=== PATIENT | male | born 1940 | race Caucasian/White ===

== ENCOUNTER 2020-07-20 11:53 | Outpatient (REF) | payer MEDICARE, SELFPAY | END 2020-07-20 11:54 | disposition home or self-care (01) | LOC: HO.LAB 11:53 | PROVIDERS: Visit Provider Internal Medicine | DX: Z20.828 Contact with and (suspected) exposure to other viral communicable diseases (principal) | CPT/HCPCS: 87635 ==

== ENCOUNTER 2020-07-28 14:40 | Outpatient (REF) | payer MEDICARE, SELFPAY | END 2020-07-28 14:41 | disposition home or self-care (01) | LOC: HO.LAB 14:40 | PROVIDERS: PCP Family Medicine; Visit Provider Internal Medicine | DX: Z20.828 Contact with and (suspected) exposure to other viral communicable diseases (principal) | CPT/HCPCS: 87635 ==

== ENCOUNTER 2020-08-11 13:20 | Emergency (ER) | payer MEDICARE, SELFPAY ==
[2020-08-11 13:55] VITALS: BP 123/56; PULSE 69; RESP 18; TEMP 37.2; O2SAT 95; BMI 24.6
--- NOTE | 2020-08-11 14:17 | US_ITS ---
EXAMINATION: US VENOUS ULTRASOUND WITH DOPPLER LOWER EXTREMITY, RIGHT CLINICAL INFORMATION: Right lower extremity swelling COMPARISON: None TECHNIQUE: Ultrasound of the deep veins is performed from the hip to the calf with compression sonography and color and pulse Doppler assessment. Spectral analysis with color-flow imaging is performed. FINDINGS: There is normal venous compression and respiratory variation and augmented flow. The visualized common femoral vein, superficial femoral vein, profunda femoral vein, popliteal vein, and the trifurcation region shows no evidence of deep venous thrombosis. There is a bilobed 6.9 x 3.6 x 3.8 cm popliteal fossa fluid collection connected by a thin neck. There is an additional, deeper fluid collection in the mid medial calf measuring 3.9 x 0.6 x 1.9 cm. If the patient's symptoms persist, followup ultrasound in 5 days 7 days might be of value to exclude proximal propagation from a non-visualized calf vein. US/US venous duplex LE RT IMPRESSION: No DVT demonstrated in the right lower extremity. Large popliteal fossa cyst. There is an additional deeper fluid collection in the mid medial calf, nonspecific. In the setting of trauma this could represent hematoma. Infection, i.e. abscess, could be considered in the appropriate clinical setting. Recommend correlation with history and physical exam. Consider attention on follow-up to confirm resolution.
--- NOTE | 2020-08-11 14:17 | XR_ITS ---
EXAMINATION: X-RAYS OF THE RIGHT ANKLE AND FOOT. CLINICAL INFORMATION: 80-year-old male patient with ankle and foot pain and swelling. COMPARISON: X-rays the right ankle on 05/05/2015. TECHNIQUE: 5 views of the right foot and ankle. FINDINGS: There is progressive calcification in the distal Achilles tendon insertion to the os calcis and progressive plantar calcaneal spur formation. Vascular calcifications are also present anterior and posterior to the ankle joint as well as within the dorsalis pedis artery. Progressive mineralization and calcification of the soft tissues within the tibialis tendon sheath. No fracture or dislocation. In addition there is chondrocalcinosis of the ankle joint. XR/XR foot RT 2V IMPRESSION: 1. 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 2. Progressive calcification of the plantar fascia. 3. Arterial vascular calcification in the foot and ankle. 4. Chondrocalcinosis of the ankle joint.
--- NOTE | 2020-08-11 14:17 | XR_ITS ---
EXAMINATION: X-RAYS OF THE RIGHT ANKLE AND FOOT. CLINICAL INFORMATION: 80-year-old male patient with ankle and foot pain and swelling. COMPARISON: X-rays the right ankle on 05/05/2015. TECHNIQUE: 5 views of the right foot and ankle. FINDINGS: There is progressive calcification in the distal Achilles tendon insertion to the os calcis and progressive plantar calcaneal spur formation. Vascular calcifications are also present anterior and posterior to the ankle joint as well as within the dorsalis pedis artery. Progressive mineralization and calcification of the soft tissues within the tibialis tendon sheath. No fracture or dislocation. In addition there is chondrocalcinosis of the ankle joint. XR/XR ankle RT min 3V IMPRESSION: 1. 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 2. Progressive calcification of the plantar fascia. 3. Arterial vascular calcification in the foot and ankle. 4. Chondrocalcinosis of the ankle joint.
[2020-08-11 15:18] VITALS: BP 133/55; PULSE 63; RESP 16; TEMP 36.6; O2SAT 96
--- NOTE | 2020-08-11 15:36 | ED_ITS ---
HPI - General Adult General Chief complaint: General Medical <FRIDA Bryson - Last Filed: 08/11/20 16:04> Stated complaint: R FOOT PAIN <FRIDA Bryson Last Filed: 08/11/20 16:04> Time Seen by Provider: 08/11/20 14:17 <RFIDA Bryson - Last Filed: 08/11/20 16:04> Source: patient <FRIDA Bryson Last Filed: 08/11/20 16:04> Mode of arrival: ambulatory <FRIDA Bryson - Last Filed: 08/11/20 16:04> History of Present Illness HPI narrative: 80-year-old male with a past medical history of diabetes presenting to the ED complaining of right foot/ankle swelling and pain since last night. Reports woke up with the symptoms, denies direct trauma/falls. Denies calf pain, recent travel, LE edema, SOB, fever, chills <FRIDA Bryson - Last Filed: 08/11/20 16:04> Onset (ago): day(s) <FRIDA Bryson - Last Filed: 08/11/20 16:04> Related Data Home medications: Previous Rx's Medication Instructions Recorded cephalexin [Keflex] 500 mg PO Q6H 7 Days #28 cap 08/11/20 <FRIDA Bryson Last Filed: 08/11/20 16:04> Allergies/adverse reactions: Allergies Allergy/AdvReac Type Severity Reaction Status Date / Time No Known Allergies Allergy Verified 08/11/20 13:58 <FRIDA Bryson - Last Filed: 08/11/20 16:04> Review of Systems Review of Systems: Constitutional: No Weight loss, No Fever, No Chills Cardiovascular: No Chest Pain, No SOB Respiratory: No Cough Musculoskeletal: +joint pain, No Myalgias, +joint Swelling Skin: No Skin Lesions, No rash Neuro: No Weakness, No Numbness, No Paresthesias <FRIDA Bryson Last Filed: 08/11/20 16:04> PMFSH Past Medical History Attestation statement: The following information was validated with the patient. <FRIDA Bryson Last Filed: 08/11/20 16:04> Source: old records reviewed and nursing notes reviewed <FRIDA Bryson - Last Filed: 08/11/20 16:04> Medical History: Medical History (Updated 08/12/20 @ 00:21 by Tremayne Eller) Diabetes <FRIDA Bryson - Last Filed: 08/11/20 16:04> Social History Social History: Social History Advance Directives: No Advance Directives Information Provided: No <FRIDA Bryson - Last Filed: 08/11/20 16:04> Physical Exam Vital Signs: Vital Signs: Last Vital Signs Temp 97.8 F 08/11/20 15:18 Pulse 63 08/11/20 15:18 Resp 16 08/11/20 15:18 BP 133/55 L 08/11/20 15:18 Pulse Ox 96 08/11/20 15:18 Body Mass Index 24.6 <FRIDA Bryson - Last Filed: 08/11/20 16:04> Vital Signs: Last Vital Signs Temp 97.8 F 08/11/20 15:18 Pulse 63 08/11/20 15:18 Resp 16 08/11/20 15:18 BP 133/55 L 08/11/20 15:18 Pulse Ox 96 08/11/20 15:18 Body Mass Index 24.6 <Stuart Vila MD - Last Filed: 08/14/20 02:41> Const: General: cooperative and healthy appearing <FRIDA Bryson - Last Filed: 08/11/20 16:04> Orientation/consciousness: patient oriented x3 <FRIDA Bryson - Last Filed: 08/11/20 16:04> Limitations: no limitations <FRIDA Bryson - Last Filed: 08/11/20 16:04> HENMT: Head: Yes normal to inspection <FRIDA Bryson - Last Filed: 08/11/20 16:04> Ears: hearing grossly normal bilaterally <FRIDA Bryson - Last Filed: 08/11/20 16:04> General nose exam: Normal external nose present <FRIDA Bryson - Last Filed: 08/11/20 16:04> Face and sinus: Yes normal facial exam <FRIDA Bryson - Last Filed: 08/11/20 16:04> Eyes: General: appearance normal, both eyes and all related structures <FRIDA Bryson - Last Filed: 08/11/20 16:04> EOM: EOMs intact bilaterally <FRIDA Bryson - Last Filed: 08/11/20 16:04> Neck: Neck: Yes normal visual inspection <FRIDA Bryson - Last Filed: 08/11/20 16:04> Chest: Chest palpation & inspection: normal inspection of the chest <FRIDA Bryson - Last Filed: 08/11/20 16:04> Resp: Effort & Inspection: normal respiratory effort <FRIDA Bryson - Last Filed: 08/11/20 16:04> Neuro: General: patient oriented x3 <FRIDA Bryson - Last Filed: 08/11/20 16:04> Gait exam (Neuro): Normal gait present <FRIDA Bryson - Last Filed: 08/11/20 16:04> Extrem: Other: Right ankle/foot with swelling and mild erythema extending to distal tib fib. + slightly warm. FROM/NV intact No calf tenderness <FRIDA Bryson - Last Filed: 08/11/20 16:04> Course Course Course Narrative: --venous duplex without evidence of DVT. There is an additional deeper fluid collection in the mid medial calf, nonspecific >> no appreciable external hematoma, abscess, fluctuance or induration --x-ray showing calcific tendinitis of the Achilles tendon and posterior tibialis tendon. 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 Patient was given paper script to bring to his pharmacy as pharmacy does not accept E- Scripts <FRIDA Bryson - Last Filed: 08/11/20 16:04> I have reviewed the chart <Stuart Vila MD - Last Filed: 08/14/20 02:41> Medical Decision Making MDM Narrative Medical decision making narrative: On exam VSS, NAD/well-appearing, concern for fracture/dislocation/sprain vs early cellulitis or DVT. No evidence abscess. Low concern for osteo or septic joint Plan: X-ray a, venous duplex <FRIDA Bryson - Last Filed: 08/11/20 16:04> Discharge Plan Discharge Clinical Impression: Cellulitis, Ankle joint pain <FRIDA Bryson - Last Filed: 08/11/20 16:04> Patient Disposition: Home, Self-Care <FRIDA Bryson Last Filed: 08/11/20 16:04> Instructions: Cellulitis (ED) <FRIDA Bryson - Last Filed: 08/11/20 16:04> Additional Instructions: Your x-rays showed age-related changes Your ultrasound was negative for DVT, however showed a nonspecific fluid collection in your medial calf You need a repeat ultrasound in 1-2 weeks to have this re-evaluated Keflex as an antibiotic, take as prescribed You should be re-evaluated by your doctor in 2 days If swelling, redness, or warmth worsens or persists, return to the ED sooner Josette radiograf?as mostraron cambios relacionados con la edad [place] ultrasonido fue negativo para TVP, sin embargo mostr? vernon acumulaci?n de l?qu airam inespec?fica en la parte media de la pantorrilla Necesita vernon ecograf?a repetida en 1-2 semanas para volver a evaluar esto Keflex adi antibi?johny, usha seg?n lo prescrito [place] m?dico debe volver a evaluarlo en 2 d?as. Si la hinchaz?n, el enrojecimiento o el calor empeoran o persisten, regrese al servicio de urgencias antes <FRIDA Bryson - Last Filed: 08/11/20 16:04> Prescriptions: New cephalexin [Keflex] 500 mg capsule 500 mg PO Q6H 7 Days Qty: 28 RF: 0 <FRIDA Bryson Last Filed: 08/11/20 16:04> Referrals: Melany Alejandre DO [Primary Care Provider] - 2 days <FRIDA Bryson Last Filed: 08/11/20 16:04> Interventions: ED Discharge Assessment Last Done: 08/11/20 16:06 <FRIDA Bryson Last Filed: 08/11/20 16:04> Discharge Date/Time: 08/11/20 16:07 <FRIDA Bryson Last Filed: 08/11/20 16:04> Print Language: Wallisian <Mariana Degroot PA - Last Filed: 08/11/20 16:04>
== END 2020-08-11 16:07 | disposition home or self-care (01) ==
PROVIDERS: Emergency Provider Emergency Medicine; PCP Family Medicine
DX: L03.115 Cellulitis of right lower limb (principal); R60.0 Localized edema; M79.671 Pain in right foot; Z79.899 Other long term (current) drug therapy
CPT/HCPCS: 73610; 73620; 93971; 99284

== ENCOUNTER 2020-08-19 12:39 | Outpatient (REF) | payer MEDICARE, SELFPAY ==
--- NOTE | 2020-08-19 | US_ITS ---
EXAMINATION: US VENOUS ULTRASOUND WITH DOPPLER LOWER EXTREMITY, RIGHT CLINICAL INFORMATION: Pain COMPARISON: Previous exam 08/11/2020 TECHNIQUE: Ultrasound of the deep veins is performed from the hip to the calf with compression sonography and color and pulse Doppler assessment. Spectral analysis with color-flow imaging is performed. FINDINGS: There is normal venous compression and respiratory variation and augmented flow. The visualized common femoral vein, superficial femoral vein, profunda femoral vein, popliteal vein, and the trifurcation region shows no evidence of deep venous thrombosis. There is a varicosity in the medial calf that demonstrates nonocclusive thrombus and limited compression suggestive of superficial thrombophlebitis. There is a complex Cronin's cyst measuring 5.3 x 1.4 x 5.2 cm. US/US venous duplex LE RT IMPRESSION: No evidence of DVT. Superficial thrombophlebitis in a varicosity in the medial calf. 5.3 x 1.45 5.2 cm Cronin's cyst.
== END 2020-08-19 12:40 | disposition home or self-care (01) ==
LOC: HO.HMGCX 12:39
PROVIDERS: PCP Family Medicine; Visit Provider Emergency Medicine
DX: M79.604 Pain in right leg (principal); R60.0 Localized edema
CPT/HCPCS: 93971

== ENCOUNTER 2020-10-08 12:33 | Outpatient (REF) | payer MEDICARE, SELFPAY | END 2020-10-08 12:34 | disposition home or self-care (01) | LOC: HO.LAB 12:33 | PROVIDERS: PCP Family Medicine; Visit Provider Internal Medicine | DX: Z20.828 Contact with and (suspected) exposure to other viral communicable diseases (principal) | CPT/HCPCS: 36415; C9803; U0003 ==

== ENCOUNTER → 2020-10-26 13:58 | Outpatient (BNVA) | payer MEDICARE, SELFPAY | PROVIDERS: PCP Family Medicine; Visit Provider Internal Medicine Cardiovascular Disease | DX: I25.10 Atherosclerotic heart disease of native coronary artery without angina pectoris (principal) | CPT/HCPCS: 93005; 99212 ==

== ENCOUNTER → 2021-02-02 11:24 | Outpatient (BNVA) | payer MEDICARE, SELFPAY | PROVIDERS: PCP Family Medicine; Visit Provider Nurse Practitioner Family | DX: G47.33 Obstructive sleep apnea (adult) (pediatric) (principal); G47.31 Primary central sleep apnea | CPT/HCPCS: 99212 ==

== ENCOUNTER 2021-09-06 13:28 | Outpatient (REF) | payer MEDICARE, SELFPAY ==
--- NOTE | ~2021-09-06 | XR_ITS ---
EXAMINATION: XR SHOULDER, RIGHT XR SHOULDER, LEFT CLINICAL INFORMATION: Pain COMPARISON: MRI 12/17/2018 TECHNIQUE: 4 views of each shoulder FINDINGS: Right shoulder: No fracture or dislocation. The glenohumeral joint is well aligned. Small marginal osteophytes are present. The acromioclavicular joint is intact with mild hypertrophic degenerative change. The visualized lung is clear. The visualized ribs are intact. Left shoulder: No fracture or dislocation. The glenohumeral joint is maintained. Small marginal osteophytes present. The acromioclavicular joint is intact with mild hypertrophic degenerative change. The visualized lung is clear. The visualized ribs are intact. Question prior healed scapular fracture. XR/XR shoulder RT min 2V IMPRESSION: Mild degenerative changes of both shoulders.
--- NOTE | ~2021-09-06 | XR_ITS ---
EXAMINATION: XR SHOULDER, RIGHT XR SHOULDER, LEFT CLINICAL INFORMATION: Pain COMPARISON: MRI 12/17/2018 TECHNIQUE: 4 views of each shoulder FINDINGS: Right shoulder: No fracture or dislocation. The glenohumeral joint is well aligned. Small marginal osteophytes are present. The acromioclavicular joint is intact with mild hypertrophic degenerative change. The visualized lung is clear. The visualized ribs are intact. Left shoulder: No fracture or dislocation. The glenohumeral joint is maintained. Small marginal osteophytes present. The acromioclavicular joint is intact with mild hypertrophic degenerative change. The visualized lung is clear. The visualized ribs are intact. Question prior healed scapular fracture. XR/XR shoulder LT min 2V IMPRESSION: Mild degenerative changes of both shoulders.
[2021-09-06 14:41] LABS: Alanine Aminotransferase 33 U/L (0-40); Albumin Level 3.9 g/dL (3.5-5.0); Alkaline Phosphatase 96 U/L (39-117); Anion Gap 10 (12-20); Aspartate Amino Transferase 28 U/L (5-37); Bilirubin Total 0.6 mg/dL (0.0-1.0); Blood Urea Nitrogen 35 mg/dL (9-16); Calcium 9.4 mg/dL (8.4-10.2); Carbon Dioxide 28 mmol/L (22-29); Chloride 106 mmol/L (96-108); Estimated Glomerular Filt Rate 48; Glucose Random 188 mg/dL (60-115); Potassium 4.8 mmol/L (3.3-5.1); Sodium 139 mmol/L (135-145); Total Protein 6.5 g/dL (6.5-8.0)
[2021-09-06 15:00] LABS: Thyroid Stimulating Hormone 1.84 uIU/mL (0.32-4.0)
[2021-09-06 15:16] LABS: Folate 9.3 ng/mL (> or = 4.0); Vitamin B12 308 pg/mL (200-900)
[2021-09-06 15:31] LABS: T4 Thyroxine 6.9 ug/dL (4.5-12.0)
== END 2021-09-06 13:29 | disposition home or self-care (01) ==
LOC: HO.LAB 13:28
PROVIDERS: Absent Provider Family Medicine; PCP Family Medicine; Visit Provider Psychiatry & Neurology Neurology
DX: M25.511 Pain in right shoulder (principal); M25.512 Pain in left shoulder; G31.84 Mild cognitive impairment of uncertain or unknown etiology
CPT/HCPCS: 36415; 73030; 80053; 82607; 82746; 84436; 84443

== ENCOUNTER 2021-09-07 12:41 | Outpatient (REF) | payer MEDICARE, SELFPAY ==
--- NOTE | ~2021-09-07 | MR_ITS ---
MRI OF THE BRAIN WITHOUT IV CONTRAST INDICATION: CEREBROVASCULAR DISEASE, OTHER AMNESIA COMPARISON: None. TECHNIQUE: Multiplanar multisequence MR imaging of the brain was obtained without IV contrast. FINDINGS: There is no hydrocephalus, extra-axial surface collection, or herniation. There is global cerebral volume loss, there is moderate chronic microangiopathy, and there are chronic lacunar infarcts within the deep gomez nuclei bilaterally. The major flow voids at the skull base are preserved. There is no acute infarct on diffusion-weighted imaging. There is no intracranial hemorrhage on the gradient recalled echo acquisition. The midline structures are normal. The cerebellar tonsils are normally positioned. The cerebellum and brainstem are normal. The craniocervical junction is normal. Osseous marrow signal intensity is homogenous. The visualized soft tissues are unremarkable. MR/MR head/brain wo con IMPRESSION: - There are no acute intracranial findings. No acute infarcts. 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
== END 2021-09-07 12:42 | disposition home or self-care (01) ==
LOC: HO.MRI 12:41
PROVIDERS: Visit Provider General Practice
DX: R41.3 Other amnesia (principal); I67.89 Other cerebrovascular disease
CPT/HCPCS: 70551

== ENCOUNTER 2021-09-29 15:06 | Outpatient (REF) | payer MEDICARE, SELFPAY ==
--- NOTE | ~2021-09-29 | CT_ITS ---
EXAMINATION: CT HEAD WITHOUT CONTRAST CLINICAL INFORMATION: Mild cognitive impairment with memory loss. COMPARISON: MRI brain 09/07/2021. TECHNIQUE: Contiguous axial imaging was performed from the skull base to vertex without intravenous administration of contrast. This CT examination was performed using dose optimization techniques as appropriate, variously including the following: *Automated exposure control *Adjustment of mA and/or kV according to patient size (this includes techniques or standardized protocols for targeted exams where dose is matched to indication/reason for exam; i.e. extremities or head) *Use of iterative reconstruction technique DLP: 880 mGy-cm FINDINGS: There is no evidence of acute intracranial hemorrhage or territorial infarction. No abnormal mass effect or midline shift is seen. There is a lacunar infarction right basal ganglia and bilateral central semiovale. Hand to white matter differentiation is well preserved. There is diffuse periventricular hypodensity in both cerebral hemispheres without mass effect. No extra-axial fluid collections are identified. The lateral ventricles are symmetrical but enlarged. There is no abnormal attenuation within the brain parenchyma. The osseous structures and soft tissues are normal. The mastoid air cells and visualized portions of the paranasal sinuses are well aerated. CT/CT head/brain wo con IMPRESSION: There is a lacunar infarction right basal ganglia and bilateral centrum semiovale. Chronic small vessel ischemic changes without mass effect in both cerebral hemispheres. Mild cerebral volume loss.
== END 2021-09-29 15:07 | disposition home or self-care (01) ==
LOC: HO.CT 15:06
PROVIDERS: Visit Provider Psychiatry & Neurology Neurology
DX: G31.84 Mild cognitive impairment of uncertain or unknown etiology (principal)
CPT/HCPCS: 70450

== ENCOUNTER → 2021-10-18 13:12 | Outpatient (BNVA) | payer MEDICARE, SELFPAY | PROVIDERS: PCP Family Medicine; Visit Provider Physician Assistant | DX: M19.011 Primary osteoarthritis, right shoulder (principal); M19.012 Primary osteoarthritis, left shoulder; M54.12 Radiculopathy, cervical region | CPT/HCPCS: 99202; J1020 ==

== ENCOUNTER → 2021-10-19 14:51 | Outpatient (BNVA) | payer OTHER, SELFPAY | PROVIDERS: PCP Family Medicine; Referring Provider Family Medicine; Visit Provider Nurse Practitioner | DX: R19.7 Diarrhea, unspecified (principal); R63.4 Abnormal weight loss; R10.13 Epigastric pain | CPT/HCPCS: 99202 ==

== ENCOUNTER 2021-10-22 10:02 | Outpatient (REF) | payer MEDICARE, SELFPAY ==
[2021-10-22 12:08] LABS: C Reactive Protein 0.04 mg/dL (< or = 0.50); Lipase 44 U/L (8-78)
[2021-10-25 12:46] LABS: Gliadin Deamidated IgA Ab <1.0 U/mL; Gliadin Deamidated IgG Ab <1.0 U/mL; Transglutaminase Ab IgG <1.0 U/mL; Transglutaminase IgA <1.0 U/mL
== END 2021-10-22 10:03 | disposition home or self-care (01) ==
LOC: HO.LAB 10:02
PROVIDERS: PCP Family Medicine; Visit Provider Nurse Practitioner
DX: R10.13 Epigastric pain (principal); R19.7 Diarrhea, unspecified; R63.4 Abnormal weight loss
CPT/HCPCS: 36415; 83690; 86003; 86140; 86258; 86364

== ENCOUNTER → 2021-10-25 12:56 | Outpatient (BNVA) | payer MEDICARE, SELFPAY | PROVIDERS: PCP Family Medicine; Visit Provider Physician Assistant | DX: M19.011 Primary osteoarthritis, right shoulder (principal); M19.012 Primary osteoarthritis, left shoulder; M54.12 Radiculopathy, cervical region; E11.9 Type 2 diabetes mellitus without complications | CPT/HCPCS: 99212; J1020 ==

== ENCOUNTER 2021-10-26 13:03 | Outpatient (REF) | payer MEDICARE, SELFPAY | END 2021-10-26 13:04 | disposition home or self-care (01) | LOC: HO.LNP 13:03 | PROVIDERS: Visit Provider Nurse Practitioner | DX: R19.7 Diarrhea, unspecified (principal); R63.4 Abnormal weight loss; R10.13 Epigastric pain | CPT/HCPCS: 87338 ==

== ENCOUNTER → 2021-11-15 12:40 | Outpatient (BNVA) | payer MEDICARE, SELFPAY | PROVIDERS: PCP Family Medicine; Referring Provider Family Medicine; Visit Provider Nurse Practitioner | DX: A04.8 Other specified bacterial intestinal infections (principal); R10.13 Epigastric pain; R19.7 Diarrhea, unspecified | CPT/HCPCS: 99212 ==

== ENCOUNTER 2021-12-01 14:36 | Emergency (ER) | payer MEDICARE, SELFPAY ==
--- NOTE | ~2021-12-01 | XR_ITS ---
EXAMINATION: XR FINGER, LEFT CLINICAL INFORMATION: Injury COMPARISON: None TECHNIQUE: 3 views of the left fourth finger. FINDINGS: Patient is status post amputation through the midshaft of the third proximal phalanx. There is also amputation of the second middle and distal phalanges. There appears to be old fracture of the second proximal phalanx. There is no evidence of acute fracture or dislocation of the left fourth finger. Soft tissue swelling is seen about the distal phalanx with soft tissue prominence about the dorsal aspect of the distal phalanx. There is some mild spurring seen about the mid and distal interphalangeal joints of the fourth and fifth fingers. There appears to be an old volar plate fracture involving the base of the fourth middle phalanx. XR/XR finger LT min 2V IMPRESSION: Soft tissue swelling without acute fracture or dislocation of the left fourth finger. Evidence for old volar plate fracture base of the fourth middle phalanx.
[2021-12-01 16:14] VITALS: BP 152/59; PULSE 60; RESP 18; TEMP 36.4; O2SAT 97; BMI 25.0
--- NOTE | 2021-12-01 17:14 | ED_ITS ---
HPI - Skin/Abscess/Foreign Bdy General Chief complaint: Skin/Abscess/Foreign Body Stated complaint: Finger tip is black/ diabetic Time Seen by Provider: 12/01/21 16:45 Source: patient Mode of arrival: ambulatory Limitations: no limitations History of Present Illness HPI narrative: Patient is a 81 year old male presenting to the emergency department today with an injury to his left 4th finger. Patient states that he crushed his left 4th finger in a car door 2 days ago. States that he was sent here to be evaluated by a home care nurse. Patient denies any other injuries from the incident. Patient denies any of loss of consciousness from the incident. Patient denies any dizziness, lightheadedness, abdominal pain, nausea, vomiting, fever, chills, blurry vision, double vision, loss of vision, chest pain, difficulty breathing, shortness of breath, back pain, night sweats, pain with urination, increased urinary frequency, increased urinary urgency, blood in his urine or stool, syncope or a near syncopal episode, recent trauma or falls, bowel incontinence, bladder incontinence, bowel retention, bladder retention, or any other complaints at this time. Related Data Home Medications Medication Instructions Recorded Confirmed aspirin 81 mg tablet,delayed 81 mg PO DAILY 10/26/20 02/02/21 release atorvastatin 80 mg tablet 80 mg PO DAILY 10/26/20 02/02/21 cholecalciferol (vitamin D3) 25 25 mcg PO DAILY 10/26/20 02/02/21 mcg (1,000 unit) capsule dulaglutide 1.5 mg/0.5 mL mg SUBCUT 10/26/20 02/02/21 subcutaneous pen injector finasteride 5 mg tablet 5 mg PO DAILY 10/26/20 02/02/21 gabapentin 300 mg capsule 300 mg PO DAILY cap 10/26/20 02/02/21 hydrochlorothiazide 25 mg tablet 25 mg PO DAILY 10/26/20 02/02/21 insulin aspart U-100 100 unit/mL unit SUBCUT 10/26/20 02/02/21 (3 mL) subcutaneous pen levothyroxine 25 mcg tablet 25 mcg PO DAILY 10/26/20 02/02/21 lisinopril 40 mg tablet 40 mg PO DAILY 10/26/20 02/02/21 metoprolol succinate 100 mg 100 mg PO DAILY 10/26/20 02/02/21 tablet,extended release 24 hr Previous Rx's Medication Instructions Recorded bismuth subsalicylate 262 mg 2 tab PO QID 14 Days #112 tab 10/28/21 chewable tablet (Bismuth) metronidazole 500 mg tablet 1,000 mg PO BID 14 Days #56 tab 10/28/21 tetracycline 500 mg capsule 1,000 mg PO Q12H 14 Days #56 cap 10/28/21 acetaminophen 500 mg tablet 500 mg PO Q6H PRN #10 tab 12/01/21 (Tylenol Extra Strength) Allergies Allergy/AdvReac Type Severity Reaction Status Date / Time No Known Allergies Allergy Verified 12/01/21 17:16 Review of Systems Constitutional: Constitutional: Reports no additional constitutional complaints, Denies chills, Denies fever(s) and Denies night sweats Eyes: Eyes: Reports no additional eye complaints, Denies blurry vision, Denies change in vision, Denies diplopia, Denies eye discharge, Denies loss of vision and Denies eye pain ENT: Denies dizziness Cardiovascular: Cardiovascular: Reports no additional cardiovascular complaints, Denies chest pain, Denies lightheadedness, Denies Loss of Consciousness and Denies dyspnea Respiratory: Respiratory: Reports no additional respiratory complaints and Denies dyspnea Gastrointestinal: Gastrointestinal: Reports no additional gastrointestinal complaints, Denies abdominal pain, Denies melena, Denies hematochezia, Denies change in bowel habits and Denies change in stool character Genitourinary: Genitourinary: Reports no additional male genitourinary compl aints, Denies hematuria, Denies oliguria, Denies difficulty urinating, Denies dysuria, Denies urinary frequency, Denies urinary hesitancy, Denies urinary incontinence and Denies urinary urgency Musculoskeletal: Musculoskeletal: Reports no additional musculoskeletal complaints, Denies numbness and Denies tingling Comments: left 4th finger pain Neurologic: Denies dizziness, Denies loss of vision, Denies numbness and Denies tingling Psychiatric: Psychiatric: Reports no additional psychiatric complaints Endocrine: Endocrine: Reports no additional endocrine complaints Hematologic/Lymphatic: Hematologic/Lymphatic: Reports no additional hematologic/lymphatic complaints Allergic/Immunologic: Allergic/Immunologic: Reports no additional allergic/immunologic complaints PMFSH Past Medical History Attestation statement: The following information was validated with the patient. Source: old records reviewed Medical History CAD (coronary artery disease) Diabetes Prostate cancer Surgical History History of back surgery Hx of appendectomy Hx of cardiac cath Hx of cataract removal with insertion of prosthetic lens Family History Family History Father No problems noted. Mother Uterine cancer Social History Social History Advance Directives: No Advance Directives Information Provided: No Physical Exam Vital Signs: Vital Signs: Last Vital Signs Temp 97.5 F 12/01/21 16:14 Pulse 60 12/01/21 16:14 Resp 18 12/01/21 16:14 BP 152/59 H 12/01/21 16:14 Pulse Ox 97 12/01/21 16:14 BMI result Body Mass Index 25.0 Const: General: cooperative, no acute distress, alert and awake Nutritional Appearance: well nourished Orientation/consciousness: patient oriented x3 Limitations: no limitations HENMT: Head: Yes normal to inspection and Yes atraumatic Ears: hearing grossly normal bilaterally and external ears normal General nose exam: Normal external nose present, no nasal discharge noted and no epistaxis Face and sinus: Yes normal facial exam, No abrasion and No laceration Mouth: Normal oral and palatal mucosa present, no drooling and no muffled voice Eyes: General: appearance normal, both eyes and all related structures Periorbital: periorbital findings normal Eyelids: Yes eyelids normal Conjunctivae: conjunctivae normal Pupils: Equal, round and reactive pupils present EOM: EOMs intact bilaterally Neck: Neck: Yes normal visual inspection, Yes full ROM and Yes no lymphadenopathy Chest: Chest palpation & inspection: normal inspection of the chest Resp: Effort & Inspection: normal respiratory effort and able to speak in complete sentences GI: Inspection: Yes normal to inspection Neuro: General: patient oriented x3 and moves all extremities Cranial nerves: Yes Equal, round and reactive pupils present Cognition (Neuro): normal cognition Motor exam (neuro): 5/5 motor strength present throughout Sensory Exam: Normal double simultaneous stimulation for sensation Coordinati on: [id number] test normal Extrem: Other: amputation of the 2nd and 3rd left finger from a previous injury. Small amount of bruising to the tip of the left 4th finger. Intact ROM and PMS to the upper right extremity. General: Yes normal to inspection, Yes full ROM and Yes capillary refill normal Psych: Appearance: grossly normal Mental Status: mental status grossly normal Affect: normal affect Attitude: cooperative Thought process: Normal thought process present Thought content: Normal thought content present Insight: Good insight present (Psych) MDM - Skin/Abscess/Foreign Bdy MDM Narrative Medical decision making narrative: Patient is an 81 year old male presenting to the emergency department today with left 4th finger pain. Patient's physical exam showed minimal bruising to the tip of the left 4th finger. Patient's left 4th finger x-ray showed no acute process. I explained my physical exam findings as well as all test results to the patient and the patient's son. I answered all questions asked by the patient and the patient's son. I stressed the importance of the patient taking his medication as prescribed. I stressed the importance of the patient following up with his primary care provider. I stressed the importance of the patient returning to the emergency department immediately if his symptoms were to worsen or if he were to develop any dizziness, shortness of breath, difficulty breathing, chest pain, blurry vision, loss of vision, nausea, vomiting, abdominal pain, fever, chills, back pain, or any other complaints. Patient and the patient's son verbalized agreement and understanding with this treatment plan and discharge. Differential Diagnosis Differential diagnosis: Likely cellulitis (fracture) Medical Records Attestation: I reviewed the patient's medical records. Imaging Data Left 4th finger x-ray: Attestation: I personally reviewed and interpreted this imaging study as follows: Radiologist's impression: EXAMINATION: XR FINGER, LEFT CLINICAL INFORMATION: Injury? COMPARISON: None? TECHNIQUE: 3 views of the left fourth finger. FINDINGS: Patient is status post amputation through the midshaft of the third proximal phalanx. There is also amputation of the second middle and distal phalanges. There appears to be old fracture of the second proximal phalanx. There is no evidence of acute fracture or dislocation of the left fourth finger. Soft tissue swelling is seen about the distal phalanx with soft tissue prominence about the dorsal aspect of the distal phalanx. There is some mild spurring seen about the mid and distal interphalangeal joints of the fourth and fifth fingers. There appears to be an old volar plate fracture involving the base of the fourth middle phalanx.? XR/XR finger LT min 2V IMPRESSION: Soft tissue swelling without acute fracture or dislocation of the left fourth finger. ? Evidence for old volar plate fracture base of the fourth middle phalanx. Dictated By: Zev Fontanez MD Signed By: Electronically signed by Zev Fontanez MD 12/01/21 2459 Discharge Plan Discharge Clinical Impression: Finger pain Patient Disposition: Home, Self-Care Instructions: Finger Sprain (ED) Additional Instructions: Follow up with your primary care provider. Return to the emergency department immediately if your symptoms worsen or if you develop any dizziness, shortness of breath, difficulty breathing, chest pain, blurry vision, loss of vision, nausea, vomiting, abdominal pain, fever, chills, back pain, or any other complaints. Prescriptions: New acetaminophen [Tylenol Extra Strength] 500 mg tablet 500 mg PO Q6H PRN (Reason: pain) Qty: 10 0RF No Action metronidazole 500 mg tablet 1,000 mg PO BID 14 Days Qty: 56 0RF bismuth subsalicylate [Bismuth] 262 mg tablet,chewable 2 tab PO QID 14 Days Qty: 112 0RF tetracycline 500 mg capsule 1,000 mg PO Q12H 14 Days Qty: 56 0RF Trulicity 1.5 mg/0.5 mL pen injector subcut 0RF levothyroxine 25 mcg tablet 25 mcg PO DAILY 0RF atorvastatin 80 mg tablet 80 mg PO DAILY 0RF metoprolol succinate 100 mg tablet extended release 24 hr 100 mg PO DAILY 0RF aspirin 81 mg tablet,delayed release (DR/EC) 81 mg PO DAILY 0RF gabapentin 300 mg capsule 300 mg PO DAILY 0RF hydrochlorothiazide 25 mg tablet 25 mg PO DAILY 0RF lisinopril 40 mg tablet 40 mg PO DAILY 0RF finasteride 5 mg tablet 5 mg PO DAILY 0RF cholecalciferol (vitamin D3) 25 mcg (1,000 unit) capsule 25 mcg PO DAILY 0RF insulin aspart U-100 100 unit/mL (3 mL) insulin pen subcut 0RF Referrals: Melany Alejandre DO [Primary Care Provider] - 2 days Interventions: ED Discharge Assessment Last Done: 12/01/21 18:01 Print Language: Nepali
--- NOTE | 2021-12-01 17:17 | PC.NURSE ---
PT HAS BRUSING ON LEFT 4TH FINGER FROM CLOSING IN CAR DOOR. PROVIDER AT BEDSIDE FOR EVAL.
== END 2021-12-01 18:02 | disposition home or self-care (01) ==
PROVIDERS: Emergency Provider Emergency Medicine; PCP Family Medicine
DX: M79.645 Pain in left finger(s) (principal)
CPT/HCPCS: 73140; 99283

== ENCOUNTER 2021-12-21 11:50 | Outpatient (REF) | payer MEDICARE, SELFPAY | END 2021-12-21 11:51 | disposition home or self-care (01) | LOC: HO.LNP 11:50 | PROVIDERS: PCP Nurse Practitioner; Visit Provider Nurse Practitioner | DX: A04.8 Other specified bacterial intestinal infections (principal) | CPT/HCPCS: 87338 ==

== ENCOUNTER 2021-12-22 08:34 | Outpatient (REF) | payer OTHER, SELFPAY ==
--- NOTE | ~2021-12-22 | US_ITS ---
EXAMINATION: US ABDOMEN COMPLETE CLINICAL INFORMATION: Diarrhea, epigastric pain. COMPARISON: None TECHNIQUE: Real-time imaging of the abdominal viscera. FINDINGS: PANCREAS: The head and body of the pancreas is homogeneous in echotexture. The tail is obscured by overlying gas. ABDOMINAL AORTA: The proximal, mid, and distal segments are normal in caliber. INFERIOR VENA CAVA: Visualized portions are normal. LIVER: The liver is normal in size. Coarse, echogenic texture. No focal hepatic lesion. There is no intrahepatic biliary duct dilatation seen. GALLBLADDER: Normal. The gallbladder is physiologically distended without evidence of stones, sludge, polyps, wall thickening or pericholecystic fluid. COMMON BILE DUCT: Normal in caliber measuring 0.5 cm in diameter. RIGHT KIDNEY: There is anechoic upper pole cyst measuring 1.2 x 1.1 x 1.1 cm. It is normal size and has lobulated contour. No hydronephrosis or renal calculi. The kidney measures 10.1 cm in maximum dimension. LEFT KIDNEY: There is an anechoic cyst lower pole measuring 2.3 x 2.0 x 2.1 cm. The kidney has lobulated contour. No hydronephrosis or renal calculi. The kidney measures 10.9 cm in maximum dimension. SPLEEN: Normal. The spleen measures 9.9 cm in maximum dimension. FREE FLUID: None. US/US abdomen complete IMPRESSION: Coarse echogenic liver without any focal lesion. Lobulated bilateral renal contour with bilateral renal cysts. No echogenic stones or hydronephrosis.
== END 2021-12-22 08:35 | disposition home or self-care (01) ==
LOC: HO.HMGCX 08:34
PROVIDERS: Visit Provider Nurse Practitioner
DX: R10.13 Epigastric pain (principal); R19.7 Diarrhea, unspecified; R63.4 Abnormal weight loss
CPT/HCPCS: 76700

== ENCOUNTER → 2022-02-08 22:01 | Outpatient (REF) | payer OTHER, SELFPAY | LOC: HO.SL 22:01 | PROVIDERS: Absent Provider Psychiatry & Neurology Neurology; PCP Family Medicine; Visit Provider Family Medicine | DX: G47.33 Obstructive sleep apnea (adult) (pediatric) (principal); R06.83 Snoring | CPT/HCPCS: 95811 ==

== ENCOUNTER → 2022-12-07 15:00 | Outpatient (BNVA) | payer OTHER, SELFPAY | PROVIDERS: PCP Family Medicine; Referring Provider Family Medicine; Visit Provider Internal Medicine Cardiovascular Disease | DX: I25.10 Atherosclerotic heart disease of native coronary artery without angina pectoris (principal); Z79.82 Long term (current) use of aspirin; Z79.899 Other long term (current) drug therapy | CPT/HCPCS: 93005; 99212 ==

== ENCOUNTER 2023-02-08 12:18 | Outpatient (REF) | payer OTHER, SELFPAY ==
--- NOTE | ~2023-02-08 | XR_ITS ---
EXAMINATION: XR RIBS, LEFT, with PA chest CLINICAL INFORMATION: Pain status-post injury. COMPARISON: Radiograph dated 09/26/2018; CT chest dated 10/12/2018.. TECHNIQUE: 4 views of the left ribs were obtained, together with a PA view of the chest. FINDINGS: Lungs are clear. No consolidation, pneumothorax, or pleural effusion. The cardiomediastinal silhouette and pulmonary vasculature are normal. A small benign, calcified left upper lobe granuloma is redemonstrated. There are subacute appearing left fifth through seventh rib fractures. These show mild periosteal callus formation, and faint residual fracture lines are noted. XR/XR ribs LT min 3V w CXR1V IMPRESSION: There are subacute appearing fractures of the left fifth through seventh ribs. Please correlate with clinical findings and patient history. No pleural effusion or pneumothorax is seen.
== END 2023-02-08 12:19 | disposition home or self-care (01) ==
LOC: HO.HHCX 12:18
PROVIDERS: Referring Provider Family Medicine; Visit Provider Family Medicine
DX: R07.81 Pleurodynia (principal)
CPT/HCPCS: 71101

== ENCOUNTER 2023-05-15 08:49 | Outpatient (REF) | payer OTHER, SELFPAY ==
[2023-05-15 12:24] LABS: Estimated Average Glucose 206 mg/dL; Hemoglobin A1c % 8.8 %
[2023-05-15 12:48] LABS: Anion Gap 10 (12-20); Blood Urea Nitrogen 40 mg/dL (9-16); Calcium 9.6 mg/dL (8.4-10.2); Carbon Dioxide 26 mmol/L (22-29); Chloride 108 mmol/L (96-108); Estimated Glomerular Filt Rate 46; Glucose Random 156 mg/dL (60-115); Potassium 4.4 mmol/L (3.3-5.1); Sodium 140 mmol/L (135-145)
== END 2023-05-15 08:50 | disposition home or self-care (01) ==
LOC: HO.HHCL 08:49
PROVIDERS: Visit Provider Family Medicine
DX: E11.29 Type 2 diabetes mellitus with other diabetic kidney complication (principal); R50.9 Fever, unspecified; Z79.4 Long term (current) use of insulin
CPT/HCPCS: 36415; 80048; 83036

== ENCOUNTER 2023-06-20 09:46 | Outpatient (REF) | payer OTHER, SELFPAY ==
--- NOTE | ~2023-06-20 | XR_ITS ---
EXAMINATION: XR RIGHT ANKLE, RIGHT FOOT CLINICAL INFORMATION: Right foot drop, new COMPARISON: None TECHNIQUE: 3 views of the right foot. 2 views of the right ankle. FINDINGS: The bones are diffusely demineralized. Vascular calcifications. Extensive dorsal calcaneal calcifications and along the region of the Achilles tendon insertion. Plantar calcaneal calcifications. Moderate degenerative changes first metatarsophalangeal joint. Abundant calcification adjacent to the first MTP joint, particularly along the lateral aspect. XR/XR ankle RT min 3V IMPRESSION: Extensive dorsal calcaneal calcifications and along the region of the Achilles tendon insertion. Plantar calcaneal calcifications. Degenerative changes first MTP joint with adjacent soft tissue calcifications. The bones are diffusely demineralized. No displaced fracture. Recommend follow-up imaging in 10-14 days if fracture is suspected.
--- NOTE | ~2023-06-20 | XR_ITS ---
EXAMINATION: XR RIGHT ANKLE, RIGHT FOOT CLINICAL INFORMATION: Right foot drop, new COMPARISON: None TECHNIQUE: 3 views of the right foot. 2 views of the right ankle. FINDINGS: The bones are diffusely demineralized. Vascular calcifications. Extensive dorsal calcaneal calcifications and along the region of the Achilles tendon insertion. Plantar calcaneal calcifications. Moderate degenerative changes first metatarsophalangeal joint. Abundant calcification adjacent to the first MTP joint, particularly along the lateral aspect. XR/XR foot RT 2V IMPRESSION: Extensive dorsal calcaneal calcifications and along the region of the Achilles tendon insertion. Plantar calcaneal calcifications. Degenerative changes first MTP joint with adjacent soft tissue calcifications. The bones are diffusely demineralized. No displaced fracture. Recommend follow-up imaging in 10-14 days if fracture is suspected.
== END 2023-06-20 09:47 | disposition home or self-care (01) ==
LOC: HO.XRAY 09:46
PROVIDERS: PCP Family Medicine; Visit Provider Family Medicine
DX: M21.371 Foot drop, right foot (principal)
CPT/HCPCS: 73610; 73620

== ENCOUNTER 2023-06-21 08:12 | Outpatient (REF) | payer OTHER, SELFPAY ==
--- NOTE | 2023-06-21 08:19 | EMG_ITS ---
Please see scanned EMG / Nerve Conduction Report. MTDD
== END 2023-06-21 08:13 | disposition home or self-care (01) ==
LOC: HO.NEURO 08:12
PROVIDERS: PCP Family Medicine; Visit Provider Family Medicine
DX: M21.371 Foot drop, right foot (principal)
CPT/HCPCS: 95885; 95909

== ENCOUNTER 2023-07-03 12:43 | Outpatient (REF) | payer OTHER, SELFPAY ==
--- NOTE | ~2023-07-03 | US_ITS ---
EXAMINATION: US THYROID CLINICAL INFORMATION: Multiple nodules for followup. COMPARISON: Ultrasound thyroid 07/16/2019 and 12/26/2018. TECHNIQUE: Linear transducer gomez-scale and color Doppler examination with attention to the region of the thyroid. FINDINGS: SIZE: Measurements of the thyroid lobes and nodules are given in sagittal, anteroposterior and transverse dimensions respectively. Right Thyroid Lobe: 4.4 x 2.3 x 1.3 cm, volume 6.6 mL. Previously 4.3 x 2.4 x 1.5 cm, volume 7.9 mL. Parenchyma: The gland echotexture is homogeneous. Thyroid vascularity is normal. Left Thyroid Lobe: 4.5 x 1.2 x 1.1 cm, volume 3.2 mL. Previously 3.5 x 2.0 x 1.0 cm, volume 3.5 mL. Parenchyma: The gland echotexture is homogeneous. Thyroid vascularity is normal. Isthmus: 0.4 cm in maximum AP dimension. Previously 0.5 cm. Estimated total number of nodules greater than or equal to 1 cm: 1. [employer] Efficiency Specialist nodules are described as follows: 1. Location: Right inferior. Size: 0.9 x 0.8 x 1.0 cm, volume 0.4 mL. Previously: 1.4 x 0.9 x 0.7 cm, volume 0.5 mL. Nodule characteristics: Composition: Solid (2). Echogenicity: Isoechoic (1). Shape: Not taller than wide (0). Margins: Smooth (0). Echogenic Foci: None (0). ACR TI-RADS total points: 3 ACR TI-RADS category: 3 Significant change in size (>/= 20% in 2 dimensions and minimal increase of 2 mm or 50% or greater increase in volume): No Change in features: No Change in ACR TI-RADS risk category: No 2. Location: Right mid. Size: 0.7 x 0.4 x 0.5 cm, volume 0.06 mL. Previously: 0.6 x 0.3 x 0.5 cm, volume 0.05 mL. Nodule characteristics: Composition: Solid/almost completely solid (2). Echogenicity: Hyperechoic (1). Shape: Not taller than wide (0). Margins: Smooth (0). Echogenic Foci: None (0). ACR TI-RADS total points: 3 ACR TI-RADS category: 3 Significant change in size (>/= 20% in 2 dimensions and minimal increase of 2 mm or 50% or greater increase in volume): No Change in features: No Change in ACR TI-RADS risk category: No 3. Location: Left inferior/mid. Size: 0.4 x 0.4 x 0.4 cm, volume 0.04 mL. Previously: 0.7 x 0.5 x 0.3 cm, volume 0.05 mL. Nodule characteristics: Composition: Solid (2). Echogenicity: Isoechoic (1). Shape: Not taller than wide (0). Margins: Smooth (0). Echogenic Foci: None (0). ACR TI-RADS total points: 3 ACR TI-RADS category: 3 Significant change in size (>/= 20% in 2 dimensions and minimal increase of 2 mm or 50% or greater increase in volume): No Change in features: No Change in ACR TI-RADS risk category: No 4. Location: Left mid. Size: 0.2 x 0.2 x 0.3 cm, volume 0.005 mL. Previously: 0.2 x 0.2 x 0.2 cm, volume 0.004 mL. Nodule characteristics: Composition: Solid (2). Echogenicity: Hypoechoic (2). Shape: Not taller than wide (0). Margins: Smooth (0). Echogenic Foci: None (0). ACR TI-RADS total points: 4 ACR TI-RADS category: 4 Significant change in size (>/= 20% in 2 dimensions and minimal increase of 2 mm or 50% or greater increase in volume): No Change in features: No Change in ACR TI-RADS risk category: No 5. Location: Left/isthmus mid. Size: 0.3 x 0.3 x 0.4 cm, volume 0.02 mL. Previously: Not documented on the previous study. Nodule characteristics: Composition: Spongiform (0). Echogenicity: Anechoic (0). Shape: Not taller than wide (0). Margins: Smooth (0). Echogenic Foci: None (0). ACR TI-RADS total points: 0 ACR TI-RADS category: 1 NODES: No lymphadenopathy is seen in the tissue surrounding the thyroid gland. US/US thyroid IMPRESSION: Stable thyroid nodules. No FNA or follow up imaging is recommended as per ACR TI-RADS. ACR TI-RADS RECOMMENDATION REFERENCE: Ultrasound-guided fine-needle aspiration, follow up ultrasound, no further followup. * TR1 (0 point) and TR2 (2 points): No FNA or followup * TR3 (3 points): FNA if more than or equal to 2.5 cm in maximum dimension, follow up ultrasound in 1, 3 and 5 years if 1.5 to 2.4 cm in maximum dimension. * TR4 (4-6 points): FNA if more than or equal to 1.5 cm in maximum dimension, follow up ultrasound in 1, 2, 3 and 5 years if 1 to 1.4 cm in maximum dimension. * TR5 (more than or equal to 7 points): FNA if more than or equal to 1 cm in maximum dimension, follow up ultrasound every year for 5 years if 0.5 to 0.9 cm in maximum dimension. * TR3, TR4 or TR5 nodules that are below the size threshold for follow up receive no followup.
== END 2023-07-03 12:44 | disposition home or self-care (01) ==
LOC: HO.US 12:43
PROVIDERS: PCP Family Medicine; Visit Provider Family Medicine
DX: E04.1 Nontoxic single thyroid nodule (principal)
CPT/HCPCS: 76536

== ENCOUNTER 2023-08-30 10:00 | Outpatient (RCR) | payer OTHER, SELFPAY | END 2023-09-28 08:27 | disposition home or self-care (01) | LOC: HO.PTCHIC 10:00 | PROVIDERS: PCP Family Medicine; Visit Provider Family Medicine | DX: M21.371 Foot drop, right foot (principal) | CPT/HCPCS: 97110; 97162 ==

== ENCOUNTER 2023-08-31 10:04 | Outpatient (REF) | payer OTHER, SELFPAY ==
--- NOTE | ~2023-08-31 | MR_ITS ---
EXAMINATION: MR LUMBAR SPINE WITHOUT CONTRAST CLINICAL INFORMATION: Right foot drop COMPARISON: Lumbar radiographs 09/13/2018 TECHNIQUE: MRI of the lumbar spine was obtained using routine sequences without the administration of intravenous contrast. FINDINGS: Please note patient was rescanned obtained between sagittal T2 and sagittal T1/STIR sequences and there is misalignment. This examination assumes the presence of 5 lumbar-type bodies. The normal lumbar lordosis is preserved. There is redemonstrated 1 anterolisthesis at L5-S1. Trace retrolisthesis of L1-L2 and L2-L3. Lumbar vertebral body heights portions of the examination are obscured by susceptibility artifact. No expansile or destructive osseous lesion in the visualized aspects of the lumbar spine. The conus medullaris is normal in signal intensity and terminates at the level of L1. The visualized cauda equina nerve roots are within normal limits. There has been posterior spinal fusion at L5-S2. Susceptibility artifact degrades locoregional evaluation. T10-T11: Disc bulge and facet arthropathy with at least mild spinal canal stenosis is suboptimally evaluated on this examination. The neural foramen are not significantly narrowed. T12-L1: No significant spinal canal or neural foraminal stenosis. L1-L2: Retrolisthesis and a disc bulge with right foraminal disc protrusion. The spinal canal is not significantly narrowed. Mild narrowing of the right neural foramen. L2-L3: Disc bulge with small bilateral foraminal disc protrusions. The spinal canal is not significantly narrowed. Mild narrowing of the neural foramen. L3-L4: Disc bulge. The spinal canal is patent. Likely mild narrowing of the right neural foramen. L4-L5: Obscured. L5-S1: Obscured. Partially visualized, incompletely characterized left renal cystic lesion on localizer images. MR/MR lumbar spine wo con IMPRESSION: Posterior fusion at L5-S2 with stable grade 1 anterolisthesis of L5-S1. L4-L5 and L5-S1 are obscured by associated susceptibility artifact. Mild degenerative changes of the remaining lumbar spine as described above without significant spinal canal or neural foraminal stenosis.
--- NOTE | ~2023-08-31 | MR_ITS ---
EXAMINATION: MR BRAIN WITHOUT CONTRAST CLINICAL INFORMATION: Memory loss. COMPARISON: Brain MRI from 09/07/2021. CT head from 09/29/2021. TECHNIQUE: MRI of the brain was obtained using routine sequences without contrast. FINDINGS: No focal restricted diffusion is demonstrated to suggest acute or subacute cerebral ischemia. No evidence of acute or chronic hemorrhagic products on heme-sensitive imaging. 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 Scattered and partially confluent periventricular, deep white matter, and brainstem T2 FLAIR hyperintensities consistent with moderate underlying microangiopathy. Proportional prominence of the ventricles and sulcal spaces without evidence of obstructive hydrocephalus. No abnormal mass effect. No midline shift. Normal appearance of the pituitary gland. Normal positioning of the cerebellar tonsils. Normal arterial and venous vascular flow voids are present. Normal, homogeneous marrow signal. Mild mucosal thickening of the paranasal sinuses. Mild rightward nasal septal deviation. No signal abnormalities within the mastoids. Bilateral lens extractions. MR/MR head/brain wo con IMPRESSION: 1. No acute intracranial abnormalities. 2. Moderate underlying microangiopathy and generalized cerebral volume loss. 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
== END 2023-08-31 10:05 | disposition home or self-care (01) ==
LOC: HO.MRI 10:04
PROVIDERS: PCP Family Medicine; Visit Provider Family Medicine
DX: M21.371 Foot drop, right foot (principal); R41.3 Other amnesia
CPT/HCPCS: 70551; 72148

== ENCOUNTER 2023-09-28 13:28 | Outpatient (REF) | payer OTHER, SELFPAY | END 2023-09-28 13:29 | disposition home or self-care (01) | LOC: HO.XRAY 13:28 | PROVIDERS: Absent Provider Family Medicine; PCP Family Medicine; Visit Provider General Practice | DX: S60.221A Contusion of right hand, initial encounter (principal); R22.9 Localized swelling, mass and lump, unspecified; W10.1XXA Fall (on)(from) sidewalk curb, initial encounter; Y93.9 Activity, unspecified; Y92.9 Unspecified place or not applicable; Y99.9 Unspecified external cause status | CPT/HCPCS: 71101; 73130 ==

== ENCOUNTER 2023-10-26 11:22 | Outpatient (REF) | payer OTHER, SELFPAY ==
[2023-10-26 13:54] LABS: Hematocrit 35.7 % (42.0-52.0); Hemoglobin 11.5 g/dl (14.0-18.0); Mean Corpuscular HGB Conc 32.2 g/dl (31.0-36.0); Mean Corpuscular Hemoglobin 29.1 pg (27.0-33.0); Mean Corpuscular Volume 90.4 fL (80.0-98.0); Mean Platelet Volume 11.9 fL (9.4-12.4); Platelet Count 194 X10*3/uL (160-400); Red Blood Count 3.95 X10*6/uL (4.60-5.80); Red Cell Distribution Width 13.4 % (11.0-16.0); White Blood Count 5.9 X10*3/uL (4.8-10.8)
[2023-10-26 14:14] LABS: Estimated Average Glucose 180 mg/dL; Hemoglobin A1c % 7.9 % (<6.0)
[2023-10-26 14:30] LABS: Alanine Aminotransferase 25 U/L (0-40); Albumin Level 3.8 g/dL (3.5-5.0); Alkaline Phosphatase 94 U/L (39-117); Anion Gap 12 (12-20); Aspartate Amino Transferase 27 U/L (5-37); Bilirubin Direct 0.2 mg/dL (0.0-0.5); Bilirubin Total 0.5 mg/dL (0.0-1.0); Blood Urea Nitrogen 35 mg/dL (9-16); Calcium 9.3 mg/dL (8.4-10.2); Carbon Dioxide 27 mmol/L (22-29); Chloride 106 mmol/L (96-108); Cholesterol 130 mg/dL (<200); Estimated Glomerular Filt Rate 55; Glucose Random 138 mg/dL (60-115); HDL Cholesterol 37 mg/dL (>40); Iron 34 mcg/dL (45-160); LDL Cholesterol Calculated 69 mg/dL (<100); Percent Iron Saturation 16 % (15-50); Potassium 4.2 mmol/L (3.3-5.1); Sodium 141 mmol/L (135-145); Total Iron Binding Capacity 211 mcg/dL (228-428); Total Protein 6.7 g/dL (6.5-8.0); Triglycerides 121 mg/dL (<150); Unsaturated Iron Binding 177 ug/dL
[2023-10-26 14:50] LABS: Ferritin 112 ng/mL (20-250); Free T4 (Free Thyroxine) 0.79 ng/dL (0.71-1.85); Thyroid Stimulating Hormone 1.88 uIU/mL (0.32-4.0)
[2023-10-26 14:53] LABS: Folate 9.3 ng/mL (> or = 4.0); Vitamin B12 469 pg/mL (200-900)
[2023-10-26 15:42] LABS: Microalbum/Creatinine Ratio Ur 30.2 ug/mg cr (<30)
== END 2023-10-26 11:23 | disposition home or self-care (01) ==
LOC: HO.HHCL 11:22
PROVIDERS: Visit Provider Family Medicine
DX: E11.29 Type 2 diabetes mellitus with other diabetic kidney complication (principal); R80.9 Proteinuria, unspecified; I10 Essential (primary) hypertension; E78.49 Other hyperlipidemia; D64.9 Anemia, unspecified; Z79.4 Long term (current) use of insulin
CPT/HCPCS: 36415; 80048; 80061; 80076; 82043; 82306; 82570; 82607; 82728; 82746; 83036; 83540; 84439; 84443; 85027

== ENCOUNTER → 2023-11-01 19:30 | Outpatient (REF) | payer OTHER, SELFPAY | LOC: HO.SL 19:30 | PROVIDERS: PCP Family Medicine; Visit Provider Family Medicine | DX: Z13.89 Encounter for screening for other disorder (principal) ==

== ENCOUNTER 2024-08-01 11:52 | Outpatient (AMB) | payer OTHER, SELFPAY ==
--- NOTE | 2024-08-01 11:58 | A.OFFVIS_ITS ---
Vital Signs 08/01/24 12:00 Height 5 ft 8 in Weight 164 lb 7.437 oz BMI 25.0 BP 137/65 Blood Pressure Location Rt brachial Position Sitting Pulse 52 Intake Visit Reasons: discuss colonoscopy Intake Note: Simone presents to in office today to discuss colonoscopy. CC: Patient reports doing well and denies having any GI concerns today. Wafer Polishing Worker Required: Yes Wafer Polishing Worker Name: daughter Accompanied by: Self / Same As Patient Allergies No Known Allergies Allergy (Verified 09/10/24 19:28) HPI HPI discuss colonoscopy: Details: Assessment & Plan (1) H. pylori infection: ?Code(s): A04.8 - Other specified bacterial intestinal infections ?Plan: Angolan #dtr translates per pt request Quadruple therapy was sent in response the H pylori 10/28/2021. His daughter is with him today, but now he is doing amazingly better! HE received the abx and since completing them his appetite has incrased and his post prandial diarrhea has ceased. His energy is better. ? HP stool test 3 weeks. ROV 5 weeks. (2) Epigastric pain: ?Comment: Resolved after treating H pylori infection ?Code(s): R10.13 - Epigastric pain (3) Diarrhea: ?Comment: Resolved after treating H pylori infection ?Code(s): R19.7 - Diarrhea, unspecified ? ? ? Orders: Orders H pylori Ag Stool 12/06/21 A04.8 - Other specified bacteri al intestinal infections ? PMX PEGGY Diabetes Hypertension High cholesterol Coronary artery disease Vascular dementia Diabetic polyneuropathy History of prostate cancer * SURGICAL HISTORY Appendectomy Cardiac catheterization Back surgery Cataract surgery * ALLERGIES: NKDA Laboratory Tests 12/21/21 10/26/23 04:30 11:26 WBC 5.9 Hgb 11.5 L Hct 35.7 L MCV 90.4 MCH 29.1 Plt Count 194 Estimated GFR 55 Hemoglobin A1c % 7.9 H Total Bilirubin 0.5 Direct Bilirubin 0.2 AST 27 ALT 25 Alkaline Phosphatase 94 Stool H. pylori Ag negative TODAY'S VISIT [place] #dtr translates pe pt request Pt has been lost to follow up since 11/2021, he is here today to discuss a colonoscopy. He had a recent positive Cologuard test that his primary care provider. He has had intermittent episodes of RB on the TT that is brief and resolves, but he has a + Cologuard. HE has PEGGY and cardiac disease that is well controlled. NO anes or sed problems NO ID problems No known FHX of Crc or polyps, his last scope was in 2009 and was negative. [facility] Medical History Hyperglycemia due to type 2 diabetes mellitus Effusion of left knee Diarrhea Epigastric pain H. pylori infection Prostate cancer CAD (coronary artery disease) Diabetes Surgical History Hx of cataract removal with insertion of prosthetic lens History of back surgery Hx of appendectomy Hx of cardiac cath Family History Father No problems noted. Mother Uterine cancer Social History Household Members: Unknown / Unable to assess Household Members Other:: pt is very confused, AxOX1 Housing: Unknown / Unable to assess Patient Tobacco Use Status: Never used Tobacco service: No Review of Systems Const Denies fatigue, Denies fever(s), Denies night sweats, Denies poor appetite and Denies weight loss ENT Reports Normal hearing present, Denies dental pain, Denies dysphagia, Denies hearing loss, Denies mouth pain, Denies odynophagia, Denies throat swelling, Denies tongue swelling and Reports other (Dentition adequate) Card Reports no additional complaints Resp Reports no additional complaints GI Details: Denies abdominal pain, Denies melena, Denies bloating, Reports hematochezia, Denies constipation, Denies GI cramping, Denies dysphagia, Denies excessive flatus, Denies early satiety, Denies heartburn, Denies diarrhea, Denies nausea, Denies odynophagia, Denies vomiting and Denies hematemesis Skin/Breast Denies pruritus, Denies lesions, Denies rash and Denies jaundice Neuro Reports Normal hearing present, Denies Abnormal speech present and Reports memory loss Psych Reports memory loss Endo Denies fatigue Aller/Immun Denies throat swelling and Denies tongue swelling Physical Exam Vital Signs: Last Vital Signs Pulse 52 08/01/24 12:00 BP 137/65 08/01/24 12:00 BMI result Body Mass Index 25.0 Const General: cooperative, no acute distress, well developed and well groomed Nutritional Appearance: well nourished and overweight Orientation/consciousness: oriented to person, oriented to place and oriented to time Limitations: language barrier and other limitations HEENT Head: Yes normocephalic and Yes atraumatic Eyes General: appearance normal, both eyes and all related structures Pupils: Equal, round and reactive pupils present Neck Neck: Yes normal visual inspection and Yes no lymphadenopathy Thyroid: Thyroid normal Resp Effort & Inspection: normal respiratory effort and able to speak in complete sentences Auscultation: clear to auscultation bilaterally Cardio Rate: regular rate Rhythm: regular rhythm Heart sounds: Normal, physiologic split S2 sound present Peripheral pulses: radial pulses present and posterior tibial pulses present GI Inspection: No distended, No Abdominal panniculus present and Yes obesity Palpation (GI): Soft to palpation, nontender, no guarding, not rigid and No hepatosplenomegaly present Percussion: Yes normal to percussion Auscultation: normal bowel sounds Rectal Exam - Male: Yes deferred Skin General skin exam: no rashes or lesions noted, turgor normal, skin not dry, no jaundice, No spider nevi and no striae Rashes: no rashes Nails: normal Neuro General: oriented to person, oriented to place and oriented to time Cranial nerves: Yes Equal, round and reactive pupils present and Yes Normal hearing present Speech: No Abnormal speech present Extrem Other: bruising on arms, missing 2 fingers on left hand index and middle finger General: No clubbing, No cyanosis and No edema Psych Appearance: grossly normal and well kempt Mental Status: mental status grossly normal Speech and movement: Normal speech and movement present Affect: normal affect Attitude: cooperative Thought process: Normal thought process present and not confabulating Thought content: Normal thought content present Insight: Poor insight present (Psych) Judgement: Poor judgement present (Psych) Assessment & Plan Assessment & Plan (1) Pre-op examination: Code(s): Z01.818 - Encounter for other preprocedural examination Category: Medical (2) Obstructive sleep apnea: Code(s): G47.33 - Obstructive sleep apnea (adult) (pediatric) Category: Medical (3) Hard of hearing: Code(s): H91.90 - Unspecified hearing loss, unspecified ear Category: Medical (4) Vascular dementia: Code(s): F01.50 - Vascular dementia, unspecified severity, without behavioral disturbance, psychotic disturbance, mood disturbance, and anxiety Category: Medical (5) Positive colorectal cancer screening using Cologuard test: Code(s): R19.5 - Other fecal abnormalities Category: Medical Plan [place] #dtr translates pe pt request Pt has been lost to follow up since 11/2021, he is here today to discuss a colonoscopy. He had a recent positive Cologuard test that his primary care provider. He has had intermittent episodes of RB on the TT that is brief and resolves, but he has a + Cologuard. HE has PEGGY and cardiac disease that is well controlled. NO anes or sed problems NO ID problems No known FHX of Crc or polyps, his last scope was in 2009 and was negative. Orders: Orders Colonoscopy - GI Use Only 08/01/24 Z01.818 - Encounter for other preprocedural examination Medications: New bisacodyl (Dulcolax (bisacodyl)) 10 mg (2 x 5 mg) PO BEDTIME 4 tabs 0RF 2 days polyethylene glycol 3350 (Miralax) 238 grams PO ONCE 238 grams 0RF colonoscopy prep 1 day Coding Level of Care Code Est Pt Level 4 (75997) Diagnoses Pre-op examination Z01.818 Obstructive sleep apnea G47.33 Hard of hearing H91.90 Vascular dementia F01.50 Positive colorectal cancer screening using Cologuard test R19.5
[2024-08-01 12:00] VITALS: BP 137/65; PULSE 52; BMI 25.0
== END 2024-08-01 12:42 | disposition home or self-care (01) ==
LOC: HO.HGI 11:53
PROVIDERS: PCP Family Medicine; Visit Provider Nurse Practitioner
DX: Z01.818 Encounter for other preprocedural examination (principal); Z12.11 Encounter for screening for malignant neoplasm of colon; R19.5 Other fecal abnormalities
CPT/HCPCS: 99024

== ENCOUNTER → 2024-08-01 11:52 | Outpatient (BNVA) | payer OTHER, SELFPAY | PROVIDERS: PCP Family Medicine; Visit Provider Nurse Practitioner | DX: Z01.818 Encounter for other preprocedural examination (principal); R10.13 Epigastric pain; R19.5 Other fecal abnormalities; R19.7 Diarrhea, unspecified; G47.33 Obstructive sleep apnea (adult) (pediatric); F01.50 Vascular dementia, unspecified severity, without behavioral disturbance, psychotic disturbance, mood disturbance, and anxiety | CPT/HCPCS: 99212 ==

== ENCOUNTER 2024-08-26 09:20 | Emergency (ER) | payer OTHER, SELFPAY ==
--- NOTE | ~2024-08-26 | CT_ITS ---
EXAMINATION: CT HEAD WITHOUT CONTRAST CT CERVICAL SPINE WITHOUT CONTRAST CLINICAL INFORMATION: Fall. Unknown head strike. COMPARISON: Head CT dated September 29, 2021. No prior CT scan of the cervical spine. TECHNIQUE: CT of the head and cervical spine were performed without intravenous contrast. Multiplanar reformats were rendered and reviewed. This CT examination was performed using dose optimization techniques as appropriate, variously including the following: *Automated exposure control *Adjustment of mA and/or kV according to patient size (this includes techniques or standardized protocols for targeted exams where dose is matched to indication/reason for exam; i.e. extremities or head) *Use of iterative reconstruction technique DLP: 1147 mGy-cm. FINDINGS: CT head: No intracranial hemorrhage, large infarction, or mass lesion is seen. Diffuse, age-appropriate cortical atrophy and chronic bilateral periventricular white matter ischemic change. Lacunar infarcts involving the left thalamus, bilateral basal ganglia, and right caudate head, not significant changed compared with 2020. No extra-axial collection is appreciated. The ventricles are normal in size and configuration without evidence of hydrocephalus. The visualized paranasal sinuses and mastoid air cells are clear. Bilateral lens extractions. CT cervical spine: The vertebral body heights appear maintained. No cervical spine fracture is seen. Moderate to severe disc space narrowing most notable at C5-C7. Approximately 0.2 cm posterior subluxation of C5 on C6. Approximately 0.2 cm anterior subluxation of C4 on C5 and C7 on T1. The paraspinal soft tissues appear within normal limits. The partially imaged lung apices appear clear. Subcentimeter right lower pole thyroid nodule for which no further dedicated follow-up imaging as indicated. Mild calcification of the carotid bulbs. CT/CT cervical spine wo IV con IMPRESSION: CT head: No acute intracranial finding. CT cervical spine: No cervical spine fracture or traumatic malalignment identified. Electronically signed by: Clarence Fregoso MD 08/26/2024 12:59 PM [facility]
--- NOTE | ~2024-08-26 | CT_ITS ---
EXAMINATION: CT KNEE WITHOUT CONTRAST, LEFT CLINICAL INFORMATION: effusion, suprapatellar swelling COMPARISON: Left knee August 26, 2024 TECHNIQUE: Axial images obtained through the left knee. Coronal and sagittal reformatted images are performed at CT scanner This CT examination was performed using dose optimization techniques as appropriate, variously including the following: *Automated exposure control *Adjustment of mA and/or kV according to patient size (this includes techniques or standardized protocols for targeted exams where dose is matched to indication/reason for exam; i.e. extremities or head) *Use of iterative reconstruction technique DLP: 251 mGy-cm FINDINGS: Question of small foreign body in the soft tissues at the medial side than the on the plain film study. There is a small metallic foreign body just deep to the skin line adjacent to the medial femoral condyle. This measures about 4 mm. Moderate volume joint effusion. Small popliteal cysts. Degenerative joint disease. There is joint narrowing of the femoral-tibial joint, greater at the medial and lateral joint space with small marginal bone spurs of the femur and tibia. There is chondrocalcinosis about the medial and lateral meniscus. There are also calcifications near the medial and lateral collateral ligaments and the posterior cruciate ligament. Small volume of calcifications along the anterior surface of the suprapatellar fossa. No fracture or dislocation. No focal bone lesion or bone destruction. Vascular calcifications in the arteries. CT/CT knee LT wo IV con IMPRESSION: 1. Moderate volume joint effusion. Small popliteal cyst. 2. Degenerative joint disease. 3. Chondrocalcinosis. 4. Small metallic foreign body in the soft tissues at the medial side of the knee. Electronically signed by: Brian Gutierrez MD 08/26/2024 08:53 PM EST
--- NOTE | ~2024-08-26 | XR_ITS ---
EXAMINATION: XR KNEE, LEFT CLINICAL INFORMATION: fall, swelling COMPARISON: October 18, 2018. TECHNIQUE: Four views of the left knee. FINDINGS: Approximately 0.4 cm, angular, radiopaque density projects over the superficial soft tissues just medial to the knee joint, possibly representing a foreign body. Recommend clinical correlation. There is a moderate to large suprapatellar effusion. No acute fracture or dislocation is directly visualized. Significant chondrocalcinosis is seen. Mild tricompartmental degenerative joint space narrowing. Vascular calcification. XR/XR knee LT 4V IMPRESSION: Findings as above. Electronically signed by: Clarence Fregoso MD 08/26/2024 10:52 AM EST
--- NOTE | ~2024-08-26 | CT_ITS ---
EXAMINATION: CT HEAD WITHOUT CONTRAST CT CERVICAL SPINE WITHOUT CONTRAST CLINICAL INFORMATION: Fall. Unknown head strike. COMPARISON: Head CT dated September 29, 2021. No prior CT scan of the cervical spine. TECHNIQUE: CT of the head and cervical spine were performed without intravenous contrast. Multiplanar reformats were rendered and reviewed. This CT examination was performed using dose optimization techniques as appropriate, variously including the following: *Automated exposure control *Adjustment of mA and/or kV according to patient size (this includes techniques or standardized protocols for targeted exams where dose is matched to indication/reason for exam; i.e. extremities or head) *Use of iterative reconstruction technique DLP: 1147 mGy-cm. FINDINGS: CT head: No intracranial hemorrhage, large infarction, or mass lesion is seen. Diffuse, age-appropriate cortical atrophy and chronic bilateral periventricular white matter ischemic change. Lacunar infarcts involving the left thalamus, bilateral basal ganglia, and right caudate head, not significant changed compared with 2020. No extra-axial collection is appreciated. The ventricles are normal in size and configuration without evidence of hydrocephalus. The visualized paranasal sinuses and mastoid air cells are clear. Bilateral lens extractions. CT cervical spine: The vertebral body heights appear maintained. No cervical spine fracture is seen. Moderate to severe disc space narrowing most notable at C5-C7. Approximately 0.2 cm posterior subluxation of C5 on C6. Approximately 0.2 cm anterior subluxation of C4 on C5 and C7 on T1. The paraspinal soft tissues appear within normal limits. The partially imaged lung apices appear clear. Subcentimeter right lower pole thyroid nodule for which no further dedicated follow-up imaging as indicated. Mild calcification of the carotid bulbs. CT/CT head/brain wo IV con IMPRESSION: CT head: No acute intracranial finding. CT cervical spine: No cervical spine fracture or traumatic malalignment identified. Electronically signed by: Clarence Fregoso MD 08/26/2024 12:59 PM [facility]
--- NOTE | ~2024-08-26 | XR_ITS ---
EXAMINATION: XR CHEST CLINICAL INFORMATION: fall, unknown cause COMPARISON: Ribs radiograph 09/28/2023 TECHNIQUE: AP and lateral views of the chest were obtained. FINDINGS: The lungs are hypoexpanded with bibasilar streaky opacities. No dense focal consolidation, significant pleural effusion, pulmonary edema or pneumothorax. The cardiomediastinal silhouette is within normal limits for technique and unchanged. Mild aortic arch calcifications again seen. No acute osseous abnormality. Degenerative changes to the bilateral shoulders. XR/XR chest 2V IMPRESSION: Low lung volumes with bibasilar atelectasis. Electronically signed by: Alisa Pitts DO 08/26/2024 01:48 PM EST
[2024-08-26 09:26] VITALS: BP 140/60; BP 172/78; PULSE 59; PULSE 83; RESP 12; TEMP 37.1; O2SAT 93; O2SAT 94; BMI 27.1
--- NOTE | 2024-08-26 09:40 | ED.GENADULT ---
HPI - General Adult General Chief complaint: Fall Stated complaint: FALL LAS NIGHT,L KNEE PAIN,NON WT BEARING PER EMS Time Seen by Provider: 08/26/24 09:35 Source: patient, family (daughter, ), EMS and RN notes reviewed Mode of arrival: EMS Limitations: language barrier History of Present Illness ED Provider: Brittany HPI narrative: Patient is an 84-year-old Azeri-speaking male with history of HTN, CAD, PEGGY, high cholesterol, DM, vascular dementia, diabetic polyneuropathy presenting to the emergency department with complaint of left knee pain and swelling after a fall last night. Patient's daughter reports that his told her this morning he fell while going to the bathroom overnight. Patient was able to get off the floor and took ibuprofen, return to bed. states he did not sleep well and this morning complained of pain to his knee, they noted swelling. He is unsure of head strike or loss of consciousness. Denies neck or back pain. Patient unable to report what caused his fall overnight. Daughter states patient lives with , is minimally compliant with using his cane/walker at baseline. MD complaint: left knee pain Onset (ago): hour(s) Location: left and lower extremity Quality: aching Associated symptoms: denies other symptoms Treatments prior to arrival: none Related Data Home Medications ?Medication ?Instructions ?Recorded ?Confirmed aspirin 81 mg tablet,delayed 81 mg PO DAILY 10/26/20 08/26/24 release atorvastatin 80 mg tablet 80 mg PO BEDTIME 10/26/20 08/26/24 finasteride 5 mg tablet 5 mg PO DAILY 10/26/20 08/26/24 hydrochlorothiazide 25 mg tablet 25 mg PO DAILY 10/26/20 08/26/24 levothyroxine 25 mcg tablet 25 mcg PO DAILY 10/26/20 08/26/24 lisinopril 40 mg tablet 40 mg PO DAILY 10/26/20 08/26/24 metoprolol succinate 100 mg 100 mg PO DAILY 10/26/20 08/26/24 tablet,extended release 24 hr cyanocobalamin (vitamin B-12) 1,000 mcg PO DAILY 12/07/22 12/07/22 1,000 mcg tablet doxepin 25 mg capsule 25 mg PO BEDTIME 12/07/22 12/07/22 bismuth subsalicylate 262 mg 2 tab PO QID PRN 08/01/24 chewable tablet (Bismuth) cholecalciferol (vitamin D3) 50 50 mcg PO DAILY 08/01/24 08/26/24 mcg (2,000 unit) capsule (Vitamin D3) donepezil 5 mg tablet 5 mg PO DAILY 08/01/24 dulaglutide 3 mg/0.5 mL mg subcut 08/01/24 subcutaneous pen injector (Trulicity) empagliflozin 25 mg tablet 25 mg PO DAILY 08/01/24 (Jardiance) gabapentin 400 mg capsule 400 mg PO BID 08/01/24 08/26/24 insulin degludec 100 unit/mL (3 unit subcut 08/01/24 mL) subcutaneous pen (Tresiba FlexTouch U-100 insulin) Previous Rx's ?Medication ?Instructions ?Recorded acetaminophen 500 mg tablet 500 mg PO Q6H PRN pain #10 tabs 12/01/21 (Tylenol Extra Strength) bisacodyl 5 mg tablet,delayed 10 mg (2 x 5 mg) PO BEDTIME 2 days 08/01/24 release (Dulcolax (bisacodyl)) #4 tabs polyethylene glycol 3350 17 238 g PO ONCE colonoscopy prep 1 08/01/24 gram/dose oral powder (Miralax) day #238 grams Allergies Allergy/AdvReac Type Severity Reaction Status Date / Time No Known Allergies Allergy Verified 08/26/24 09:29 Review of Systems Review of Systems: As per HPI. Yes all other systems are reviewed and are negative Constitutional: Constitutional: Reports as per HPI ON LICENSE OF [facility] Past Medical History Medical History (Updated 08/26/24 @ 14:27 by Ora Soto NP) Diarrhea Epigastric pain H. pylori infection Prostate cancer CAD (coronary artery disease) Diabetes Surgical History (System 09/29/23 @ 11:11 by Bertha Diaz) Hx of cataract removal with insertion of prosthetic lens History of back surgery Hx of appendectomy Hx of cardiac cath Family History Family History Father No problems noted. Mother Uterine cancer Social History Social History (System 09/29/23 @ 11:11 by Bertha Diaz) Smoked in Last 30 Days: No Use of substances other than those prescribed or required for medical reasons: No Advance Directives: No Advance Directives Information Provided: Yes Do you have a plan to hurt others: No Plan Physical Exam ED Vital Signs: Vital Signs - 24 hr 08/26/24 09:26 08/26/24 11:06 08/26/24 14:12 Temperature 98.7 F 97.9 F 97.5 F Pulse Rate 59 55 59 Respiratory Rate 12 56 H 14 Blood Pressure 172/78 H 156/58 H 164/75 H Pulse Oximetry 93 96 95 Oxygen Delivery Method Room Air Room Air Room Air BMI result Body Mass Index 27.1 Vital signs have been reviewed and appear to be correct. Blood pressure elevated. Heart rate normal. Respiratory rate normal. Temperature normal. Oxygen saturation normal. Const General: cooperative, healthy appearing and no acute distress Orientation/consciousness: oriented to person, oriented to place, oriented to time and patient oriented x3 Limitations: no limitations HENMT Head: Yes normocephalic and Yes atraumatic Ears: external ears normal General nose exam: Normal external nose present Face and sinus: Yes face symmetric Mouth: oropharynx normal and moist mucous membranes Throat: Yes uvula midline Eyes Pupils: Equal, round and reactive pupils present Neck Neck: Yes normal visual inspection and Yes supple Resp Effort & Inspection: normal respiratory effort and able to speak in complete sentences Auscultation: clear to auscultation bilaterally Cardio Rate: regular rate Rhythm: regular rhythm Heart sounds: S1 normal heart sound present and S2 normal heart sound present GI Palpation (GI): Soft to palpation and nontender Auscultation: normoactive bowel sounds General: Yes no CVA tenderness Back/Spine/Pelvis Back: no CVA tenderness Skin General skin exam: elasticity normal and turgor normal Neuro General: oriented to person, oriented to place, oriented to time, patient oriented x3, moves all extremities, no focal motor deficits and CN's II-XI intact bilaterally Cranial nerves: Yes Equal, round and reactive pupils present Cognition (Neuro): normal cognition Extrem General: Yes full ROM, Yes no pedal edema and Yes no calf tenderness Left lower extremity: knee Details: tenderness Location: of the distal upper leg Details: anteriorly, swelling Location: of the distal upper leg Details: anteriorly and abnormal ROM (unable to lift leg off bed, unable to flex knee) and foot Details: vascular exam Details: dorsalis pedis pulse present, posterior tibial pulse present and normal capillary refill Psych Mental Status: mental status grossly normal Affect: normal affect Thought process: Normal thought process present Medical Decision Making Medical Decision Making [facility] Narrative: Patient is an 84-year-old Azeri-speaking male with history of HTN, CAD, PEGGY, high cholesterol, DM, vascular dementia, diabetic polyneuropathy presenting to the emergency department with complaint of left knee pain and swelling after a fall last night. On exam patient is awake, A+Ox3, VS WNL, afebrile, normal neurological exam without focal deficits, physical exam findings as above. Given reported symptoms and physical exam findings, initial differential includes effusion, fracture, dislocation, quadriceps rupture, quadriceps tendon tear. Less likely ICH, skull or cevical vertebral fracture or subluxation. Labs notable for chronically elevated BUN, negative troponin. EKG shows sinus bradycardia with PVCs. X-ray left knee notable for large suprapatellar effusion. No evidence of ICH, skull or cervical vertebral fracture or subluxation on CT. CXR notable for bibasilar atelectasis, no respiratory sxs, do not suspect pneumonia. My interpretation is in agreement with the radiologist's interpretation. Results discussed with patient and family. Patient placed in knee immobilizer given concern for quadriceps rupture. Daughter states she would prefer PT eval/CM as is unable to assist patient at home, and he does not use his cane/walker as he is supposed to at baseline. Patient placed on physician observation at 13:35 pending PT eval/CM. Urinalysis notable for 1+ leukocytes, >50 WBCs, 1+ bacteria, will treat for UTI. Differential Diagnosis Differential Diagnoses: The differential diagnosis associated with the presentation includes As per [facility] Admission/Observation Consideration of admission/observation: Escalation of care including admission/observation considered Patient would have been admitted to the hospital had their work up had any findings where hospital admission was appropriate and their clinical presentation warranted hospital admission. Lab Data [facility] Lab Attestation statement: I reviewed the patient's lab results. As per [facility] 08/26/24 11:18 08/26/24 11:18 Labs: Lab Results 08/26/24 08/26/24 08/26/24 Range/Units 11:10 11:18 13:52 WBC 8.6 (4.8-10.8) X10*3/uL RBC 4.41 L (4.60-5.80) X10*6/uL Hgb 12.9 L (14.0-18.0) g/dl Hct 39.1 L (42.0-52.0) % MCV 88.7 (80.0-98.0) fL MCH 29.3 (27.0-33.0) pg MCHC 33.0 (31.0-36.0) g/dl RDW 13.1 (11.0-16.0) % Plt Count 164 (160-400) X10*3/uL MPV 11.4 (9.4-12.4) fL Immature Gran % (Auto) 0.5 H (0.0-0.4) % Neut % (Auto) 73.3 H (45-73) % Lymph % (Auto) 14.0 L (20-40) % [place] % (Auto) 11.9 H (2-11) % Eos % (Auto) 0.1 (0-4) % Baso % (Auto) 0.2 (0-2) % Lymph # (Auto) 1.2 (1.2-4.9) X10*3/uL [place] # (Auto) 1.0 (0.1-1.2) X10*3/uL Eos # (Auto) 0.0 (0.0-0.4) X10*3/uL Baso # (Auto) 0.0 (0.0-0.2) X10*3/uL Abs Immat Gran (auto) 0.04 H (0.00-0.03) X10*3/uL Absolute Neuts (auto) 6.3 (2.0-8.3) x10*3/uL Absolute Nucleated RBC 0.000 (0.0-0.012) X10*3/uL Nucleated RBC % (auto) 0.0 (0.0-0.2) /100WBC Sodium 139 (135-145) mmol/L Potassium 4.5 (3.3-5.1) mmol/L Chloride 99 (96-108) mmol/L Carbon Dioxide 28 (22-29) mmol/L Anion Gap 17 (12-20) BUN 27 H (9-16) mg/dL Creatinine 1.32 (0.5-1.4) mg/dL Estim Creat Clear Calc 44.9 Estimated GFR 52 Random Glucose 169 H (60-115) mg/dL Calcium 9.9 D (8.4-10.2) mg/dL Total Bilirubin 0.9 (0.0-1.0) mg/dL AST 27 (5-37) U/L ALT 33 (0-40) U/L Alkaline Phosphatase 86 (39-117) U/L Troponin I High Sens 7.3 (<3.5-35.0) ng/L Total Protein 7.0 (6.5-8.0) g/dL Albumin 3.9 (3.5-5.0) g/dL Urine Color Yellow Urine Appearance Clear Urine pH 5.5 (5.0-9.0) Ur Specific [place] 1.025 (1.005-1.025) Urine Protein 30 (1+) H (Neg-Trace) mg/dL Urine Glucose (UA) >=1000 H (Negative) mg/dL Urine Ketones Negative (Negative) mg/dL Urine Blood Negative (Negative) Urine Nitrite Negative (Negative) Ur Leukocyte Esterase Small (1+) H (Negative) Urine RBC 0-2 (0-2) /HPF Urine WBC >50 H (0-5) /HPF Ur Squamous Epith Cells 0-2 (0-2) /HPF Urine Bacteria 1+ (None Seen) Hyaline Casts 0-2 (0-2) /LPF Urine Yeast Present Influenza Type A (PCR) NEGATIVE (Negative) Influenza Type B (PCR) NEGATIVE (Negative) RSV RNA Qual (PCR) NEGATIVE (Negative) SARS-CoV-2 RNA (RT-PCR) NEGATIVE (Negative) Independent Interpretation I performed an independent interpretation of an: Plain X-Ray and CT Scan Interpretation: X-ray left knee notable for large suprapatellar effusion. No evidence of ICH, skull or cervical vertebral fracture or subluxation on CT. CXR notable for bibasliar atelectasis. Radiology Impression Discussion of test interpretation with radiology: I have reviewed the radiologist's reading. Radiologist Impression: FINDINGS: Approximately 0.4 cm, angular, radiopaque density projects over the superficial soft tissues just medial to the knee joint, possibly representing a foreign body. Recommend clinical correlation. There is a moderate to large suprapatellar effusion. No acute fracture or dislocation is directly visualized. Significant chondrocalcinosis is seen. Mild tricompartmental degenerative joint space narrowing. Vascular calcification. XR/XR knee LT 4V IMPRESSION: Findings as above. CT/CT head/brain wo IV con IMPRESSION: CT head: No acute intracranial finding. CT cervical spine: No cervical spine fracture or traumatic malalignment identified. Independent Historian Clinical information obtained from an independent historian. History obtained from or confirmed by: Spouse and Other (daughter) External Record Review External record reviewed: Inpatient record, Office record and Outpatient record Discharge Plan Discharge Clinical Impression: Effusion of left knee, Acute UTI Patient Disposition: Still a Patient Prescriptions: No Action acetaminophen [Tylenol Extra Strength] 500 mg tablet 500 mg PO Q6H PRN (Reason: pain) Qty: 10 0RF levothyroxine 25 mcg tablet 25 mcg PO DAILY atorvastatin 80 mg tablet 80 mg PO BEDTIME metoprolol succinate 100 mg tablet extended release 24 hr 100 mg PO DAILY aspirin 81 mg tablet,delayed release (DR/EC) 81 mg PO DAILY hydrochlorothiazide 25 mg tablet 25 mg PO DAILY lisinopril 40 mg tablet 40 mg PO DAILY finasteride 5 mg tablet 5 mg PO DAILY cyanocobalamin (vitamin B-12) 1,000 mcg tablet 1,000 mcg PO DAILY doxepin 25 mg capsule 25 mg PO BEDTIME Jardiance 25 mg tablet 25 mg PO DAILY cholecalciferol (vitamin D3) [Vitamin D3] 50 mcg (2,000 unit) capsule 50 mcg PO DAILY bismuth subsalicylate [Bismuth] 262 mg tablet,chewable 2 tab PO QID PRN gabapentin 400 mg capsule 400 mg PO BID Trulicity 3 mg/0.5 mL pen injector subcut insulin degludec [Tresiba FlexTouch U-100] 100 unit/mL (3 mL) insulin pen subcut donepezil 5 mg tablet 5 mg PO DAILY bisacodyl [Dulcolax (bisacodyl)] 5 mg tablet,delayed release (DR/EC) 10 mg PO BEDTIME 2 Days Qty: 4 0RF polyethylene glycol 3350 [Miralax] 17 gram/dose powder 238 g PO ONCE 1 Days Qty: 238 0RF Print Language: Azeri
--- NOTE | 2024-08-26 10:13 | ECG_ITS ---
Test Reason : SYNCOPE Blood Pressure : / mmHG Vent. Rate : 058 BPM Atrial Rate : 058 BPM P-R Int : 196 ms QRS Dur : 116 ms QT Int : 434 ms P-R-T Axes : 047 -42 050 degrees QTc Int : 426 ms Sinus bradycardia with occasional Premature ventricular complexes Left axis deviation Left ventricular hypertrophy with QRS widening ( R in aVL , [place] product ) Abnormal ECG When compared to the previous EKG of 26 sep 2018, PVC present. Referred By: Ora Soto Electronically Signed By:KING GRIDER
[2024-08-26 11:06] VITALS: BP 156/58; PULSE 55; RESP 56; TEMP 36.6; O2SAT 96
[2024-08-26 11:24] LABS: MANUAL DIFF FLAG NO
[2024-08-26 11:27] LABS: Basophils Percent Auto 0.2 % (0-2); Eosinophils Percent Auto 0.1 % (0-4); Hematocrit 39.1 % (42.0-52.0); Hemoglobin 12.9 g/dl (14.0-18.0); Imm Gran Abs Auto 0.04 X10*3/uL (0.00-0.03); Imm Gran Pct Auto 0.5 % (0.0-0.4); Lymphocytes Absolute Auto 1.2 X10*3/uL (1.2-4.9); Mean Corpuscular Hemoglobin 29.3 pg (27.0-33.0); Mean Corpuscular Volume 88.7 fL (80.0-98.0); Mean Platelet Volume 11.4 fL (9.4-12.4); Monocytes Percent Auto 11.9 % (2-11); Neutrophils Absolute Auto 6.3 x10*3/uL (2.0-8.3); Neutrophils Percent Auto 73.3 % (45-73); Platelet Count 164 X10*3/uL (160-400); Red Blood Count 4.41 X10*6/uL (4.60-5.80); Red Cell Distribution Width 13.1 % (11.0-16.0); White Blood Count 8.6 X10*3/uL (4.8-10.8)
[2024-08-26 11:43] LABS: Alanine Aminotransferase 33 U/L (0-40); Albumin Level 3.9 g/dL (3.5-5.0); Alkaline Phosphatase 86 U/L (39-117); Anion Gap 17 (12-20); Aspartate Amino Transferase 27 U/L (5-37); Bilirubin Total 0.9 mg/dL (0.0-1.0); Blood Urea Nitrogen 27 mg/dL (9-16); Calcium 9.9 mg/dL (8.4-10.2); Carbon Dioxide 28 mmol/L (22-29); Chloride 99 mmol/L (96-108); Creatinine Clr Calc Pharmacy 44.9; Estimated Glomerular Filt Rate 52; Glucose Random 169 mg/dL (60-115); Potassium 4.5 mmol/L (3.3-5.1); Sodium 139 mmol/L (135-145)
[2024-08-26 11:51] LABS: Troponin-I High Sensitivity 7.3 ng/L (<3.5-35.0)
[2024-08-26 12:07] LABS: Influenza A PCR NEGATIVE (Negative); Influenza B PCR NEGATIVE (Negative); Resp Syncy Virus RNA Qual PCR NEGATIVE (Negative); SARS COV2 PCR INHOUSE NEGATIVE (Negative)
[2024-08-26 14:11] LABS: Appearance Urine Clear; Color Urine Yellow; Glucose Urine UA >=1000 mg/dL (Negative); Leukocyte Esterase Urine Small (1+) (Negative); Nitrite Urine Negative (Negative); PH 5.5 (5.0-9.0); Specific Gravity - Urine 1.025 (1.005-1.025); UMIC TRIGGER UACC YES; Urine Blood Negative (Negative); Urine Ketones Negative (Negative); Urine Protein 30 (1+) mg/dL (Neg-Trace)
[2024-08-26 14:12] VITALS: BP 164/75; PULSE 59; RESP 14; TEMP 36.4; O2SAT 95
[2024-08-26 14:18] LABS: Bacteria Urine 1+ (None Seen); Hyaline Casts Urine 0-2 /LPF (0-2); Squamous Epithelial Cell Urine 0-2 /HPF (0-2); UACC Culture Trigger YES; WBC Urine >50 /HPF (0-5)
[2024-08-26 14:19] LABS: RBC Urine 0-2 /HPF (0-2)
[2024-08-26 14:34] VITALS: BP 164/75; PULSE 59; O2SAT 95
[2024-08-26] MEDS: Acetaminophen 325 MG TABLET 650 MG PO (15:56)
--- NOTE | 2024-08-26 16:24 | MHC.CM.ED ---
CM met with patient, and daughter/HCP Loli ([phone]) at the request of Ora GALICIA. CT of knee is pending. PT recommended further imaging of L knee and probable STR. Pt has a knee immobilizer on. Pt lives with his . Has ORTHOPEDIC NURSE services 7.25 hours/week through [email or web address]. Daughter is his ORTHOPEDIC NURSE. [place] is handicapped accessible. Has a cane and walker. No services through [facility]. Daughter states they do not qualify. Daughter and patient are agreeable to STR. Requesting local SNF, but not in [place]. Local referrals placed. Will upload CT knee results when available. CM will follow for safe discharge plan.
[2024-08-26] MEDS: cefuroxime axetiL 500 MG TABLET PO (21:51)
[2024-08-27 00:32] VITALS: BP 155/70; PULSE 80; RESP 20; TEMP 37.7; O2SAT 92
--- NOTE | 2024-08-27 00:39 | MHC.EDTECH ---
This tech took over care of patient at 2300,rounded and introduced self to pt,vitals taken,emptied 500MLS of yellow urine from urinal,pt appears comfortable,bed alarm on and camera for safety
--- NOTE | 2024-08-27 01:51 | MHC.EDTECH ---
Addendum entered by Tia Cohn 08/27/24 01:56: patient is restless,redirectable at times,Data Scientist/RN at bedside Original Note: Patient urinated 300MLS in urinal,pt also was incont. of urine,alf care given and bed linen changed,bed alarm on and camera in place.
[2024-08-27] MEDS: Atorvastatin Calcium 80 MG TABLET PO (02:11)
[2024-08-27] MEDS: Gabapentin 400 MG CAPSULE PO ×2 (02:11→08:33)
[2024-08-27] MEDS: OLANZapine 5 MG TABLET PO (02:11)
--- NOTE | 2024-08-27 03:33 | PC.NURSE ---
late entry: pt was restless in bed, attempting to get up repeatedly, confused. Medicated to NOV. Takes PO meds whole with water
--- NOTE | 2024-08-27 04:29 | PC.NURSE ---
late entry: pt cleaned and changed, linen changed
[2024-08-27 06:00] VITALS: BP 113/59; PULSE 67; RESP 16; O2SAT 93
[2024-08-27] MEDS: cefuroxime axetiL 500 MG TABLET PO (08:32)
[2024-08-27 08:33] VITALS: BP 132/62
[2024-08-27] MEDS: Cholecalciferol (Vitamin D3) 25 MCG TABLET 50 MCG PO (08:33)
[2024-08-27] MEDS: hydroCHLOROthiazide 25 MG TABLET PO (08:33)
[2024-08-27] MEDS: Finasteride 5 MG TABLET PO (08:33)
[2024-08-27] MEDS: Aspirin Enteric Coated 81 MG TABLET.DR PO (08:33)
[2024-08-27] MEDS: Levothyroxine Sodium 25 MCG TABLET PO (08:33)
--- NOTE | 2024-08-27 08:33 | MHC.CM.ED ---
Patient remains in ER. [facility], [facility], [facility], [facility] and [facility] are able to offer a bed. [facility], and [facility] are still reviewing. Patient's daughter/HCP, Raimundo accepts bed at [facility]. Facility in the process of obtaining insurance auth. Continue to monitor for d/c needs.
[2024-08-27 08:34] VITALS: BP 132/62; PULSE 68
[2024-08-27] MEDS: Metoprolol Succinate ER 100 MG TAB.ER.24H PO (08:34)
[2024-08-27] MEDS: lisinopriL 40 MG TABLET PO (08:34)
--- NOTE | 2024-08-27 08:54 | PC.NURSE ---
Care of Pt assumed at change of shift. Pt slept comfortably until AM med pass. Pt assisted to upright position and took AM meds without complication. Family at bedside and assists with breakfast. Pt is PT/CM and awaiting placement for STR. VSS, A&Ox3, NAD noted.
[2024-08-27 12:35] VITALS: BP 146/63; PULSE 76; RESP 16; O2SAT 96
--- NOTE | 2024-08-27 12:36 | PC.NURSE ---
Per Case Management, Pt will be transferred to [facility] in [place] around 2pm today.
--- NOTE | 2024-08-27 12:37 | PHA.MEDREC ---
Addendum entered by Denise Urena RPh 08/27/24 13:29: med rec reviewed by [facility] Original Note: Pharmacy Consult ? Medication Reconciliation Pharmacy has completed the medication reconciliation. Got list faxed from [facility] and was able to confirm medications base on those fills. I went and spoke with patients family and they were able to confirm the Trulicity 1.5 mg/0.5 mL injection once a week and the was able to confirm that her does it on Saturdays and confirmed he took it this past Friday 08/24. The patients was able to confirm that he takes Tresiba 100 unit/mL (3 mL) and confirmed he does 8 units at bedtime. She confirmed he took all his morning medicatons this morning, the Atorvastatin 40mg tab at bedtime and was not sure if her took the Tresiba or not last night.
--- NOTE | 2024-08-27 12:49 | MHC.CM.ED ---
Insurance auth has been obtained. Patient can leave for [facility] at 2pm. Jyothi MA booked. Med nec with chart. Patient, family, Cheyenne BASHIR and Fern GALICIA aware. Continue to monitor for d/c needs.
--- NOTE | 2024-08-27 13:00 | PC.NURSE ---
Call placed to [facility] for RN to RN report for transfer. Spoke to RN Chika and report given. Chika offers no questions at this time. Advised Pt is scheduled for 2pm ambulance transfer.
--- NOTE | 2024-08-27 13:49 | PC.NURSE ---
[facility] arrives to transport Pt to [facility]. Report given to EMS and all questions answered to satisfaction. Care relinquished [facility]. Pt has left the ED.
[2024-08-27 13:56] VITALS: BP 146/63; PULSE 76; RESP 16; TEMP 37.2; O2SAT 96
== END 2024-08-27 14:07 ==
PROVIDERS: Registered Nurse Emergency; Emergency Provider Emergency Medicine; PCP Family Medicine
DX: N39.0 Urinary tract infection, site not specified (principal); M25.462 Effusion, left knee; M25.562 Pain in left knee; I10 Essential (primary) hypertension; I25.10 Atherosclerotic heart disease of native coronary artery without angina pectoris; G47.33 Obstructive sleep apnea (adult) (pediatric); E11.9 Type 2 diabetes mellitus without complications; F01.50 Vascular dementia, unspecified severity, without behavioral disturbance, psychotic disturbance, mood disturbance, and anxiety; Z79.899 Other long term (current) drug therapy; Z03.818 Encounter for observation for suspected exposure to other biological agents ruled out
CPT/HCPCS: 0241U; 36415; 70450; 71046; 72125; 73564; 73700; 80053; 81001; 84484; 85025; 87086; 93005; 97161; 99285

== ENCOUNTER → 2024-08-26 10:13 | Outpatient (BNV) | payer OTHER, SELFPAY | PROVIDERS: Emergency Provider Emergency Medicine; PCP Family Medicine; Visit Provider Internal Medicine | DX: R94.31 Abnormal electrocardiogram [ECG] [EKG] (principal) | CPT/HCPCS: 93010 ==

== ENCOUNTER 2024-08-27 20:59 | Inpatient (IN) | payer OTHER, SELFPAY ==
--- NOTE | ~2024-08-27 | CT_ITS ---
EXAMINATION: CT ABDOMEN AND PELVIS WITHOUT CONTRAST CLINICAL INFORMATION: Abdominal pain and fever. COMPARISON: None available. TECHNIQUE: Multidetector volumetric imaging was performed from the superior aspect of the liver through the pubic symphysis. Sagittal and coronal reformatted images were obtained on the technologist's workstation. This CT examination was performed using dose optimization techniques as appropriate, variously including the following: *Automated exposure control *Adjustment of mA and/or kV according to patient size (this includes techniques or standardized protocols for targeted exams where dose is matched to indication/reason for exam; i.e. extremities or head) *Use of iterative reconstruction technique DLP: 825 mGy-cm FINDINGS: LUNG BASES: There is atelectatic change at both lung bases. LIVER, GALLBLADDER, AND BILIARY TREE: The liver is normal in size, shape, and attenuation. No focal hepatic lesion or biliary ductal dilatation is present. The gallbladder is unremarkable with no evidence of radiopaque gallstones, gallbladder wall thickening, or obvious pericholecystic inflammatory changes. PANCREAS: Unremarkable. SPLEEN: Unremarkable. ADRENAL GLANDS: Unremarkable. KIDNEYS AND URETERS: The kidneys are normal in size, shape, and attenuation. There are scattered bilateral renal cysts measuring up to 2.4 cm mid to lower pole left kidney. There are prominent bilateral renal collecting systems and ureters/mild bilateral hydronephrosis and hydroureter. No ureteral calculi are seen. BLADDER: The urinary bladder is distended. GASTROINTESTINAL TRACT: There are diverticula of the descending and sigmoid colon without diverticulitis. The appendix is not identified. A rectal tube is in place. ABDOMINAL WALL: No significant hernia is appreciated. LYMPH NODES: Normal. VASCULAR: There is moderate atherosclerotic plaque of the abdominal aorta and proximal branches. PELVIC VISCERA: Unremarkable. OSSEOUS STRUCTURES: There is lower lumbar postoperative change. CT/CT abdomen pelvis wo IV con IMPRESSION: Diverticulosis of the descending and sigmoid colon. No evidence of diverticulitis. Bilateral renal cysts. Distended urinary bladder. Mild bilateral hydronephrosis and hydroureter likely related to bladder distention. No ureteral calculi seen. Rectal tube in place. Fleischner guidelines were followed. Electronically signed by: Angel Heredia MD 08/28/2024 01:55 AM EST
[2024-08-27 21:08] VITALS: BP 107/44; PULSE 72; RESP 16; TEMP 38.8; O2SAT 96; BMI 28.2
[2024-08-27 21:11] VITALS: BP 104/55; PULSE 78; O2SAT 90
--- NOTE | 2024-08-27 21:14 | ED_ITS ---
HPI - Male Genitourinary General Chief complaint: Urogenital-Male Stated complaint: fever, UTI, septic, 90% RA, bgl 456 Time Seen by Provider: 08/27/24 21:13 Source: family and EMS Mode of arrival: EMS Limitations: altered mental status History of Present Illness ED Provider: kaleb LOTT Narrative: 84-year-old [place]ander-speaking male with history of HTN, CAD, PEGGY, high cholesterol, DM, vascular dementia, diabetic polyneuropathy presenting to the emergency department with complaint of left knee pain and swelling after a fall on 08/25/2024 was seen here yesterday CT scan of the knee was negative for any fracture showed effusion patient had UTI and prescribe Ceftin and sent to rehab in the rehab today patient noted to be more confused lethargic had a fever of 104 and POC of 456 Related Data Home Medications ?Medication ?Instructions ?Recorded ?Confirmed aspirin 81 mg tablet,delayed 81 mg PO DAILY 10/26/20 08/27/24 release atorvastatin 80 mg tablet 80 mg PO BEDTIME 10/26/20 08/27/24 finasteride 5 mg tablet 5 mg PO DAILY 10/26/20 08/27/24 hydrochlorothiazide 25 mg tablet 25 mg PO DAILY 10/26/20 08/27/24 levothyroxine 25 mcg tablet 25 mcg PO DAILY@0600 10/26/20 08/27/24 lisinopril 40 mg tablet 40 mg PO DAILY 10/26/20 08/27/24 metoprolol succinate 100 mg 100 mg PO DAILY 10/26/20 08/27/24 tablet,extended release 24 hr cholecalciferol (vitamin D3) 50 50 mcg PO DAILY 08/01/24 08/27/24 mcg (2,000 unit) capsule (Vitamin D3) empagliflozin 25 mg tablet 25 mg PO DAILY 08/01/24 08/27/24 (Jardiance) gabapentin 400 mg capsule 400 mg PO BID 08/01/24 08/27/24 insulin degludec 100 unit/mL (3 8 unit subcut BEDTIME 08/01/24 08/27/24 mL) subcutaneous pen (Tresiba FlexTouch U-100 insulin) dulaglutide 1.5 mg/0.5 mL 1.5 mg subcut SA 08/27/24 08/27/24 subcutaneous pen injector (Trulicity) Previous Rx's ?Medication ?Instructions ?Recorded cefuroxime axetil 500 mg tablet 500 mg PO BID 6 days #12 tabs 08/27/24 Allergies Allergy/AdvReac Type Severity Reaction Status Date / Time No Known Allergies Allergy Verified 08/27/24 21:11 Review of Systems 2 Review of Systems: Limited ROS per family Yes Other (Limited review of system as patient is confused) [facility] Past Medical History Medical History Diarrhea Epigastric pain H. pylori infection Prostate cancer CAD (coronary artery disease) Diabetes Surgical History Hx of cataract removal with insertion of prosthetic lens History of back surgery Hx of appendectomy Hx of cardiac cath Family History Family History Father No problems noted. Mother Uterine cancer Social History Social History Smoked in Last 30 Days: No Use of substances other than those prescribed or required for medical reasons: No Advance Directives: No Advance Directives Information Provided: No Do you have a plan to hurt others: No Plan Physical Exam 2 Vital Signs: Vital Signs: Last Vital Signs Temp 99.1 F 08/28/24 00:11 Pulse 66 08/28/24 00:11 Resp 16 08/28/24 00:11 BP 108/48 L 08/28/24 00:11 Pulse Ox 96 08/28/24 00:11 O2 Del Method Room Air 08/28/24 00:11 BMI result Body Mass Index 28.2 Appearance: Alert. Oriented X1-2. No acute distress. Febrile Eyes: No pallor or icterus ENT: Pharynx normal. Oral Mucosa dry oral mucous Neck: Normal inspection. Neck supple. CVS: Normal heart rate and rhythm. Pulses normal. Respiratory: No respiratory distress. Equal air entry bilateral, no wheezing/rales/rhonchi Abdomen: Soft and mild tenderness suprapubic area Bowel sounds are present, no mass palpable, no CVA tenderness Skin: Skin warm and dry. Normal skin color. Normal skin turgor. Extremities: No lower extremity edema. No calf tenderness Neuro: Oriented X 1-2. Moving all 4 extremities Medications Administered Discontinued Medications Generic Name Dose Route Start Last Admin Trade Name Freq PRN Reason Stop Dose Admin Ceftriaxone Sodium 1 gm 08/27/24 22:05 08/27/24 22:14 Ceftriaxone Sodium 1 Gm Vial IVPUSH 08/27/24 22:06 1 gm ONCE ONE Administration Sodium Chloride 1,000 mls @ 999 mls/hr 08/27/24 21:15 08/27/24 21:34 Ns IV 08/27/24 22:15 999 mls/hr .Q1H1M ONE Administration Sodium Chloride 1,000 mls @ 999 mls/hr 08/27/24 22:05 08/27/24 22:15 Ns IV 08/27/24 23:05 999 mls/hr .Q1H1M ONE Administration Insulin Human Lispro 8 unit 08/27/24 22:11 08/27/24 22:25 Insulin Lispro 100 Unit/Ml 3 Ml Vial SUBCUT 08/27/24 22:12 8 unit ONCE ONE Administration Medical Decision Making Medical Decision Making [facility] Narrative: Patient with UTI with high-grade fever likely bacteremia already on Ceftin will admit patient for IV antibiotics received IV fluids blood cultures were drawn lactic acid was 2.[address] scan of the abdomen report is pending but no obvious acute abnormal findings seen except for bilateral basal atelectasis will admit patient to hospitalist service for SHERRI, hyperglycemia, UTI, possible bacteremia Differential Diagnosis Differential Diagnoses: The differential diagnosis associated with the presentation includes Admission/Observation Consideration of admission/observation: Escalation of care including admission/observation considered Consult Healthcare Provider Management of the patient was discussed with: Hospitalist Lab Data MDM Lab Attestation statement: I reviewed the patient's lab results. 08/27/24 21:37 08/27/24 21:37 Labs: Lab Results 08/27/24 08/27/24 08/27/24 Range/Units 21:25 21:37 22:10 WBC 10.9 H (4.8-10.8) X10*3/uL RBC 3.91 L (4.60-5.80) X10*6/uL Hgb 11.3 L (14.0-18.0) g/dl Hct 33.7 L (42.0-52.0) % MCV 86.2 (80.0-98.0) fL MCH 28.9 (27.0-33.0) pg MCHC 33.5 (31.0-36.0) g/dl RDW 13.3 (11.0-16.0) % Plt Count 146 L (160-400) X10*3/uL MPV 11.5 (9.4-12.4) fL Immature Gran % (Auto) 0.6 H (0.0-0.4) % Neut % (Auto) 77.6 H (45-73) % Lymph % (Auto) 8.2 L (20-40) % Hemphill % (Auto) 13.4 H (2-11) % Eos % (Auto) 0.0 (0-4) % Baso % (Auto) 0.2 (0-2) % Lymph # (Auto) 0.9 L (1.2-4.9) X10*3/uL Hemphill # (Auto) 1.5 H (0.1-1.2) X10*3/uL Eos # (Auto) 0.0 (0.0-0.4) X10*3/uL Baso # (Auto) 0.0 (0.0-0.2) X10*3/uL Abs Immat Gran (auto) 0.07 H (0.00-0.03) X10*3/uL Absolute Neuts (auto) 8.4 H (2.0-8.3) x10*3/uL Absolute Nucleated RBC 0.000 (0.0-0.012) X10*3/uL Nucleated RBC % (auto) 0.0 (0.0-0.2) /100WBC Sodium 134 L (135-145) mmol/L Potassium 3.6 (3.3-5.1) mmol/L Chloride 103 (96-108) mmol/L Carbon Dioxide 23 (22-29) mmol/L Anion Gap 12 (12-20) BUN 38 H (9-16) mg/dL Creatinine 1.73 H (0.5-1.4) mg/dL Estim Creat Clear Calc 29.8 Estimated GFR 38 POC Glucose 345 H (60-115) mg/dL Random Glucose 382 H* (60-115) mg/dL Lactic Acid 2.0 (0.5-2.0) mmol/L Calcium 8.2 L D (8.4-10.2) mg/dL Total Bilirubin 0.6 (0.0-1.0) mg/dL AST 19 (5-37) U/L ALT 24 (0-40) U/L Alkaline Phosphatase 70 (39-117) U/L Total Protein 5.9 L (6.5-8.0) g/dL Albumin 2.9 L (3.5-5.0) g/dL Independent Interpretation I performed an independent interpretation of an: CT Scan Discharge Plan Discharge Clinical Impression: Acute UTI, SIRS (systemic inflammatory response syndrome), SHERRI (acute kidney injury), Hyperglycemia due to type 2 diabetes mellitus Patient Disposition: Admitted As Inpatient
[2024-08-27] MEDS: 0.9 % Sodium Chloride 1,000 ML 999 ML IV ×2 (21:34→22:15)
[2024-08-27 22:01] LABS: Basophils Percent Auto 0.2 % (0-2); Hematocrit 33.7 % (42.0-52.0); Hemoglobin 11.3 g/dl (14.0-18.0); Imm Gran Abs Auto 0.07 X10*3/uL (0.00-0.03); Imm Gran Pct Auto 0.6 % (0.0-0.4); Lymphocytes Absolute Auto 0.9 X10*3/uL (1.2-4.9); Lymphocytes Percent Auto 8.2 % (20-40); MANUAL DIFF FLAG NO; Mean Corpuscular HGB Conc 33.5 g/dl (31.0-36.0); Mean Corpuscular Hemoglobin 28.9 pg (27.0-33.0); Mean Corpuscular Volume 86.2 fL (80.0-98.0); Mean Platelet Volume 11.5 fL (9.4-12.4); Monocytes Absolute Auto 1.5 X10*3/uL (0.1-1.2); Monocytes Percent Auto 13.4 % (2-11); Neutrophils Absolute Auto 8.4 x10*3/uL (2.0-8.3); Neutrophils Percent Auto 77.6 % (45-73); Platelet Count 146 X10*3/uL (160-400); Red Blood Count 3.91 X10*6/uL (4.60-5.80); Red Cell Distribution Width 13.3 % (11.0-16.0); White Blood Count 10.9 X10*3/uL (4.8-10.8)
[2024-08-27 22:14] LABS: Glucose, Whole Blood 345 mg/dL (60-115)
[2024-08-27] MEDS: cefTRIAXone sodium 1 GM VIAL IVPUSH (22:14)
[2024-08-27 22:17] LABS: Alanine Aminotransferase 24 U/L (0-40); Albumin Level 2.9 g/dL (3.5-5.0); Alkaline Phosphatase 70 U/L (39-117); Anion Gap 12 (12-20); Aspartate Amino Transferase 19 U/L (5-37); Bilirubin Total 0.6 mg/dL (0.0-1.0); Blood Urea Nitrogen 38 mg/dL (9-16); Calcium 8.2 mg/dL (8.4-10.2); Carbon Dioxide 23 mmol/L (22-29); Chloride 103 mmol/L (96-108); Creatinine Clr Calc Pharmacy 29.8; Estimated Glomerular Filt Rate 38; Glucose Random 382 mg/dL (60-115); Potassium 3.6 mmol/L (3.3-5.1); Sodium 134 mmol/L (135-145); Total Protein 5.9 g/dL (6.5-8.0)
[2024-08-27] MEDS: Insulin Lispro 100 UNIT/ML 3 ML VIAL 8 UNIT SUBCUT (22:25)
[2024-08-28] VITALS (8 sets, daily range): BP systolic 108–190; BP diastolic 48–83; PULSE 57–81; RESP 16–18; TEMP 36.6–38.3; O2SAT 93–96
[2024-08-28] MEDS: Acetaminophen 1,000 MG/100 ML PIGGYBACK 400 MG IV (01:17)
[2024-08-28] MEDS: Lactated Ringers 1,000 ML 80 ML IVCONT ×2 (01:18→13:44)
[2024-08-28] MEDS: 0.9 % Sodium Chloride Flush 3 ML SYRINGE IVFLUSH ×3 (01:19→20:14)
--- NOTE | 2024-08-28 02:43 | PM.IMHP ---
History of Present Illness Date of Service: 08/27/24 Attending physician on admission: Samir Gong Chief Complaint: Acute confusion Bere Velasquez is 84 years old man with past medical history significant for dementia, type 2 diabetes on insulin, CAD, PEGGY -not tolerating CPAP, prostate cancer, BPH, hyperlipidemia, essential hypertension and hypothyroidism was discharged from ED today to [facility] after he sustained a mechanical fall. HPI was provided by patient's who was at bedside and a friend. At [facility], noted patient was very lethargic and confused. At baseline he is alert and oriented. Further evaluation was remarkable for temperature of 104. No other abnormalities were noted such as facial droop, slurred speech or focal weakness. The patient is still quite lethargic but awakes upon calling his name and able to follow commands. He denied any pain or shortness on breath. In the ED, he was found to have fever 101.9. There is no hypotension and tachycardia. Oxygen saturation is normal on room air. Blood workup was remarkable for minimal leukocytosis of 10.9. There is no lactic acidosis. Hemoglobin is at baseline. Platelets level is 146. Blood glucose is 382, creatinine 1.73 and BUN 38. LFTs are normal. Urinalysis showed finding consistent with urinary tract infection. Abdominal pelvis CT scan with IV contrast showed diverticulosis without evidence of diverticulitis, distended urinary bladder and mild bilateral hydronephrosis and hydroureter likely related to bladder distention. Rectal tube in place. Knee CT scan showed moderate volume of joint effusion. Head and C-spine CT scan showed no acute intracranial findings or cervical spine fracture/dislocations. CXR is negative except for bibasilar atelectasis. ED tx: NS 2 L bolus, ceftriaxone 1 g IV and insulin 8 units subcut Review of Systems Review of Systems: Yes Unobtainable due to mental status [facility] Medical History Diarrhea Epigastric pain H. pylori infection Prostate cancer CAD (coronary artery disease) Diabetes Family History Father No problems noted. Mother Uterine cancer Surgical History Hx of cataract removal with insertion of prosthetic lens History of back surgery Hx of appendectomy Hx of cardiac cath Social History Patient Tobacco Use Status: Never used Tobacco Smoked in Last 30 Days: No Use of substances other than those prescribed or required for medical reasons: No Advance Directives: No Advance Directives Information Provided: No Do you have a plan to hurt others: No Plan Nutrition Risks: No Nutritional Risk Meds Allergies Allergy/AdvReac Type Severity Reaction Status Date / Time No Known Allergies Allergy Verified 08/27/24 21:11 Active Medications: Current Medications Heparin Sodium (Porcine) (Heparin Sodium,Porcine 5,000 Unit/Ml Vial) 5,000 unit SUBCUT Q12H [facility] Lactated Ringer's (Lr) 1,000 mls @ 80 mls/hr IVCONT .[id number] [facility] Last Admin: 08/28/24 01:18 Dose: 80 mls/hr Sodium Chloride (0.9 % Sodium Chloride Flush 3 Ml Syringe) 3 ml IVFLUSH QSHIFT [facility] Last Admin: 08/28/24 01:19 Dose: 3 ml Home Medications ?Medication ?Instructions ?Recorded ?Confirmed ?Last Taken ?Type aspirin 81 mg tablet,delayed 81 mg PO DAILY 10/26/20 08/27/24 08/27/24 History release atorvastatin 80 mg tablet 80 mg PO BEDTIME 10/26/20 08/27/24 08/26/24 History finasteride 5 mg tablet 5 mg PO DAILY 10/26/20 08/27/24 08/27/24 History hydrochlorothiazide 25 mg tablet 25 mg PO DAILY 10/26/20 08/27/24 08/27/24 History levothyroxine 25 mcg tablet 25 mcg PO DAILY@0600 10/26/20 08/27/24 08/27/24 History lisinopril 40 mg tablet 40 mg PO DAILY 10/26/20 08/27/24 08/27/24 History metoprolol succinate 100 mg 100 mg PO DAILY 10/26/20 08/27/24 08/27/24 History tablet,extended release 24 hr cholecalciferol (vitamin D3) 50 50 mcg PO DAILY 08/01/24 08/27/24 08/27/24 History mcg (2,000 unit) capsule (Vitamin D3) empagliflozin 25 mg tablet 25 mg PO DAILY 08/01/24 08/27/24 08/27/24 History (Jardiance) gabapentin 400 mg capsule 400 mg PO BID 08/01/24 08/27/24 08/27/24 History insulin degludec 100 unit/mL (3 8 unit subcut BEDTIME 08/01/24 08/27/24 1 Day Ago History mL) subcutaneous pen (Tresiba ~08/26/24 FlexTouch U-100 insulin) dulaglutide 1.5 mg/0.5 mL 1.5 mg subcut SA 08/27/24 08/27/24 08/24/24 History subcutaneous pen injector (Trulicity) Physical Exam Vital Signs and Narrative: Vital Signs: Last Vital Signs Temp 99.1 F 08/28/24 00:11 Pulse 66 08/28/24 00:11 Resp 16 08/28/24 00:11 BP 108/48 L 08/28/24 00:11 Pulse Ox 96 08/28/24 00:11 O2 Del Method Room Air 08/28/24 00:11 BMI result Body Mass Index 28.2 Constitutional - Sleeping, easily arousable, no apparent distress. HEENT - PERRL. Very dry oral mucosa (mouth breather). Heart - S1S2, RRR, no murmurs. Lungs - Normal lung expansion, Normal respiratory effort, No respiratory distress, CTA bilaterally Abdomen - NT / ND; +BS; No rebound or guarding Extremities - No calf tenderness bilaterally, no swelling Musculoskeletal - Normal inspection, normal ROM Skin - Warm/Dry Neurological - Sleeping but easily arousable. Able to tell me his full name, oriented to place as well. No facial droop. strings teacher III-XII grossly intact. Psychological - No agitation. Results Labs 08/27/24 21:37 08/27/24 21:37 Labs: Laboratory Results - last 24 hr 08/27/24 08/27/24 08/27/24 21:25 21:37 22:10 MCV 86.2 MCH 28.9 MCHC 33.5 RDW 13.3 Plt Count 146 L MPV 11.5 Immature Gran % (Auto) 0.6 H Neut % (Auto) 77.6 H Lymph % (Auto) 8.2 L [place] % (Auto) 13.4 H Eos % (Auto) 0.0 Baso % (Auto) 0.2 Lymph # (Auto) 0.9 L [place] # (Auto) 1.5 H Eos # (Auto) 0.0 Baso # (Auto) 0.0 Abs Immat Gran (auto) 0.07 H Absolute Neuts (auto) 8.4 H Absolute Nucleated RBC 0.000 Nucleated RBC % (auto) 0.0 Anion Gap 12 Estim Creat Clear Calc 29.8 Estimated GFR 38 POC Glucose 345 H Random Glucose 382 H* Lactic Acid 2.0 Calcium 8.2 L D Total Bilirubin 0.6 AST 19 ALT 24 Alkaline Phosphatase 70 Total Protein 5.9 L Albumin 2.9 L Imaging Radiologist's Impressions: Impressions Abdomen/Pelvis CT 08/27/24 22:30 IMPRESSION: Diverticulosis of the descending and sigmoid colon. No evidence of diverticulitis. Bilateral renal cysts. Distended urinary bladder. Mild bilateral hydronephrosis and hydroureter likely related to bladder distention. No ureteral calculi seen. Rectal tube in place. Fleischner guidelines were followed. Electronically signed by: Angel Heredia MD 08/28/2024 01:55 AM [facility] [place] and Plan (1) Acute encephalopathy: Status: Acute (2) Hyperglycemia due to type 2 diabetes mellitus: Qualifiers: Diabetes mellitus [facility] insulin use: with [facility] use Qualified Code(s): E11.65 - Type 2 diabetes mellitus with hyperglycemia; Z79.4 - intermediate teacher (current) use of insulin Status: Acute (3) SHERRI (acute kidney injury): Status: Acute (4) Effusion of left knee: Status: Acute Plan Bere Velasquez is 84 y/o man admitted with: Acute encephalopathy secondary to UTI. Admit to hospitalist service. Aspiration precautions. NPO. Continue IV fluids and empiric IV antibiotic therapy. Blood and urine cultures obtained -will follow results. Hold gabapentin. Recent left knee trauma --> moderate joint effusion (left knee CT scan). ORTHO consult. Acute kidney injury, likely due to obstructive uropathy + lisinopril and hydrochlorothiazide use. Hold lisinopril and hydrochlorothiazide. Insert indwelling urinary catheter. Continue to monitor renal function. Avoid nephrotoxic agents. Mild bilateral hydronephrosis and hydroureter + urinary retention due to BPH. Continue finasteride when able. Insert indwelling urinary catheter. Type 2 diabetes mellitus. Blood glucose checks every 6 hours while NPO. Insulin sliding scale. Trulicity, Tresiba and Jardiance on hold. PEGGY. Not tolerating CPAP. Hypothyroidism. Continue levothyroxine when able. Essential hypertension. Lisinopril, metoprolol and HCTZ on hold due to soft blood pressure. Hyperlipidemia. Continue statin when able. Dementia. Continue Aricept. Mood disorder. Continue doxepin when able. Diverticulosis without diverticulitis. CAD. Continue statin and aspirin when able. DVT prophylaxis: Heparin Code status: Full Patient will need hospitalization for at least 2 midnights for acute encephalopathy secondary to UTI treatment with IV antibiotics and IV fluids. Quality Stroke Does the patient have a stroke diagnosis?: No VTE Prior VTE?: No VTE Risk Level:: Medical - moderate - high VTE Device Contraindication: Treatment Not Indicated VTE Drug Contraindication: N/A - Med Ordered
[2024-08-28 03:09] LABS: Glucose, Whole Blood 231 mg/dL (60-115)
[2024-08-28 04:20] LABS: Appearance Urine Clear; Color Urine Yellow; Glucose Urine UA >=1000 mg/dL (Negative); Leukocyte Esterase Urine Negative (Negative); Nitrite Urine Negative (Negative); Specific Gravity - Urine 1.025 (1.005-1.025); UMIC TRIGGER UACC YES; Urine Blood Trace (Negative); Urine Ketones Negative (Negative); Urine Protein Trace mg/dL (Neg-Trace)
[2024-08-28 04:28] LABS: Bacteria Urine None Seen (None Seen); Other Crystals Urine Present; Squamous Epithelial Cell Urine 0-2 /HPF (0-2); UACC Culture Trigger YES
--- NOTE | 2024-08-28 04:46 | PC.NURSE ---
Bladder scanned per Dr. Garcia with 497 mL of urine noted in patient's bladder. Results reported to Dr. Garcia. 16 Fr F/C with 10 ML balloon inflation inserted per MD-immediate urine output 350 mL of yellow, clear urine.
[2024-08-28 04:47] LABS: MANUAL DIFF FLAG NO
[2024-08-28 04:49] LABS: Basophils Percent Auto 0.2 % (0-2); Eosinophils Percent Auto 0.2 % (0-4); Hematocrit 34.2 % (42.0-52.0); Hemoglobin 11.2 g/dl (14.0-18.0); Imm Gran Abs Auto 0.06 X10*3/uL (0.00-0.03); Imm Gran Pct Auto 0.6 % (0.0-0.4); Lymphocytes Absolute Auto 1.2 X10*3/uL (1.2-4.9); Lymphocytes Percent Auto 11.4 % (20-40); Mean Corpuscular HGB Conc 32.7 g/dl (31.0-36.0); Mean Corpuscular Hemoglobin 28.4 pg (27.0-33.0); Mean Corpuscular Volume 86.6 fL (80.0-98.0); Mean Platelet Volume 11.6 fL (9.4-12.4); Monocytes Absolute Auto 1.4 X10*3/uL (0.1-1.2); Monocytes Percent Auto 13.1 % (2-11); Neutrophils Percent Auto 74.5 % (45-73); Platelet Count 144 X10*3/uL (160-400); Red Blood Count 3.95 X10*6/uL (4.60-5.80); Red Cell Distribution Width 13.2 % (11.0-16.0); White Blood Count 10.7 X10*3/uL (4.8-10.8)
[2024-08-28 05:05] LABS: Anion Gap 14 (12-20); Blood Urea Nitrogen 39 mg/dL (9-16); Calcium 8.6 mg/dL (8.4-10.2); Carbon Dioxide 21 mmol/L (22-29); Chloride 109 mmol/L (96-108); Creatinine Clr Calc Pharmacy 35.6; Estimated Glomerular Filt Rate 46; Glucose Random 217 mg/dL (60-115); Potassium 3.9 mmol/L (3.3-5.1); Sodium 140 mmol/L (135-145)
[2024-08-28 05:51] LABS: Glucose, Whole Blood 202 mg/dL (60-115)
[2024-08-28] MEDS: Insulin Lispro 100 UNIT/ML 3 ML VIAL SUBCUT ×3 (05:59→18:16)
--- NOTE | 2024-08-28 06:35 | PC.NURSE ---
Patient awake, pleasantly confused. VSS. Patient denies any pain. Patient medicated per MAR. LR infusing at 80 mL /hr via18 G IV line in R forearm. F/C is patent, draining yellow, clear urine. Patient's spouse at bedside. Patient and spouse are aware of NPO status. Call pastor in patient's reach, plan of care ongoing.
--- NOTE | 2024-08-28 07:35 | PHA.MEDREC ---
Addendum entered by Niesha Galvez RPh 08/28/24 08:32: [facility] REVIEWED Original Note: Pharmacy Consult ? Medication Reconciliation Pharmacy has completed the medication reconciliation. Patient was discharged yesterday 08/27, nothing changed from discharge packet.
--- NOTE | 2024-08-28 08:44 | PM.EVENT ---
Event Note Date of Service: 08/28/24 Event Note: X-rays and CT scan reviewed Degenerative changes noted No acute fracture or dislocation WBAT May f/u out patient Time Spent With Patient Time: Total time managing care of this patient today ____ minutes.
[2024-08-28 08:59] LABS: Glucose, Whole Blood 150 mg/dL (60-115)
--- NOTE | 2024-08-28 09:31 | MHC.EDTECH ---
Emptied 1200mL from patients Iglesias bag.
[2024-08-28] MEDS: cefTRIAXone sodium 1 GM VIAL IVPUSH (10:00)
[2024-08-28] MEDS: Heparin Sodium,Porcine 5,000 UNIT/ML VIAL 5000 UNIT SUBCUT ×2 (10:00→20:14)
--- NOTE | 2024-08-28 10:15 | PC.NURSE ---
pt is resting in the stretcher, pt is alert to self at this time-pt does have hx of dementia,skin pwd, respirations even and unlabored, pt is reporting having pain in the left knee - knee immobilizer is currently on the leg, family members at bedside
--- NOTE | 2024-08-28 10:45 | PC.NURSE ---
speech therapy at bedside for swallow evaluation, recommend pure foods and thin liquids
--- NOTE | 2024-08-28 11:19 | MHC.SL.SWA ---
Speech Pathologist Impression:Adequate oropharyngeal coordination for swallow, airway protection minimally compromised d/t limit to tolerating upright positioning in presence of significant LE pain. Risk of Aspiration Due to: Neurological Condition Limited tolerance to sitting upright Dysphasia Diet Status: NDD1 with thins to start, anticipate diet advance to regular when pt able to sit upright during PO Liquid Consistency and Strategies for Safe Swallow: Liquid Intake Recommendation: Thin Liquid Intake Strategies: Small Sips Solid Food Consistency: Dietary Recommendations: Pureed (NDD1) Additional Modifications to Solid Foods: Oral Medication Intake: Whole with Liquid Please contact the pharmacy regarding appropriate crushable or liquid drug formulations that are available whenever modified delivery is recommended. Compensatory Strategies and Precautions to be Taken for Safe Swallow: Sitting Upright (90 deg) Liquids from Straw Small Bites and Sips Alternate Liquids/Solids Rate of Ingestion Change Supervision While Eating and Drinking for Safe Swallow: Total Supervision (1:1) Foods to Avoid: Swallowing Recommended Treatments: Compens. Strategy Educat. Recommendation for Speech: Inpatient Speech Therapy Comment: Anticipate pt will advance diet when able to sit upright as pain management improves. Frequency/Duration: Date Range for Service Req: Timeline to reassess: Deputy Juvenile Officer Clinican/Clinical Fellow: No Supervisory Statement: I have reviewed and agree with the student/clinical fellow's documentation: N/A Speech Language Pathologist: Mirtha Dorantes M.S., CCC-VETERINARY MEAT INSPECTOR
[2024-08-28 12:34] LABS: Glucose, Whole Blood 177 mg/dL (60-115)
--- NOTE | 2024-08-28 12:45 | PC.NURSE ---
reached out dr mixon in regards to the pt's bp last two BP reading being high and ordering his mediations
--- NOTE | 2024-08-28 13:14 | MHC.CM.PN ---
pt is from [facility] where he will return by bl[facility] when dcd
[2024-08-28] MEDS: Metoprolol Succinate ER 100 MG TAB.ER.24H PO (13:34)
[2024-08-28] MEDS: Aspirin Enteric Coated 81 MG TABLET.DR PO (13:34)
[2024-08-28] MEDS: Cholecalciferol (Vitamin D3) 25 MCG TABLET 50 MCG PO (13:35)
[2024-08-28] MEDS: Levothyroxine Sodium 25 MCG TABLET PO (13:35)
[2024-08-28 14:08] LABS: Glucose, Whole Blood 138 mg/dL (60-115)
[2024-08-28] MEDS: Acetaminophen 325 MG TABLET 650 MG PO (14:36)
--- NOTE | 2024-08-28 16:41 | MHC.EDTECH ---
800 cc drained from partida cath bag.
--- NOTE | 2024-08-28 16:51 | MHC.EDTECH ---
Dinner tray provided
--- NOTE | 2024-08-28 17:12 | PM.EVENT ---
Event Note Date of Service: 08/28/24 Event Note: Chart reviewed. Patient examined. Agree with H&P as outlined. Time Spent With Patient Time: Total time managing care of this patient today ____ minutes.
--- NOTE | 2024-08-28 17:56 | PC.NURSE ---
pt verbalizing he has to have a BM. 2:1 assist needed to ambulate to the commode - pt presents extremely weak and extremely unsteady gait. unable to lift pt off to bed. pt then assisted back into bed. this RN as well as tech placed pt on bed feng in hopes to promote BM. pt unable to have BM d/t increased pain in LLE s/p attempting to ambulate. pt unable to have BM at this time.
[2024-08-28 18:06] LABS: Glucose, Whole Blood 181 mg/dL (60-115)
[2024-08-29] VITALS (7 sets, daily range): BP systolic 143–181; BP diastolic 67–92; PULSE 70–89; RESP 12–18; TEMP 36.5–37.6; O2SAT 92–94
[2024-08-29 00:02] LABS: Glucose, Whole Blood 141 mg/dL (60-115)
[2024-08-29] MEDS: Lactated Ringers 1,000 ML 80 ML IVCONT ×2 (02:27→15:34)
[2024-08-29 05:23] LABS: MANUAL DIFF FLAG NO
[2024-08-29 05:25] LABS: Basophils Percent Auto 0.2 % (0-2); Eosinophils Percent Auto 0.4 % (0-4); Hematocrit 34.8 % (42.0-52.0); Hemoglobin 11.2 g/dl (14.0-18.0); Imm Gran Abs Auto 0.04 X10*3/uL (0.00-0.03); Imm Gran Pct Auto 0.4 % (0.0-0.4); Lymphocytes Absolute Auto 0.9 X10*3/uL (1.2-4.9); Lymphocytes Percent Auto 9.8 % (20-40); Mean Corpuscular HGB Conc 32.2 g/dl (31.0-36.0); Mean Corpuscular Hemoglobin 28.1 pg (27.0-33.0); Mean Corpuscular Volume 87.2 fL (80.0-98.0); Mean Platelet Volume 11.7 fL (9.4-12.4); Neutrophils Absolute Auto 7.6 x10*3/uL (2.0-8.3); Neutrophils Percent Auto 79.2 % (45-73); Platelet Count 174 X10*3/uL (160-400); Red Blood Count 3.99 X10*6/uL (4.60-5.80); Red Cell Distribution Width 13.2 % (11.0-16.0); White Blood Count 9.6 X10*3/uL (4.8-10.8)
[2024-08-29 05:39] LABS: Alanine Aminotransferase 20 U/L (0-40); Alkaline Phosphatase 63 U/L (39-117); Anion Gap 18 (12-20); Aspartate Amino Transferase 24 U/L (5-37); Bilirubin Total 0.6 mg/dL (0.0-1.0); Blood Urea Nitrogen 30 mg/dL (9-16); Carbon Dioxide 22 mmol/L (22-29); Chloride 104 mmol/L (96-108); Creatinine Clr Calc Pharmacy 43.4; Estimated Glomerular Filt Rate 58; Glucose Fasting 183 mg/dL (60-99); Potassium 3.9 mmol/L (3.3-5.1); Sodium 140 mmol/L (135-145); Total Protein 6.2 g/dL (6.5-8.0)
[2024-08-29] MEDS: Levothyroxine Sodium 25 MCG TABLET PO (05:53)
[2024-08-29] MEDS: Insulin Lispro 100 UNIT/ML 3 ML VIAL SUBCUT ×3 (06:00→20:48)
[2024-08-29 06:01] LABS: Glucose, Whole Blood 166 mg/dL (60-115)
[2024-08-29 08:27] LABS: Glucose, Whole Blood 190 mg/dL (60-115)
[2024-08-29] MEDS: 0.9 % Sodium Chloride Flush 3 ML SYRINGE IVFLUSH (08:30)
[2024-08-29] MEDS: Empagliflozin 25 MG TABLET PO (08:30)
[2024-08-29] MEDS: cefTRIAXone sodium 1 GM VIAL IVPUSH (08:30)
[2024-08-29] MEDS: Metoprolol Succinate ER 100 MG TAB.ER.24H PO (08:30)
[2024-08-29] MEDS: Finasteride 5 MG TABLET PO (08:30)
[2024-08-29] MEDS: Aspirin Enteric Coated 81 MG TABLET.DR PO (08:30)
[2024-08-29] MEDS: hydroCHLOROthiazide 25 MG TABLET PO (08:30)
[2024-08-29] MEDS: Cholecalciferol (Vitamin D3) 25 MCG TABLET 50 MCG PO (08:30)
[2024-08-29] MEDS: Heparin Sodium,Porcine 5,000 UNIT/ML VIAL 5000 UNIT SUBCUT ×2 (08:31→20:06)
[2024-08-29 11:29] LABS: Glucose, Whole Blood 238 mg/dL (60-115)
--- NOTE | 2024-08-29 11:36 | MHC.CM.PN ---
IMM delivered to family who was with pt. today. HCP discussed, copy requested. Family stated that pt. was at [facility] for STR, and they said that the plan for him is to go home after hosp. stay. CM will follow for DC needs.
--- NOTE | 2024-08-29 11:41 | PC.NURSE ---
Pt assisted OOB to recliner. Very difficult using sarasteady. Pt not able to bear weight on left leg. BP 170/77 and 175/80. Dr Davila aware. Family at bedside. Pt currently BTB
[2024-08-29] MEDS: QUEtiapine Fumarate 25 MG TABLET PO ×2 (12:15→20:06)
--- NOTE | 2024-08-29 13:26 | HO.PM.IMPN ---
Subjective Subjective Date of Service: 08/29/24 Interval History: More alert this a.m. but confused. No acute issues Review of Systems Limited ROS per family Physical Exam Vital Signs: Vital Signs: Last Vital Signs Temp 98.3 F 08/29/24 11:36 Pulse 70 08/29/24 11:36 Resp 16 08/29/24 11:36 BP 175/80 H 08/29/24 11:36 Pulse Ox 94 08/29/24 11:36 O2 Del Method Room Air 08/29/24 11:36 BMI result Body Mass Index 28.2 Const: Other: Awake alert confused but in no acute distress Resp: Other: Clear to auscultation bilaterally no rales rhonchi or wheezes Cardio: Other: No S4; positive S1-S2; no S3 murmurs rubs or gallops GI: Other: Soft nontender nondistended normoactive bowel sounds Extrem: Other: No edema bilaterally Objective Data Active Medications Acetaminophen (Acetaminophen 325 Mg Tablet) 650 mg PO Q4H PRN PRN Reason: Pain, Mild (Pain Scale 1-3) Last Admin: 08/28/24 14:36 Dose: 650 mg Documented By: JAYLEN Aspirin (Aspirin Enteric Coated 81 Mg Tablet.Dr) 81 mg PO DAILY [facility] Last Admin: 08/29/24 08:30 Dose: 81 mg Documented By: CROW Ceftriaxone Sodium (Ceftriaxone Sodium 1 Gm Vial) 1 gm IVPUSH Q24H [facility] Last Admin: 08/29/24 08:30 Dose: 1 gm Documented By: CROW Empagliflozin (Empagliflozin 25 Mg Tablet) 25 mg PO DAILY [facility] Last Admin: 08/29/24 08:30 Dose: 25 mg Documented By: CROW Finasteride (Finasteride 5 Mg Tablet) 5 mg PO DAILY [facility] Last Admin: 08/29/24 08:30 Dose: 5 mg Documented By: CROW Glucose (Glucose Gel 15 Gm Gel..Gram.) 15 gm PO Q15M PRN; Protocol PRN Reason: per Hypoglycemia Standing Ord. Heparin Sodium (Porcine) (Heparin Sodium,Porcine 5,000 Unit/Ml Vial) 5,000 unit SUBCUT Q12H [facility] Last Admin: 08/29/24 08:31 Dose: 5,000 unit Documented By: CROW Hydrochlorothiazide (Hydrochlorothiazide 25 Mg Tablet) 25 mg PO DAILY [facility]; Protocol Last Admin: 08/29/24 08:30 Dose: 25 mg Documented By: CROW Lactated Ringer's (Lr) 1,000 mls @ 80 mls/hr IVCONT .[id number] [facility] Last Admin: 08/29/24 02:27 Dose: 80 mls/hr Documented By: MARIANA Dextrose (D10) 250 mls @ 750 mls/hr IV Q15M PRN; Protocol PRN Reason: per Hypoglycemia Standing Ord. Insulin Human Lispro (Insulin Lispro 100 Unit/Ml 3 Ml Vial) 0 unit SUBCUT QIDACHS [facility]; Protocol Last Admin: 08/29/24 11:39 Dose: 4 unit Documented By: CROW Levothyroxine Sodium (Levothyroxine Sodium 25 Mcg Tablet) 25 mcg PO DAILY@0600 [facility] Last Admin: 08/29/24 05:53 Dose: 25 mcg Documented By: MARIANA Metoprolol Succinate (Metoprolol Succinate Er 100 Mg Tab.Er.24h) 100 mg PO DAILY [facility]; Protocol Last Admin: 08/29/24 08:30 Dose: 100 mg Documented By: CROW Quetiapine Fumarate (Quetiapine Fumarate 25 Mg Tablet) 25 mg PO BID [facility] Last Admin: 08/29/24 12:15 Dose: 25 mg Documented By: CROW Sodium Chloride (0.9 % Sodium Chloride Flush 3 Ml Syringe) 3 ml IVFLUSH QSHIFT [facility] Last Admin: 08/29/24 08:30 Dose: 3 ml Documented By: CROW Vitamin D (Cholecalciferol (Vitamin D3) 25 Mcg Tablet) 50 mcg PO DAILY [facility] Last Admin: 08/29/24 08:30 Dose: 50 mcg Documented By: CROW Labs 08/29/24 05:00 08/29/24 05:00 Labs: Laboratory Results - last 24 hr 08/28/24 08/28/24 08/28/24 14:05 18:00 23:56 MCV MCH MCHC RDW Plt Count MPV Immature Gran % (Auto) Neut % (Auto) Lymph % (Auto) [place] % (Auto) Eos % (Auto) Baso % (Auto) Lymph # (Auto) [place] # (Auto) Eos # (Auto) Baso # (Auto) Abs Immat Gran (auto) Absolute Neuts (auto) Absolute Nucleated RBC Nucleated RBC % (auto) Anion Gap Estim Creat Clear Calc Estimated GFR POC Glucose 138 H 181 H 141 H Fasting Glucose Calcium Total Bilirubin AST ALT Alkaline Phosphatase Total Protein Albumin 08/29/24 08/29/24 08/29/24 05:00 05:52 08:24 MCV 87.2 MCH 28.1 MCHC 32.2 RDW 13.2 Plt Count 174 MPV 11.7 Immature Gran % (Auto) 0.4 Neut % (Auto) 79.2 H Lymph % (Auto) 9.8 L [place] % (Auto) 10.0 Eos % (Auto) 0.4 Baso % (Auto) 0.2 Lymph # (Auto) 0.9 L [place] # (Auto) 1.0 Eos # (Auto) 0.0 Baso # (Auto) 0.0 Abs Immat Gran (auto) 0.04 H Absolute Neuts (auto) 7.6 Absolute Nucleated RBC 0.000 Nucleated RBC % (auto) 0.0 Anion Gap 18 Estim Creat Clear Calc 43.4 Estimated GFR 58 POC Glucose 166 H 190 H Fasting Glucose 183 H Calcium 9.0 Total Bilirubin 0.6 AST 24 ALT 20 Alkaline Phosphatase 63 Total Protein 6.2 L Albumin 3.0 L 08/29/24 11:15 MCV MCH MCHC RDW Plt Count MPV Immature Gran % (Auto) Neut % (Auto) Lymph % (Auto) [place] % (Auto) Eos % (Auto) Baso % (Auto) Lymph # (Auto) [place] # (Auto) Eos # (Auto) Baso # (Auto) Abs Immat Gran (auto) Absolute Neuts (auto) Absolute Nucleated RBC Nucleated RBC % (auto) Anion Gap Estim Creat Clear Calc Estimated GFR POC Glucose 238 H Fasting Glucose Calcium Total Bilirubin AST ALT Alkaline Phosphatase Total Protein Albumin Microbiology Microbiology Results: Microbiology 08/28/24 Unknown Urine Culture - Final Urine Catheterized - Iglesias Catheter No growth. 08/27/24 21:25 Blood Culture - Preliminary Blood - Venous No growth after 24 hours. 08/27/24 21:25 Blood Culture - Preliminary Blood - Venous No growth after 24 hours. Assessment and Plan (1) Acute encephalopathy: Status: Acute (2) Hyperglycemia due to type 2 diabetes mellitus: Status: Acute (3) SHERRI (acute kidney injury): Status: Acute Plan 84-year-old gentleman admitted with acute encephalopathy that worsened over the several days prior to hospitalization. 1. Acute encephalopathy -improving with therapies -blood cultures negative times 24 hours. Urine culture without growth at this time. -would continue ceftriaxone until a.m. and switch to p.o.. 2. SHERRI -resolving with volume -continue to follow renals/divalent 3. Bilateral hydroureter/hydronephrosis -resolved with Iglesias.. Continue same -outpatient urology follow up 4. Diabetes type 2 -acceptable control on current therapies -adjust as indicated 5. Hypertension -add back outpatient therapies -adjust as indicated 6.Dementia -continue outpatient therapies -add Seroquel b.i.d. Heparin Full Code Quality Stroke Does the patient have a stroke diagnosis?: No VTE Prior VTE?: No VTE Risk Level:: Medical - moderate - high VTE Device Contraindication: Treatment Not Indicated VTE Drug Contraindication: N/A - Med Ordered
[2024-08-29] MEDS: lisinopriL 40 MG TABLET PO (13:50)
[2024-08-29 16:24] LABS: Glucose, Whole Blood 134 mg/dL (60-115)
[2024-08-29 20:25] LABS: Glucose, Whole Blood 187 mg/dL (60-115)
[2024-08-29] MEDS: LORazepam 0.5 MG TABLET PO (21:59)
[2024-08-30 04:00] VITALS: RESP 18
[2024-08-30 07:32] VITALS: BP 140/80; PULSE 86; RESP 18; TEMP 36.3; O2SAT 94
[2024-08-30 07:42] LABS: MANUAL DIFF FLAG NO
[2024-08-30 07:43] LABS: Basophils Percent Auto 0.2 % (0-2); Eosinophils Percent Auto 0.1 % (0-4); Hematocrit 36.3 % (42.0-52.0); Imm Gran Abs Auto 0.04 X10*3/uL (0.00-0.03); Imm Gran Pct Auto 0.4 % (0.0-0.4); Lymphocytes Absolute Auto 0.8 X10*3/uL (1.2-4.9); Lymphocytes Percent Auto 9.1 % (20-40); Mean Corpuscular HGB Conc 33.1 g/dl (31.0-36.0); Mean Corpuscular Hemoglobin 28.9 pg (27.0-33.0); Mean Corpuscular Volume 87.5 fL (80.0-98.0); Mean Platelet Volume 11.7 fL (9.4-12.4); Monocytes Percent Auto 11.4 % (2-11); Neutrophils Absolute Auto 7.2 x10*3/uL (2.0-8.3); Neutrophils Percent Auto 78.8 % (45-73); Platelet Count 192 X10*3/uL (160-400); Red Blood Count 4.15 X10*6/uL (4.60-5.80); Red Cell Distribution Width 13.3 % (11.0-16.0); White Blood Count 9.1 X10*3/uL (4.8-10.8)
[2024-08-30 07:46] LABS: Glucose, Whole Blood 170 mg/dL (60-115)
[2024-08-30 08:01] LABS: Alanine Aminotransferase 18 U/L (0-40); Alkaline Phosphatase 68 U/L (39-117); Anion Gap 19 (12-20); Aspartate Amino Transferase 30 U/L (5-37); Bilirubin Total 0.7 mg/dL (0.0-1.0); Blood Urea Nitrogen 30 mg/dL (9-16); Calcium 9.6 mg/dL (8.4-10.2); Carbon Dioxide 23 mmol/L (22-29); Chloride 103 mmol/L (96-108); Creatinine Clr Calc Pharmacy 48.7; Estimated Glomerular Filt Rate > 60; Glucose Fasting 165 mg/dL (60-99); Potassium 3.7 mmol/L (3.3-5.1); Sodium 141 mmol/L (135-145); Total Protein 6.6 g/dL (6.5-8.0)
[2024-08-30] MEDS: Insulin Lispro 100 UNIT/ML 3 ML VIAL SUBCUT ×2 (08:59→12:51)
[2024-08-30] MEDS: cefTRIAXone sodium 1 GM VIAL IVPUSH (09:00)
[2024-08-30] MEDS: Heparin Sodium,Porcine 5,000 UNIT/ML VIAL 5000 UNIT SUBCUT (09:00)
[2024-08-30] MEDS: Finasteride 5 MG TABLET PO (09:01)
[2024-08-30] MEDS: Empagliflozin 25 MG TABLET PO (09:01)
[2024-08-30] MEDS: QUEtiapine Fumarate 25 MG TABLET PO (09:01)
[2024-08-30] MEDS: 0.9 % Sodium Chloride Flush 3 ML SYRINGE IVFLUSH (09:01)
[2024-08-30] MEDS: Cholecalciferol (Vitamin D3) 25 MCG TABLET 50 MCG PO (09:01)
[2024-08-30] MEDS: Aspirin Enteric Coated 81 MG TABLET.DR PO (09:01)
[2024-08-30 10:21] VITALS: BP 160/64; PULSE 93; RESP 18; TEMP 36.8; O2SAT 93
[2024-08-30] MEDS: Metoprolol Succinate ER 100 MG TAB.ER.24H PO (10:38)
[2024-08-30] MEDS: lisinopriL 40 MG TABLET PO (10:38)
[2024-08-30] MEDS: hydroCHLOROthiazide 25 MG TABLET PO (10:38)
[2024-08-30 11:44] LABS: Glucose, Whole Blood 219 mg/dL (60-115)
--- NOTE | 2024-08-30 13:16 | HO.PM.IMPN ---
Subjective Subjective Date of Service: 08/30/24 Interval History: Episode of confusion overnight. Somnolent this a.m. Review of Systems Limited ROS per family Physical Exam Vital Signs: Vital Signs: Last Vital Signs Temp 98.2 F 08/30/24 10:21 Pulse 93 08/30/24 10:21 Resp 18 08/30/24 10:21 BP 160/64 H 08/30/24 10:21 Pulse Ox 93 08/30/24 10:21 O2 Del Method Room Air 08/30/24 10:21 BMI result Body Mass Index 28.2 Const: Other: Awake alert confused but in no acute distress Resp: Other: Clear to auscultation bilaterally no rales rhonchi or wheezes Cardio: Other: No S4; positive S1-S2; no S3 murmurs rubs or gallops GI: Other: Soft nontender nondistended normoactive bowel sounds Extrem: Other: No edema bilaterally Objective Data Active Medications Acetaminophen (Acetaminophen 325 Mg Tablet) 650 mg PO Q4H PRN PRN Reason: Pain, Mild (Pain Scale 1-3) Last Admin: 08/28/24 14:36 Dose: 650 mg Documented By: JAYLEN Aspirin (Aspirin Enteric Coated 81 Mg Tablet.Dr) 81 mg PO DAILY [facility] Last Admin: 08/30/24 09:01 Dose: 81 mg Documented By: MONICA Ceftriaxone Sodium (Ceftriaxone Sodium 1 Gm Vial) 1 gm IVPUSH Q24H [facility] Last Admin: 08/30/24 09:00 Dose: 1 gm Documented By: MONICA Empagliflozin (Empagliflozin 25 Mg Tablet) 25 mg PO DAILY [facility] Last Admin: 08/30/24 09:01 Dose: 25 mg Documented By: MONICA Finasteride (Finasteride 5 Mg Tablet) 5 mg PO DAILY [facility] Last Admin: 08/30/24 09:01 Dose: 5 mg Documented By: MONICA Glucose (Glucose Gel 15 Gm Gel..Gram.) 15 gm PO Q15M PRN; Protocol PRN Reason: per Hypoglycemia Standing Ord. Heparin Sodium (Porcine) (Heparin Sodium,Porcine 5,000 Unit/Ml Vial) 5,000 unit SUBCUT Q12H [facility] Last Admin: 08/30/24 09:00 Dose: 5,000 unit Documented By: MONICA Hydrochlorothiazide (Hydrochlorothiazide 25 Mg Tablet) 25 mg PO DAILY [facility]; Protocol Last Admin: 08/30/24 10:38 Dose: 25 mg Documented By: MONICA Dextrose (D10) 250 mls @ 750 mls/hr IV Q15M PRN; Protocol PRN Reason: per Hypoglycemia Standing Ord. Insulin Human Lispro (Insulin Lispro 100 Unit/Ml 3 Ml Vial) 0 unit SUBCUT QIDACHS [facility]; Protocol Last Admin: 08/30/24 12:51 Dose: 4 unit Documented By: YONI Levothyroxine Sodium (Levothyroxine Sodium 25 Mcg Tablet) 25 mcg PO DAILY@0600 [facility] Last Admin: 08/30/24 06:23 Dose: Not Given Documented By: MARIANA Non-Admin Reason: pt sleepy Lisinopril (Lisinopril 40 Mg Tablet) 40 mg PO DAILY [facility]; Protocol Last Admin: 08/30/24 10:38 Dose: 40 mg Documented By: MONICA Metoprolol Succinate (Metoprolol Succinate Er 100 Mg Tab.Er.24h) 100 mg PO DAILY [facility]; Protocol Last Admin: 08/30/24 10:38 Dose: 100 mg Documented By: MONICA Quetiapine Fumarate (Quetiapine Fumarate 25 Mg Tablet) 25 mg PO BID [facility] Last Admin: 08/30/24 09:01 Dose: 25 mg Documented By: MONICA Sodium Chloride (0.9 % Sodium Chloride Flush 3 Ml Syringe) 3 ml IVFLUSH QSHIFT [facility] Last Admin: 08/30/24 09:01 Dose: 3 ml Documented By: MONICA Vitamin D (Cholecalciferol (Vitamin D3) 25 Mcg Tablet) 50 mcg PO DAILY [facility] Last Admin: 08/30/24 09:01 Dose: 50 mcg Documented By: MONICA Labs 08/30/24 05:57 08/30/24 05:57 Labs: Laboratory Results - last 24 hr 08/29/24 08/29/24 08/30/24 16:19 20:16 05:57 MCV 87.5 MCH 28.9 MCHC 33.1 RDW 13.3 Plt Count 192 MPV 11.7 Immature Gran % (Auto) 0.4 Neut % (Auto) 78.8 H Lymph % (Auto) 9.1 L [place] % (Auto) 11.4 H Eos % (Auto) 0.1 Baso % (Auto) 0.2 Lymph # (Auto) 0.8 L [place] # (Auto) 1.0 Eos # (Auto) 0.0 Baso # (Auto) 0.0 Abs Immat Gran (auto) 0.04 H Absolute Neuts (auto) 7.2 Absolute Nucleated RBC 0.000 Nucleated RBC % (auto) 0.0 Anion Gap 19 Estim Creat Clear Calc 48.7 Estimated GFR > 60 POC Glucose 134 H 187 H Fasting Glucose 165 H Calcium 9.6 D Total Bilirubin 0.7 AST 30 ALT 18 Alkaline Phosphatase 68 Total Protein 6.6 Albumin 3.0 L 08/30/24 08/30/24 07:32 11:40 MCV MCH MCHC RDW Plt Count MPV Immature Gran % (Auto) Neut % (Auto) Lymph % (Auto) [place] % (Auto) Eos % (Auto) Baso % (Auto) Lymph # (Auto) [place] # (Auto) Eos # (Auto) Baso # (Auto) Abs Immat Gran (auto) Absolute Neuts (auto) Absolute Nucleated RBC Nucleated RBC % (auto) Anion Gap Estim Creat Clear Calc Estimated GFR POC Glucose 170 H 219 H Fasting Glucose Calcium Total Bilirubin AST ALT Alkaline Phosphatase Total Protein Albumin Microbiology Microbiology Results: Microbiology 08/27/24 21:25 Blood Culture - Preliminary Blood - Venous No growth after 48 hours. 08/27/24 21:25 Blood Culture - Preliminary Blood - Venous No growth after 48 hours. 08/28/24 Unknown Urine Culture - Final Urine Catheterized - Iglesias Catheter No growth. Assessment and Plan (1) Acute encephalopathy: Status: Acute Plan 84-year-old gentleman admitted with acute encephalopathy that worsened over the several days prior to hospitalization. 1. Acute encephalopathy -improving with therapies -blood cultures negative times 24 hours. Urine culture without growth at this time. -would continue ceftriaxone -long discussion with family; would like patient placed. Physical therapy consult ordered. Discharge planning to begin bed search 2. SHERRI -resolving with volume -continue to follow renals/divalent 3. Bilateral hydroureter/hydronephrosis -resolved with Iglesias.. Continue same -outpatient urology follow up 4. Diabetes type 2 -acceptable control on current therapies -adjust as indicated 5. Hypertension -add back outpatient therapies -adjust as indicated 6.Dementia -continue outpatient therapies -add Seroquel b.i.d. Heparin Full Code Quality Stroke Does the patient have a stroke diagnosis?: No VTE Prior VTE?: No VTE Risk Level:: Medical - moderate - high VTE Device Contraindication: Treatment Not Indicated VTE Drug Contraindication: N/A - Med Ordered
--- NOTE | 2024-08-30 15:15 | PM.DS ---
DS: Providers Provider Date of Service: 08/30/24 Date of admission: 08/27/24 23:43 Date of discharge: 08/30/24 Primary care physician: Melany Alejandre DO Consults: 08/28/24 03:30 Consult to Orthopedics Routine Consulting Provider: [facility] Reason for consultation: Recent left knee trauma -> moderate effusion Has provider been notified: No DS: Diagnosis Discharge Diagnosis (1) Acute encephalopathy: Status: Acute DS: Summary Hospital Course Hospital Course: Bere Velasquez is 84 years old man with past medical history significant for dementia, type 2 diabetes on insulin, CAD, PEGGY -not tolerating CPAP, prostate cancer, BPH, hyperlipidemia, essential hypertension and hypothyroidism was discharged from ED today to [facility] after he sustained a mechanical fall. HPI was provided by patient's who was at bedside and a friend. At [facility], noted patient was very lethargic and confused. At baseline he is alert and oriented. Further evaluation was remarkable for temperature of 104. No other abnormalities were noted such as facial droop, slurred speech or focal weakness. The patient is still quite lethargic but awakes upon calling his name and able to follow commands. He denied any pain or shortness on breath. In the ED, he was found to have fever 101.9. There is no hypotension and tachycardia. Oxygen saturation is normal on room air. Blood workup was remarkable for minimal leukocytosis of 10.9. There is no lactic acidosis. Hemoglobin is at baseline. Platelets level is 146. Blood glucose is 382, creatinine 1.73 and BUN 38. LFTs are normal. Urinalysis showed finding consistent with urinary tract infection. Abdominal pelvis CT scan with IV contrast showed diverticulosis without evidence of diverticulitis, distended urinary bladder and mild bilateral hydronephrosis and hydroureter likely related to bladder distention. Rectal tube in place. Knee CT scan showed moderate volume of joint effusion. Head and C-spine CT scan showed no acute intracranial findings or cervical spine fracture/dislocations. CXR is negative except for bibasilar atelectasis. ED tx: NS 2 L bolus, ceftriaxone 1 g IV and insulin 8 units subcut Hospital course Patient admitted to general medical floor and started on ceftriaxone and continued to improve. Patient has dementia remained at baseline and at this point in time he is medically acceptable to be transferred back to [facility] to complete of course of Ceftin p.o. further plans as per receiving facility Time Attestation Discharge Coordination Time (in mins): 35 Quality: Safe Use of Opioids Does Pt have an Active Cancer Diagnosis on the Problem List?: No Quality: Stroke Does the patient have a stroke diagnosis?: No Physical Exam Vital Signs: Vital Signs: Last Vital Signs Temp 98.2 F 08/30/24 10:21 Pulse 93 08/30/24 10:21 Resp 18 08/30/24 10:21 BP 160/64 H 08/30/24 10:21 Pulse Ox 93 08/30/24 10:21 O2 Del Method Room Air 08/30/24 10:21 BMI result Body Mass Index 28.2 Const: Other: Awake alert confused but in no acute distress Resp: Other: Clear to auscultation bilaterally no rales rhonchi or wheezes Cardio: Other: No S4; positive S1-S2; no S3 murmurs rubs or gallops GI: Other: Soft nontender nondistended normoactive bowel sounds Extrem: Other: No edema bilaterally DS: Data Data Completed and Pending Labs on day of discharge: Laboratory Results - last 24 hr 08/29/24 08/29/24 08/30/24 16:19 20:16 05:57 WBC 9.1 RBC 4.15 L Hgb 12.0 L Hct 36.3 L MCV 87.5 MCH 28.9 MCHC 33.1 RDW 13.3 Plt Count 192 MPV 11.7 Immature Gran % (Auto) 0.4 Neut % (Auto) 78.8 H Lymph % (Auto) 9.1 L [place] % (Auto) 11.4 H Eos % (Auto) 0.1 Baso % (Auto) 0.2 Lymph # (Auto) 0.8 L [place] # (Auto) 1.0 Eos # (Auto) 0.0 Baso # (Auto) 0.0 Abs Immat Gran (auto) 0.04 H Absolute Neuts (auto) 7.2 Absolute Nucleated RBC 0.000 Nucleated RBC % (auto) 0.0 Sodium 141 Potassium 3.7 Chloride 103 Carbon Dioxide 23 Anion Gap 19 BUN 30 H Creatinine 1.06 Estim Creat Clear Calc 48.7 Estimated GFR > 60 POC Glucose 134 H 187 H Fasting Glucose 165 H Calcium 9.6 D Total Bilirubin 0.7 AST 30 ALT 18 Alkaline Phosphatase 68 Total Protein 6.6 Albumin 3.0 L 08/30/24 08/30/24 07:32 11:40 WBC RBC Hgb Hct MCV MCH MCHC RDW Plt Count MPV Immature Gran % (Auto) Neut % (Auto) Lymph % (Auto) [place] % (Auto) Eos % (Auto) Baso % (Auto) Lymph # (Auto) [place] # (Auto) Eos # (Auto) Baso # (Auto) Abs Immat Gran (auto) Absolute Neuts (auto) Absolute Nucleated RBC Nucleated RBC % (auto) Sodium Potassium Chloride Carbon Dioxide Anion Gap BUN Creatinine Estim Creat Clear Calc Estimated GFR POC Glucose 170 H 219 H Fasting Glucose Calcium Total Bilirubin AST ALT Alkaline Phosphatase Total Protein Albumin Preliminary micro results at discharge 08/27/24 21:25 Blood Culture - Preliminary Blood - Venous No growth after 48 hours. 08/27/24 21:25 Blood Culture - Preliminary Blood - Venous No growth after 48 hours. Discharge Plan Discharge Anticipated Discharge Date/Time: 08/30/24 15:13 Patient Disposition: Xfer LTC Discharge Diagnosis: UTI with mental status changes Referrals: Melany Alejandre DO [Primary Care Provider] - 1 Week Discharge Medications: New quetiapine 25 mg Tablet 25 mg PO BID Qty: 60 0RF cefuroxime axetil 250 mg tablet 250 mg PO BID 7 Days Qty: 14 0RF Continued Trulicity 1.5 mg/0.5 mL pen injector 1.5 mg subcut SA levothyroxine 25 mcg tablet 25 mcg PO DAILY@0600 atorvastatin 80 mg tablet 80 mg PO BEDTIME metoprolol succinate 100 mg tablet extended release 24 hr 100 mg PO DAILY aspirin 81 mg tablet,delayed release (DR/EC) 81 mg PO DAILY hydrochlorothiazide 25 mg tablet 25 mg PO DAILY lisinopril 40 mg tablet 40 mg PO DAILY finasteride 5 mg tablet 5 mg PO DAILY Jardiance 25 mg tablet 25 mg PO DAILY cholecalciferol (vitamin D3) [Vitamin D3] 50 mcg (2,000 unit) capsule 50 mcg PO DAILY gabapentin 400 mg capsule 400 mg PO BID insulin degludec [Tresiba FlexTouch U-100] 100 unit/mL (3 mL) insulin pen 8 unit subcut BEDTIME Discharge Orders: Discharge Order (Routine); Ordered 08/30/24 Ordered By: Jung M Snow Diet: Advance to usual diet Activity on Discharge: As tolerated Stand Alone Forms: Patient Portal Discharge page Print Language: [place] Care Plan Goals: Resume all meds as per transfer summary Health Concerns: Ceftin 250 twice daily x1 week for UTI must be completed Plan of Treatment: Further plans as receiving facility Assessment: See discharge summary
--- NOTE | 2024-08-30 15:20 | MHC.CM.PN ---
Addendum entered by Camille Harvey 08/30/24 16:12: TANA MET WITH PTS AND [facility] AT BEDSIDE REPORTS SHE IS WORRIED THAT THEY WILL NOT HAVE THE PTS MEDS WHEN HE GETS THERE CM EXPLAINED THE INSURANCE WILL NOT LET THE SNF ORDER MEDS UNTIL HE IS IN THE BUILDING THEY ALSO REPORTED THEY FELT THE RN AT THE SNF WAS UNTRAINED AND RUDE, CM AGREED TO REQUEST THEY MOVE PT TO ANOTHER UNIT CM DID FORWARD REQUEST HOWEVER THEY ARE UNABLE TO MAKE A CHANGE PRIOR TO MONDAY Original Note: TANA MET WITH PTS DAUGHTER/HCP, BECCA, AT BEDSIDE THIS MORNING SHE REPORTS THE PT WAS AT [facility] BUT ONLY FOR A FEW HOURS SHE SAYS HER MOTHER HOPES THE PT CAN GO ELSEWHERE SHE DID NOT FEEL [facility] HANDLED HIS EMERGENCY WELL SHE UNDERSTANDS IF THERE ARE NO OTHER BED OFFERS PT WILL NEED TO RETURN TO [facility] A BROAD REFERRAL WAS PLACED BASED ON PTS INSURANCE THERE WERE NO BED OFFERS CM SPOKE TO HCP AGAIN, SHE UNDERSTANDS PT WILL RETURN TO [facility] FOR STR CM WILL REQUEST HE BE MOVED TO A DIFFERENT FLOOR PER [facility] TRANSPORT BOOKED WITH [facility] FOR 1600 HOURS
[2024-08-30 15:36] VITALS: BP 147/86; PULSE 82; RESP 18; TEMP 37.1; O2SAT 92
[2024-08-30 16:29] LABS: Glucose, Whole Blood 143 mg/dL (60-115)
[2024-09-11 14:26] LABS: Glucose, Whole Blood 287 mg/dL (60-115)
[2024-09-11 14:26] LABS: Glucose, Whole Blood 292 mg/dL (60-115)
== END 2024-08-30 17:12 | disposition skilled nursing facility (03) | DRG 689 ==
LOC: HO.ED 21:54 → HO.EDOVER 23:48 → HO.S3 08-28 16:17
PROVIDERS: Admitting Provider Internal Medicine; Emergency Provider Internal Medicine; PCP Family Medicine; Visit Provider Hospitalist
DX: N13.6 Pyonephrosis (principal); G93.41 Metabolic encephalopathy; N17.9 Acute kidney failure, unspecified; E11.42 Type 2 diabetes mellitus with diabetic polyneuropathy; E78.5 Hyperlipidemia, unspecified; N40.1 Benign prostatic hyperplasia with lower urinary tract symptoms; R33.8 Other retention of urine; K57.30 Diverticulosis of large intestine without perforation or abscess without bleeding; F39 Unspecified mood [affective] disorder; G47.33 Obstructive sleep apnea (adult) (pediatric); F01.50 Vascular dementia, unspecified severity, without behavioral disturbance, psychotic disturbance, mood disturbance, and anxiety; I25.10 Atherosclerotic heart disease of native coronary artery without angina pectoris; Z79.4 Long term (current) use of insulin; Z79.82 Long term (current) use of aspirin; Z79.85 Long-term (current) use of injectable non-insulin antidiabetic drugs; Z79.890 Hormone replacement therapy; Z79.899 Other long term (current) drug therapy
CPT/HCPCS: 36415; 74176; 80048; 80053; 81001; 82947; 83605; 85025; 87040; 87086; 92610; 99221; 99285; J0131; J0696; J1644; J7120

== ENCOUNTER → 2024-08-27 23:43 | Outpatient (BNV) | payer OTHER, SELFPAY | PROVIDERS: Admitting Provider Internal Medicine; Emergency Provider Internal Medicine; PCP Family Medicine; Visit Provider Physician Assistant | DX: M25.562 Pain in left knee (principal); W19.XXXA Unspecified fall, initial encounter | CPT/HCPCS: 99499 ==

== ENCOUNTER → 2024-08-27 23:43 | Outpatient (BNV) | payer OTHER, SELFPAY | PROVIDERS: Admitting Provider Internal Medicine; Emergency Provider Internal Medicine; PCP Family Medicine; Visit Provider Internal Medicine | DX: G93.40 Encephalopathy, unspecified (principal); E11.65 Type 2 diabetes mellitus with hyperglycemia; N17.9 Acute kidney failure, unspecified | CPT/HCPCS: 99223; 99232; 99239; 99499 ==

== ENCOUNTER 2024-09-10 19:06 | Inpatient (IN) | payer OTHER, SELFPAY ==
--- NOTE | ~2024-09-10 | CT_ITS ---
EXAMINATION: CT ABDOMEN AND PELVIS WITHOUT CONTRAST CLINICAL INFORMATION: Sacral wound. Question osseous involvement. Diarrhea. COMPARISON: Sacral radiographs 09/10/2024. TECHNIQUE: Multidetector volumetric imaging was performed from the superior aspect of the liver through the pubic symphysis. Sagittal and coronal reformatted images were obtained on the technologist's workstation. This CT examination was performed using dose optimization techniques as appropriate, variously including the following: *Automated exposure control *Adjustment of mA and/or kV according to patient size (this includes techniques or standardized protocols for targeted exams where dose is matched to indication/reason for exam; i.e. extremities or head) *Use of iterative reconstruction technique DLP: 540 mGy-cm FINDINGS: LUNG BASES: The visualized lung bases are unremarkable. LIVER, GALLBLADDER, AND BILIARY TREE: The liver is normal in size, shape, and attenuation. No focal hepatic lesion or biliary ductal dilatation is present. The gallbladder is unremarkable with no evidence of radiopaque gallstones, gallbladder wall thickening, or obvious pericholecystic inflammatory changes. PANCREAS: Unremarkable. SPLEEN: Unremarkable. ADRENAL GLANDS: Unremarkable. KIDNEYS AND URETERS: Approximate 2 cm diameter rounded low density focus is noted in association with the left kidney and is most consistent with a benign, simple cyst and warrants no additional imaging follow-up on the basis of this examination. BLADDER: Iglesias catheter terminates within the urinary bladder. Urinary bladder is collapsed. GASTROINTESTINAL TRACT: Moderate sigmoid diverticulosis. Normal appearance of the terminal ileum. The appendix is not visualized. No pericecal inflammatory changes noted. No free intraperitoneal fluid or gas collections. Normal appearance of the stomach and duodenum. ABDOMINAL WALL: Scattered subcutaneous foci of gas and subcutis fat reticulation within the lower intra-abdominal wall which may relate to subcutaneous injections. LYMPH NODES: Normal. VASCULAR: Diffuse calcific atherosclerosis PELVIC VISCERA: Normal size of the prostate. OSSEOUS STRUCTURES: Mild reticulation of subcutaneous fat is present adjacent to the coccyx. No soft tissue fluid collections in this region. No soft tissue emphysematous changes. The adjacent coccyx demonstrates no erosive changes. Internal fixation of the lower lumbar spine and sacrum is present. No suspicious skeletal lesions noted. Grade [address] anterol[address]hesis L5-S1. CT/CT abdomen pelvis wo IV con IMPRESSION: *Mild subcutaneous inflammatory changes adjacent to the coccyx. No associated soft tissue fluid collections. No erosion of the adjacent coccyx. *Moderate colonic diverticulosis. *Iglesias catheter terminating within the urinary bladder. Decompressed urinary bladder. *Multifocal subcutaneous fat reticulation and mild inflammatory changes within the lower abdominal quadrants which may relate to subcutaneous injections. Electronically signed by: Milton Cross MD 09/11/2024 01:20 AM [facility]
--- NOTE | ~2024-09-10 | XR_ITS ---
EXAMINATION: XR SACRUM AND COCCYX CLINICAL INFORMATION: Wound, ?osseous involvement. COMPARISON: CT abdomen/pelvis dated 08/27/2024. TECHNIQUE: 2 views of the sacrum and 2 views of the coccyx were obtained. FINDINGS: No acute fracture or dislocation. No concerning lytic or blastic osseous lesion. No cortical erosion or periosteal reaction. Osteomyelitis may be occult on plain radiographs. Lower lumbar spine and sacral orthopedic hardware without evidence of hardware complication. XR/XR sacrum coccyx min 2V IMPRESSION: No acute osseous abnormality. No cortical erosion or periosteal reaction. Osteomyelitis may be occult on plain radiographs. Electronically signed by: Chirag Ghosh MD 09/10/2024 08:47 PM [facility] [place]
[2024-09-10 19:22] VITALS: BP 100/40; BP 104/42; PULSE 66; PULSE 67; RESP 20; TEMP 36.8; O2SAT 93; O2SAT 94; BMI 22.9
--- NOTE | 2024-09-10 19:46 | ED.WOUNDLAC ---
HPI - Wound/Laceration General Chief Complaint: Wound/Laceration Stated Complaint: BED SORE FROM [facility] Time Seen by Provider: 09/10/24 19:12 Source: patient and EMS Mode of arrival: EMS Limitations: no limitations History of Present Illness ED Provider: donnell martin PATIENT CARE NURSING ASSISTANT HPI narrative: Patient is an 84-year-old male who presents to the emergency department coming from [facility], family visited the facility and they expressed concern that the bedsore to his sacrum was not being cared for appropriately, nor having dressing changes, reporting that patient has not been referred to wound care center or specialist. Family wanted further evaluation less requested transfer to the emergency department. Related Data Home Medications ?Medication ?Instructions ?Recorded ?Confirmed aspirin 81 mg tablet,delayed 81 mg PO DAILY 10/26/20 08/28/24 release atorvastatin 80 mg tablet 80 mg PO BEDTIME 10/26/20 08/28/24 finasteride 5 mg tablet 5 mg PO DAILY 10/26/20 08/28/24 hydrochlorothiazide 25 mg tablet 25 mg PO DAILY 10/26/20 08/28/24 levothyroxine 25 mcg tablet 25 mcg PO DAILY@0600 10/26/20 08/28/24 lisinopril 40 mg tablet 40 mg PO DAILY 10/26/20 08/28/24 metoprolol succinate 100 mg 100 mg PO DAILY 10/26/20 08/28/24 tablet,extended release 24 hr cholecalciferol (vitamin D3) 50 50 mcg PO DAILY 08/01/24 08/28/24 mcg (2,000 unit) capsule (Vitamin D3) empagliflozin 25 mg tablet 25 mg PO DAILY 08/01/24 08/28/24 (Jardiance) gabapentin 400 mg capsule 400 mg PO BID 08/01/24 08/28/24 insulin degludec 100 unit/mL (3 8 unit subcut BEDTIME 08/01/24 08/28/24 mL) subcutaneous pen (Tresiba FlexTouch U-100 insulin) dulaglutide 1.5 mg/0.5 mL 1.5 mg subcut SA 08/27/24 08/28/24 subcutaneous pen injector (Trulicity) Previous Rx's ?Medication ?Instructions ?Recorded cefuroxime axetil 250 mg tablet 250 mg PO BID 7 days #14 tabs 08/30/24 quetiapine 25 mg tablet 25 mg PO BID #60 tabs 08/30/24 Allergies Allergy/AdvReac Type Severity Reaction Status Date / Time No Known Allergies Allergy Verified 09/10/24 19:28 Review of Systems Review of Systems: Yes all other systems are reviewed and are negative REPLACED BY [facility] Past Medical History Attestation statement: The following information was validated with the patient. Source: old records reviewed Medical History Hyperglycemia due to type 2 diabetes mellitus Effusion of left knee Diarrhea Epigastric pain H. pylori infection Prostate cancer CAD (coronary artery disease) Diabetes Surgical History Hx of cataract removal with insertion of prosthetic lens History of back surgery Hx of appendectomy Hx of cardiac cath Family History Family History Father No problems noted. Mother Uterine cancer Social History Social History Household Members: Spouse Housing: Condominium Do you presently have visiting nurse or other home services: Yes ([employer]) Patient Tobacco Use Status: Never used Tobacco Advance Directives: No Advance Directives Information Provided: No Do you have a plan to hurt others: No Plan service: No Physical Exam Vital Signs: Vital Signs: Last Vital Signs Temp 97.5 F 09/11/24 00:41 Pulse 77 09/11/24 02:20 Resp 16 09/11/24 02:20 BP 119/63 09/11/24 02:20 Pulse Ox 94 09/11/24 02:20 O2 Del Method Room Air 09/11/24 02:20 BMI result Body Mass Index 22.9 Appearance: Alert.?Oriented to person and place.. No acute distress.?Normal affect. Eyes: Pupils equal, round and reactive to light.? ENT: Pharynx normal.?? Neck: Normal inspection.? Neck supple.?? CVS: Heart sounds normal. Normal heart rate and rhythm.? Pulses normal.?? Respiratory: No respiratory distress.? Lung sounds clear to auscultation bilaterally?? Abdomen: Soft and non-tender. Normoactive bowel sounds.? Skin: Skin warm and dry.? Normal skin color.? Sacral wound as pictured below Extremities: No lower extremity edema.? Neuro: Moves all extremities spontaneously. Sensation intact bilaterally. Course Reevaluation(s) Reevaluation #1: XR imaging without evidence of osteomyelitis, obtaining CT of the pelvis for further evaluation osseous involvement or abscess with cefepime. No lactic acidosis or leukocytosis but as per MDM portion of this note notably elevated inflammatory markers. Patient receiving IV fluids for SHERRI. Family at bedside, they do not want patient to return to [place] care no circumstances. Reevaluation #2: Nursing staff have reported to me that patient is experiencing multiple bouts of liquid stool/diarrhea. Per family this has been ?ongoing? unclear for how long. Given his recent hospitalization will obtain studies for C difficile as well as GI panel. Has a history of diverticulosis, will obtain CT abdomen and pelvis at this time, exclude diverticulitis. Reevaluation #3: CT of the abdomen and pelvis without evidence of diverticulitis, there is however diverticulosis. C difficile testing is negative. Thyroid may be secondary to recent antibiotic usage. CT with mild subcutaneous inflammatory changes adjacent to the coccyx without obvious fluid collection or erosion of the adjacent coccyx. Renal function slightly downtrending but BUN is 63, creatinine 1.46, suspect this is likely volume deficit due to dehydration, no obstructive uropathy findings on CT today, remains on nephrotoxins including lisinopril and HCTZ. and Iglesias catheter is in place, urinalysis concerning for UTI. Planning for admission to medicine service, will speak with hospitalist Dr. Jose Gong. Medications Administered Discontinued Medications Generic Name Dose Route Start Last Admin Trade Name Freq PRN Reason Stop Dose Admin Sodium Chloride 1,000 mls @ 999 mls/hr 09/10/24 21:15 09/10/24 21:48 Ns IV 09/10/24 22:15 999 mls/hr .Q1H1M CHRISTO Administration Cefepime HCl 2 gm in 50 mls @ 100 mls/hr 09/10/24 22:02 09/10/24 22:54 Maxipime IV 09/10/24 22:31 100 mls/hr ONCE ONE Administration Medical Decision Making Medical Decision Making MDM Narrative: Patient is an 84-year-old male with past medical history of dementia, type 2 diabetes on insulin, CAD, PEGGY not tolerating CPAP, prostate cancer, BPH, hyperlipidemia, essential hypertension, hypothyroidism presents to the emergency department for evaluation of sacral wound as per HPI. Of note he was [place] [facility] [place] discharged on 08/30/2024 ; presented for evaluation after a mechanical fall with lethargy and confusion found to have urinary tract infection for which she was treated with Rocephin, urine culture however with mixed melva characteristic of urogenital contamination. Will obtain CBC to evaluate for leukocytosis/ anemia, CMP and lipase to evaluate for abnormal electrolytes /abnormal renal function/ abnormal hepatic/biliary function, inflammatory markers, XR imaging of the sacrum and coccyx to evaluate for acute osseous involvement with the sacral wound Differential Diagnosis Differential Diagnoses: The differential diagnosis associated with the presentation includes (Pressure ulcer, osteomyelitis) Admission/Observation Consideration of admission/observation: Escalation of care including admission/observation considered Lab Data MDM Lab Attestation statement: I reviewed the patient's lab results. CBC reveals no leukocytosis, a normocytic anemia that does not meet transfusion criteria, new onset thrombocytosis. Notably elevated inflammatory markers with ESR 53, CRP 7.17. SHERRI with BUN 70 and creatinine 1.69. Non-anion gap hyperglycemia. No electrolyte derangement. Mildly elevated AST/ALT 65/52 respectively with benign abdominal examination. No lactic acidosis. 09/10/24 20:31 09/10/24 23:49 Labs: Lab Results 09/10/24 09/10/24 09/11/24 Range/Units 20:31 23:49 02:33 WBC 10.7 (4.8-10.8) X10*3/uL RBC 4.04 L (4.60-5.80) X10*6/uL Hgb 11.5 L (14.0-18.0) g/dl Hct 35.2 L (42.0-52.0) % MCV 87.1 (80.0-98.0) fL MCH 28.5 (27.0-33.0) pg MCHC 32.7 (31.0-36.0) g/dl RDW 13.6 (11.0-16.0) % Plt Count 512 H D (160-400) X10*3/uL MPV 10.5 (9.4-12.4) fL Immature Gran % (Auto) 1.5 H (0.0-0.4) % Neut % (Auto) 75.3 H (45-73) % Lymph % (Auto) 12.4 L (20-40) % [place] % (Auto) 7.5 (2-11) % Eos % (Auto) 2.8 (0-4) % Baso % (Auto) 0.5 (0-2) % Lymph # (Auto) 1.3 (1.2-4.9) X10*3/uL [place] # (Auto) 0.8 (0.1-1.2) X10*3/uL Eos # (Auto) 0.3 (0.0-0.4) X10*3/uL Baso # (Auto) 0.1 (0.0-0.2) X10*3/uL Abs Immat Gran (auto) 0.16 H (0.00-0.03) X10*3/uL Absolute Neuts (auto) 8.1 (2.0-8.3) x10*3/uL Absolute Nucleated RBC 0.000 (0.0-0.012) X10*3/uL Nucleated RBC % (auto) 0.0 (0.0-0.2) /100WBC ESR 53 H (0-15) MM/HR Sodium 135 138 (135-145) mmol/L Potassium 4.3 5.1 (3.3-5.1) mmol/L Chloride 98 102 (96-108) mmol/L Carbon Dioxide 27 25 (22-29) mmol/L Anion Gap 14 16 (12-20) BUN 70 H 63 H (9-16) mg/dL Creatinine 1.69 H 1.46 H (0.5-1.4) mg/dL Estim Creat Clear Calc 31.8 36.8 Estimated GFR 39 46 Random Glucose 268 H 236 H (60-115) mg/dL Lactic Acid 1.6 (0.5-2.0) mmol/L Calcium 8.6 D 7.9 L D (8.4-10.2) mg/dL Magnesium 2.7 H (1.6-2.6) mg/dL Total Bilirubin 0.3 (0.0-1.0) mg/dL AST 65 H (5-37) U/L ALT 52 H (0-40) U/L Alkaline Phosphatase 117 (39-117) U/L C-Reactive Protein 7.17 H (< or = 0.50) mg/dL Total Protein 6.4 L (6.5-8.0) g/dL Albumin 2.7 L (3.5-5.0) g/dL Urine Color Yellow Urine Appearance Cloudy Urine pH 5.5 (5.0-9.0) Ur Specific [place] 1.020 (1.005-1.025) Urine Protein Trace (Neg-Trace) mg/dL Urine Glucose (UA) >=1000 H (Negative) mg/dL Urine Ketones Negative (Negative) mg/dL Urine Blood Small (1+) H (Negative) Urine Nitrite Negative (Negative) Ur Leukocyte Esterase Moderate (2+) H (Negative) Urine RBC >20 H (0-2) /HPF Urine WBC >50 H (0-5) /HPF Urine WBC Clumps Present Ur Squamous Epith Cells 0-2 (0-2) /HPF Urine Bacteria None Seen (None Seen) Hyaline Casts 6-10 (0-2) /LPF Urine Yeast Present C. difficile Tox B Gene NEGATIVE (Negative) Radiology Impression Discussion of test interpretation with radiology: I have reviewed the radiologist's reading. Radiologist Impression: CT/CT abdomen pelvis wo IV con IMPRESSION: *Mild subcutaneous inflammatory changes adjacent to the coccyx. No associated soft tissue fluid collections. No erosion of the adjacent coccyx. *Moderate colonic diverticulosis. *Iglesias catheter terminating within the urinary bladder. Decompressed urinary bladder. *Multifocal subcutaneous fat reticulation and mild inflammatory changes within the lower abdominal quadrants which may relate to subcutaneous injections. Independent Historian Clinical information obtained from an independent historian. History obtained from or confirmed by: EMS External Record Review External record reviewed: Inpatient record and Outpatient record Discharge Plan Discharge Clinical Impression: SHERRI (acute kidney injury), UTI (urinary tract infection), Pressure ulcer of sacral region Patient Disposition: Admitted As Inpatient Prescriptions: No Action Trulicity 1.5 mg/0.5 mL pen injector 1.5 mg subcut SA quetiapine 25 mg Tablet 25 mg PO BID Qty: 60 0RF cefuroxime axetil 250 mg tablet 250 mg PO BID 7 Days Qty: 14 0RF levothyroxine 25 mcg tablet 25 mcg PO DAILY@0600 atorvastatin 80 mg tablet 80 mg PO BEDTIME metoprolol succinate 100 mg tablet extended release 24 hr 100 mg PO DAILY aspirin 81 mg tablet,delayed release (DR/EC) 81 mg PO DAILY hydrochlorothiazide 25 mg tablet 25 mg PO DAILY lisinopril 40 mg tablet 40 mg PO DAILY finasteride 5 mg tablet 5 mg PO DAILY Jardiance 25 mg tablet 25 mg PO DAILY cholecalciferol (vitamin D3) [Vitamin D3] 50 mcg (2,000 unit) capsule 50 mcg PO DAILY gabapentin 400 mg capsule 400 mg PO BID insulin degludec [Tresiba FlexTouch U-100] 100 unit/mL (3 mL) insulin pen 8 unit subcut BEDTIME Print Language: Armenian
[2024-09-10 20:26] VITALS: BP 120/49; PULSE 59; RESP 16; TEMP 36.4; O2SAT 98
[2024-09-10 20:42] LABS: MANUAL DIFF FLAG NO
[2024-09-10 20:43] LABS: Basophils Absolute Auto 0.1 X10*3/uL (0.0-0.2); Basophils Percent Auto 0.5 % (0-2); Eosinophils Absolute Auto 0.3 X10*3/uL (0.0-0.4); Eosinophils Percent Auto 2.8 % (0-4); Hematocrit 35.2 % (42.0-52.0); Hemoglobin 11.5 g/dl (14.0-18.0); Imm Gran Abs Auto 0.16 X10*3/uL (0.00-0.03); Imm Gran Pct Auto 1.5 % (0.0-0.4); Lymphocytes Absolute Auto 1.3 X10*3/uL (1.2-4.9); Lymphocytes Percent Auto 12.4 % (20-40); Mean Corpuscular HGB Conc 32.7 g/dl (31.0-36.0); Mean Corpuscular Hemoglobin 28.5 pg (27.0-33.0); Mean Corpuscular Volume 87.1 fL (80.0-98.0); Mean Platelet Volume 10.5 fL (9.4-12.4); Monocytes Absolute Auto 0.8 X10*3/uL (0.1-1.2); Monocytes Percent Auto 7.5 % (2-11); Neutrophils Absolute Auto 8.1 x10*3/uL (2.0-8.3); Neutrophils Percent Auto 75.3 % (45-73); Platelet Count 512 X10*3/uL (160-400); Red Blood Count 4.04 X10*6/uL (4.60-5.80); Red Cell Distribution Width 13.6 % (11.0-16.0); White Blood Count 10.7 X10*3/uL (4.8-10.8)
[2024-09-10 20:56] LABS: Alanine Aminotransferase 52 U/L (0-40); Albumin Level 2.7 g/dL (3.5-5.0); Alkaline Phosphatase 117 U/L (39-117); Anion Gap 14 (12-20); Aspartate Amino Transferase 65 U/L (5-37); Bilirubin Total 0.3 mg/dL (0.0-1.0); Blood Urea Nitrogen 70 mg/dL (9-16); C Reactive Protein 7.17 mg/dL (< or = 0.50); Calcium 8.6 mg/dL (8.4-10.2); Carbon Dioxide 27 mmol/L (22-29); Chloride 98 mmol/L (96-108); Creatinine Clr Calc Pharmacy 31.8; Estimated Glomerular Filt Rate 39; Glucose Random 268 mg/dL (60-115); Potassium 4.3 mmol/L (3.3-5.1); Sodium 135 mmol/L (135-145); Total Protein 6.4 g/dL (6.5-8.0)
[2024-09-10 20:57] LABS: Lactic Acid 1.6 mmol/L (0.5-2.0)
[2024-09-10 21:25] LABS: Erythrocyte Sedimentation Rate 53 MM/HR (0-15)
--- NOTE | 2024-09-10 21:37 | PC.NURSE ---
Pt had BMx2. Cleaned and changed. Adjusted positioning from pts right side to pts left side.
[2024-09-10] MEDS: 0.9 % Sodium Chloride 1,000 ML 999 ML IV (21:48)
[2024-09-10 22:39] VITALS: BP 125/55; PULSE 59; RESP 16; TEMP 37; O2SAT 98
[2024-09-10] MEDS: cefEPime HCl/D5W 2 GM/50 ML PIGGYBACK IV (22:54)
[2024-09-11] VITALS (10 sets, daily range): BP systolic 119–145; BP diastolic 54–72; PULSE 64–96; RESP 16–18; TEMP 36.1–36.9; O2SAT 93–99; BMI 22.9
[2024-09-11 00:16] LABS: Anion Gap 16 (12-20); Blood Urea Nitrogen 63 mg/dL (9-16); Calcium 7.9 mg/dL (8.4-10.2); Carbon Dioxide 25 mmol/L (22-29); Chloride 102 mmol/L (96-108); Creatinine Clr Calc Pharmacy 36.8; Estimated Glomerular Filt Rate 46; Glucose Random 236 mg/dL (60-115); Magnesium 2.7 mg/dL (1.6-2.6); Potassium 5.1 mmol/L (3.3-5.1); Sodium 138 mmol/L (135-145)
[2024-09-11 00:42] LABS: CDiff Gene PCR NEGATIVE (Negative)
--- NOTE | 2024-09-11 02:31 | MHC.EDTECH ---
Urine sample collected from partida bag per [facility] MEDICAL CHEMIST, as Pt became agitated and pulling at partida tubing while MEDICAL CHEMIST attempting to look to clamp partida.
[2024-09-11 02:38] LABS: Appearance Urine Cloudy; Color Urine Yellow; Glucose Urine UA >=1000 mg/dL (Negative); Leukocyte Esterase Urine Moderate (2+) (Negative); Nitrite Urine Negative (Negative); PH 5.5 (5.0-9.0); UMIC TRIGGER UACC YES; Urine Blood Small (1+) (Negative); Urine Ketones Negative (Negative); Urine Protein Trace mg/dL (Neg-Trace)
[2024-09-11 02:51] LABS: Bacteria Urine None Seen (None Seen); RBC Urine >20 /HPF (0-2); Squamous Epithelial Cell Urine 0-2 /HPF (0-2); UACC Culture Trigger YES; WBC Clumps Urine Present; WBC Urine >50 /HPF (0-5)
--- NOTE | 2024-09-11 05:49 | P.HPHOSP_ITS ---
History of Present Illness Date of Service: 09/11/24 Attending physician on admission: Samir Gong Chief Complaint: Decubitus ulcer Bere Velasquez is 84 years old man with past medical history significant for dementia, type 2 diabetes on insulin, CAD, PEGGY -not tolerating CPAP, prostate cancer, BPH s/p indwelling urinary catheter placement during last hospitalization, hyperlipidemia, essential hypertension and hypothyroidism was brought to the emergency department via EMS from nursing facility rigor care for coccygeal ulcer evaluation. HPI was provided by patient's daughter over the phone as the patient has underlying dementia seems to be more confused than usual. According to daughter, a minimal skin abrasion in the coccygeal area was noted last Monday. Today when was visiting noted that the area has not been care for by nursing. She noted that the ulcer is very deep, foul-smelling and draining pus. Daughter who is the patient's health proxy decide to inpatient to the emergency department for evaluation. She noted that he is slightly confused and that his blood pressure has been quite uncontrolled. Daughter mentioned that her that has not been receiving good care at current nursing facility and feels very frustrated. She also expressed that he has indwelling urinary catheter has not been exchanged. In the ED, he was found to have stable vital signs. Blood workup showed no leukocytosis. CRP is 8.17. Hemoglobin is 11.5 and platelets 512. There are no significant electrolyte imbalances. Creatinine increased from 1.06 --> 1.69. Magnesium is 2.7. Transaminases are slightly elevated. Alk-phos and bilirubin are normal. Review of Systems 2 Review of Systems: Yes Unobtainable due to mental status [facility] Medical History Hyperglycemia due to type 2 diabetes mellitus Effusion of left knee Diarrhea Epigastric pain H. pylori infection Prostate cancer CAD (coronary artery disease) Diabetes Family History Father No problems noted. 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) Patient Tobacco Use Status: Never used Tobacco Advance Directives: No Advance Directives Information Provided: No Do you have a plan to hurt others: No Plan service: No Meds Allergies Allergy/AdvReac Type Severity Reaction Status Date / Time No Known Allergies Allergy Verified 09/10/24 19:28 Active Medications: Current Medications Acetaminophen (Acetaminophen 325 Mg Tablet) 975 mg PO Q6H PRN PRN Reason: Pain, Mild (Pain Scale 1-3), fever or headache Calcium Carbonate (Calcium Carbonate 750 Mg Tab.Chew) 750 mg PO Q4H PRN PRN Reason: Heartburn Ceftriaxone Sodium (Ceftriaxone Sodium 1 Gm Vial) 1 gm IVPUSH Q24H CHRISTO Enoxaparin Sodium (Enoxaparin Sodium 40 Mg/0.4 Ml Syringe) 40 mg SUBCUT Q24H CHRISTO Sodium Chloride (0.9 % Sodium Chloride Flush 3 Ml Syringe) 3 ml IVFLUSH QSHIFT [facility] Home Medications ?Medication ?Instructions ?Recorded ?Confirmed ?Last Taken ?Type aspirin 81 mg tablet,delayed 81 mg PO DAILY 10/26/20 08/28/24 08/27/24 History release atorvastatin 80 mg tablet 80 mg PO BEDTIME 10/26/20 08/28/24 08/26/24 History finasteride 5 mg tablet 5 mg PO DAILY 10/26/20 08/28/24 08/27/24 History hydrochlorothiazide 25 mg tablet 25 mg PO DAILY 10/26/20 08/28/24 08/27/24 History levothyroxine 25 mcg tablet 25 mcg PO DAILY@0600 10/26/20 08/28/24 08/27/24 History lisinopril 40 mg tablet 40 mg PO DAILY 10/26/20 08/28/24 08/27/24 History metoprolol succinate 100 mg 100 mg PO DAILY 10/26/20 08/28/24 08/27/24 History tablet,extended release 24 hr cholecalciferol (vitamin D3) 50 50 mcg PO DAILY 08/01/24 08/28/24 08/27/24 History mcg (2,000 unit) capsule (Vitamin D3) empagliflozin 25 mg tablet 25 mg PO DAILY 08/01/24 08/28/24 08/27/24 History (Jardiance) gabapentin 400 mg capsule 400 mg PO BID 08/01/24 08/28/24 08/27/24 History insulin degludec 100 unit/mL (3 8 unit subcut BEDTIME 08/01/24 08/28/24 1 Day Ago History mL) subcutaneous pen (Tresiba ~08/26/24 FlexTouch U-100 insulin) dulaglutide 1.5 mg/0.5 mL 1.5 mg subcut SA 08/27/24 08/28/24 08/24/24 History subcutaneous pen injector (Trulicity) Physical Exam 2 Vital Signs and Narrative: Vital Signs: Last Vital Signs Temp 98.4 F 09/11/24 03:17 Pulse 92 09/11/24 03:17 Resp 16 09/11/24 03:17 BP 143/61 H 09/11/24 03:17 Pulse Ox 97 09/11/24 03:17 O2 Del Method Room Air 09/11/24 03:17 BMI result Body Mass Index 22.9 Constitutional - Alert. No distress. HEENT - PERRL. Very dry oral mucosa. Heart - S1S2, RRR, no murmurs. Lungs - Normal lung expansion, Normal respiratory effort, No respiratory distress, CTA bilaterally Abdomen - NT / ND; +BS; No rebound or guarding Extremities - No calf tenderness bilaterally, no swelling Back - 2 cm decubitus ulcer (coccyx), yellowish discharge. Musculoskeletal - Normal inspection, normal ROM Skin - Warm/Dry Neurological - Alert. Oriented X1.. 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 Psychological - No agitation. Results Labs 09/10/24 20:31 09/10/24 23:49 Labs: Laboratory Results - last 24 hr 09/10/24 09/10/24 09/11/24 20:31 23:49 02:33 MCV 87.1 MCH 28.5 MCHC 32.7 RDW 13.6 Plt Count 512 H D MPV 10.5 Immature Gran % (Auto) 1.5 H Neut % (Auto) 75.3 H Lymph % (Auto) 12.4 L [place] % (Auto) 7.5 Eos % (Auto) 2.8 Baso % (Auto) 0.5 Lymph # (Auto) 1.3 [place] # (Auto) 0.8 Eos # (Auto) 0.3 Baso # (Auto) 0.1 Abs Immat Gran (auto) 0.16 H Absolute Neuts (auto) 8.1 Absolute Nucleated RBC 0.000 Nucleated RBC % (auto) 0.0 ESR 53 H Anion Gap 14 16 Estim Creat Clear Calc 31.8 36.8 Estimated GFR 39 46 Random Glucose 268 H 236 H Lactic Acid 1.6 Calcium 8.6 D 7.9 L D Magnesium 2.7 H Total Bilirubin 0.3 AST 65 H ALT 52 H Alkaline Phosphatase 117 C-Reactive Protein 7.17 H Total Protein 6.4 L Albumin 2.7 L Urine Color Yellow Urine Appearance Cloudy Urine pH 5.5 Ur Specific Diamond 1.020 Urine Protein Trace Urine Glucose (UA) >=1000 H Urine Ketones Negative Urine Blood Small (1+) H Urine Nitrite Negative Ur Leukocyte Esterase Moderate (2+) H Urine RBC >20 H Urine WBC >50 H Urine WBC Clumps Present Ur Squamous Epith Cells 0-2 Urine Bacteria None Seen Hyaline Casts 6-10 Urine Yeast Present C. difficile Tox B Gene NEGATIVE Imaging Radiologist's Impressions: Impressions Sacrum and Coccyx X-Ray 09/10/24 19:45 IMPRESSION: No acute osseous abnormality. No cortical erosion or periosteal reaction. Osteomyelitis may be occult on plain radiographs. Electronically signed by: Chirag Ghosh MD 09/10/2024 08:47 PM [facility] Abdomen/Pelvis CT 09/10/24 23:15 IMPRESSION: *Mild subcutaneous inflammatory changes adjacent to the coccyx. No associated soft tissue fluid collections. No erosion of the adjacent coccyx. *Moderate colonic diverticulosis. *Iglesias catheter terminating within the urinary bladder. Decompressed urinary bladder. *Multifocal subcutaneous fat reticulation and mild inflammatory changes within the lower abdominal quadrants which may relate to subcutaneous injections. Electronically signed by: Milton Cross MD 09/11/2024 01:20 AM EST RP Assessment and Plan (1) Pressure ulcer of sacral region: Status: Acute (2) UTI (urinary tract infection): Status: Acute (3) SHERRI (acute kidney injury): Status: Acute Plan Bere Velasquez is a 84 y/o man admitted with: * Acute encephalopathy secondary to UTI. Admit to hospitalist service. Continue IV fluids and empiric IV antibiotic therapy. Blood and urine cultures obtained -will follow results. Hold gabapentin. Exchange indwelling urinary catheter. * Sacral decubital ulcer, POA. Wound culture. Wound care consult. * Acute kidney injury, likely due to lisinopril and hydrochlorothiazide use. Hold lisinopril and hydrochlorothiazide. Insert indwelling urinary catheter. Continue to monitor renal function. Avoid nephrotoxic agents. * BPH. Exchange indwelling urinary catheter. Continue finasteride. * Type 2 diabetes mellitus. BG checks before meals at bedtime. Insulin sliding scale. Continue Jardiance. Diabetic diet. * PEGGY. Not tolerating CPAP. * Hypothyroidism. Continue levothyroxine. * Essential hypertension. Continue metoprolol. Lisinopril and hydrochlorothiazide on hold due to SHERRI. * Hyperlipidemia. Continue statin. * Dementia. Continue Aricept. * Mood disorder. Continue home meds. * CAD. Continue statin and aspirin. DVT prophylaxis: Heparin Code status: Full Patient will need hospitalization for at least 2 midnights for acute encephalopathy secondary to UTI + SHERRI treatment with IV antibiotics and IV fluids respectively. Quality Stroke Does the patient have a stroke diagnosis?: No VTE Prior VTE?: No VTE Risk Level:: Medical - moderate - high VTE Device Contraindication: Treatment Not Indicated VTE Drug Contraindication: N/A - Med Ordered
[2024-09-11 07:26] LABS: Glucose, Whole Blood 314 mg/dL (60-115)
[2024-09-11] MEDS: Empagliflozin 25 MG TABLET PO (07:50)
[2024-09-11] MEDS: Artificial Tears 15 ML DROPS 2 DROP EYE-RIGHT (07:50)
--- NOTE | 2024-09-11 08:23 | PC.NURSE ---
Patient BS 314, refusing to eat breakfast, Dr. Regalado made aware, verbal order from MD to give 5 units of insulin.
[2024-09-11] MEDS: Insulin Lispro 100 UNIT/ML 3 ML VIAL SUBCUT ×4 (08:33→22:12)
[2024-09-11] MEDS: 0.9 % Sodium Chloride Flush 3 ML SYRINGE IVFLUSH (08:36)
--- NOTE | 2024-09-11 10:24 | P.EN_ITS ---
Event Note Date of Service: 09/11/24 Event Note: Patient admitted this morning, seen and examined. He's confused and refused meal this morning Vital, labs reviewed. Med rec not yet done 84/m with ckd, t2dm, krystle, hypothyroidism , htn , hld here with brought from SNF d/t concern of sacral ulcers and found to be confused and uti Acute metabolic encephalopathy secondary to UTI d/t chronic indwelling partida catheter -Partida cath changed. - treat uti with Ceftriaxone started 09/10 -follow urine culture Sacral decubital ulcer, POA. - Wound culture. - Wound care consult. Acute kidney injury on CKD3 , likely due to lisinopril and hydrochlorothiazide use. -Hold lisinopril and hydrochlorothiazide. -avoid nephrotoxin -monitor renal function -LR BPH. -Continue finasteride. Type 2 diabetes mellitus. -diabetic diabet -SSI -jardiance KRYSTLE. Not tolerating CPAP. Hypothyroidism. - Continue levothyroxine. HTN -review and decide on meds once med rec completed. Hyperlipidemia. Continue statin. Dementia. Continue Aricept. Mood disorder. Continue home meds. CAD. Continue statin and aspirin. 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
[2024-09-11] MEDS: Heparin Sodium,Porcine 5,000 UNIT/ML VIAL 5000 UNIT SUBCUT ×2 (11:15→21:12)
[2024-09-11] MEDS: Lactated Ringers 1,000 ML 100 ML IVCONT (11:16)
--- NOTE | 2024-09-11 11:32 | HO.WOUND ---
Wound Consult: Initial 84yr old?[place] [facility] [place] See progress notes and H&P for detailed history.? Wound consult placed for Coccyx wound POA.? Patient agreeable to assessment and photo documentation.? Sacrum Etiology: ?Unstageable Pressure Injury ?Present on Admission Wound Bed: central area with dark yellow brown necrotic tissue noted Drainage / Odor: yellow garcia no odor noted Edges: ? advancing Alf wound: Left buttock mild induration noted, MASD noted No Fluctuance or Warmth noted Pain: patient denies pain Goals of Treatment: ? Santly for enzymatic debridement - Direct care team to monitor Left buttock induration - necrotic tissue does not appear ready for surgical debridement Recommendations: 1. Turn and Reposition every 2 hours and as needed for patient comfort.? Use pillows or wedges to support off loading positions. 2. Off Load all bony prominences with use of pillows and heel boots if needed.? Apply Preventative foams where needed. ? 3. Monitor for incontinence and moisture control, use barrier creams when needed for prevention and treatment. 4. Provide adequate and supplemental nutrition.? 5. Order low air loss mattress. 6. When applicable maintain blood glucose levels per Providers order. 7. Sacrum - Off Load Pressure with Q2hr turns. Cleanse with normal saline, pat dry. ?Apply barrier to the immediate alf wound, apply thick layer of Santyl to entire wound bed, cover with saline moist gauze, secure ABD dressing, change Daily. Direct care team notify provider if worsening left buttock induration. Re-consult wound care Nurse for wound deterioration or wound changes.
--- NOTE | 2024-09-11 12:35 | PHA.MEDREC ---
Pharmacy Consult ? Medication Reconciliation Pharmacy has completed the medication reconciliation. Med rec done using med list from [employer], noted that there are 3 APAP orders (1 for rectal, 1 for 1000 mg tid scheduled and 1 for 1000 mg q6h prn).
[2024-09-11] MEDS: Metoprolol Succinate ER 100 MG TAB.ER.24H PO (12:45)
[2024-09-11] MEDS: Levothyroxine Sodium 25 MCG TABLET PO (12:45)
--- NOTE | 2024-09-11 13:15 | MHC.CLN ---
NUTRITION DIET=DIABETIC 2000 KCAL. ADDING ENSURE MAX BID (300 KCALS, 60 G PROTEIN) TO PROMOTE WOUND HEALING. PATIENT HAS UNSTAGEABLE AREA TO SACRUM. NO RECENT SIGNIFICANT WEIGHT CHANGE NOTED. FOLLOW FOR PO INTAKE AND SKIN INTEGRITY. SEE CLINICAL NUTRITION ASSESSMENT 09/11/24.
[2024-09-11 14:11] LABS: Adenovirus F 40/41 Not Detected (Not Detect.); Astrovirus Not Detected (Not Detect.); Campylobacter Not Detected (Not Detect.); Cryptosporidium Not Detected (Not Detect.); Cyclospora cayetanensis Not Detected (Not Detect.); E. coli EAEC Not Detected (Not Detect.); E. coli EPEC Not Detected (Not Detect.); E. coli ETEC Not Detected (Not Detect.); E. coli STEC Not Detected (Not Detect.); Entamoeba histolytica Not Detected (Not Detect.); Giardia lamblia Not Detected (Not Detect.); Norovirus GI/GII Not Detected (Not Detect.); Plesiomonas shigelloides Not Detected (Not Detect.); Rotavirus A Not Detected (Not Detect.); Salmonella Not Detected (Not Detect.); Sapovirus Not Detected (Not Detect.); Shigella sp./EIEC Not Detected (Not Detect.); Vibrio Not Detected (Not Detect.); Vibrio Cholerae Not Detected (Not Detect.); Yersinia enterocolitica Not Detected (Not Detect.)
--- NOTE | 2024-09-11 14:45 | MHC.CM.PN ---
CM ASSESSMENT COMPLETED W/ DAUGHTER/HCP BECCA VIA TELEPHONE. HCP IS ON FILE AND INVOKED. PATIENT ORIGINALLY FROM HOME W/ . WAS AMBULATING W/ A WALKER AND RECEIVING ASSISTANCE W/ ADL'S PRN FROM DTR. FELL IN NOV AND PER DTR NOW UNABLE TO CARE FOR SELF. [place] [facility] [place] [facility]. PCP ARAMIS BARNETT DO DP: DAUGHTER DOES NOT WISH FOR PATIENT TO RETURN TO [facility]. GOAL IS TO COMPLETE STR AT ANOTHER FACILITY, NO OTHER PREFERENCES. WILL NEED NEW PT EVAL. DAUGHTER REPORTS IF PATIENT IS NOT ACCEPTED AT ANOTHER FACILITY SHE WILL PLAN TO TAKE HIM HOME W/ SERVICES. BLS TRANSPORT. CM WILL CONTINUE TO FOLLOW.
[2024-09-11 15:31] LABS: Glucose, Whole Blood 177 mg/dL (60-115)
[2024-09-11] MEDS: Collagenase Clostridium Hist. 30 GM TUBE 1 APPL TOPICAL (16:53)
[2024-09-11 17:24] LABS: Glucose, Whole Blood 179 mg/dL (60-115)
[2024-09-11] MEDS: Gabapentin 400 MG CAPSULE PO (21:10)
[2024-09-11] MEDS: cefTRIAXone sodium 1 GM VIAL IVPUSH (21:11)
[2024-09-11] MEDS: Acetaminophen 325 MG TABLET 975 MG PO (21:19)
[2024-09-12 00:10] LABS: Glucose, Whole Blood 233 mg/dL (60-115)
[2024-09-12] MEDS: Lactated Ringers 1,000 ML 100 ML IVCONT ×3 (00:39→20:58)
[2024-09-12] MEDS: Levothyroxine Sodium 25 MCG TABLET PO (05:38)
[2024-09-12 06:39] LABS: MANUAL DIFF FLAG NO
[2024-09-12 06:55] LABS: Basophils Absolute Auto 0.1 X10*3/uL (0.0-0.2); Basophils Percent Auto 0.5 % (0-2); Eosinophils Absolute Auto 0.2 X10*3/uL (0.0-0.4); Eosinophils Percent Auto 2.4 % (0-4); Hematocrit 32.1 % (42.0-52.0); Hemoglobin 10.2 g/dl (14.0-18.0); Imm Gran Abs Auto 0.07 X10*3/uL (0.00-0.03); Imm Gran Pct Auto 0.7 % (0.0-0.4); Lymphocytes Absolute Auto 1.6 X10*3/uL (1.2-4.9); Lymphocytes Percent Auto 16.8 % (20-40); Mean Corpuscular HGB Conc 31.8 g/dl (31.0-36.0); Mean Corpuscular Hemoglobin 28.1 pg (27.0-33.0); Mean Corpuscular Volume 88.4 fL (80.0-98.0); Mean Platelet Volume 10.9 fL (9.4-12.4); Monocytes Absolute Auto 0.7 X10*3/uL (0.1-1.2); Monocytes Percent Auto 7.5 % (2-11); Neutrophils Absolute Auto 6.7 x10*3/uL (2.0-8.3); Neutrophils Percent Auto 72.1 % (45-73); Platelet Count 494 X10*3/uL (160-400); Red Blood Count 3.63 X10*6/uL (4.60-5.80); Red Cell Distribution Width 13.7 % (11.0-16.0); White Blood Count 9.4 X10*3/uL (4.8-10.8)
[2024-09-12 06:58] LABS: Anion Gap 15 (12-20); Blood Urea Nitrogen 38 mg/dL (9-16); Calcium 8.5 mg/dL (8.4-10.2); Carbon Dioxide 26 mmol/L (22-29); Chloride 103 mmol/L (96-108); Estimated Glomerular Filt Rate 55; Glucose Random 159 mg/dL (60-115); Potassium 4.4 mmol/L (3.3-5.1); Sodium 140 mmol/L (135-145)
[2024-09-12 07:24] LABS: Glucose, Whole Blood 148 mg/dL (60-115)
[2024-09-12 07:52] VITALS: BP 152/62; PULSE 56; RESP 18; TEMP 36.7; O2SAT 96
[2024-09-12] MEDS: lisinopriL 40 MG TABLET PO (08:29)
[2024-09-12] MEDS: hydroCHLOROthiazide 25 MG TABLET PO (08:29)
[2024-09-12] MEDS: Metoprolol Succinate ER 100 MG TAB.ER.24H PO (08:29)
[2024-09-12] MEDS: Gabapentin 400 MG CAPSULE PO ×2 (08:30→20:58)
[2024-09-12] MEDS: Empagliflozin 25 MG TABLET PO (08:30)
[2024-09-12] MEDS: Tamsulosin HCL 0.4 MG CAPSULE PO (08:30)
[2024-09-12] MEDS: Heparin Sodium,Porcine 5,000 UNIT/ML VIAL 5000 UNIT SUBCUT ×2 (08:30→20:59)
--- NOTE | 2024-09-12 08:46 | HO.PM.IMPN ---
Subjective Subjective Date of Service: 09/12/24 Interval History: f/u uti, encephalopathy less confused and calmer this morning Review of Systems unable to obtain Physical Exam Vital Signs: Vital Signs: Last Vital Signs Temp 98.1 F 09/12/24 07:52 Pulse 56 09/12/24 07:52 Resp 18 09/12/24 07:52 BP 152/62 H 09/12/24 07:52 Pulse Ox 96 09/12/24 07:52 O2 Del Method Room Air 09/12/24 07:52 BMI result Body Mass Index 22.9 Objective Data Active Medications Acetaminophen (Acetaminophen 325 Mg Tablet) 975 mg PO Q6H PRN PRN Reason: Pain, Mild (Pain Scale 1-3), fever or headache Last Admin: 09/11/24 21:19 Dose: 975 mg Documented By: SCAR Calcium Carbonate (Calcium Carbonate 750 Mg Tab.Chew) 750 mg PO Q4H PRN PRN Reason: Heartburn Ceftriaxone Sodium (Ceftriaxone Sodium 1 Gm Vial) 1 gm IVPUSH Q24H [facility] Last Admin: 09/11/24 21:11 Dose: 1 gm Documented By: SCAR Collagenase (Collagenase Clostridium Hist. 30 Gm Tube) 1 appl TOPICAL DAILY CHRISTO; Protocol Last Admin: 09/11/24 16:53 Dose: 1 appl Documented By: JEANNETTE Empagliflozin (Empagliflozin 25 Mg Tablet) 25 mg PO DAILY [facility] Last Admin: 09/12/24 08:30 Dose: 25 mg Documented By: JEANNETTE Gabapentin (Gabapentin 400 Mg Capsule) 400 mg PO BID [facility] [place] Last Admin: 09/12/24 08:30 Dose: 400 mg Documented By: JEANNETTE Glucose (Glucose Gel 15 Gm Gel..Gram.) 15 gm PO Q15M PRN; Protocol PRN Reason: per Hypoglycemia Standing Ord. Heparin Sodium (Porcine) (Heparin Sodium,Porcine 5,000 Unit/Ml Vial) 5,000 unit SUBCUT Q12H CHRISTO Last Admin: 09/12/24 08:30 Dose: 5,000 unit Documented By: JEANNETTE Hydrochlorothiazide (Hydrochlorothiazide 25 Mg Tablet) 25 mg PO DAILY CHRISTO; Protocol Last Admin: 09/12/24 08:29 Dose: 25 mg Documented By: JEANNETTE Dextrose (D10) 250 mls @ 750 mls/hr IV Q15M PRN; Protocol PRN Reason: per Hypoglycemia Standing Ord. Lactated Ringer's (Lr) 1,000 mls @ 100 mls/hr IVCONT .Q10H [facility] Last Admin: 09/12/24 00:39 Dose: 100 mls/hr Documented By: SCAR Insulin Human Lispro (Insulin Lispro 100 Unit/Ml 3 Ml Vial) 0 unit SUBCUT QIDACHS [facility]; Protocol Last Admin: 09/12/24 08:30 Dose: Not Given Documented By: JEANNETTE Non-Admin Reason: No Insulin Coverage Levothyroxine Sodium (Levothyroxine Sodium 25 Mcg Tablet) 25 mcg PO DAILY@0600 [facility] Last Admin: 09/12/24 05:38 Dose: 25 mcg Documented By: SCAR Lisinopril (Lisinopril 40 Mg Tablet) 40 mg PO DAILY [facility]; Protocol Last Admin: 09/12/24 08:29 Dose: 40 mg Documented By: JEANNETTE Magnesium Hydroxide (Milk Of Magnesia 30 Ml Oral.Susp) 30 ml PO Q8H PRN PRN Reason: Constipation Metoprolol Succinate (Metoprolol Succinate Er 100 Mg Tab.Er.24h) 100 mg PO DAILY [facility]; Protocol Last Admin: 09/12/24 08:29 Dose: 100 mg Documented By: JEANNETTE Sodium Chloride (0.9 % Sodium Chloride Flush 3 Ml Syringe) 3 ml IVFLUSH QSHIFT [facility] Last Admin: 09/12/24 08:31 Dose: Not Given Documented By: JEANNETTE Non-Admin Reason: IV Running Tamsulosin HCl (Tamsulosin Hcl 0.4 Mg Capsule) 0.4 mg PO DAILY [facility] Last Admin: 09/12/24 08:30 Dose: 0.4 mg Documented By: JEANNETTE Labs 09/12/24 06:03 09/12/24 06:03 Labs: Laboratory Results - last 24 hr 09/10/24 09/11/24 09/11/24 23:49 15:27 17:20 MCV MCH MCHC RDW Plt Count MPV Immature Gran % (Auto) Neut % (Auto) Lymph % (Auto) [place] % (Auto) Eos % (Auto) Baso % (Auto) Lymph # (Auto) [place] # (Auto) Eos # (Auto) Baso # (Auto) Abs Immat Gran (auto) Absolute Neuts (auto) Absolute Nucleated RBC Nucleated RBC % (auto) Anion Gap Estim Creat Clear Calc Estimated GFR POC Glucose 177 H 179 H Random Glucose Calcium Stl C. cayetanensis PCR Not Detected Stool Rotavirus A PCR Not Detected Stl Adenov F 40/ PCR Not Detected Stool Astrovirus (PCR) Not Detected Stool Campylobacter PCR Not Detected Stool Cryptosporidium PCR Not Detected Stl Sh Tox Pr E STEC PCR Not Detected Stool E coli O157 PCR Not applicable Stl Enterotoxigenic E PCR Not Detected Stool EPEC (PCR) Not Detected Stool EAEC (PCR) Not Detected Stl E. histolytica PCR Not Detected Stool Giardia Lamblia PCR Not Detected Stl P. shigelloides PCR Not Detected Stool Salmonella PCR Not Detected Stool Sapovirus (PCR) Not Detected Stl Shigella/EIEC PCR Not Detected St Y.enterocolitica PCR Not Detected Stool Vibrio (PCR) Not Detected Stl Vibrio cholerae PCR Not Detected Stl Norovirus GI/GII PCR Not Detected 09/11/24 09/12/24 09/12/24 20:02 06:03 07:20 MCV 88.4 MCH 28.1 MCHC 31.8 RDW 13.7 Plt Count 494 H MPV 10.9 Immature Gran % (Auto) 0.7 H Neut % (Auto) 72.1 Lymph % (Auto) 16.8 L [place] % (Auto) 7.5 Eos % (Auto) 2.4 Baso % (Auto) 0.5 Lymph # (Auto) 1.6 [place] # (Auto) 0.7 Eos # (Auto) 0.2 Baso # (Auto) 0.1 Abs Immat Gran (auto) 0.07 H Absolute Neuts (auto) 6.7 Absolute Nucleated RBC 0.000 Nucleated RBC % (auto) 0.0 Anion Gap 15 Estim Creat Clear Calc 43.0 Estimated GFR 55 POC Glucose 233 H 148 H Random Glucose 159 H Calcium 8.5 D Stl C. cayetanensis PCR Stool Rotavirus A PCR Stl Adenov F PCR Stool Astrovirus (PCR) Stool Campylobacter PCR Stool Cryptosporidium PCR Stl Sh Tox Pr E STEC PCR Stool E coli O157 PCR Stl Enterotoxigenic E PCR Stool EPEC (PCR) Stool EAEC (PCR) Stl E. histolytica PCR Stool Giardia Lamblia PCR Stl P. shigelloides PCR Stool Salmonella PCR Stool Sapovirus (PCR) Stl Shigella/EIEC PCR St Y.enterocolitica PCR Stool Vibrio (PCR) Stl Vibrio cholerae PCR Stl Norovirus GI/GII PCR Microbiology Microbiology Results: Microbiology 09/10/24 20:31 Blood Culture - Preliminary Blood - Venous No growth after 24 hours. 09/10/24 20:31 Blood Culture - Preliminary Blood - Venous No growth after 24 hours. Assessment and Plan (1) Acute encephalopathy: Status: Resolved Plan 84/m with ckd, t2dm, peggy, hypothyroidism , htn , hld here with brought from SNF d/t concern of sacral ulcers and found to be confused and uti Acute metabolic encephalopathy secondary to UTI d/t chronic indwelling partida catheter, confusion is better -Partida cath changed. - treat uti with Ceftriaxone started 09/10 -follow urine culture Sacral decubital ulcer, POA.--see picture in wound note -Santyl per wound recommendation Acute kidney injury on CKD3 , likely due to lisinopril and hydrochlorothiazide use--resolved. - stop HCTZ -avoid nephrotoxin -monitor renal function -LR BPH. -Continue finasteride. Type 2 diabetes mellitus. -diabetic diabet -SSI -jardiance PEGGY. does not tolerating CPAP. Hypothyroidism. - Continue levothyroxine. HTN -resume Lisinopril, hold hctz and monitor renal function, continue metoprolol Hyperlipidemia. Continue statin. Dementia. Continue Aricept. Mood disorder. Continue home meds. CAD. Continue statin and aspirin. DVT prophylaxis: Heparin Code status: Full Quality Stroke Does the patient have a stroke diagnosis?: No VTE Prior VTE?: No VTE Risk Level:: Medical - moderate - high VTE Device Contraindication: Treatment Not Indicated VTE Drug Contraindication: N/A - Med Ordered
[2024-09-12] MEDS: Collagenase Clostridium Hist. 30 GM TUBE 1 APPL TOPICAL (10:53)
[2024-09-12 11:31] LABS: Glucose, Whole Blood 296 mg/dL (60-115)
[2024-09-12 11:53] LABS: Glucose, Whole Blood 292 mg/dL (60-115)
[2024-09-12 12:00] VITALS: BP 146/65; PULSE 65; RESP 18; TEMP 36.5; O2SAT 95
[2024-09-12] MEDS: Insulin Lispro 100 UNIT/ML 3 ML VIAL SUBCUT ×3 (12:00→20:59)
[2024-09-12 16:00] VITALS: BP 124/66; PULSE 66; RESP 17; TEMP 36.8; O2SAT 96
[2024-09-12 16:38] LABS: Glucose, Whole Blood 171 mg/dL (60-115)
[2024-09-12 19:23] VITALS: BP 147/67; PULSE 70; RESP 16; TEMP 36.8; O2SAT 97
[2024-09-12 20:14] LABS: Glucose, Whole Blood 190 mg/dL (60-115)
[2024-09-12] MEDS: cefTRIAXone sodium 1 GM VIAL IVPUSH (20:59)
[2024-09-12] MEDS: Acetaminophen 325 MG TABLET 975 MG PO (21:10)
[2024-09-13] VITALS (8 sets, daily range): BP systolic 123–169; BP diastolic 58–70; PULSE 51–80; RESP 14–20; TEMP 36.2–37.2; O2SAT 95–100
[2024-09-13] MEDS: Levothyroxine Sodium 25 MCG TABLET PO (05:40)
[2024-09-13] MEDS: Lactated Ringers 1,000 ML 100 ML IVCONT (05:40)
--- NOTE | 2024-09-13 06:11 | HO.SKINPHOTO ---
Location: Category: Stage: Length: Width: Depth: cm Location: Category: Stage: Length: Width: Depth: cm Location: Category: Stage: Length: Width: Depth: cm Location: Category: Stage: Length: Width: Depth: cm Location: Category: Stage: Length: Width: Depth: cm Location: Category: Stage: Length: Width: Depth: cm
[2024-09-13 07:22] LABS: Glucose, Whole Blood 142 mg/dL (60-115)
[2024-09-13] MEDS: Gabapentin 400 MG CAPSULE PO ×2 (08:09→20:22)
[2024-09-13] MEDS: Metoprolol Succinate ER 100 MG TAB.ER.24H PO (08:09)
[2024-09-13] MEDS: hydroCHLOROthiazide 25 MG TABLET PO (08:12)
[2024-09-13] MEDS: Tamsulosin HCL 0.4 MG CAPSULE PO (08:12)
[2024-09-13] MEDS: lisinopriL 40 MG TABLET PO (08:13)
[2024-09-13] MEDS: Heparin Sodium,Porcine 5,000 UNIT/ML VIAL 5000 UNIT SUBCUT ×2 (08:13→20:22)
[2024-09-13] MEDS: 0.9 % Sodium Chloride Flush 3 ML SYRINGE IVFLUSH ×3 (08:13→20:22)
[2024-09-13] MEDS: Empagliflozin 25 MG TABLET PO (08:13)
--- NOTE | 2024-09-13 10:14 | MHC.CLN ---
F/U DIET=DIABETIC 2000 KCAL. ENSURE MAX BID (300 KCALS, 60 G PROTEIN) TO PROMOTE WOUND HEALING. PO INTAKE VARIABLE. PATIENT HAS UNSTAGEABLE AREA TO SACRUM. FOLLOW FOR PO INTAKE AND SKIN INTEGRITY.
[2024-09-13] MEDS: Collagenase Clostridium Hist. 30 GM TUBE 1 APPL TOPICAL (10:26)
--- NOTE | 2024-09-13 10:29 | HO.PM.IMPN ---
Subjective Subjective Date of Service: 09/13/24 Interval History: seen and examined this AM reports no complaints Review of Systems Negative except HPI/interval history. Physical Exam Vital Signs: Vital Signs: Last Vital Signs Temp 98.3 F 09/13/24 07:51 Pulse 65 09/13/24 08:34 Resp 18 09/13/24 07:51 BP 162/70 H 09/13/24 08:34 Pulse Ox 96 09/13/24 08:34 O2 Del Method Room Air 09/13/24 07:51 BMI result Body Mass Index 22.9 Const: Other: General - no acute distress, appears comfortable Cardiovascular - regular rate and rhythm, S1-S2 Lungs - normal respiratory effort, clear to auscultation bilaterally, no wheezing Abdomen - soft, nontender, no rebound or guarding Extremities - no edema bilaterally Neuro - awake and alert, no focal deficits Objective Data Active Medications Acetaminophen (Acetaminophen 325 Mg Tablet) 975 mg PO Q6H PRN PRN Reason: Pain, Mild (Pain Scale 1-3), fever or headache Last Admin: 09/12/24 21:10 Dose: 975 mg Documented By: SCAR Calcium Carbonate (Calcium Carbonate 750 Mg Tab.Chew) 750 mg PO Q4H PRN PRN Reason: Heartburn Ceftriaxone Sodium (Ceftriaxone Sodium 1 Gm Vial) 1 gm IVPUSH Q24H [facility] Last Admin: 09/12/24 20:59 Dose: 1 gm Documented By: SCAR Collagenase (Collagenase Clostridium Hist. 30 Gm Tube) 1 appl TOPICAL DAILY [facility]; Protocol Last Admin: 09/13/24 10:26 Dose: 1 appl Documented By: GULSHAN Empagliflozin (Empagliflozin 25 Mg Tablet) 25 mg PO DAILY [facility] Last Admin: 09/13/24 08:13 Dose: 25 mg Documented By: GULSHAN Gabapentin (Gabapentin 400 Mg Capsule) 400 mg PO BID [facility] Last Admin: 09/13/24 08:09 Dose: 400 mg Documented By: GULSHAN Glucose (Glucose Gel 15 Gm Gel..Gram.) 15 gm PO Q15M PRN; Protocol PRN Reason: per Hypoglycemia Standing Ord. Heparin Sodium (Porcine) (Heparin Sodium,Porcine 5,000 Unit/Ml Vial) 5,000 unit SUBCUT Q12H [facility] Last Admin: 09/13/24 08:13 Dose: 5,000 unit Documented By: GULSHAN Hydrochlorothiazide (Hydrochlorothiazide 25 Mg Tablet) 25 mg PO DAILY [facility]; Protocol Last Admin: 09/13/24 08:12 Dose: 25 mg Documented By: GULSHAN Dextrose (D10) 250 mls @ 750 mls/hr IV Q15M PRN; Protocol PRN Reason: per Hypoglycemia Standing Ord. Insulin Human Lispro (Insulin Lispro 100 Unit/Ml 3 Ml Vial) 0 unit SUBCUT QIDACHS [facility]; Protocol Last Admin: 09/13/24 08:02 Dose: Not Given Documented By: GULSHAN Non-Admin Reason: No Insulin Coverage Levothyroxine Sodium (Levothyroxine Sodium 25 Mcg Tablet) 25 mcg PO DAILY@0600 [facility] Last Admin: 09/13/24 05:40 Dose: 25 mcg Documented By: SCAR Lisinopril (Lisinopril 40 Mg Tablet) 40 mg PO DAILY [facility]; Protocol Last Admin: 09/13/24 08:13 Dose: 40 mg Documented By: GULSHAN Magnesium Hydroxide (Milk Of Magnesia 30 Ml Oral.Susp) 30 ml PO Q8H PRN PRN Reason: Constipation Metoprolol Succinate (Metoprolol Succinate Er 100 Mg Tab.Er.24h) 100 mg PO DAILY [facility]; Protocol Last Admin: 09/13/24 08:09 Dose: 100 mg Documented By: GULSHAN Sodium Chloride (0.9 % Sodium Chloride Flush 3 Ml Syringe) 3 ml IVFLUSH QSHIFT [facility] Last Admin: 09/13/24 08:13 Dose: 3 ml Documented By: GULSHAN Tamsulosin HCl (Tamsulosin Hcl 0.4 Mg Capsule) 0.4 mg PO DAILY [facility] Last Admin: 09/13/24 08:12 Dose: 0.4 mg Documented By: GULSHAN Labs 09/12/24 06:03 09/12/24 06:03 Labs: Laboratory Results - last 24 hr 09/12/24 09/12/24 09/12/24 11:27 11:39 16:34 POC Glucose 296 H 292 H 171 H 09/12/24 09/13/24 20:11 07:18 POC Glucose 190 H 142 H Microbiology Microbiology Results: Microbiology 09/10/24 20:31 Blood Culture - Preliminary Blood - Venous No growth after 48 hours. 09/10/24 20:31 Blood Culture - Preliminary Blood - Venous No growth after 48 hours. 09/11/24 Unknown Urine Culture - Final Urine Catheterized - Partida Catheter Assessment and Plan (1) Acute encephalopathy: Status: Resolved Plan 84/m with ckd, t2dm, peggy, hypothyroidism , htn , hld here with brought from SNF d/t concern of sacral ulcers and found to be confused and uti Acute metabolic encephalopathy secondary to UTI d/t chronic indwelling partida catheter, confusion is better -Partida cath changed. c/s growing mixed melva will finish with 5 more days of ceftin (total 7 days) Sacral decubital ulcer, POA.--see picture in wound note -Santyl per wound recommendation Acute kidney injury on CKD3 , likely due to lisinopril and hydrochlorothiazide use--resolved. improving towards baseline stop IVFbaseline meds restarted BPH. -Continue finasteride. Type 2 diabetes mellitus. -diabetic diabet -SSI -jardiance PEGGY. does not tolerating CPAP. Hypothyroidism. - Continue levothyroxine. HTN home meds resumed Hyperlipidemia. Continue statin. Dementia. Continue Aricept. Mood disorder. Continue home meds. CAD. Continue statin and aspirin. DVT prophylaxis: Heparin Code status: Full PT eval completed -- recs for STR; d/c STR vs home with service Quality Stroke Does the patient have a stroke diagnosis?: No VTE Prior VTE?: No VTE Risk Level:: Medical - moderate - high VTE Device Contraindication: Treatment Not Indicated VTE Drug Contraindication: N/A - Med Ordered
[2024-09-13 11:07] LABS: Glucose, Whole Blood 159 mg/dL (60-115)
[2024-09-13] MEDS: Insulin Lispro 100 UNIT/ML 3 ML VIAL SUBCUT ×3 (11:18→20:22)
--- NOTE | 2024-09-13 12:51 | MHC.CM.PN ---
Addendum entered by Camille Harvey 09/13/24 14:25: FAMILY UNDECIDED REGARDING DC GOALS PT WILL REMAIN UNTIL TOMORROW AT WHICH TIME HE WILL EITHER DC TO STR AT [facility] [place] OR [place] (BOTH HAVE CONFIRMED BEDS FOR TOMORROW) OR HOME WITH SERVICES Original Note: CM MET WITH PTS DAUGHTER/HCP, BECCA, SHE IS AWARE [facility] IS OFFERING A BED AT EITHER [place] OR [place] SHE SAYS SHE SPOKE TO HER MOTHER AND DISTANCE IS A CONCERN SHE SAYS SHE WOULD LIKE TO SPEAK TO THE MD ABOUT HIS MEDICAL ISSUES AND DISCUSS SETTING UP CARE AT HOME SHE SAYS HE HAS 7 [employer] RO[employer] ATTENDANT HOURS PER WEEK NOW, SHE WAS INFORMED [facility] WOULD DO A POST DC ASSESSMENT TO DETERMINE IF HE NEEDS MORE SERVICES SHE WAS ALSO INFORMED VNA WOULD BE ARRANGED FOR HOME NURSING AND PT SERVICES SHE WILL SPEAK TO MD AND FAMILY AND PROVIDE A DECISION REGARDING DC PREFERENCES
--- NOTE | 2024-09-13 15:32 | HO.WOUND ---
Wound Consult: Follow up 84yr old?male admitted to [facility] on 09/11/24 - See progress notes and H&P for detailed history.? Wound consult follow up for Coccyx wound POA.? New wound consult for heels placed as well. Patient agreeable to assessment and photo documentation.? 09/11/24 09/13/24 Sacrum Etiology: ?Unstageable Pressure Injury ?Present on Admission Wound Bed: central area with yellow brown necrotic tissue noted Drainage / Odor: yellow garcia no odor noted Edges: ?improving Alf wound: decreased Left buttock induration noted, Dr. Barksdale at bedside - he reports he is unconcerned of this area at this time - MASD noted No Fluctuance or Warmth noted no active s/s of infection clearly noted Pain: patient denies pain Goals of Treatment: ? continue Santly for enzymatic debridement - Direct care team to monitor Left buttock induration - necrotic tissue does not appear ready for surgical debridement Right Heel - Unstageable Pressure Injury - POA - dry stable black tissue intact no drainage noted - no fluctance noted - appears to be resolving. Recommend off loading pressure and skin prep application. do not add foam dressing as the patient is a diabetic and the foam may donate moisture and currently they are dry. Right Malleolus - DTI POA - maroon light purple intact nonblanchable tissue - no fluctance noted - appears to be resolving. Recommend off loading pressure and skin prep application. Left Heel - DTI POA - dry purple intact nonblanchable tissue - no fluctance noted - red erythema noted in periwound. Recommend off loading pressure and skin prep application. do not add foam dressing as the patient is a diabetic and the foam may donate moisture and currently they are dry. Recommendations: 1. Turn and Reposition every 2 hours and as needed for patient comfort.? Use pillows or wedges to support off loading positions. 2. Off Load all bony prominences with use of pillows and heel boots if needed.? Apply Preventative foams where needed. ? 3. Monitor for incontinence and moisture control, use barrier creams when needed for prevention and treatment. 4. Provide adequate and supplemental nutrition.? 5. Order low air loss mattress. 6. When applicable maintain blood glucose levels per Providers order. 7. Sacrum - Off Load Pressure with Q2hr turns. Cleanse with normal saline, pat dry. ?Apply barrier to the immediate alf wound, apply thick layer of Santyl to entire wound bed, cover with saline moist gauze, secure ABD dressing, change Daily. Direct care team notify provider if worsening left buttock induration. 8. Bilateral Heels and medial malleolus - Routine cleansing. Apply skin prep allow to dry. Off load heels off of bed surface with pillows. Do not add foam dressing as the patient is a diabetic and the foam may donate moisture and currently they are dry. Re-consult wound care Nurse for wound deterioration or wound changes.
[2024-09-13 16:29] LABS: Glucose, Whole Blood 249 mg/dL (60-115)
[2024-09-13 20:13] LABS: Glucose, Whole Blood 180 mg/dL (60-115)
[2024-09-13] MEDS: cefTRIAXone sodium 1 GM VIAL IVPUSH (20:22)
[2024-09-13] MEDS: Acetaminophen 325 MG TABLET 975 MG PO (20:23)
[2024-09-14 03:35] VITALS: BP 158/70; PULSE 68; RESP 16; TEMP 36.2; O2SAT 98
[2024-09-14] MEDS: Levothyroxine Sodium 25 MCG TABLET PO (05:29)
[2024-09-14 07:27] VITALS: BP 169/79; PULSE 68; RESP 16; TEMP 36.9; O2SAT 96
[2024-09-14] MEDS: 0.9 % Sodium Chloride Flush 3 ML SYRINGE IVFLUSH ×2 (07:53→14:49)
[2024-09-14] MEDS: lisinopriL 40 MG TABLET PO (07:53)
[2024-09-14] MEDS: Heparin Sodium,Porcine 5,000 UNIT/ML VIAL 5000 UNIT SUBCUT (07:53)
[2024-09-14] MEDS: Empagliflozin 25 MG TABLET PO (07:54)
[2024-09-14] MEDS: Tamsulosin HCL 0.4 MG CAPSULE PO (07:54)
[2024-09-14] MEDS: hydroCHLOROthiazide 25 MG TABLET PO (07:54)
[2024-09-14] MEDS: Metoprolol Succinate ER 100 MG TAB.ER.24H PO (07:54)
[2024-09-14] MEDS: Gabapentin 400 MG CAPSULE PO (07:54)
[2024-09-14] MEDS: Collagenase Clostridium Hist. 30 GM TUBE 1 APPL TOPICAL (07:55)
--- NOTE | 2024-09-14 07:57 | HO.PM.IMPN ---
Subjective Subjective Date of Service: 09/14/24 Interval History: seen and examined this AM reports no complaints would like to go home Review of Systems Negative except HPI/interval history. Physical Exam Vital Signs: Vital Signs: Last Vital Signs Temp 98.5 F 09/14/24 07:27 Pulse 68 09/14/24 07:27 Resp 16 09/14/24 07:27 BP 169/79 H 09/14/24 07:27 Pulse Ox 96 09/14/24 07:27 O2 Del Method Room Air 09/14/24 07:27 BMI result Body Mass Index 22.9 Const: Other: General - no acute distress, appears comfortable Cardiovascular - regular rate and rhythm, S1-S2 Lungs - normal respiratory effort, clear to auscultation bilaterally, no wheezing Abdomen - soft, nontender, no rebound or guarding Extremities - no edema bilaterally Neuro - awake and alert, no focal deficits Objective Data Active Medications Acetaminophen (Acetaminophen 325 Mg Tablet) 975 mg PO Q6H PRN PRN Reason: Pain, Mild (Pain Scale 1-3), fever or headache Last Admin: 09/13/24 20:23 Dose: 975 mg Documented By: ANGELA Calcium Carbonate (Calcium Carbonate 750 Mg Tab.Chew) 750 mg PO Q4H PRN PRN Reason: Heartburn Ceftriaxone Sodium (Ceftriaxone Sodium 1 Gm Vial) 1 gm IVPUSH Q24H [facility] Last Admin: 09/13/24 20:22 Dose: 1 gm Documented By: NAGELA Collagenase (Collagenase Clostridium Hist. 30 Gm Tube) 1 appl TOPICAL DAILY [facility]; Protocol Last Admin: 09/14/24 07:55 Dose: 1 appl Documented By: BRITTANIE Empagliflozin (Empagliflozin 25 Mg Tablet) 25 mg PO DAILY [facility] Last Admin: 09/14/24 07:54 Dose: 25 mg Documented By: BRITTANIE Gabapentin (Gabapentin 400 Mg Capsule) 400 mg PO BID [facility] Last Admin: 09/14/24 07:54 Dose: 400 mg Documented By: BRITTANIE Glucose (Glucose Gel 15 Gm Gel..Gram.) 15 gm PO Q15M PRN; Protocol PRN Reason: per Hypoglycemia Standing Ord. Heparin Sodium (Porcine) (Heparin Sodium,Porcine 5,000 Unit/Ml Vial) 5,000 unit SUBCUT Q12H [facility] Last Admin: 09/14/24 07:53 Dose: 5,000 unit Documented By: BRITTANEI Hydrochlorothiazide (Hydrochlorothiazide 25 Mg Tablet) 25 mg PO DAILY [facility]; Protocol Last Admin: 09/14/24 07:54 Dose: 25 mg Documented By: BRITTANIE Dextrose (D10) 250 mls @ 750 mls/hr IV Q15M PRN; Protocol PRN Reason: per Hypoglycemia Standing Ord. Insulin Human Lispro (Insulin Lispro 100 Unit/Ml 3 Ml Vial) 0 unit SUBCUT QIDACHS [facility]; Protocol Last Admin: 09/14/24 07:56 Dose: Not Given Documented By: BRITTANIE Non-Admin Reason: No Insulin Coverage Levothyroxine Sodium (Levothyroxine Sodium 25 Mcg Tablet) 25 mcg PO DAILY@0600 [facility] Last Admin: 09/14/24 05:29 Dose: 25 mcg Documented By: CASTILZiggy Lisinopril (Lisinopril 40 Mg Tablet) 40 mg PO DAILY [facility]; Protocol Last Admin: 09/14/24 07:53 Dose: 40 mg Documented By: BRITTANIE Magnesium Hydroxide (Milk Of Magnesia 30 Ml Oral.Susp) 30 ml PO Q8H PRN PRN Reason: Constipation Metoprolol Succinate (Metoprolol Succinate Er 100 Mg Tab.Er.24h) 100 mg PO DAILY [facility]; Protocol Last Admin: 09/14/24 07:54 Dose: 100 mg Documented By: BRITTANIE Sodium Chloride (0.9 % Sodium Chloride Flush 3 Ml Syringe) 3 ml IVFLUSH QSHIFT [facility] Last Admin: 09/14/24 07:53 Dose: 3 ml Documented By: BRITTANIE Tamsulosin HCl (Tamsulosin Hcl 0.4 Mg Capsule) 0.4 mg PO DAILY [facility] Last Admin: 09/14/24 07:54 Dose: 0.4 mg Documented By: BRITTANIE Labs 09/12/24 06:03 09/12/24 06:03 Labs: Laboratory Results - last 24 hr 09/13/24 09/13/24 09/13/24 11:02 16:20 20:09 POC Glucose 159 H 249 H 180 H Assessment and Plan (1) Acute encephalopathy: Status: Resolved Plan 84/m with ckd, t2dm, peggy, hypothyroidism , htn , hld here with brought from SNF d/t concern of sacral ulcers and found to be confused and uti Acute metabolic encephalopathy secondary to UTI d/t chronic indwelling partida catheter, confusion is better -Partida cath changed. c/s growing mixed melva will finish with 4 more days of ceftin (total 7 days) confusion resolved Sacral decubital ulcer, POA.--see picture in wound note -Santyl per wound recommendation Acute kidney injury on CKD3 , likely due to lisinopril and hydrochlorothiazide use--resolved. improving towards baseline stop IVFbaseline meds restarted BPH. -Continue finasteride. Type 2 diabetes mellitus. -diabetic diabet -SSI -jardiance PEGGY. does not tolerating CPAP. Hypothyroidism. - Continue levothyroxine. HTN home meds resumed Hyperlipidemia. Continue statin. Dementia. Continue Aricept. Mood disorder. Continue home meds. CAD. Continue statin and aspirin. DVT prophylaxis: Heparin Code status: Full PT eval completed -- recs for STR; d/c STR vs home with service pending family decision Quality Stroke Does the patient have a stroke diagnosis?: No VTE Prior VTE?: No VTE Risk Level:: Medical - moderate - high VTE Device Contraindication: Treatment Not Indicated VTE Drug Contraindication: N/A - Med Ordered
[2024-09-14 07:58] LABS: Glucose, Whole Blood 131 mg/dL (60-115)
[2024-09-14 11:16] VITALS: BP 131/62; PULSE 80; RESP 16; TEMP 36.6; O2SAT 96
--- NOTE | 2024-09-14 11:18 | MHC.CM.PN ---
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
[2024-09-14 11:28] LABS: Glucose, Whole Blood 239 mg/dL (60-115)
--- NOTE | 2024-09-14 12:04 | PM.DS ---
DS: Providers Provider Date of Service: 09/14/24 Date of admission: 09/11/24 05:43 Date of discharge: 09/14/24 Primary care physician: Melany Alejandre DO Consults: 09/11/24 05:47 Consult to Wound Care Routine Reason for consultation: DECUBITUS COCCYGEAL ULCER DS: Diagnosis Discharge Diagnosis (1) Acute encephalopathy: Status: Resolved (2) Acute metabolic encephalopathy: Status: Acute (3) Pressure ulcer of sacral region: Status: Acute (4) Pressure ulcer: Status: Acute (5) SHERRI (acute kidney injury): Status: Acute (6) CKD (chronic kidney disease): Status: Acute DS: Summary Hospital Course Hospital Course: HPI From admission h&P: Bere Velasquez is 84 years old man with past medical history significant for dementia, type 2 diabetes on insulin, CAD, PEGGY -not tolerating CPAP, prostate cancer, BPH s/p indwelling urinary catheter placement during last hospitalization, hyperlipidemia, essential hypertension and hypothyroidism was brought to the emergency department via EMS from nursing facility rigor care for coccygeal ulcer evaluation. HPI was provided by patient's daughter over the phone as the patient has underlying dementia seems to be more confused than usual. According to daughter, a minimal skin abrasion in the coccygeal area was noted last Monday. Today when was visiting noted that the area has not been care for by nursing. She noted that the ulcer is very deep, foul-smelling and draining pus. Daughter who is the patient's health proxy decide to inpatient to the emergency department for evaluation. She noted that he is slightly confused and that his blood pressure has been quite uncontrolled. Daughter mentioned that her that has not been receiving good care at current nursing facility and feels very frustrated. She also expressed that he has indwelling urinary catheter has not been exchanged. In the ED, he was found to have stable vital signs. Blood workup showed no leukocytosis. CRP is 8.17. Hemoglobin is 11.5 and platelets 512. There are no significant electrolyte imbalances. Creatinine increased from 1.06 --> 1.69. Magnesium is 2.7. Transaminases are slightly elevated. Alk-phos and bilirubin are normal. Hospital Course: Started on IV antibiotics as well as intravenous fluids for his SHERRI and acute metabolic encephalopathy due to UTI. His urine culture grew mixed melva and his blood cultures have been negative. He was treated with IV ceftriaxone and will be discharged for an additional 4 days of cefuroxime for a total of 10 days of antibiotics. His encephalopathy has resolved. His renal function is towards his baseline. Patient's hospital course was complicated by sacral decubitus ulcer, b/l heels and R medial malleolus which is present on admission. Wound Care was consulted and recommended the following: Sacrum - Off Load Pressure with ever 2 hour turns. Cleanse with normal saline, pat dry. ?Apply barrier to the immediate alf wound, apply thick layer of Santyl to entire wound bed, cover with saline moist gauze, secure ABD dressing, change Daily. Monitor indurated area. Bilateral Heels and medial malleolus - Routine cleansing. Apply skin prep allow to dry. Off load heels off of bed surface with pillows. Do not add foam dressing as the patient is a diabetic and the foam may donate moisture and currently they are dry. Pt presented from SNF with plans to return to SNF. HOwever, family (HCP) elected for home with services. VNA services have been ordered and the family has been educated on his chronic wounds. Pt is seen and examined on the day of discharge. He is stable for discharge. Discharge diagnosis: Acute metabolic encephalopathy due to UTI SHERRI on CKD 3 Multiple pressure injuries including sacrum, bilateral heels, right medial malleolus, all present on admission Diabetes mellitus PEGGY Hypothyroid Hypertension Hyperlipidemia Dementia Mood disorder Time Attestation Discharge Coordination Time (in mins): 45 Quality: Safe Use of Opioids Does Pt have an Active Cancer Diagnosis on the Problem List?: No Quality: Stroke Does the patient have a stroke diagnosis?: No Physical Exam Vital Signs: Vital Signs: Last Vital Signs Temp 97.8 F 09/14/24 11:16 Pulse 80 09/14/24 11:16 Resp 16 09/14/24 11:16 BP 131/62 09/14/24 11:16 Pulse Ox 96 09/14/24 11:16 O2 Del Method Room Air 09/14/24 11:16 BMI result Body Mass Index 22.9 DS: Data Data Completed and Pending Labs on day of discharge: Laboratory Results - last 24 hr 09/13/24 09/13/24 09/14/24 16:20 20:09 07:30 POC Glucose 249 H 180 H 131 H 09/14/24 11:19 POC Glucose 239 H Preliminary micro results at discharge 09/10/24 20:31 Blood Culture - Preliminary Blood - Venous No growth after 48 hours. 09/10/24 20:31 Blood Culture - Preliminary Blood - Venous No growth after 48 hours. Discharge Plan Discharge Anticipated Discharge Date/Time: 09/14/24 02:00 Patient Disposition: Home Health Service Discharge Diagnosis: SHERRI UTI pressure wounds Referrals: Sameer RODRIGUEZ [Outside] - 1 Week Melany Alejandre DO [Primary Care Provider] - 1 Week Discharge Medications: New collagenase clostridium histo. 250 unit/gram Ointment 1 appl topical DAILY 30 Days Qty: 30 0RF Protocol: Apply to: Apply to: decub ulcer Continued Trulicity 1.5 mg/0.5 mL pen injector 1.5 mg subcut SA magnesium hydroxide [Milk of Magnesia] 400 mg/5 mL Suspension 30 ml PO Q8H PRN (Reason: Constipation) Rx Instructions: For no BM in 3 days tamsulosin [Flomax] 0.4 mg Capsule 0.4 mg PO DAILY insulin lispro [Humalog KwikPen Insulin] 100 unit/mL Insulin Pen 1 sliding scale dose SUBCUT USEASDIRECTD Protocol: Insulin Correction Scale Less than or equal to 110 ---- Give (units): 0 111 to 150 Give (units): 0 151 to 200 Give (units): 2 201 to 250 Give (units): 4 251 to 300 Give (units): 6 301 to 350 Give (units): 8 Greater than 350 Give (units): 10 Call MD if Blood Glucose > : 350 donepezil 5 mg Tablet 5 mg PO DAILY doxepin 25 mg Capsule 25 mg PO BEDTIME cyanocobalamin (vitamin B-12) 1,000 mcg Tablet 1,000 mcg PO DAILY acetaminophen 500 mg Tablet 1,000 mg PO TID bisacodyl 10 mg Suppository 10 mg NM Q8H PRN (Reason: Constipation) Fleet Enema 19-7 gram/118 mL Enema 118 ml NM Q8H PRN (Reason: Constipation) aspirin 81 mg Tablet,Chewable 81 mg PO DAILY bisacodyl 5 mg Tablet,Delayed Release (Dr/Ec) 5 mg PO DAILY polyethylene glycol 3350 [Miralax] 17 gram/dose Powder 17 g PO DAILY insulin degludec [Tresiba FlexTouch U-100] 100 unit/mL (3 mL) Insulin Pen 8 unit SUBCUT BEDTIME naloxone [Narcan] 4 mg/actuation [place],Non-Aerosol 4 mg INTRANASAL Q3M PRN (Reason: SEDATION/UNRESPONSIVENESS) Rx Instructions: spray 1 dose into ONE nostril; alternate nostrils w each dose until help arrives levothyroxine 25 mcg tablet 25 mcg PO DAILY@0600 atorvastatin 80 mg tablet 80 mg PO BEDTIME metoprolol succinate 100 mg tablet extended release 24 hr 100 mg PO DAILY hydrochlorothiazide 25 mg tablet 25 mg PO DAILY lisinopril 40 mg tablet 40 mg PO DAILY finasteride 5 mg tablet 5 mg PO DAILY Jardiance 25 mg tablet 25 mg PO DAILY cholecalciferol (vitamin D3) [Vitamin D3] 50 mcg (2,000 unit) capsule 50 mcg PO DAILY gabapentin 400 mg capsule 400 mg PO BID Discontinued acetaminophen 650 mg Suppository 650 mg NM Q4H PRN (Reason: Fever Or Pain) acetaminophen 500 mg Tablet 1,000 mg PO Q6H PRN (Reason: Pain) Discharge Orders: Discharge Order (Routine); Ordered 09/14/24 Ordered By: Nicole Chavez Diet: Advance to usual diet Activity on Discharge: As tolerated Stand Alone Forms: Patient Portal Discharge page Print Language: Lithuanian Care Plan Goals: Healing of pressure wounds with the following recs: Sacrum - Off Load Pressure with ever 2 hour turns. Cleanse with normal saline, pat dry. ?Apply barrier to the immediate alf wound, apply thick layer of Santyl to entire wound bed, cover with saline moist gauze, secure ABD dressing, change Daily. Monitor indurated area. Bilateral Heels and R medial malleolus - Routine cleansing. Apply skin prep allow to dry. Off load heels off of bed surface with pillows. Do not add foam dressing as the patient is a diabetic and the foam may donate moisture and currently they are dry. Health Concerns: see above Plan of Treatment: see above Assessment: see above Discharge Date/Time: 09/14/24 17:41
[2024-09-14] MEDS: Insulin Lispro 100 UNIT/ML 3 ML VIAL SUBCUT (12:32)
[2024-09-14 15:29] VITALS: BP 141/70; PULSE 84; RESP 18; TEMP 37.1; O2SAT 99
[2024-09-14 16:28] LABS: Glucose, Whole Blood 147 mg/dL (60-115)
--- NOTE | 2024-09-15 10:06 | W.MHC.F2F ---
Service Date Service Date: 09/14/24 Encounter Date of encounter: 09/14/24 Reasons for Services Signs and symptoms assessed: Wound care: Sacrum - Off Load Pressure with ever 2 hour turns. Cleanse with normal saline, pat dry. ?Apply barrier to the immediate alf wound, apply thick layer of Santyl to entire wound bed, cover with saline moist gauze, secure ABD dressing, change Daily. Monitor indurated area. Bilateral Heels and medial malleolus - Routine cleansing. Apply skin prep allow to dry. Off load heels off of bed surface with pillows. Do not add foam dressing as the patient is a diabetic and the foam may donate moisture and currently they are dry. physical therapy Reason for detention: wound care Reason for physical therapy: home safety and mobility MD Overseeing Care: Melany Alejandre Homebound: Leaving the home is medically contraindicated at this time without the asist of a device and/or another person due th the listed conditions above and below. Reason homebound: unsteady gait / fall risk and cognitively impaired / unsafe Homebound supporting statement: pt with dementia and unsteady gait Certification: Based on the above findings, I certify that this patient is confined to the home and needs intermittent detention care, physical therapy and/or speech therapy, or continues to need occupational therapy. The patient is under my care, and I have initiated the establishment of the plan of care. The patient will be followed by a physician who will periodically review the plan of care. Time Spent With Patient Time: Total time managing care of this patient today ____ minutes.
== END 2024-09-14 17:41 | disposition home health service (06) | DRG 698 ==
LOC: HO.ED 09-11 03:15 → HO.EDOVER 09-11 05:47 → HO.S3 09-11 07:42
PROVIDERS: Internal Medicine; Nurse Practitioner Family; Admitting Provider Internal Medicine; Emergency Provider Emergency Medicine; PCP Family Medicine; Visit Provider Family Medicine
DX: T83.511A Infection and inflammatory reaction due to indwelling urethral catheter, initial encounter (principal); G93.41 Metabolic encephalopathy; F03.93 Unspecified dementia, unspecified severity, with mood disturbance; N17.9 Acute kidney failure, unspecified; N39.0 Urinary tract infection, site not specified; I12.9 Hypertensive chronic kidney disease with stage 1 through stage 4 chronic kidney disease, or unspecified chronic kidney disease; N18.30 Chronic kidney disease, stage 3 unspecified; L89.150 Pressure ulcer of sacral region, unstageable; E11.22 Type 2 diabetes mellitus with diabetic chronic kidney disease; I25.10 Atherosclerotic heart disease of native coronary artery without angina pectoris; G47.33 Obstructive sleep apnea (adult) (pediatric); L89.620 Pressure ulcer of left heel, unstageable; L89.610 Pressure ulcer of right heel, unstageable; L89.519 Pressure ulcer of right ankle, unspecified stage; E03.9 Hypothyroidism, unspecified; Z79.4 Long term (current) use of insulin; Z79.82 Long term (current) use of aspirin; Z79.85 Long-term (current) use of injectable non-insulin antidiabetic drugs; Z79.890 Hormone replacement therapy; Z79.899 Other long term (current) drug therapy
CPT/HCPCS: 36415; 72220; 74176; 80048; 80053; 81001; 82947; 83605; 83735; 85025; 85652; 86140; 87040; 87086; 87493; 87507; 97162; 99285; C1758; J0692; J0696; J1644; J7120

== ENCOUNTER → 2024-09-11 05:43 | Outpatient (BNV) | payer OTHER, SELFPAY | PROVIDERS: Admitting Provider Internal Medicine; Emergency Provider Emergency Medicine; PCP Family Medicine; Visit Provider Internal Medicine | DX: L89.159 Pressure ulcer of sacral region, unspecified stage (principal); N39.0 Urinary tract infection, site not specified; N17.9 Acute kidney failure, unspecified | CPT/HCPCS: 99223; 99499 ==

== ENCOUNTER 2024-09-26 10:54 | Outpatient (REF) | payer OTHER, SELFPAY | END 2024-09-26 10:55 | disposition home or self-care (01) | LOC: HO.HHCL 10:54 | PROVIDERS: Visit Provider Family Medicine | DX: N39.0 Urinary tract infection, site not specified (principal) | CPT/HCPCS: 87086 ==

== ENCOUNTER 2024-10-09 10:59 | Outpatient (REF) | payer OTHER, SELFPAY ==
[2024-10-09 13:14] LABS: Hematocrit 33.1 % (42.0-52.0); Hemoglobin 10.4 g/dl (14.0-18.0); Mean Corpuscular HGB Conc 31.4 g/dl (31.0-36.0); Mean Corpuscular Hemoglobin 27.9 pg (27.0-33.0); Mean Corpuscular Volume 88.7 fL (80.0-98.0); Mean Platelet Volume 11.3 fL (9.4-12.4); Platelet Count 380 X10*3/uL (160-400); Red Blood Count 3.73 X10*6/uL (4.60-5.80); Red Cell Distribution Width 13.7 % (11.0-16.0); White Blood Count 8.3 X10*3/uL (4.8-10.8)
[2024-10-09 13:27] LABS: Estimated Average Glucose 217 mg/dL; Hemoglobin A1C 199.6535 umol/L; Hemoglobin A1c % 9.2 % (<6.0); Total Hemoglobin (HGBA1C) 2604.7605 umol/L
[2024-10-09 13:55] LABS: Alanine Aminotransferase 39 U/L (0-40); Alkaline Phosphatase 98 U/L (39-117); Anion Gap 15 (12-20); Aspartate Amino Transferase 29 U/L (5-37); Bilirubin Direct 0.2 mg/dL (0.0-0.5); Bilirubin Total 0.4 mg/dL (0.0-1.0); Blood Urea Nitrogen 33 mg/dL (9-16); Calcium 9.1 mg/dL (8.4-10.2); Carbon Dioxide 27 mmol/L (22-29); Chloride 103 mmol/L (96-108); Estimated Glomerular Filt Rate > 60; Free T4 (Free Thyroxine) 1.01 ng/dL (0.71-1.85); Glucose Random 234 mg/dL (60-115); Potassium 4.3 mmol/L (3.3-5.1); Sodium 141 mmol/L (135-145); Thyroid Stimulating Hormone 3.52 uIU/mL (0.32-4.0); Total Protein 6.9 g/dL (6.5-8.0); Vitamin D 25-OH Total 31.5 ng/mL (>30)
== END 2024-10-09 11:00 | disposition home or self-care (01) ==
LOC: HO.HHCL 10:59
PROVIDERS: Visit Provider Family Medicine
DX: Z00.00 Encounter for general adult medical examination without abnormal findings (principal); E11.65 Type 2 diabetes mellitus with hyperglycemia; Z79.4 Long term (current) use of insulin; I10 Essential (primary) hypertension; E78.49 Other hyperlipidemia; I25.10 Atherosclerotic heart disease of native coronary artery without angina pectoris; E11.42 Type 2 diabetes mellitus with diabetic polyneuropathy; G47.33 Obstructive sleep apnea (adult) (pediatric); D64.9 Anemia, unspecified; E04.1 Nontoxic single thyroid nodule; M54.50 Low back pain, unspecified; G89.29 Other chronic pain; M25.531 Pain in right wrist; M25.561 Pain in right knee; M25.562 Pain in left knee; M25.519 Pain in unspecified shoulder; H91.93 Unspecified hearing loss, bilateral; L98.429 Non-pressure chronic ulcer of back with unspecified severity
CPT/HCPCS: 36415; 80048; 80076; 82306; 83036; 84439; 84443; 85027

== ENCOUNTER 2024-10-16 12:01 | Outpatient (REF) | payer OTHER, SELFPAY ==
[2024-10-16 13:43] LABS: Cholesterol 153 mg/dL (<200); HDL Cholesterol 31 mg/dL (>40); LDL Cholesterol Calculated 88 mg/dL (<100); Triglycerides 170 mg/dL (<150)
[2024-10-18 13:27] LABS: Iron 67 mcg/dL (45-160); Percent Iron Saturation 37 % (15-50); Total Iron Binding Capacity 179 mcg/dL (228-428); Unsaturated Iron Binding 112 ug/dL
[2024-10-18 13:40] LABS: Ferritin 491 ng/mL (20-250)
== END 2024-10-16 12:02 | disposition home or self-care (01) ==
LOC: HO.HHCL 12:01
PROVIDERS: Visit Provider Family Medicine
DX: Z00.00 Encounter for general adult medical examination without abnormal findings (principal); E11.65 Type 2 diabetes mellitus with hyperglycemia; Z79.4 Long term (current) use of insulin; I10 Essential (primary) hypertension; E78.49 Other hyperlipidemia; I25.10 Atherosclerotic heart disease of native coronary artery without angina pectoris; E11.42 Type 2 diabetes mellitus with diabetic polyneuropathy; G47.33 Obstructive sleep apnea (adult) (pediatric); D64.9 Anemia, unspecified; E04.1 Nontoxic single thyroid nodule; M54.50 Low back pain, unspecified; G89.29 Other chronic pain; M25.531 Pain in right wrist; M25.561 Pain in right knee; M25.562 Pain in left knee; M25.519 Pain in unspecified shoulder; H91.93 Unspecified hearing loss, bilateral; L98.429 Non-pressure chronic ulcer of back with unspecified severity
CPT/HCPCS: 36415; 80061; 82728; 83540

== ENCOUNTER 2024-10-17 08:57 | Outpatient (REF) | payer OTHER, SELFPAY | END 2024-10-17 08:58 | disposition home or self-care (01) | LOC: HO.HOSX 08:57 | PROVIDERS: Visit Provider Physician Assistant | DX: Z13.89 Encounter for screening for other disorder (principal) ==

== ENCOUNTER 2024-11-26 09:26 | Outpatient (AMB) | payer OTHER, SELFPAY ==
--- NOTE | 2024-11-26 09:39 | A.OFFVIS_ITS ---
Intake Visit Reasons: New prob- LT knee pain s/p fall 08/25/2024 Intake Note: Simone is a 84 year old male who presents today with his grandson for a evaluation of his left knee pain, DOI 08/25/24. Patient states that he is not having much pain today but when he is at home her tends to have sharp pain on the lateral aspect of the knee. He mentions that he has some swelling on the lateral aspect of the left knee. Patient reports that his pain is worse when he is bending his knee, going up/down the stairs. He has tried Tylenol with mild relief. Anthropology And Archeology Instructor Services: Anthropology And Archeology Instructor Offered & Declined Allergies No Known Allergies Allergy (Verified 11/26/24 09:42) HPI HPI New prob- LT knee pain s/p fall 08/25/2024: Details: Mr. Mian Velasquez as an 84-year-old male who presents to the office today accompanied by his grandson for evaluation of left knee pain. Patient did have a fall landing on the left knee on 08/25/2024. Her son signed the patient has had increase in pain and pain with ambulation. Of note, the patient does have a past medical history significant for diabetes and does take oral and insulin medications. He reports that his sugars are controlled, however, the patient's last A1c was 9.4 on 10/09/2024. [facility] Medical History Hyperglycemia due to type 2 diabetes mellitus Effusion of left knee Diarrhea Epigastric pain H. pylori infection Prostate cancer CAD (coronary artery disease) Diabetes Surgical History Hx of cataract removal with insertion of prosthetic lens History of back surgery Hx of appendectomy Hx of cardiac cath Family History Father No problems noted. Mother Uterine cancer Social History Household Members: Unknown / Unable to assess Household Members Other:: pt is very confused, AxOX1 Housing: Unknown / Unable to assess Patient Tobacco Use Status: Never used Tobacco service: No Review of Systems Const All systems reviewed & are unremarkable except as noted in HPI and below Physical Exam Const General: cooperative, healthy appearing and no acute distress Resp Effort & Inspection: normal respiratory effort and able to speak in complete sentences Cardio Rate: regular rate Peripheral pulses: Peripheral pulses 2+ throughout Skin Lesions: no lesions Rashes: no rashes Extrem Other: Left knee mild effusion. Range of motion 0-90 degrees with crepitus. NVI. Office Procedures AMB Joint Injection/Aspiration Joint Injection/Aspiration Primary Site: left knee Prep: site was prepped using aseptic technique, ethochloride spray was applied and injection warnings given Injected: 40 mg of, DepoMedrol, with 8 mL of (2% plain lidocaine) and in the joint Approach Used: anterolateral Procedure: The patient tolerated the procedure well, but had some pain with the injection and there was some relief with the local anesthesia Coding 21309 - Large joint Procedure code (CPT) selection complete Assessment & Plan Assessment & Plan (1) Osteoarthritis of left knee: Code(s): M17.12 - Unilateral primary osteoarthritis, left knee Category: Medical Plan Mr. Mian Velasquez as an 84-year-old male who presents to the office today accompanied by his grandson for evaluation of left knee pain. Patient did have a fall landing on the left knee on 08/25/2024. Her son signed the patient has had increase in pain and pain with ambulation. Of note, the patient does have a past medical history significant for diabetes and does take oral and insulin medications. He reports that his sugars are controlled, however, the patient's last A1c was 9.4 on 10/09/2024. The patient was offered a cortisone injection in the left knee with 40 mg of DepoMedrol. The patient was explained the risks, benefits, and alternatives to receiving this injection. After receiving consent for the injection, the patient had the procedure done while in the office today. The patient tolerated the procedure well with no complications. Due to the patient?s history of diabetes, they were instructed to monitor their blood glucose level. The patient was informed that they could see a rise in their numbers and if the numbers became too high, they were instructed to call their PCP. The patient was also informed that they could have facial flushing as a side effect of the injection, but this will pass. Follow-up will be p.r.n., or sooner if needed X-rays of the left knee which were obtained on 08/26/2024 were reviewed by me, Marie Reyes PA-C, revealed no acute fracture dislocation. However, there is significant osteoarthritis in the left knee. Coding Level of Care Code New Pt Level 4 (04442) Diagnoses Osteoarthritis of left knee M17.12 CPT Codes Coding - 68777 Large joint: 22461 - Large joint ([id number])
--- OUTSIDE RECORDS SUMMARY | 2024-11-26 10:29 | XMS_ITS | Encounter Summary ---
Author Organization [facility] Address [address] [place] [phone] Care Team Providers Care Drying Room Attendant Name Role Phone Melany Alejandre DO Primary Care Provider [phone]- [phone] Reason for Visit * Reason Comments Foot Pain Encounter Details Date Type Department Care Team ([facility] st Contact Info) Description 11/19/2024 9:45 AM EST Office Visit Orthopedic Surgery - [address] [phone] Nicola Velasquez DPM [address] [address] Controlled type 2 diabetes mellitus with diabetic polyneuropathy, without long-term current use of insulin ([facility]) (Primary Dx); Localized edema; Arthritis of both feet; Ulcer of right heel, with fat layer exposed (CMS/HCC) Social History Tobacco Use Types Packs/Day Years Used Date Smoking Tobacco: Never Assessed Sex and Gender Information Value Date Recorded Sex Assigned at Not on file Legal Sex Male 7:17 PM EDT Gender Identity Not on file Sexual Orientation Not on file documented as of this encounter Progress Notes * Nicola Velasquez DPM - 11/19/2024 9:45 AM EST Referring MD: Hill Last PCP visit: 10/09/2024 IDENTIFIER: @TITLE@ Mian is a 84 y.o. year old male who presents for consultation. CC: Diabetic foot wound HPI: 84-year-old diabetic male returns to office with family members. Patient has been treating a wound to the right heel. Patient's family member that accompanies it was notes that they are changing the dressing every other day with Betadine and DSD. Patient is able to walk around and ambulate more often as not sitting in bed as much. Patient has not had any fever nausea vomiting shortness of breath.There is some concern with discoloration to the wound area of the right heel. ROS: GENERAL: Pt denies nausea, fever, vomiting, chills, or shortness of breath. Pt in NAD. CARDIOLOGY: pt denies chest pain, palpitations LUNGS: pt denies shortness of breath MUSCULOSKELETAL: See HPI, otherwise no joint pain or swelling, back pain, or muscle pain. SKIN: see HPI, otherwise no lesions, rash or itching NEURO: No persistent headache, weakness or numbness The remainder of the review of systems is noncontributory PAST MEDICAL HISTORY: There is no problem list on file for this patient. SOCIAL HISTORY: Social History Tobacco Use Smoking status: Not on file Smokeless tobacco: Not on file Substance Use Topics Alcohol use: Not on file ACTIVE MEDICATIONS: No outpatient medications have been marked as taking for the 11/19/24 encounter (Office Visit) with Nicola Velasquez DPM. ALLERGIES: @ALL@ PHYSICAL EXAM: There were no vitals taken for this visit. PODIATRIC EXAMINATION: GENERAL: Patient appears well nourished, with NAD. VASCULAR: Dorsalis pedis pulses are 1/4 bilaterally and Posterior tibial pulses are 0/4 bilaterally. Capillary filling time within normal limits the digits. No pallor on elevation or rubor on dependency. Positive hair growth. Many varicosities. Denies rest pain or claudication pain. NEUROLOGICAL: Sharp/dull sensation diminished, protective sensation diminished on [place]. ORTHOPEDIC: Good muscle strength 5/5 of all flexors and extensors. Dorsi flexion of ankle ,10 degrees, plantar flexion WNL. No muscle atrophy. Arthritis to the midfoot. Rigid contractures to the toes2 through 5 bilaterally. DERMATOLOGICAL: 3 cm x 2.5 cm wound to the posterior lateral aspect of the right heel with necroticeschar and subcutaneous base with hyperkeratotic rim. No streaking cellulitis or fluctuance around the wound. Over the lateral aspect of the lateral malleolus has healed BIOMECHANICS: STJ ROM wnl, MTJ ROM wnl, 1st MPJ ROM wnl. IMPRESSION: 1. Controlled type 2 diabetes mellitus with diabetic polyneuropathy, without long-term current use of insulin ([facility]) 2. Localized edema 3. Arthritis of both feet 4. Ulcer of right heel, with fat layer exposed (CMS/HCC) PLAN: Pt was seen and examined, history reviewed. Patient's family members were educated on the importance of keeping tight glucose control during this period as the increased amount of sugar will delay wound healing regardless of wound care and offloading Patient's family was educated on the importance of him using a cane or walker for ambulatory purposes in order to put more pressure on the forefoot when walking as this will decline the amount of pressure to the right lateral heel Patient continues to suffer with a wound to the right plantar posterior aspect of the heel. Patientrequired debridement as described below. Patient was dressed with an offloading pad made 1/4 inch felt and dry sterile dressing with Betadine. Patient's family was instructed to continue with the every other day dressings. Patient is making good progress with his wound healing. Patient will return in 4 weeks for reevaluation Open wound selective debridement of devitalized soft tissue, fibrin, epidermis, dermis, thru skin and subcutaneous tissue, first 20 sq cm or less, using sterile sharp dissection #15 scalpel blade of the right foot ulcer. Pt. deferred anesthesia. . Devitalized tissue was not sent to pathology. Nicola Velasquez DPM documented in this encounter Plan of Treatment Upcoming Encounters Date Type Department Care Team (Late st Contact Info) Description 12/17/2024 10:00 AM EDT Office Visit Orthopedic Surgery [place] [address] [phone] Nicola Velasquez DPM [address] [address] 01/22/2025 10:00 AM EDT Office Visit Orthopedic Surgery [place] [address] [phone] Nicola Velasquez DPM [address] [address] documented as of this encounter Visit Diagnoses Diagnosis Controlled type 2 diabetes mellitus with diabetic polyneuropathy, without long- term current use of insulin (CMS/[facility])- Primary Localized edema Edema Arthritis of both feet Ulcer of right heel, with fat layer exposed ([facility]) documented in this encounter Care Teams Drying Room Attendant Relationship Specialty Start Date End Date Melany Alejandre DO [address] [place], [place] PCP - General 07/04/24 documented as of this encounter
--- OUTSIDE RECORDS SUMMARY | 2024-11-26 10:29 | XMS_ITS | Encounter Summary ---
Author Organization [facility] Address [id number] [place] [phone] Care Team Providers Care Senior Front End Developer Name Role Phone Melany Alejandre Primary Care Provider +1- [phone] Encounter Details Date Type Department Care Team (Late st Contact Info) Description 09/03/2024 Lab Requisition [facility] - Main Lab [address] [facility] [place] [address] Yehuda Glasgow MD [address] [facility] [address] [place], [phone] Polyneuropathy, unspecified; Type 2 diabetes mellitus without complications (CMS/[facility]) Social History Tobacco Use Types Packs/Day Years Used Date Smoking Tobacco: Never Assessed Sex and Gender Information Value Date Recorded Sex Assigned at Not on file Legal Sex Male 7:17 PM EDT Gender Identity Not on file Sexual Orientation Not on file documented as of this encounter Plan of Treatment Upcoming Encounters Date Type Department Care Team (Late st Contact Info) Description 12/17/2024 10:00 AM EDT Office Visit Orthopedic Surgery [facility] [address] [phone] Nicola Velasquez DPM [address] [address] 01/22/2025 10:00 AM EDT Office Visit Orthopedic Surgery [facility] [address] [phone] Nicola Velasquez DPM [address] [address] documented as of this encounter Procedures Procedure Name Priority Date/Time Associated Diagnosis Comments COMPLETE BLOOD COUNT Routine 09/04/2024 7:14 AM EST Type 2 diabetes mellitus without complications (CMS/HCC) Polyneuropathy, unspecified HEMOGLOBIN A1C Routine 09/04/2024 7:14 AM EST Type 2 diabetes mellitus without complications ([facility]/HCC) Polyneuropathy, unspecified BASIC METABOLIC PANEL Routine 09/04/2024 7:14 AM EST Type 2 diabetes mellitus without complications ([facility]/HCC) Polyneuropathy, unspecified documented in this encounter Results * (ABNORMAL) Hemoglobin A1c (09/04/2024 7:14 AM EST) Hemoglobin A1C 8.0(H) <6.5 % LAB CHEMISTRY METHOD 09/04/2024 2:23 PM EST [facility] Mean Bld Glu Estim. 183 mg/dL LAB CHEMISTRY METHOD 09/04/2024 2:23 PM [facility] Blood Venous blood specimen / Unknown Venipuncture / Unknown 09/04/2024 7:14 AM EST 09/04/2024 10:21 AM EST us Yehuda Glasgow MD LAB BLOOD ORDERABLES Final Resul t [facility] [address] [place] [address], * (ABNORMAL) Basic metabolic panel (09/04/2024 7:14 AM EST) Sodium 134 133 - 145 mmol/L LAB CHEMISTRY METHOD 09/04/2024 12:11 PM [facility] Potassium 3.4(L) 3.5 - 5.5 mmol/L LAB CHEMISTRY METHOD 09/04/2024 12:11 PM [facility] Chloride 96 96 - 110 mmol/L LAB CHEMISTRY METHOD 09/04/2024 12:11 PM [facility] CO2 28 21 - 32 mmol/L LAB CHEMISTRY METHOD 09/04/2024 12:11 PM [facility] Anion Gap 10 3 - 11 LAB CHEMISTRY METHOD 09/04/2024 12:11 PM [facility] Glucose 222(H) 70 - 100 mg/dL LAB CHEMISTRY METHOD 09/04/2024 12:11 PM [facility] BUN 85(H) 5 - 25 mg/dL LAB CHEMISTRY METHOD 09/04/2024 12:11 PM [facility] Creatinine 1.70(H) 0.70 - 1.30 mg/dL LAB CHEMISTRY METHOD 09/04/2024 12:11 PM [facility] eGFR 39(L) >=60 mL/min/1. 73m2 LAB CHEMISTRY METHOD 09/04/2024 12:11 PM [facility] Comment:Calculation based on the??Chronic Kidney Disease Epidemiology Collaboration (CKD-EPI) equation refit??without adjustment for race. BUN/Creatinine Ratio 50.0 LAB CHEMISTRY METHOD 09/04/2024 12:11 PM [facility] Calcium 8.5 8.5 - 10.5 mg/dL LAB CHEMISTRY METHOD 09/04/2024 12:11 PM [facility] Blood Venous blood specimen / Unknown Venipuncture / Unknown 09/04/2024 7:14 AM EST 09/04/2024 10:21 AM EST us Yehuda Glasgow MD LAB BLOOD ORDERABLES Final Resul t [facility] [address] [place] [address], * (ABNORMAL) Complete blood count (09/04/2024 7:14 AM EST) WBC 11.8(H) 4.8 - 10.8 K/mcL LAB HEMETOLOGY METHOD 09/04/2024 11:29 AM [facility] RBC 4.00(L) 4.50 - 5.50 M/mcL LAB HEMETOLOGY METHOD 09/04/2024 11:29 AM [facility] Hemoglobin 11.2(L) 13.5 - 17.5 g/dL LAB HEMETOLOGY METHOD 09/04/2024 11:29 AM [facility] Hematocrit 35.3(L) 42.0 - 54.0 % LAB HEMETOLOGY METHOD 09/04/2024 11:29 AM [facility] MCV 89.4 79.0 - 98.0 FL LAB HEMETOLOGY METHOD 09/04/2024 11:29 AM [facility] MCH 28.4 27.0 - 32.0 pcg LAB HEMETOLOGY METHOD 09/04/2024 11:29 AM [facility] MCHC 31.7(L) 32.0 - 37.0 g/dL LAB HEMETOLOGY METHOD 09/04/2024 11:29 AM [facility] RDW 13.4 11.0 - 15.0 % LAB HEMETOLOGY METHOD 09/04/2024 11:29 AM [facility] Platelets 265 130 - 400 K/mcL LAB HEMETOLOGY METHOD 09/04/2024 11:29 AM [facility] MPV 12.6(H) 7.0 - 11.0 FL LAB HEMETOLOGY METHOD 09/04/2024 11:29 AM [facility] NRBC 0.0 <1.0 % LAB HEMETOLOGY METHOD 09/04/2024 11:29 AM [facility] NRBC Absolute 0.00 <0.10 K/mcL LAB HEMETOLOGY METHOD 09/04/2024 11:29 AM [facility] Blood Venous blood specimen / Unknown Venipuncture / Unknown 09/04/2024 7:14 AM EST 09/04/2024 10:21 AM EST us Yehuda Glasgow MD LAB BLOOD ORDERABLES Final Resul t [facility] [address] [place] [address], documented in this encounter Visit Diagnoses Diagnosis Polyneuropathy, unspecified Type 2 diabetes mellitus without complications (CMS/HCC) documented in this encounter Care Teams Senior Front End Developer Relationship Specialty Start Date End Date Melany Alejandre DO [address] [place] [address] PCP - General 07/04/24 documented as of this encounter
--- OUTSIDE RECORDS SUMMARY | 2024-11-26 10:29 | XMS_ITS | Clinical Summary ---
Author Organization [address] [place] Address [address] [address] Phone Care Team Providers Care Hat Conditioner Name Role Phone Lorrie Alejandrefer Eleazar BHANDARI Primary Care Provider [phone]- [phone] Allergies No known active allergies Medications No known medications Encounters Date Type Department Care Team Description 11/19/2024 9:45 AM EST Office Visit Orthopedic Surgery [facility] [address] [phone] Nicola Velasquez DPM Controlled type 2 diabetes mellitus with diabetic polyneuropathy, without long-term current use of insulin ([facility]) (Primary Dx); Localized edema; Arthritis of both feet; Ulcer of right heel, with fat layer exposed ([facility]/HCC) 10/14/2024 9:45 AM EST Consult Orthopedic Surgery [facility] [address] [phone] Nicola Velasquez DPM Controlled type 2 diabetes mellitus with diabetic polyneuropathy, without long-term current use of insulin ([facility]) (Primary Dx); Neuropathy; Onychomycosis; Callus; Localized edema; Diabetic ulcer of both feet (CMS/HCC); Ulcer of right heel, with fat layer exposed (CMS/HCC) 09/17/2024 Lab Requisition [facility] - Main Lab [address] [facility] [place] [phone] Yehuda Glasgow MD Type 2 diabetes mellitus without complications ([facility]) 09/10/2024 Lab Requisition [facility] Lab [address] [facility] [place] [phone] Yehuda Glasgow MD Type 2 diabetes mellitus without complications ([facility]) 09/04/2024 Lab Requisition [facility] - Main Lab [address] [place] [address] Yehuda Glasgow MD Polyneuropathy, unspecified 09/03/2024 Lab Requisition [facility] - Main Lab [address] [place] [address] Yehuda Glasgow MD Polyneuropathy, unspecified; Type 2 diabetes mellitus without complications (CMS/HCC) 09/02/2024 Lab Requisition [facility] Main Lab [address] [place] [address] Yehuda Glasgow MD Type 2 diabetes mellitus without complications (CMS/HCC) from Last 3 Months Social History Tobacco Use Types Packs/Day Years Used Date Smoking Tobacco: Never Assessed Sex and Gender Information Value Date Recorded Sex Assigned at Not on file Legal Sex Male 7:17 PM EDT Gender Identity Not on file Sexual Orientation Not on file Last Filed Vital Signs Vital Sign Reading Time Taken Comments Blood Pressure - - Pulse - - Temperature - - Respiratory Rate - - Oxygen Saturation - - Inhaled Oxygen Concentration - - Weight 67.1 kg (148 lb) 10/14/2024 9:50 AM EST Height 172.7 cm (5' 8 ) 10/14/2024 9:50 AM EST Body Mass Index 22.5 10/14/2024 9:50 AM EST Plan of Treatment Upcoming Encounters Date Type Department Care Team (Late st Contact Info) Description 12/17/2024 10:00 AM EDT Office Visit Orthopedic Surgery [facility] [address] [phone] Nicola Velasquez DPM [address] [address] 01/22/2025 10:00 AM EDT Office Visit [facility] [address] [phone] Nicola Velasquez DPM [address] [address] Health Maintenance Due Date Last Done Comments Diabetes: Annual Foot Exam 1950 Diabetes: Annual Retina Eye Exam 1950 Falls Risk Assessment 07/20/2024 Medicare Annual Wellness Visit 07/20/2024 Social Influencers of Health Screening 07/20/2024 Diabetes: Annual Urine Albumin-Creatinine Ratio (uACR) 09/02/2024 Diabetes: Blood Sugar Control Test (HGBA1C) 04/08/2025 10/09/2024, 10/09/2024, 09/24/2024, Additional history exists Depression Screening 07/23/2025 07/23/2024 Diabetes: Annual GFR (Glomerular Filtration Rate) 10/09/2025 10/09/2024, 09/10/2024, 09/04/2024, Additional history exists Hypertension/CHF/CAD Annual BMP Blood Test 10/09/2025 10/09/2024, 09/10/2024, 09/04/2024, Additional history exists Cholesterol Screening (Lipid Panel) 10/16/2029 10/16/2024, 10/26/2023 DTaP,Tdap,and Td Vaccines (5 - Td or Tdap) 11/13/2034 11/13/2024, 07/11/2014, 12/01/2008, Additional history exists Hepatitis B Vaccines Completed 04/09/2015, 11/26/2014, 10/21/2014 Zoster Vaccines Completed 09/10/2020, 04/2020, 11/26/2014 Pneumococcal Vaccine: 50+ Years Completed 05/18/2023, 01/10/2018, 09/29/2016, Additional history exists RSV Immunization Patients 60+ Years Old Completed 11/23/2023 COVID-19 Vaccine Completed 07/23/2024, 11/2022, 11/02/2022, Additional history exists Influenza Vaccine Completed 07/23/2024, , 09/28/2022, Additional history exists HIB Vaccines Aged Out No longer eligi ble based on patient's age to complete this topic HPV Vaccines Aged Out No longer eligi ble based on patient's age to complete this topic Hepatitis A Vaccines Aged Out No long er eligible based on patient's age to complete this topic IPV Vaccines Aged Out No longer eligi ble based on patient's age to complete this topic MMR Vaccines Aged Out No longer eligi ble based on patient's age to complete this topic Meningococcal ACWY Vaccine Aged Out N o longer eligible based on patient's age to complete this topic Meningococcal B Vacine Aged Out No lo nger eligible based on patient's age to complete this topic RSV Immunization Patients Under 20 months Aged Out No longer eligible based on patient's age to complete this topic Varicella Vaccines Aged Out No longer eligible based on patient's age to complete this topic Procedures Procedure Name Priority Date/Time Associated Diagnosis Comments HEMOGLOBIN A1C Routine 09/04/2024 7:14 AM EST Type 2 diabetes mellitus without complications (CMS/HCC) Polyneuropathy, unspecified BASIC METABOLIC PANEL Routine 09/04/2024 7:14 AM EST Type 2 diabetes mellitus without complications (CMS/HCC) Polyneuropathy, unspecified COMPLETE BLOOD COUNT Routine 09/04/2024 7:14 AM EST Type 2 diabetes mellitus without complications (CMS/HCC) Polyneuropathy, unspecified COMPREHENSIVE METABOLIC PANEL Routine 09/02/2024 5:10 AM EST Type 2 diabetes mellitus without complications (CMS/HCC) COMPLETE BLOOD COUNT Routine 09/02/2024 5:10 AM EST Type 2 diabetes mellitus without complications (CMS/HCC) from Last 3 Months Results * (ABNORMAL) Complete blood count (09/04/2024 7:14 AM EST) Only the most recent of2 resultswithin the time period is included. WBC 11.8(H) 4.8 - 10.8 K/mcL LAB HEMETOLOGY METHOD 09/04/2024 11:29 AM EST [facility] RBC 4.00(L) 4.50 - 5.50 M/mcL LAB HEMETOLOGY METHOD 09/04/2024 11:29 AM EST [facility] Hemoglobin 11.2(L) 13.5 - 17.5 g/dL LAB HEMETOLOGY METHOD 09/04/2024 11:[address] [facility] Hematocrit 35.3(L) 42.0 - 54.0 % LAB HEMETOLOGY METHOD 09/04/2024 11:[address] [facility] MCV 89.4 79.0 - 98.0 FL LAB HEMETOLOGY METHOD 09/04/2024 11:[address] [facility] MCH 28.4 27.0 - 32.0 pcg LAB HEMETOLOGY METHOD 09/04/2024 11:[address] [facility] MCHC 31.7(L) 32.0 - 37.0 g/dL LAB HEMETOLOGY METHOD 09/04/2024 11:[address] [facility] RDW 13.4 11.0 - 15.0 % LAB HEMETOLOGY METHOD 09/04/2024 11:[address] [facility] Platelets 265 130 - 400 K/mcL LAB HEMETOLOGY METHOD 09/04/2024 11:[address] [facility] MPV 12.6(H) 7.0 - 11.0 FL LAB HEMETOLOGY METHOD 09/04/2024 11:[address] [facility] NRBC 0.0 <1.0 % LAB HEMETOLOGY METHOD 09/04/2024 11:[address] [facility] NRBC Absolute 0.00 <0.10 K/mcL LAB HEMETOLOGY METHOD 09/04/2024 11:[address] [facility] Blood Venous blood specimen / Unknown Venipuncture / Unknown 09/04/2024 7:14 AM EST 09/04/2024 10:21 AM EST us Yehuda Glasgow MD LAB BLOOD ORDERABLES Final Resul t [facility] [address] [place] [address], * (ABNORMAL) Hemoglobin A1c (09/04/2024 7:14 AM EST) Hemoglobin A1C 8.0(H) <6.5 % LAB CHEMISTRY METHOD 09/04/2024 2:[address] [facility] Mean Bld Glu Estim. 183 mg/dL LAB CHEMISTRY METHOD 09/04/2024 2:[address] [facility] Blood Venous blood specimen / Unknown Venipuncture / Unknown 09/04/2024 7:14 AM EST 09/04/2024 10:21 AM EST us Yehuda Glasgow MD LAB BLOOD ORDERABLES Final Resul t [facility] [address] [place] [address], * (ABNORMAL) Basic metabolic panel (09/04/2024 7:14 AM EST) Pathologist [facility] Sodium 134 133 - 145 mmol/L LAB CHEMISTRY METHOD 09/04/2024 12:[address] [facility] Potassium 3.4(L) 3.5 - 5.5 mmol/L LAB CHEMISTRY METHOD 09/04/2024 12:[address] [facility] Chloride 96 96 - 110 mmol/L LAB CHEMISTRY METHOD 09/04/2024 12:[address] [facility] CO2 28 21 - 32 mmol/L LAB CHEMISTRY METHOD 09/04/2024 12:[address] [facility] Anion Gap 10 3 - 11 LAB CHEMISTRY METHOD 09/04/2024 12:[address] [facility] Glucose 222(H) 70 - 100 mg/dL LAB CHEMISTRY METHOD 09/04/2024 12:[address] [facility] BUN 85(H) 5 - 25 mg/dL LAB CHEMISTRY METHOD 09/04/2024 12:[address] [facility] Creatinine 1.70(H) 0.70 - 1.30 mg/dL LAB CHEMISTRY METHOD 09/04/2024 12:[address] [facility] eGFR 39(L) >=60 mL/min/1. 73m2 LAB CHEMISTRY METHOD 09/04/2024 12:[address] [facility] Comment:Calculation based on the??Chronic Kidney Disease Epidemiology Collaboration (CKD-EPI) equation refit??without adjustment for race. BUN/Creatinine Ratio 50.0 LAB CHEMISTRY METHOD 09/04/2024 12:[address] [facility] Calcium 8.5 8.5 - 10.5 mg/dL LAB CHEMISTRY METHOD 09/04/2024 12:[address] [facility] Blood Venous blood specimen / Unknown Venipuncture / Unknown 09/04/2024 7:14 AM EST 09/04/2024 10:21 AM EST us Yehuda Glasgow MD LAB BLOOD ORDERABLES Final Resul t [facility] [address] [place] [address], * (ABNORMAL) Comprehensive metabolic panel (09/02/2024 5:10 AM EST) Sodium 137 133 - 145 mmol/L LAB CHEMISTRY METHOD 09/02/2024 9:[address] [facility] Potassium 3.7 3.5 - 5.5 mmol/L LAB CHEMISTRY METHOD 09/02/2024 9:[address] [facility] Chloride 96 96 - 110 mmol/L LAB CHEMISTRY METHOD 09/02/2024 9:[address] [facility] CO2 28 21 - 32 mmol/L LAB CHEMISTRY METHOD 09/02/2024 9:[address] [facility] Anion Gap 13(H) 3 - 11 LAB CHEMISTRY METHOD 09/02/2024 9:[address] [facility] Glucose 286(H) 70 - 100 mg/dL LAB CHEMISTRY METHOD 09/02/2024 9:[address] [facility] BUN 72(H) 5 - 25 mg/dL LAB CHEMISTRY METHOD 09/02/2024 9:[address] [facility] Creatinine 1.82(H) 0.70 - 1.30 mg/dL LAB CHEMISTRY METHOD 09/02/2024 9:[address] [facility] eGFR 36(L) >=60 mL/min/1. 73m2 LAB CHEMISTRY METHOD 09/02/2024 9:[address] [facility] Comment:Calculation based on the??Chronic Kidney Disease Epidemiology Collaboration (CKD-EPI) equation refit??without adjustment for race. BUN/Creatinine Ratio 39.6 LAB CHEMISTRY METHOD 09/02/2024 9:[address] [facility] Calcium 9.0 8.5 - 10.5 mg/dL LAB CHEMISTRY METHOD 09/02/2024 9:[address] [facility] AST (SGOT) 70(H) 10 - 42 unit/L LAB CHEMISTRY METHOD 09/02/2024 9:[address] [facility] ALT (SGPT) 67(H) 10 - 60 unit/L LAB CHEMISTRY METHOD 09/02/2024 9:[address] [facility] Alkaline Phosphatase 92 42 - 121 unit/L LAB CHEMISTRY METHOD 09/02/2024 9:[address] [facility] Total Protein 5.5(L) 6.0 - 8.0 g/dL LAB CHEMISTRY METHOD 09/02/2024 9:[address] [facility] Albumin 1.9(L) 3.2 - 5.0 g/dL LAB CHEMISTRY METHOD 09/02/2024 9:[address] [facility] Total Bilirubin 0.6 0.0 - 1.4 mg/dL LAB CHEMISTRY METHOD 09/02/2024 9:[address] [facility] Blood Venous blood specimen / Unknown Venipuncture / Unknown 09/02/2024 5:10 AM EST 09/02/2024 7:57 AM EST us Yehuda Glasgow MD LAB BLOOD ORDERABLES Final Resul t [facility] [address] [place] [address], [place] [phone] from Last 3 Months Insurance [facility] MEDICARE Member Subscriber Plan / Payer (Ef fective 2012-Present) Name:Simone Pappas Relation to Subscriber:Self Name:Simone Pappas Payer ID:[id number] Group ID:[id number] Type:Not on file Address: [facility] [address] [id number] Care Teams Hat Conditioner Relationship Specialty Start Date End Date Melany Alejandre DO [address] [place], [place] PCP - General 07/04/24
--- OUTSIDE RECORDS SUMMARY | 2024-11-26 10:29 | XMS_ITS | Encounter Summary ---
Author Organization [facility] Address [address] [place] [address] Care Team Providers Care It Trainee Name Role Phone Melany Alejandre Primary Care Provider [phone]- [phone] Encounter Details Date Type Department Care Team (Late st Contact Info) Description 09/17/[address] [facility] - Main Lab [address] [facility] [address] Yehuda Glasgow MD [address] [facility] [address] [place], [phone] Type 2 diabetes mellitus without complications (CMS/HCC) Social History Tobacco Use Types Packs/Day [...] 10:00 AM EDT Office Visit Orthopedic Surgery [facility] [address] [phone] Nicola Velasquez DPM [address] [address] 01/22/2025 10:00 AM EDT Office Visit Orthopedic [facility] [address] [phone] Nicola Velasquez DPM [address] [address] documented as of this encounter Visit Diagnoses Diagnosis Type 2 diabetes mellitus without complications (CMS/HCC) documented in this encounter Care Teams It Trainee Relationship Specialty Start Date End Date Melany Alejandre DO [address] [place], [place] PCP - General 07/04/24 documented as of this encounter
--- OUTSIDE RECORDS SUMMARY | 2024-11-26 10:29 | XMS_ITS | Encounter Summary ---
Author Organization [employer] Address [address] [facility] 7t [place] [address] Care Team Providers Care Machine Heel Seat Laster Name Role Phone HillMelany Primary Care Provider + [phone] Katerina Abarca PharmD Unavailable [phone] Encounter Details Date Type Department Care Team (Late st Contact Info) Description 10/18/2023 Orders Only [facility] MEDICINE [address] [place], [place] [phone] Martina Naylor MD [address] [place], [place] [phone] Fall (on)(from) sidewalk curb, initial encounter (Primary Dx) Social History Tobacco Use Types Packs/Day Years Used Date Smoking Tobacco: Never Passive Smoke Exposure: Never Smokeless Tobacco: Never Alcohol Use Standard Drinks/Week Comments Never 0 (1 standard drink = 0.6 oz pur e alcohol) PHQ-2 Answer Date Recorded Patient Health Questionnaire-2 Score 0 02/08/2023 Depression Answer Date Recorded Patient Health Questionnaire-9 Score 0 11/02/2022 Housing Stability Answer Date Recorded What is your housing situation today? I have stelladenice anderson 08/04/[address] you li ve. Do you have problems with any of the following? None of the above 08/04/2023 Food Insecurity Answer Date Recorded Within the past 12 months, y ou worried that your food would run out before you got money to buy more: Never True 08/04/2023 Within the past 12 months,th e food you bought just didn't last and you didn't have enough money to get more: Never True 11/2022 Transportation Answer Date Recorded In the past 12 months, has l ack of transportation kept you from medical appts, meetings, work or from getting things needed for daily living? No 08/04/2023 Utilities Answer Date Recorded In the past 12 months, has t he electric, gas, oil or water company threatened to shut off services in your home? No 08/04/2023 Depression Answer Date Recorded Patient Health Questionnaire-2 Score 0 02/08/2023 Sex and Gender Information Value Date Recorded Sex Assigned at Male 08/01/2022 10:14 AM EDT Legal Sex Male 10:14 AM EDT Gender Identity Male 08/01/2022 10:14 AM EDT Sexual Orientation Straight 08/01/2022 10 :14 AM EDT documented as of this encounter Plan of Treatment Upcoming Encounters Date Type Department Care Team (Late st Contact Info) Description 11/27/2024 10:45 AM EST Office Visit [address] [address] Melany Alejandre DO [address] [place] [address] 11/28/2024 2:00 PM EST Medication Management [address] [address] 01/03/2025 10:00 AM EDT Medication Management [address] [address] Katerina Abarca PharmD [address] [place] [address] documented as of this encounter Goals Goal Patient Goal Type Associated Problems Recent Progress Patient-Stated? Author Hemoglobin A1c < 8 Result Component 9.2( 11:04 AM EST) No Tru Barrera PharmD Record your blood sugar as directed Result Component No Katerina Abarca PharmD Note: Use CGM, ensuring sensor is scanned at least once every 8 hours to capture 24H data. Check BG manually, as directed. documented as of this encounter Visit Diagnoses Diagnosis Fall (on)(from) sidewalk curb, initial encounter- Primary documented in this encounter Additional Health Concerns Assessment Noted Time PHQ-9 Depression Total Score: 0 11/02/19 23 9:59 AM EST documented as of this encounter Care Teams Machine Heel Seat Laster Relationship Specialty Start Date End Date Melany Alejandre DO [address] [place] [address] PCP - General Family Medicine 09/29/16 Katerina Abarca PharmD [address] [place] [address] Pharmacist Internal Medicine 04/11/23 Sameer Eleazar 09/15/24 documented as of this encounter
--- OUTSIDE RECORDS SUMMARY | 2024-11-26 10:29 | XMS_ITS | Encounter Summary ---
Author Organization [employer] Address [address] [facility] 7t [place] [address] Care Team Providers Care Drug And Alcohol Treatment Specialist Name Role Phone DemiMelany marcus Primary Care Provider [phone] Katerina Abarca PharmD Unavailable [phone] Encounter Details Date Type Department Care Team ([facility] st Contact Info) Description 09/27/2024 Orders Only [facility] MEDICINE 230 [place], [place] [phone] Hannah Nagy MD [address] [place], [place] [phone] Social History Tobacco Use Types Packs/Day Years Used Date Smoking Tobacco: Never Passive Smoke Exposure: Never Smokeless Tobacco: Never Alcohol Use Standard Drinks/Week Comments Never 0 (1 standard drink = 0.6 oz pur e alcohol) Depression Answer Date Recorded Patient Health Questionnaire-9 Score 4 07/23/2024 Patient Health Questionnaire-9 Score 4 07/23/2024 Last PHQ-9: Questionnaire Data Not on file 1 Housing Stability Answer Date Recorded What is your housing situation today? I have stella anderson 07/23/[address] you li ve. Do you have problems with any of the following? None of the above 07/23/2024 Food Insecurity Answer Date Recorded Within the past 12 months, y ou worried that your food would run out before you got money to buy more: Never True 07/23/2024 Within the past 12 months,th e food you bought just didn't last and you didn't have enough money to get more: Never True Transportation Answer Date Recorded In the past 12 months, has l ack of transportation kept you from medical appts, meetings, work or from getting things needed for daily living? No 07/23/2024 Utilities Answer Date Recorded In the past 12 months, has t he electric, gas, oil or water company threatened to shut off services in your home? No 07/23/2024 Depression Answer Date Recorded Patient Health Questionnaire-2 Score 0 07/23/2024 Internet Access Answer Date Recorded Internet Access Q1 Yes 07/23/2024 Internet Access Q2 Not on file 07/23/2024 Sex and Gender Information Value Date Recorded Sex Assigned at Male 08/01/2022 10:14 AM EDT Legal Sex Male 10:14 AM EDT Gender Identity Male 08/01/2022 10:14 AM EDT Sexual Orientation Straight 08/01/2022 10 :14 AM EDT documented as of this encounter Plan of Treatment Upcoming Encounters Date Type Department Care Team (Late st Contact Info) Description 11/27/2024 10:45 AM EST Office Visit [address] [address] Melany Alejandre DO [address] [place] [address] 11/28/2024 2:00 PM EST Medication Management [address] [address] 01/03/2025 10:00 AM EDT Medication Management [address] [address] Katerina Abarca PharmD [address] [place] [address] documented as of this encounter Goals Goal [...] documented as of this encounter Visit Diagnoses Not on filedocumented in this encounter Additional Health Concerns Assessment Noted Time PHQ-9 Depression Total Score: 4 07/23/20 24 9:51 AM EDT documented as of this encounter Care Teams Drug And Alcohol Treatment Specialist Relationship Specialty Start Date End Date Melany Alejandre DO [address] [place] [address] PCP - General Family Medicine 09/29/16 Katerina Abarca PharmD [address] [place] [address] Pharmacist Internal Medicine 04/11/23 Sameer Eleazar 09/15/24 documented as of this encounter
--- OUTSIDE RECORDS SUMMARY | 2024-11-26 10:29 | XMS_ITS | Encounter Summary ---
Author Organization [employer] [facility] Address [address] [facility] 7t [place] [address] Care Team Providers Care Tailor'S Aide Name Role Phone DemiMelany marcus Primary Care Provider + [phone] Delcaesar Tru PharmD Unavailable Unavail able Katerina Abarca PharmD Unavailable [phone] Reason for Visit * Reason Comments Med Refill Encounter Details Date Type Department Care Team (Late st Contact Info) Description 04/07/2023 Refill [facility] MEDICINE [address] [place] [address] Dellogono, Tru, PharmD Social History Tobacco Use Types Packs/Day Years Used Date Smoking Tobacco: Never Passive Smoke Exposure: Never Smokeless Tobacco: Never Alcohol Use Standard Drinks/Week Comments Never 0 (1 standard drink = 0.6 oz pur e alcohol) PHQ-2 Answer Date Recorded Patient Health Questionnaire-2 Score 0 02/08/2023 Depression Answer Date Recorded Patient Health Questionnaire-9 Score 0 11/02/2022 Depression Answer Date Recorded Patient Health Questionnaire-2 Score 0 02/08/2023 Sex and Gender Information Value Date Recorded Sex Assigned at Male 08/01/2022 10:14 AM EDT Legal Sex Male 10:14 AM EDT Gender Identity Male 08/01/2022 10:14 AM EDT Sexual Orientation Straight 08/01/2022 10 :14 AM EDT COVID-19 Exposure Response Date Recorded In the last 10 days, have yo u been in contact with someone who was confirmed or suspected to have Coronavirus/COVID-19? No / Unsure 03/08/2023 4:20 PM EDT documented as of this encounter Plan of Treatment Upcoming Encounters Date Type Department Care Team (Late st Contact Info) Description 11/27/2024 10:45 AM EST Office Visit [facility] [place] [address] Melany Alejandre DO [facility] [place] [address] 11/28/2024 2:00 PM EST Medication Management [facility] [place] [address] 01/03/2025 10:00 AM EDT Medication Management [facility] [place] [address] Katerina Abarca PharmD [facility] [place] [address] documented as of this encounter Goals Goal Patient Goal Type Associated Problems Recent Progress Patient-Stated? Author Hemoglobin A1c < 8 Result Component 9.2(10/09/2024 11:04 AM EST) No Tru Barrera, PharmD documented as of this encounter Visit Diagnoses Not on filedocumented in this encounter Additional Health Concerns Assessment Noted Time PHQ-9 Depression Total Score: 0 11/02/19 9:59 AM EST documented as of this encounter Care Teams Tailor'S Aide Relationship Specialty Start Date End Date Melany Alejandre DO [facility] [place] [address] PCP - General Family Medicine 09/29/16 Tru Barrera, PharmD [address] [place] [address] [place] [address] Pharmacist Internal Medicine 01/26/23 04/10/23 Katerina Abarca, PharmD [facility] [place] [address] Pharmacist Internal Medicine 04/11/23 [place] [facility] 09/15/24 documented as of this encounter
--- OUTSIDE RECORDS SUMMARY | 2024-11-26 10:29 | XMS_ITS | Encounter Summary ---
Author Organization [email or web address] [facility] Address [address] [facility] [address] [place] [address] Care Team Providers Care Plate Straightener Name Role Phone Aramis Alejandre DO Primary Care Provider [phone] Katerina Abarca PharmD Unavailable [phone] Reason for Referral * Consultation (Urgent) - Closed Specialty Diagnoses / Procedures Referred By Contac t Referred To Contact Otolaryngology Diagnoses Bilateral hearing loss, unspecified hearing loss type Aramis Alejandre DO [address] [place] [address] Phone: tel: fax: [facility] [address] [place] [address] Phone: tel: fax: Referral ID Status Reason Start Date Expiration Date V isits Requested Visits Authorized [id number] Closed Specialty Services Required 11/13/2024 11/13/2025 1 1 * Consultation (Routine) - Canceled Specialty Diagnoses / Procedures Referred By Contac t Referred To Contact Neurology Diagnoses Memory loss Aramis Alejandre DO [address] [place] [address] Phone: tel: fax: Referral ID Status Reason Start Date Expiration Date Visits Requested Visits Authorized [id number] Canceled Specialty Services Required 10/09/2024 10/09/2025 1 1 * Consultation (Routine) - Authorized Specialty Diagnoses / Procedures Referred By Nereida aranda Referred To Contact Optometry Diagnoses Type 2 diabetes mellitus with hyperglycemia, with long-term current use of insulin (CMS/HCC) Essential hypertension Aramis Alejandre DO [address] [place] [address] Phone: tel: fax: [facility] [address] [place] [phone] Phone: tel: fax: Referral ID Status Reason Start Date Expiration Date Visits Requested Visits Authorized [id number] Authorized Consult and Treat 10/09/2024 10/09/2025 1 1 * Consultation (Urgent) - Authorized Specialty Diagnoses / Procedures Referred By Nereida aranda Referred To Contact Pharmacy Diagnoses Type 2 diabetes mellitus with hyperglycemia, with long-term current use of insulin ([facility]/HCC) Aramis Alejandre DO [address] [place] [address] Phone: tel: fax: Referral ID Status Reason Start Date Expiration Date Visits Requested Visits Authorized [id number] Authorized Consult and Treat 10/09/2024 10/09/2025 6 6 Encounter Details Date Type Department Care Team (Late st Contact Info) Description 10/09/2024 9:15 AM EST Office Visit [facility] [address] [place] [address] Aramis Alejandre DO [address] [place] [address] Type 2 diabetes mellitus with hyperglycemia, with long-term current use of insulin (CMS/HCC) (Primary Dx); Memory loss; Bilateral hearing loss, unspecified hearing loss type; Skin ulcer of sacrum, unspecified ulcer stage (CMS/HCC); Healthcare maintenance Social History Tobacco Use Types Packs/Day Years Used Date Smoking Tobacco: Never Passive Smoke Exposure: Never Smokeless Tobacco: Never Tobacco Cessation:Counseling Given: Not Answered Alcohol Use Standard Drinks/Week Comments Never 0 [...] AM EDT documented as of this encounter Last Filed Vital Signs Vital Sign Reading Time Taken Comments Blood Pressure 128/60 10/09/2024 9:31 AM EST Pulse 80 10/09/2024 9:31 AM EST Temperature 36.3 ??C (97.3 ??F) 10/09/2024 9:31 AM ES T Respiratory Rate 18 10/09/2024 9:31 AM EST Oxygen Saturation - - Inhaled Oxygen Concentration - - Weight 67.1 kg (148 lb) 10/09/2024 9:31 AM EST Height 170.2 cm (5' 7 ) 10/09/2024 9:31 AM EST Body Mass Index 23.18 10/09/2024 9:31 AM EST documented in this encounter Progress Notes * Aramis Alejandre, DO - 10/09/2024 9:15 AM EST SUBJECTIVE Simone Velasquez is a 84 y.o. male who presents for Office Visit. He presents with his . He was admitted to the hospital in AUG with acute encephalopathy, which was thought to be delirium in setting of UTI. He was transferred to subacute rehab. He was re-admitted to [facility] in SEP with decubitus ulcer from the rehab center. His dtr felt he was not receiving good care at the rehab facility.He was discharged home with VNA services as family refused returning to rehab. His says his wounds are healing well; she says the ones on his heels have closed, the ones on his coccyx is smaller. His would like a referral to the wound clinic; Dr Nagy sent a referral on 09.26.24 at his [facility] visit and she says they haven't contacted him yet. His is changing hisdressings daily. His says he is doing much better at home. He is eating well at home, [facility] His says he was sent back to the same front tender in [place] that does not take CCA. His says he is using his tresiba 1x/day. She says she is also giving him another insulin when his BG is elevated; his does not remember what the other insulin is called. He is still taking his trulicity and jardiance as rx'd. His denies any low sugars. His fasting BG this morning [id number]. His says she doesn't know if he has appt with neurology for his memory. He is back on his memory medication and his feels like he is doing better with his memory. Review of Systems Constitutional: Negative for activity change, appetite change, fever and unexpected weight change. HENT: Positive for hearing loss. Respiratory: Negative for cough and chest tightness. Cardiovascular: Negative for chest pain and palpitations. Gastrointestinal: Negative for abdominal pain, diarrhea, nausea and vomiting. Skin: Positive for wound. Neurological: Negative for dizziness, weakness and headaches. Patient Active Problem List Diagnosis Anemia Benign prostatic hyperplasia Chondrocalcinosis Chronic low back pain Non-occlusive coronary artery disease Diabetic retinopathy (CMS/HCC) Essential hypertension Hearing loss Hyperlipidemia Osteoarthritis Type 2 diabetes mellitus (CMS/HCC) Diabetic polyneuropathy (CMS/HCC) Memory loss Thyroid nodule Obstructive sleep apnea Chronic shoulder pain Chronic pain of right wrist Chronic knee pain Healthcare maintenance History of COVID-19 No Known Allergies OBJECTIVE Visit Vitals BP 128/60 (BP Location: Left arm, Patient Position: Sitting, BP Cuff Size: Adult) Pulse 80 Temp 97.3 ??F (36.3 ??C) (Oral) Resp 18 Ht 5' 7 (1.702 m) Wt 148 lb (67.1 kg) BMI 23.18 kg/m?? Smoking Status Never BSA 1.78 m?? Physical Exam Constitutional: General: He is not in acute distress. Appearance: Normal appearance. Cardiovascular: Rate and Rhythm: Normal rate and regular rhythm. Heart sounds: Normal heart sounds. No murmur heard. Pulmonary: Effort: Pulmonary effort is normal. Breath sounds: Normal breath sounds. No wheezing or rhonchi. Neurological: General: No focal deficit present. Mental Status: He is alert. Psychiatric: Mood and Affect: Mood normal. Hemoglobin A1c Date/Time Value Ref Range Status 10/09/2024 11:04 AM 9.2 (H) <6.0 % Final Comment: Hemoglobin A1C Reference Range Adults: 4.8 - 6.0 % Non diabetic: < 6.0 % Goal: < 7.0 %Additional Action Suggested: > 8.0 %Note: Hemoglobin A1c results are invalid for patients with abnormal amounts of HbF. Blood transfusions may impact the HbA1c concentration in the patient sample. Hemoglobin A1C Date/Time Value Ref Range Status 10/09/2024 09:34 AM 9.0 (A) 4.0 - 6.0 % Final Assessment/Plan Diagnoses and all orders for this visit: Type 2 diabetes mellitus with microalbuminuria, with long-term current use of insulin (CMS/HCC) Bump in A1c -cont trulicity weekly -cont jardiance daily -inc tresiba to 10 units daily -cont regular BS monitoring with CGM -re-referred to [facility] pharmacist -cont aspirin, statin, and lisinopril daily -s/p optho eval NOV 2022 for annual f/u with Dr. 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 AUG 2023 -EEG nml SEP 2021 -CT head with cerebral volume loss and chronic small vessel ischemic changes SEP 2021 -cont aricept daily -referred to [facility] neurology for second-opinion eval Bilateral hearing loss, unspecified hearing loss type -will contact [facility] re: insurance coverage and f/u eval Skin ulcer of sacrum, unspecified ulcer stage (CMS/HCC) -cont daily wound care -will check status of referral top [facility] wound clinic --Follow-up with me next mos as scheduled or sooner prn-- Current Outpatient Medications: acetaminophen (Tylenol) 500 MG tablet, acetaminophen 500 mg tablet, Disp: , Rfl: Alcohol Swabs (Alcohol Prep) 70 % pads, USE FOUR TIMES DAILY, Disp: 100 each, Rfl: 11 Aspirin Low Dose 81 MG EC tablet, TAKE 1 TABLET BY MOUTH EVERY MORNING, Disp: 90 tablet, Rfl: 1 atorvastatin (Lipitor) 80 MG tablet, TAKE 1 TABLET BY MOUTH AT BEDTIME, Disp: 90 tablet, Rfl: 1 cholecalciferol (D3 Super Strength) 50 MCG (2000 UT) capsule, TAKE 1 CAPSULE BY MOUTH EVERY MORNING, Disp: 90 capsule, Rfl: 1 Continuous Blood Gluc Core Sticker (FreeStyle Shey 2 [place]) device, Use to check blood sugar at leastevery 8 hours, Disp: 1 each, Rfl: 0 Continuous Blood Gluc Sensor (FreeStyle Shey 2 Sensor) [facility], TEST BLOOD SUGAR AT LEAST EVERY 8 HOURS, Disp: 2 each, Rfl: 11 donepezil (Aricept) 5 MG tablet, Take 1 tablet by mouth every evening after a meal, Disp: 90 tablet, Rfl: 3 empagliflozin (Jardiance) 25 MG, Take 1 tablet (25 mg) by mouth in the morning., Disp: 30 tablet, Rfl: 5 finasteride (Proscar) 5 MG tablet, Take 1 tablet by mouth 1 (one) time each day., Disp: , Rfl: gabapentin (Neurontin) 400 MG capsule, TAKE 1 CAPSULE BY MOUTH TWICE DAILY IN THE MORNING AND AT BEDTIME, Disp: 60 capsule, Rfl: 5 glucose 4 g chewable tablet, Chew 4 tablets (16 g) if needed for low blood sugar. (<70 mg/dL). Recheck BS after 15 minutes and repeat treatment as needed., Disp: 20 tablet, Rfl: 5 glucose blood (FreeStyle Precision Dayo Test) test strip, Use to test blood sugar up to 3 times daily, as directed, Disp: 100 each, Rfl: 11 hydroCHLOROthiazide (HYDRODiuril) 25 MG tablet, TAKE 1 TABLET BY MOUTH EVERY MORNING, Disp: 90 tablet, Rfl: 1 insulin degludec (Tresiba FlexTouch) 100 UNIT/ML injection, Inject 8 Units under the skin at bedtime., Disp: 15 mL, Rfl: 1 insulin pen needle (UltiCare Micro Pen [place]) 32G x 4 mm [facility], Use as directed to inject insulin 1 time daily, Disp: 100 each, Rfl: 11 ketorolac (Acular) 0.5 % ophthalmic solution, PUT 1 DROP IN EACH EYE 4 TIMES A DAY, Disp: , Rfl: levothyroxine (Synthroid, Levoxyl) 25 MCG tablet, TAKE 1 TABLET BY MOUTH EVERY MORNING BEFORE BREAKFAST, Disp: 90 tablet, Rfl: 2 lisinopril 40 MG tablet, TAKE 1 TABLET BY MOUTH EVERY MORNING, Disp: 90 tablet, Rfl: 1 metoprolol succinate XL (Toprol-XL) 100 MG 24 hr tablet, TAKE 1 TABLET BY MOUTH EVERY MORNING, Disp: 90 tablet, Rfl: 1 Gcfpjmnj-Lqmblyxkl-FK 1 % solution, Administer 3 drops into affected ear(s) 4 times daily., Disp: 10 mL, Rfl: 0 Santyl 250 UNIT/GM ointment, APPLY TOPICALLY TO THE AFFECTED AREA(S) EVERY DAY DIRECTED, Disp: ,Rfl: triamcinolone (Kenalog) 0.025 % cream, , Disp: , Rfl: TRUEplus Lancets 33G mis, USE TO TEST BLOOD SUGAR THREE TIMES DAILY, Disp: 100 each, Rfl: 10 Trulicity 1.5 MG/0.5ML solution auto-injector, INJECT ONE PEN (=1.5MG) SUBCUTANEOUSLY ONCE A WEEK DIRECTED, Disp: , Rfl: Scribe Attestation: Jung Buckley, am serving as a scribe to document services personally performed by Aramis Salas, based on the patient's response to questions by provider and provider's statements to me. 10/09/24 4:11 PM Physicians Attestation: Aramis Buckley DO, have reviewed the information by the scribe, Jung Nicholson, for accuracy and agree with its content. Referred to ENT for hearing aid eval as requested. documented in this encounter Miscellaneous Notes * Addendum Note - Aramis Alejandre DO - 10/09/2024 9:15 AM ESTAddended by: ARAMIS ALEJANDRE on: 11/13/2024 03:12 PM Modules accepted: Orders documented in this encounter Plan of Treatment Upcoming Encounters Date Type Department Care Team (Late st Contact Info) Description 11/27/2024 10:45 AM EST Office Visit [address] [address] Aramis Alejandre DO [address] [place] [phone] 11/28/2024 2:00 PM EST Medication Management [address] [address] 01/03/2025 10:00 AM EDT Medication Management [address] [address] Katerina Abarca, Fabrizio [address] [place] [phone] Scheduled Referrals Name Type Priority Associated Diagnoses Orde r Schedule Referral to Pharmacy [facility] Outpatient Referral Urgent Type 2 diabetes mellitus with hyperglycemia, with long-term current use of insulin ([facility]) Ordered: 10/09/2024 Referral to [facility] Outpatient Referral Routine Type 2 diabetes mellitus with hyperglycemia, with long-term current use of insulin ([facility]) Expected: 10/09/2024 (Approximate), Expires: 10/09/2025 Referral to Neurology Outpatient Referral Routine Memory loss Expected: 10/09/2024 (Approximate), Expires: 10/09/2025 Referral to ENT Outpatient Referral Urgent Bilateral hearing loss, unspecified hearing loss type Expected: 11/13/2024 (Approximate), Expires: 11/13/2025 documented as of this encounter Goals Goal [...] as directed. documented as of this encounter Procedures Procedure Name Priority Date/Time Associated Diagnosis Comments LIPID PANEL, STANDARD Routine 10/16/2024 12:05 PM EST Type 2 diabetes mellitus with hyperglycemia, with long-term current use of insulin ([facility]) Bilateral hearing loss, unspecified hearing loss type Skin ulcer of sacrum, unspecified ulcer stage ([facility]) Healthcare maintenance VITAMIN D,25-OH,TOTAL,IA Routine 10/09/2024 11:04 AM EST Type 2 diabetes mellitus with hyperglycemia, with long-term current use of insulin ([facility]) Bilateral hearing loss, unspecified hearing loss type Skin ulcer of sacrum, unspecified ulcer stage ([facility]) Healthcare maintenance CBC Routine 10/09/2024 11:04 AM EST Type 2 diabetes mellitus with hyperglycemia, with long-term current use of insulin ([facility]) Bilateral hearing loss, unspecified hearing loss type Skin ulcer of sacrum, unspecified ulcer stage (CMS/[facility]) Healthcare maintenance TSH Routine 10/09/2024 11:04 AM EST Type 2 diabetes mellitus with hyperglycemia, with long-term current use of insulin ([facility]/HCC) Bilateral hearing loss, unspecified hearing loss type Skin ulcer of sacrum, unspecified ulcer stage (CMS/HCC) Healthcare maintenance T4, FREE Routine 10/09/2024 11:04 AM EST Type 2 diabetes mellitus with hyperglycemia, with long-term current use of insulin ([facility]/HCC) Bilateral hearing loss, unspecified hearing loss type Skin ulcer of sacrum, unspecified ulcer stage (CMS/HCC) Healthcare maintenance HEMOGLOBIN A1C Routine 10/09/2024 11:04 AM EST Type 2 diabetes mellitus with hyperglycemia, with long-term current use of insulin ([facility]/HCC) Bilateral hearing loss, unspecified hearing loss type Skin ulcer of sacrum, unspecified ulcer stage (CMS/HCC) Healthcare maintenance HEPATIC FUNCTION PANEL Routine 10/09/2024 11:04 AM EST Type 2 diabetes mellitus with hyperglycemia, with long-term current use of insulin ([facility]) Bilateral hearing loss, unspecified hearing loss type Skin ulcer of sacrum, unspecified ulcer stage (CMS/HCC) Healthcare maintenance BASIC METABOLIC PANEL Routine 10/09/2024 11:04 AM EST Type 2 diabetes mellitus with hyperglycemia, with long-term current use of insulin ([facility]/HCC) Bilateral hearing loss, unspecified hearing loss type Skin ulcer of sacrum, unspecified ulcer stage (CMS/HCC) Healthcare maintenance POCT GLYCATED HEMOGLOBIN, TOTAL Routine 10/09/2024 9:34 AM EST Type 2 diabetes mellitus with hyperglycemia, with long-term current use of insulin ([facility]/HCC) POCT GLUCOSE Routine 10/09/2024 9:33 AM EST Type 2 diabetes mellitus with hyperglycemia, with long-term current use of insulin ([facility]) documented in this encounter Results * (ABNORMAL) Lipid Panel, Standard (10/16/2024 12:05 PM EST) Triglycerides 170(H) <150 mg/dL [facility] Comment:Desirable Triglyceri de: less than 150 mg/dLBorderline High Triglyceride 150-199 mg/dLHigh Triglyceride: 200-499 mg/dLVery High Triglyceride: greater than or equal to 5OO mg/dL Cholesterol 153 <200 mg/dL [facility] Comment:Desirable Cholestero l: less than 200 mg/dLBorderline High Cholesterol: 200-239 mg/dLHigh Cholesterol: greater than 239 mg/dL LDL Cholesterol Calculated 88 <100 mg/dL [facility] Comment:Desirable LDL: less than 100 mg/dLNear Optimal/Above Optimal LDL: 110- 129 mg/dLBorderline High LDL: 130-159 mg/dLHigh LDL: 160-189 mg/dLVery High LDL: greater than or equal to 190 mg/dL HDL Cholesterol 31(L) >40 mg/dL [facility] Comment:Desirable HDL: great er than 40 mg/dL Note: This HDL assay may give artificially low results in patients with liver disease. Blood Venous blood specimen / Unknown 10/16/2024 12:05 PM EST 10/16/2024 1:05 PM EST us Aramis Alejandre DO LAB BLOOD ORDERABLES Final R esult [facility] [address] [place] [phone] * (ABNORMAL) Basic Metabolic Panel (10/09/2024 11:04 AM EST) Sodium 141 135 - 145 mmol/L [facility] Potassium 4.3 3.3 - 5.1 mmol/L [facility] Chloride 103 96 - 108 mmol/L [facility] Carbon Dioxide 27 22 - 29 mmol/L [facility] Anion Gap 15 12 - 20 [facility] Urea Nitrogen (BUN) 33(H) 9 - 16 mg/dL [facility] Creatinine, Serum 1.15 0.5 - 1.4 mg/dL [facility] Estimated Glomerular Filt Rate >60 [facility] Comment:Chronic Kidney Disea se: Estimated GFR < 60 mL/min/1.54m4Gwgpcu Kidney Disease: Estimated GFR < 15 mL/min/1.73m2 Glucose 234(H) 60 - 115 mg/dL [facility] Calcium 9.1 8.4 - 10.2 mg/dL [facility] Blood Venous blood specimen / Unknown 10/09/2024 11:04 AM EST 10/09/2024 1:04 PM EST us Aramis Alejandre DO LAB BLOOD ORDERABLES Final R esult [facility] [address] [place] [phone] * (ABNORMAL) CBC (10/09/2024 11:04 AM EST) White Blood Count 8.3 4.8 - 10.8 X10*3/uL [facility] Red Blood Count 3.73(L) 4.60 - 5.80 X10*6/uL [facility] Hemoglobin 10.4(L) 14.0 - 18.0 g/dl [facility] Hematocrit 33.1(L) 42.0 - 52.0 % [facility] Mean Corpuscular Volume 88.7 80.0 - 98.0 fL [facility] Mean Corpuscular Hemoglobin 27.9 27.0 - 33.0 pg [facility] Mean Corpuscular HGB Conc 31.4 31.0 - 36.0 g/dl [facility] Red Cell Distribution Width 13.7 11.0 - 16.0 % [facility] Platelet Count 380 160 - 400 X10*3/uL [facility] Mean Platelet Volume 11.3 9.4 - 12.4 fL [facility] NRBC Pct Auto 0.0 0.0 - 0.2 /100WBC [facility] NRBC Abs Auto 0.000 0.0 - 0.012 X10*3/uL [facility] Blood Venous blood specimen / Unknown 10/09/2024 11:04 AM EST 10/09/2024 1:04 PM EST Aramis Hill LAB BLOOD ORDERABLES Final R esult Performing Organization Address [facility] Co de Phone Number [facility] [address] [place] [phone] * (ABNORMAL) Hemoglobin A1c (10/09/2024 11:04 AM EST) Hemoglobin A1c 9.2(H) <6.0 % [facility] Comment:Hemoglobin A1C Refer ence Range Adults: 4.8 - 6.0 % Non diabetic: < 6.0 % Goal: < 7.0 %Additional Action Suggested: > 8.0 %Note: Hemoglobin A1c results are invalid for patients with abnormal amounts of HbF. Blood transfusions may impact the HbA1c concentration in the patient sample. Estimated Average Glucose 217 mg/dL [facility] Comment:eAG = Estimated ave rage glucose which is %A1C expressed asaverage glucose, using the formula of the R0U-GvtuwmmSrceurt Glucose study (ADAG), Diabetes Care, Vol.31,#8,May. 2007 Blood Venous blood specimen / Unknown 10/09/2024 11:04 AM EST 10/09/2024 1:04 PM EST us Aramis Alejandre DO LAB BLOOD ORDERABLES Final R esult Performing Organization Address City/[facility]/ZIP Co de Phone Number [facility] [address] [place] [phone] * (ABNORMAL) Hepatic Function Panel (10/09/2024 11:04 AM EST) Bilirubin, Total 0.4 0.0 - 1.0 mg/dL [facility] Bilirubin, Direct 0.2 0.0 - 0.5 mg/dL [facility] Aspartate Amino Transferase 29 5 - 37 U/L [facility] Alanine Aminotransferase 39 0 - 40 U/L [facility] Total Protein 6.9 6.5 - 8.0 g/dL [facility] Albumin Level 3.0(L) 3.5 - 5.0 g/dL [facility] Alkaline Phosphatase 98 39 - 117 U/L [facility] Blood Venous blood specimen / Unknown 10/09/2024 11:04 AM EST 10/09/2024 1:04 PM EST us Aramis Hill DO LAB BLOOD ORDERABLES Final R esult Performing Organization Address City/[facility]/ZIP Co de Phone Number [facility] [address] [place] [phone] * Vitamin D, 25-Hydroxy, Total, Immunoassay (10/09/2024 11:04 AM EST) Vitamin D 25-OH Total 31.5 >30 ng/mL [facility] Comment:Health Based Referen ce Values*< 20 ng/mL Obkwswsvr68-84 ng/mL Insufficient> 30 ng/mL Sufficient*Mary BANKS. N Engl J Med. 2007;357:266-280Care must be taken in interpreting Vitamin D results fromdifferent laboratories and methodologies. Published datademonstrated that results from patients undergoinghemodialysis may show a negative bias when tested withvarious automated 25-OH vitamin D assays when compared toLC-MS/MS.When testing samples from patients whose predominant form ofVitamin D is Vitamin D2, such as patients receiving VitaminD2 supplementation, results that are subtherapeutic shouldbe confirmed with another method such as LC-MS/MS. Blood Venous blood specimen / Unknown 10/09/2024 11:04 AM EST 10/09/2024 1:04 PM EST us Aramis Alejandre DO LAB BLOOD ORDERABLES Final R esult Performing Organization Address City/[facility]/ZIP Co de Phone Number [facility] [address] [place] [phone] * TSH (10/09/2024 11:04 AM EST) Thyroid Stimulating Hormone 3.52 0.32 - 4.0 uIU/mL [facility] Comment:Note: A sustained TS H level above 2.5 uIU/mL may warrant further investigation. TSH 3rd Generation ([facility]) Blood Venous blood specimen / Unknown 10/09/2024 11:04 AM EST 10/09/2024 1:04 PM EST Aramis Kernsonia DO LAB BLOOD ORDERABLES Final R esult [facility] [address] [place] [phone] * T4, Free (10/09/2024 11:04 AM EST) Free T4 (Free Thyroxine) 1.01 0.71 - 1.85 ng/dL [facility] Blood Venous blood specimen / Unknown 10/09/2024 11:04 AM EST 10/09/2024 1:04 PM EST Aramis Hill DO LAB BLOOD ORDERABLES Final R esult [facility] [address] [place] [phone] * (ABNORMAL) POCT HGB A1C (10/09/2024 9:34 AM EST) Hemoglobin A1C 9.0(A) 4.0 - 6.0 % QC Media Lot # [id number] Lot# Expiration Date Blood 10/09/2024 9:34 AM EST Aramis Alejandre DO POINT OF CARE TEST ENTER/BRITTNI T ORDERABLES Final Result * (ABNORMAL) POCT Glucose (10/09/2024 9:33 AM EST) Glucose Blood, POC 222(A) 60 - 200 mg/dL QC Media Lot # [id number] Lot# Expiration Date ,025 Blood Capillary blood specimen / Unknown 10/09/2024 9:33 AM EST Aramis Alejandre DO POINT OF CARE TEST ENTER/BRITTNI T ORDERABLES Final Result documented in this encounter Visit Diagnoses Diagnosis Type 2 diabetes mellitus with hyperglycemia, with long-term current use of insulin ([facility])- Primary Memory loss Bilateral hearing loss, unspecified hearing loss type Skin ulcer of sacrum, unspecified ulcer stage ([facility]) Healthcare maintenance documented in this encounter Additional Health Concerns Assessment Noted Time PHQ-9 Depression Total Score: 4 07/23/20 24 9:51 AM EDT documented as of this encounter Care Teams Plate Straightener Relationship Specialty Start Date End Date Aramis Alejandre DO [address] [place] [address] PCP - General Family Medicine 09/29/16 Katerina Abarca PharmD [address] [place] [address] Pharmacist Internal Medicine 04/11/23 Sameer Eleazar 09/15/24 documented as of this encounter
--- OUTSIDE RECORDS SUMMARY | 2024-11-26 10:29 | XMS_ITS | Encounter Summary ---
Author Organization [email or web address] [facility] Address [address] [place] [address] Care Team Providers Care Sales Porter Name Role Phone HillMelany Primary Care Provider + [phone] Katerina Abarca PharmD Unavailable +[phone] Reason for Visit * Reason Comments Med Refill Encounter Details Date Type Department Care Team (Late st Contact Info) Description 10/22/2023 Refill [facility] [address] [place], [place] [phone] Cordelia Castelan MD [address] [place] [address] Diabetic polyneuropathy associated with type 2 diabetes mellitus (CMS/HCC) Social History Tobacco Use Types Packs/Day [...] housing situation today? I have stella anderson 08/04/[address] you [...] Description 11/27/2024 10:45 AM EST Office Visit [address] [address] Melany Alejandre DO [address] [place] [phone] 11/28/2024 2:00 PM EST Medication Management [address] [address] 01/03/2025 10:00 AM EDT Medication Management [address] [address] Katerina Abarca PharmD [address] [place] [phone] documented as of this encounter Goals Goal [...] as of this encounter Visit Diagnoses Diagnosis Diabetic polyneuropathy associated with type 2 diabetes mellitus ([facility]) documented in this encounter Additional Health Concerns Assessment Noted Time PHQ-9 Depression Total Score: 0 11/02/19 23 9:59 AM EST documented as of this encounter Care Teams Sales Porter Relationship Specialty Start Date End Date Melany Alejandre DO [address] [place] [address] PCP - General Family Medicine 09/29/16 Katerina Abarca PharmD [address] [place] [address] Pharmacist Internal Medicine 04/11/23 Sameer RODRIGUEZ 09/15/24 documented as of this encounter
--- OUTSIDE RECORDS SUMMARY | 2024-11-26 10:29 | XMS_ITS | Clinical Summary ---
Author Organization [employer] Address [address] [facility] [address] [place] [address] Care Team Providers Care [employer] Indirect [employer] Crewmember Name Role Phone HillMelany Primary Care Provider Katerina Abarca PharmD Unavailable [phone] Allergies No known active allergies Medications finasteride (Proscar) 5 MG tablet Take 1 tablet by mouth 1 (one) time each day. 022 Active Continuous Blood Gluc Defense Travel Administrator (FreeStyle Shey 2 [place]) deviceIndications :Type 2 diabetes mellitus with microalbuminuria, with long-term current use of insulin ([facility]) Use to check blood sugar at least every 8 hours 1 each 023 Active acetaminophen (Tylenol) 500 MG tablet acetaminophen 500 mg tablet Active Continuous Blood Gluc Sensor (FreeStyle Shey 2 Sensor) miscIndications:T ype 2 diabetes mellitus with microalbuminuria, with long-term current use of insulin (CMS/[facility]) TEST BLOOD SUGAR AT LEAST EVERY 8 HOURS 2 each 024 Active TRUEplus Lancets 33G miscIndications:T ype 2 diabetes mellitus with microalbuminuria, with long-term current use of insulin (CMS/[facility]) USE TO TEST BLOOD SUGAR THREE TIMES DAILY 100 each 024 Active Alcohol Swabs (Alcohol Prep) 70 % pads USE FOUR TIMES DAILY 100 each 024 Active glucose blood (FreeStyle Precision Dayo Test) test stripIndications: Type 2 diabetes mellitus with microalbuminuria, with long-term current use of insulin (CMS/[facility]) Use to test blood sugar up to 3 times daily, as directed 100 each 024 Active glucose 4 g chewable tabletIndications :Type 2 diabetes mellitus with microalbuminuria, with long-term current use of insulin ([facility]) Chew 4 tablets (16 g) if needed for low blood sugar. (<70 mg/dL). Recheck BS after 15 minutes and repeat treatment as needed. 20 tablet 5 024 2024 Active insulin pen needle (UltiCare Micro Pen [place]) 32G x 4 mm miscIndications:T ype 2 diabetes mellitus with microalbuminuria, with long-term current use of insulin ([facility]) Use as directed to inject insulin 1 time daily 100 each 11 024 Active levothyroxine (Synthroid, Levoxyl) 25 MCG tablet TAKE 1 TABLET BY MOUTH EVERY MORNING BEFORE BREAKFAST 90 tablet 2 024 Active gabapentin (Neurontin) 400 MG capsuleIndication s:Diabetic polyneuropathy associated with type 2 diabetes mellitus ([facility]) TAKE 1 CAPSULE BY MOUTH TWICE DAILY IN THE MORNING AND AT BEDTIME 60 capsule 5 024 Active atorvastatin (Lipitor) 80 MG tabletIndications :Other hyperlipidemia TAKE 1 TABLET BY MOUTH AT BEDTIME 90 tablet 1 024 Active Santyl 250 UNIT/GM ointment APPLY TOPICALLY TO THE AFFECTED AREA(S) EVERY DAY DIRECTED 024 Active hydroCHLOROthiazi de (HYDRODiuril) 25 MG tabletIndications :Hypertension, unspecified type TAKE 1 TABLET BY MOUTH EVERY MORNING 90 tablet 1 024 Active cholecalciferol (D3 Super Strength) 50 MCG (2000 UT) capsuleIndication s:Vitamin D deficiency TAKE 1 CAPSULE BY MOUTH EVERY MORNING 90 capsule 1 024 Active donepezil (Aricept) 5 MG tablet Take 1 tablet by mouth every evening after a meal 90 tablet 3 024 Active insulin degludec (Tresiba FlexTouch) 100 UNIT/ML injectionIndicati ons:Type 2 diabetes mellitus with microalbuminuria, with long-term current use of insulin ([facility]) Inject 10 Units under the skin at bedtime. 15 mL 3 025 Active Aspirin EC Adult Low Dose 81 MG EC tablet TAKE 1 TABLET BY MOUTH EVERY MORNING 90 tablet 1 025 Active metoprolol succinate XL (Toprol-XL) 100 MG 24 hr tablet TAKE 1 TABLET BY MOUTH EVERY MORNING 90 tablet 1 025 Active Dulaglutide (Trulicity) 4.5 MG/0.5ML solution auto-injector Inject 4.5 mg under the skin 1 (one) time per week. 2 mL 11 025 Active Jardiance 25 MGIndications:Typ e 2 diabetes mellitus with microalbuminuria, with long-term current use of insulin ([facility]) TAKE 1 TABLET BY MOUTH EVERY MORNING 30 tablet 5 025 Active lisinopril 40 MG tablet TAKE 1 TABLET BY MOUTH EVERY MORNING 90 tablet 025 Active ketorolac (Acular) 0.5 % ophthalmic solution PUT 1 DROP IN EACH EYE 4 TIMES A DAY 022 2024 Discontinued(M ed list cleanup (will not trigger notification to Pharmacy)) triamcinolone (Kenalog) 0.025 % cream 022 2024 Discontinued(M ed list cleanup (will not trigger notification to Pharmacy)) empagliflozin (Jardiance) 25 MGIndications:Typ e 2 diabetes mellitus with microalbuminuria, with long-term current use of insulin ([facility]) Take 1 tablet (25 mg) by mouth in the morning. 30 tablet 5 024 2024 Discontinued lisinopril 40 MG tablet TAKE 1 TABLET BY MOUTH EVERY MORNING 90 tablet 1 024 2024 Discontinued Neomycin-Polymyxi n-HC 1 % solution Administer 3 drops into affected ear(s) 4 times daily. 10 mL 024 2024 Discontinued(M ed list cleanup (will not trigger notification to Pharmacy)) Dulaglutide (Trulicity) 3 MG/0.5ML solution auto-injectorIndi cations:Type 2 diabetes mellitus with microalbuminuria, with long-term current use of insulin ([facility]) Inject 3 mg under the skin 1 (one) time per week. 2 mL 11 025 2024 Discontinued(D ose adjustment) Active Problems Problem Noted Date Diagnosed Date History of COVID-19 11/04/2022 Diabetic polyneuropathy 11/02/2022 Memory loss 11/02/2022 Assessment & Plan (09/26/2024 9:11 AM EST): - Dr. Choudhary prescribed Aricept. - will prescribe as requested Thyroid nodule 11/02/2022 Obstructive sleep apnea 11/02/2022 Chronic shoulder pain 11/02/2022 Chronic pain of right wrist 11/02/2022 Chronic knee pain 11/02/2022 Healthcare maintenance 11/02/2022 Diabetic retinopathy 09/29/2016 Type 2 diabetes mellitus 09/29/2016 Assessment & Plan (09/24/2024 3:11 PM EST): - A1c at 9.5% today. - Continue on current medications. Anemia 07/16/2015 Benign prostatic hyperplasia 07/16/2015 Assessment & Plan (09/26/2024 9:09 AM EST): - UTI in Aug 2024 and Sep 2024 - questionable medication adherence Chondrocalcinosis 07/16/2015 Chronic low back pain 07/16/2015 Non-occlusive coronary artery disease 07/16/2015 Essential hypertension 07/16/2015 Assessment & Plan (09/26/2024 9:08 AM EST): - continue current treatment plan per PCP Hearing loss 07/16/2015 Hyperlipidemia 07/16/2015 Osteoarthritis 07/16/2015 Resolved Problems Problem Noted Date Diagnosed Date Resolved Date Fall (on)(from) [facility], initial encounter 09/28/2023 03/04/2024 Assessment & Plan (09/28/2023 1:39 PM EST): Will image to rule out rib or hand fracture History of severe acute resp iratory syndrome coronavirus 2 (SARS-CoV-2) disease 07/02/202011/04 Foot pain 03/12/2018 11/04/2022 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 11/04/2022 Encounters Date Type Department Care Team Description 11/16/2024 Refill [facility] [address] [place] [address] Melany Alejandre DO 11/16/2024 Refill [facility] [address] [place] [address] Katerina Abarca PharmD Type 2 diabetes mellitus with microalbuminuria, with long-term current use of insulin ([facility]) 11/13/2024 Travel 10/30/[address] [address] Melany Alejandre DO [employer] Patient Care Solution (Skin barrier, wipes or swabs each) 10/24/[address] [address] Melany Alejandre DO Durable Medical Equipment ([employer] Form: Supplies) 10/19/[address] [address] Melany Alejandre DO 10/16/2024 Orders Only [address] [address] Melany Alejandre DO 10/15/[address] [address] Melany Alejandre DO Referral 10/15/[address] [address] Mary Hairston RN Iron and Ferritin 10/14/[address] [address] Melany Alejandre DO 10/11/[address] [address] Ale Mccarthy [place] Incoming Fax Audiology 10/09/2024 9:15 AM EST Office Visit [address] [address] Melany Alejandre DO Type 2 diabetes mellitus with hyperglycemia, with long-term current use of insulin ([facility]) (Primary Dx); Memory loss; Bilateral hearing loss, unspecified hearing loss type; Skin ulcer of sacrum, unspecified ulcer stage ([facility]); Healthcare maintenance 10/09/2024 Travel 10/01/2024 Patient Outreach [address] [phone] Melany Alejandre DO Pre-visit Planning (SDOH screening is completed) 09/27/2024 Telephone [facility] [place] [address] Pat Claire RN Results 09/27/2024 Orders Only [facility] [place] [address] Hannah Nagy MD 09/27/2024 [address] [place] [address] Melany Alejandre DO Durable Medical Equipment; Incoming Fax from Audiology 09/24/2024 10:00 AM EST Office Visit [facility] [place] [address] Hannah Nagy MD Type 2 diabetes mellitus with hyperglycemia, with long-term current use of insulin (CMS/[facility]) (Primary Dx); Essential hypertension; Memory loss; SHERRI (acute kidney injury) (CMS/HCC); Skin ulcer of sacrum, unspecified ulcer stage (CMS/HCC); Pressure injury of skin of sacral region, unspecified injury stage; Hypertension, unspecified type; Vitamin D deficiency; Urinary tract infection without hematuria, site unspecified; Benign prostatic hyperplasia, unspecified whether lower urinary tract symptoms present; Pressure injury of skin of left heel, unspecified injury stage; Pressure injury of skin of right heel, unspecified injury stage 09/24/2024 Travel 09/20/2024 Refill [facility] [place] [address] Melany Alejandre DO Diabetic polyneuropathy associated with type 2 diabetes mellitus (CMS/HCC); Other hyperlipidemia 09/17/2024 Orders Only [address] [place] [address] Melany Alejandre DO Hearing loss, unspecified hearing loss type, unspecified laterality (Primary Dx); Pressure injury of sacral region, unstageable (CMS/HCC); Pressure injury of heel, unstageable, unspecified laterality (CMS/HCC) 09/17/[address] [place], [place] [phone] Mary Hairston RN HDF appointmment 09/17/2024 Telephone [facility] [address] [place] [address] Melany Alejandre DO Medication Question 09/17/2024 Patient Outreach [facility] [address] [place] [address] Melany Alejandre DO Transition Of Care (Tcm) (HDF unscheduled) 09/17/2024 Telephone [facility] [address] [place], [place] [phone] Melany Alejandre DO dme heel protector 09/11/2024 Orders Only GENERIC EXTERNAL DATA DEPARTMENT Provider, Generic External Data 09/10/2024 Orders Only [facility] External Provider, [facility] 09/02/2024 Telephone [facility] [address] [place] [address] Melany Alejandre DO ER Follow-up 08/27/2024 Orders Only GENERIC EXTERNAL DATA DEPARTMENT Provider, Generic External Data 08/26/2024 Orders Only [facility] External Provider, [facility] from Last 3 Months Immunizations Name Administration Dates Next Due DT (pediatric) 12/01/2008 Hep B, adult 04/09/2015,11/26/2014,10/21/2014 Influenza High-dose Quadriva lent Preservative Free 06/20/2023,09/28/2022,06/24/2020 Influenza injectable quadriv alent IIV4 with preservative 09/29/2016,07/16/2015 Influenza injectable quadriv alent preservative free 08/31/2021,08/15/2019,09/10/2018,07/06 Influenza, High Dose Seasona l, Preservative Free 07/23/2024,06/23/2017 Influenza, IIV3, injectable 07/11/2014,0 06/29/2011,09/27/2005,08/13,07/24/2002 Influenza, Split (incl. dilip fied surface antigen) 07/09/2013,07/25/2012 Moderna Covid-19 Vaccine 12+ 02/25/2022, 08/25/2021,12/11/2020,11/13 Moderna Covid-19 Vaccine 6+ Bivalent 11/02/2022 Pfizer Covid-19 Vaccine 12+ 07/23/2024, Pneumococcal Conjugate PCV 13 09/29/2016 Pneumococcal Conjugate PCV 20 05/18/2023 Pneumococcal Polysaccharide PPSV23 01/10/2018,,10/26/1993 RSV Bivalent 11/23/2023 TD (adult), 2 Lf tetanus tox oid, preservative free, adsorbed 06/06/1995 Tdap 11/13/2024,07/11/2014 Zoster, Recombinant 09/10/2020,05/08/2020 Zoster, live 11/26/2014 Social History Tobacco Use Types Packs/Day Years [...] housing situation today? I have stelladenice [facility] 07/23/[address] you [...] Orientation Straight 08/01/2022 10 :14 AM EDT Last Filed Vital Signs Vital Sign Reading Time Taken Comments Blood Pressure 128/60 10/09/2024 9:31 AM EST Pulse 80 10/09/2024 9:31 AM EST Temperature 36.3 ??C (97.3 ??F) 10/09/2024 9:31 AM ES T Respiratory Rate 18 10/09/2024 9:31 AM EST Oxygen Saturation 95% 06/25/2024 5:43 PM EDT Inhaled Oxygen Concentration - - Weight 67.1 kg (148 lb) 10/09/2024 9:31 AM EST Height 170.2 cm (5' 7 ) 10/09/2024 9:31 AM EST Body Mass Index 23.18 10/09/2024 9:31 AM EST Plan of Treatment Upcoming Encounters Date Type Department Care Team (Late st Contact Info) Description 11/27/2024 10:45 AM EST Office Visit [facility] [address] [place] [phone] Melany Alejandre DO [address] [place] [address] 11/28/2024 2:00 PM EST Medication Management [address] [address] 01/03/2025 10:00 AM EDT Medication Management [address] [address] Katerina Abarca, PharmD [address] [place] [address] Health Maintenance Due Date Last Done Comments Diabetes: Foot Exam 1950 Eye Exam 1950 Diabetes: Hemoglobin A1C 01/07/2025 025, 10/09/2024, 09/24/2024, Additional history exists Depression Screening 07/23/2025 07/23/2024, 07/23/20 SDOH Screening 07/23/2025 07/23/2024 Alcohol/Substance Use Screening 10/09/2025 10/09/2024 Tobacco Screening 10/09/2025 10/09/2024 Lipid Panel 10/16/2025 10/16/2024, 10/03, 11/02/2022, Additional history exists DTaP/Tdap/Td Vaccines (3 - Td or Tdap) 11/13/2034 11/13/2024, 07/11/2014, 06/06/1995 Hepatitis B Vaccines Completed 04/09/2015, 11/26/2014, 10/21/2014 Zoster Vaccines Completed 09/10/2020, 04/2020, 11/26/2014 Pneumococcal Vaccine: 50+ Years Completed 05/18/2023, 01/10/2018, 09/29/2016, Additional history exists RSV Patients and Patients Aged 60 years or older Completed 11/23/2023 COVID-19 Vaccine Completed 07/23/2024, 11/2022, [...] patient's age to complete this topic Meningococcal Vaccine Aged Out No maricruz ruby eligible based on patient's age to complete this topic RSV under 20 months Aged Out No longe r eligible based on patient's age to complete this topic Rotavirus Vaccines Aged Out No longer eligible based on patient's age to complete this topic Goals Goal Patient Goal Type Associated Problems Recent Progress Patient-Stated? Author Hemoglobin A1c < 8 Result Component 9.2( 11:04 AM EST) No Tru Barrera PharmD Record your blood sugar as directed Result Component No Katerina Abarca PharmD Note: Use CGM, ensuring sensor is scanned at least once every 8 hours to capture 24H data. Check BG manually, as directed. Procedures Procedure Name Priority Date/Time Associated Diagnosis Comments FERRITIN Routine 10/16/2024 12:05 PM EST IRON AND TOTAL IRON BINDING CAPACITY Routine 10/16/2024 12:05 PM EST LIPID PANEL, STANDARD Routine 10/16/2024 12:05 PM EST Type 2 diabetes mellitus with hyperglycemia, with long-term current use of insulin (CMS/HCC) Bilateral hearing loss, unspecified hearing loss type Skin ulcer of sacrum, unspecified ulcer stage (CMS/HCC) Healthcare maintenance BASIC METABOLIC PANEL Routine 10/09/2024 11:04 AM EST Type 2 diabetes mellitus with hyperglycemia, with long-term current use of insulin (CMS/HCC) Bilateral hearing loss, unspecified hearing loss type Skin ulcer of sacrum, unspecified ulcer stage (CMS/HCC) Healthcare maintenance CBC Routine 10/09/2024 11:04 AM EST Type 2 diabetes mellitus with hyperglycemia, with long-term current use of insulin (CMS/HCC) Bilateral hearing loss, unspecified hearing loss type Skin ulcer of sacrum, unspecified ulcer stage (CMS/HCC) Healthcare maintenance HEMOGLOBIN A1C Routine 10/09/2024 11:04 AM EST Type 2 diabetes mellitus with hyperglycemia, with long-term current use of insulin (CMS/HCC) Bilateral hearing loss, unspecified hearing loss type Skin ulcer of sacrum, unspecified ulcer stage (CMS/HCC) Healthcare maintenance HEPATIC FUNCTION PANEL Routine 11:04 AM EST Type 2 diabetes mellitus with hyperglycemia, with long-term current use of insulin (CMS/HCC) Bilateral hearing loss, unspecified hearing loss type Skin ulcer of sacrum, unspecified ulcer stage (CMS/HCC) Healthcare maintenance VITAMIN D,25-OH,TOTAL,IA Routine 10/09/2024 11:04 AM EST Type 2 diabetes mellitus with hyperglycemia, with long-term current use of insulin (CMS/HCC) Bilateral hearing loss, unspecified hearing loss type Skin ulcer of sacrum, unspecified ulcer stage (CMS/HCC) Healthcare maintenance TSH Routine 10/09/2024 11:04 AM EST Type 2 diabetes mellitus with hyperglycemia, with long-term current use of insulin ([facility]) Bilateral hearing loss, unspecified hearing loss type Skin ulcer of sacrum, unspecified ulcer stage ([facility]) Healthcare maintenance T4, FREE Routine 10/09/2024 11:04 AM EST Type 2 diabetes mellitus with hyperglycemia, with long-term current use of insulin ([facility]) Bilateral hearing loss, unspecified hearing loss type Skin ulcer of sacrum, unspecified ulcer stage ([facility]) Healthcare maintenance POCT GLYCATED HEMOGLOBIN, TOTAL Routine 10/09/2024 9:34 AM EST Type 2 diabetes mellitus with hyperglycemia, with long-term current use of insulin ([facility]) POCT GLUCOSE Routine 10/09/2024 9:33 AM EST Type 2 diabetes mellitus with hyperglycemia, with long-term current use of insulin ([facility]) CULTURE, URINE, ROUTINE Routine 09/26/2024 7:30 AM EST Urinary tract infection without hematuria, site unspecified WOUND CARE Routine 09/24/2024 11:36 AM EST Skin ulcer of sacrum, unspecified ulcer stage ([facility]) Pressure injury of skin of sacral region, unspecified injury stage POCT GLYCOSYLATED HEMOGLOBIN (HGB A1C) Routine 09/24/2024 10:43 AM EST Type 2 diabetes mellitus with hyperglycemia, with long-term current use of insulin ([facility]) POCT GLUCOSE Routine 09/24/2024 10:43 AM EST Type 2 diabetes mellitus with hyperglycemia, with long-term current use of insulin ([facility]) URINALYSIS, COMPLETE, WITH REFLEX TO CULTURE Routine 09/11/2024 2:33 AM EST CDIFF GENE PCR Routine 09/10/2024 11:49 PM EST MAGNESIUM Routine 09/10/2024 11:49 PM EST BASIC METABOLIC PANEL Routine 09/10/2024 11:[address] ABDOMEN PELVIS WO CONTRAST Routine 09/10/2024 11:15 PM EST XR SACRUM COCCYX 2+ VIEWS Routine 09/10/2024 7:[address] ABDOMEN PELVIS WO CONTRAST Routine 08/27/2024 10:30 PM EST GLUCOSE, WHOLE BLOOD Routine 08/27/2024 10:[address] KNEE WO CONTRAST LEFT Routine 08/26/2024 3:48 PM EST URINALYSIS, COMPLETE, WITH REFLEX TO CULTURE Routine 08/26/2024 1:52 PM EST URINALYSIS WITH REFLEX MICROSCOPIC Routine 08/26/2024 1:52 PM EST HIGH SENSITIVITY TROPONIN I Routine 08/26/2024 11:18 AM EST COMPREHENSIVE METABOLIC PANEL Routine 08/26/2024 11:18 AM EST CBC WITH AUTO DIFFERENTIAL Routine 08/26/2024 11:18 AM EST SARS COV2/INFLUENZA A/B AND RSV RNA QL NAAT Routine 08/26/2024 11:[address] CERVICAL SPINE WO CONTRAST Routine 08/26/2024 10:39 AM EST XR CHEST 2 VIEWS Routine 08/26/2024 10:[address] HEAD WO CONTRAST Routine 08/26/2024 1 0:06 AM EST XR KNEE 4+ VIEWS LEFT Routine 08/26/2024 9:43 AM EST CULTURE, URINE, ROUTINE Routine 08/26/2024 12:00 AM EST from Last 3 Months Results * (ABNORMAL) Iron And Total Iron Binding Capacity (10/16/2024 12:05 PM EST) Iron 67 45 - 160 mcg/dL [facility] Total Iron Binding Capacity 179(L) 228 - 428 mcg/dL [facility] Percent Iron Saturation 37 15 - 50 % [facility] Unsaturated Iron Binding 112 ug/dL [facility] 10/16/2024 12:0 5 PM EST 10/18/2024 1:05 PM EST [facility] BLOOD ORDERABLES Final R esult Performing Organization Address [facility] Co de Phone Number [facility] [address] [place] [phone] * (ABNORMAL) Ferritin (10/16/2024 12:05 PM EST) Ferritin 491(H) 20 - 250 ng/mL [facility] 10/16/2024 12:0 5 PM EST 10/18/2024 1:05 PM EST [facility] LAB BLOOD ORDERABLES Final R esult Performing Organization Address City/[facility]/ZIP Co de Phone Number [facility] [address] [place] [phone] * (ABNORMAL) Lipid Panel, Standard (10/16/2024 12:05 PM EST) Triglycerides 170(H) <150 mg/dL [facility] Comment:Desirable Triglyceri de: less than 150 mg/dLBorderline High Triglyceride 150-199 mg/dLHigh Triglyceride: 200-499 mg/dLVery High Triglyceride: greater than or equal to 5OO mg/dL Cholesterol 153 <200 mg/dL [facility] Comment:Desirable Cholestero l: less than 200 mg/dLBorderline High Cholesterol: 200-239 mg/dLHigh Cholesterol: greater than 239 mg/dL LDL Cholesterol Calculated 88 <100 mg/dL [facility] Comment:Desirable LDL: less than 100 mg/dLNear Optimal/Above Optimal LDL: 110- 129 mg/dLBorderline High LDL: 130-159 mg/dLHigh LDL: 160-189 mg/dLVery High LDL: greater than or equal to 190 mg/dL HDL Cholesterol 31(L) >40 mg/dL [facility] Comment:Desirable HDL: great er than 40 mg/dL Note: This HDL assay may give artificially low results in patients with liver disease. Blood Venous blood specimen / Unknown 10/16/2024 12:05 PM EST 10/16/2024 1:05 PM EST us Melany Alejandre DO LAB BLOOD ORDERABLES Final R esult [facility] [address] [place] [phone] * Vitamin D, 25-Hydroxy, Total, Immunoassay (10/09/2024 11:04 AM EST) Vitamin D 25-OH Total 31.5 >30 ng/mL [facility] Comment:Health Based Referen ce Values*< 20 ng/mL Cffktanbe72-25 ng/mL Insufficient> 30 ng/mL Sufficient*Mary BANKS. N [...] AM EST 10/09/2024 1:04 PM EST us Melany Alejandre DO LAB BLOOD ORDERABLES Final R esult [facility] [address] [place] [phone] * (ABNORMAL) CBC (10/09/2024 11:04 AM EST) White Blood Count 8.3 4.8 - 10.8 X10*3/uL [facility] Red Blood Count 3.73(L) 4.60 - 5.80 X10*6/uL [facility] Hemoglobin 10.4(L) 14.0 - 18.0 g/dl [facility] Hematocrit 33.1(L) 42.0 - 52.0 % [facility] Mean Corpuscular Volume 88.7 80.0 - 98.0 fL [facility] Mean Corpuscular Hemoglobin 27.9 27.0 - 33.0 pg [facility] Mean Corpuscular HGB Conc 31.4 31.0 - 36.0 g/dl [facility] Red Cell Distribution Width 13.7 11.0 - 16.0 % [facility] Platelet Count 380 160 - 400 X10*3/uL [facility] Mean Platelet Volume 11.3 9.4 - 12.4 fL [facility] NRBC Pct Auto 0.0 0.0 - 0.2 /100WBC [facility] NRBC Abs Auto 0.000 0.0 - 0.012 X10*3/uL [facility] Blood Venous blood specimen / Unknown 10/09/2024 11:04 AM EST 10/09/2024 1:04 PM EST Melany Alejandre DO LAB BLOOD ORDERABLES Final R esult [facility] [address] [place] [phone] * TSH (10/09/2024 11:04 AM EST) Thyroid Stimulating Hormone 3.52 0.32 - 4.0 uIU/mL [facility] Comment:Note: A sustained TS H level above 2.5 uIU/mL may warrant further investigation. TSH 3rd Generation ([facility]) Blood Venous blood specimen / Unknown 10/09/2024 11:04 AM EST 10/09/2024 1:04 PM EST Melany Kernarielamrit DO LAB BLOOD ORDERABLES Final R esult Performing Organization Address [facility]/ZIP Co de Phone Number [facility] [address] [place] [phone] * T4, Free (10/09/2024 11:04 AM EST) Free T4 (Free Thyroxine) 1.01 0.71 - 1.85 ng/dL [facility] Blood Venous blood specimen / Unknown 10/09/2024 11:04 AM EST 10/09/2024 1:04 PM EST Melany Kernsonia LAB BLOOD ORDERABLES Final R esult Performing Organization Address [facility] Co de Phone Number [facility] [address] [place] [phone] * (ABNORMAL) Hemoglobin A1c (10/09/2024 11:04 AM EST) Hemoglobin A1c 9.2(H) <6.0 % [facility] Comment:Hemoglobin A1C Refer ence Range Adults: 4.8 - 6.0 % Non diabetic: < 6.0 % Goal: < 7.0 %Additional Action Suggested: > 8.0 %Note: Hemoglobin A1c results are invalid for patients with abnormal amounts of HbF. Blood transfusions may impact the HbA1c concentration in the patient sample. Estimated Average Glucose 217 mg/dL [facility] Comment:eAG = Estimated ave rage glucose which is %A1C expressed asaverage glucose, using the formula of the X0A-TyslrugGjbioso Glucose study (ADAG), Diabetes Care, Vol.31,#8,May. 2007 Blood Venous blood specimen / Unknown 10/09/2024 11:04 AM EST 10/09/2024 1:04 PM EST Melany Hill DO LAB BLOOD ORDERABLES Final R esult Performing Organization Address City/[facility]/ZIP Co de Phone Number [facility] [address] [place] [phone] * (ABNORMAL) Hepatic Function Panel (10/09/2024 11:04 AM EST) Pathologist [facility] Bilirubin, Total 0.4 0.0 - 1.0 mg/dL [facility] Bilirubin, Direct 0.2 0.0 - 0.5 mg/dL [facility] Aspartate Amino Transferase 29 5 - 37 U/L [facility] Alanine Aminotransferase 39 0 - 40 U/L [facility] Total Protein 6.9 6.5 - 8.0 g/dL [facility] Albumin Level 3.0(L) 3.5 - 5.0 g/dL [facility] Alkaline Phosphatase 98 39 - 117 U/L [facility] Blood Venous blood specimen / Unknown 10/09/2024 11:04 AM EST 10/09/2024 1:04 PM EST Melany Alejandre DO LAB BLOOD ORDERABLES Final R esult Performing Organization Address City/[facility]/ZIP Co de Phone Number [facility] [address] [place] [phone] * (ABNORMAL) Basic Metabolic Panel (10/09/2024 11:04 AM EST) Only the most recent of2 resultswithin the time period is included. Sodium 141 135 - 145 mmol/L [facility] Potassium 4.3 3.3 - 5.1 mmol/L [facility] Chloride 103 96 - 108 mmol/L [facility] Carbon Dioxide 27 22 - 29 mmol/L [facility] Anion Gap 15 12 - 20 [facility] Urea Nitrogen (BUN) 33(H) 9 - 16 mg/dL [facility] Creatinine, Serum 1.15 0.5 - 1.4 mg/dL [facility] Estimated Glomerular Filt Rate >60 [facility] Comment:Chronic Kidney Disea se: Estimated GFR < 60 mL/min/1.49r0Hprqpp Kidney Disease: Estimated GFR < 15 mL/min/1.73m2 Glucose 234(H) 60 - 115 mg/dL [facility] Calcium 9.1 8.4 - 10.2 mg/dL [facility] Blood Venous blood specimen / Unknown 10/09/2024 11:04 AM EST 10/09/2024 1:04 PM EST Melany Alejandre DO LAB BLOOD ORDERABLES Final R esult Performing Organization Address City/State/[facility] Co de Phone Number [facility] [address] [place] [phone] * (ABNORMAL) POCT HGB A1C (10/09/2024 9:34 AM EST) Hemoglobin A1C 9.0(A) 4.0 - 6.0 % QC Media Lot # [id number] Lot# Expiration Date Blood 10/09/2024 9:34 AM EST Melany Alejandre DO POINT OF CARE TEST ENTER/BRITTNI T ORDERABLES Final Result * (ABNORMAL) POCT Glucose (10/09/2024 9:33 AM EST) Only the most recent of2 resultswithin the time period is included. Glucose Blood, POC 222(A) 60 - 200 mg/dL QC Media Lot # [id number] Lot# Expiration Date ,025 Blood Capillary blood specimen / Unknown 10/09/2024 9:33 AM EST Melany Jurcsak DO POINT OF CARE TEST ENTER/BRITTNI T ORDERABLES Final Result * Culture, Urine, Routine (09/26/2024 7:30 AM EST) Only the most recent of2 resultswithin the time period is included. Urine Urine specimen obtained by clean catch procedure / Unknown 09/26/2024 7:30 AM EST 09/26/2024 1:02 PM EST Comment:[facility] Narrative [facility] - 09/27/2024 9:30 AM EST Urine Culture Report Result Urine Culture 50,000 to 100,000 cfu/ml Urine Culture Mixed bacterial melva characteristic of Urine Culture urogenital contamination. Specimen Source: Urine clean catch Hannah Nagy MD LAB MICROBIOLOGY - GENERAL ORDER HANY Final Result Performing Organization Address City/State/[facility] Co de Phone Number [facility] [address] [place] [phone] * Wound Care (09/24/2024 11:36 AM EST) Narrative Sofia Duffy RN - 09/24/2024 11:36 AM EST Sofia Duffy RN ? 09/26/2024 ??9:17 AM Wound Care Date/Time: 09/24/2024 11:36 AM Performed by: Sofia Duffy RN Authorized by: Hannah Nagy MD ?? Consent: ??Consent obtained: ??Verbal ??Consent given by: ??Patient Procedure details: ??Wound location: ??Pelvis ??Pelvis location: Cocyx ulcer. Dressing: ??Dressing applied: ??Telfa pad Post-procedure details: ??Procedure completion: ??Tolerated Comments: ?? Pt presents with 2 pressure wounds on the coccyx. Orders from provider are to remove dressing and replace with basic dressing until he is able to return home and have wound care completed for the day. Removed dressing which was a 4x4 gauze on the larger wound and then a large ABD pad with wide paper tape securing it. Pt did have some skin irritation where the tape was. Removed as gently as possible. There was some purulent drainage on the gauze. Replaced with a small ABD pad on the largest wound and then a 9x5 ABD pad across the area. Secured with a smaller paper tape. Gave pt's daughter wound care supplies to use until they see wound care for which referral was placed as she is currently paying out of pocket for wound care supplies. us Hannah Nagy MD IN CLINIC/BEDSIDE ORDERABLES Fin al Result * (ABNORMAL) POCT glycosylated hemoglobin (Hgb A1c) (09/24/2024 10:43 AM EST) Hemoglobin A1C 9.5(A) 4.0 - 6.0 % QC Media Lot # [id number] Lot# Expiration Date ,550,252 Blood Capillary blood specimen / Unknown 09/24/2024 10:43 AM EST us Hannah Nagy MD POINT OF CARE TEST ENTER/EDIT OR DERABLES Final Result * (ABNORMAL) Urinalysis, Complete, with Reflex to Culture (09/11/2024 2:33 AM EST) Only the most recent of2 resultswithin the time period is included. Color Urine Yellow [facility] Appearance Urine Cloudy [facility] PH 5.5 5.0 - 9.0 [facility] Glucose Urine UA >=1000(A) Negative mg/dL [facility] Urine Blood Small (1+)(A) Negative [facility] Specific [place] - Urine 1.020 1.005 - 1.025 [facility] Urine Protein Trace Neg-Trace mg/dL [facility] Urine Ketones Negative Negative mg/dL [facility] Nitrite Urine Negative Negative [facility] Leukocyte Esterase Urine Moderate (2+)(A) Negative [facility] RBC Urine >20(A) 0 - 2 /HPF [facility] Urine WBC >50(A) 0 - 5 /HPF [facility] WBC CLUMPS, UR Present [facility] Urine Squamous Epithelial Cell 0-2 0 - 2 /HPF [facility] Urine Bacteria None Seen None Seen [facility] Hyaline Casts, Urine 6-10 0 - 2 /LPF [facility] Urine Yeast Present [facility] 09/11/2024 2:33 AM EST 09/11/2024 2:34 AM EST Narrative [facility] - 09/11/2024 2:51 AM EST GurjitRomelia Arguelloey [place] us Generic External Data Provider LAB URINE ORDERAB LES Final Result Performing Organization Address [facility] Co de Phone Number [facility] [address] [place] [phone] * CDiff Gene PCR (09/10/2024 11:49 PM EST) CDiff Gene PCR NEGATIVE Negative [facility] Comment:If C. difficile stro ngly suspected despite one negativetest, a second test may be sent vs. empiric treatment forC. difficile infection. 09/10/2024 11:4 9 PM EST 09/10/2024 11:53 PM EST us Generic External Data Provider LAB BODY FLUIDS A ND STOOLS ORDERABLES Final Result Performing Organization Address [facility] de Phone Number [facility] [address] [place] [phone] * (ABNORMAL) Magnesium (09/10/2024 11:49 PM EST) Magnesium 2.7(H) 1.6 - 2.6 mg/dL [facility] 09/10/2024 11:4 9 PM EST 09/10/2024 11:53 PM EST us Generic External Data Provider LAB BLOOD ORDERAB LES Final Result Performing Organization Address [facility] Co de Phone Number [facility] [address] [place] [phone] * CT Abdomen Pelvis w/o Contrast (09/10/2024 11:15 PM EST) Only the most recent of2 resultswithin the time period is included. Anatomical Region Laterality Modality Body, Pelvis, Abdomen Computed T omography 09/10/2024 11:1 5 PM EST Narrative 09/11/2024 1:24 AM EST ? [facility] ?[address] ?[place], [place] [address] ? CT Scan Report ? Signed ? Patient: Pappas Berdecia,Simone ?MR ?? #: [id number] ? : 1940 ?Acct:[id number] ? Age/Sex: 84 / M ?ADM Date: 09/10/24 ? Loc: HO.ED ? Attending Dr: ? Ordering Physician: Nayla Young CNP ?? Date of Service: 09/10/24 ?? Procedure(s): CT abdomen pelvis wo IV con ?? Accession Number(s): [id number] ? cc: Nayla Young CNP; Melany Alejandre DO ? EXAMINATION: ?? CT ABDOMEN AND PELVIS WITHOUT CONTRAST ? CLINICAL INFORMATION: ?? Sacral wound. Question osseous involvement. Diarrhea. ? COMPARISON: ?? Sacral radiographs 09/10/2024. ? TECHNIQUE: ?? Multidetector volumetric imaging was performed from the superior aspect ?? of the liver through the pubic symphysis. Sagittal and coronal ?? reformatted images were obtained on the technologist's workstation. ? This CT examination was performed using dose optimization techniques as ?? appropriate, variously including the following: ?? *Automated exposure control ?? *Adjustment of mA and/or kV according to patient size (this includes ?? techniques or standardized protocols for targeted exams where dose is ?? matched to indication/reason for exam; i.e. extremities or head) ?? *Use of iterative reconstruction technique ? DLP: ?? 540 mGy-cm ? FINDINGS: ?? LUNG BASES: The visualized lung bases are unremarkable. ? LIVER, GALLBLADDER, AND BILIARY TREE: The liver is normal in size, ?? shape, and attenuation. No focal hepatic lesion or biliary ductal ?? dilatation is present. The gallbladder is unremarkable with no evidence ?? of radiopaque gallstones, gallbladder wall thickening, or obvious ?? pericholecystic inflammatory changes. ? PANCREAS: Unremarkable. ? SPLEEN: Unremarkable. ? ADRENAL GLANDS: Unremarkable. ? KIDNEYS AND URETERS: Approximate 2 cm diameter rounded low density ?? focus is noted in association with the left kidney and is most ?? consistent with a benign, simple cyst and warrants no additional ?? imaging follow-up on the basis of this examination. ? BLADDER: Iglesias catheter terminates within the urinary bladder. Urinary ?? bladder is collapsed. ? GASTROINTESTINAL TRACT: Moderate sigmoid diverticulosis. Normal ?? appearance of the terminal ileum. The appendix is not visualized. No ?? pericecal inflammatory changes noted. No free intraperitoneal fluid or ?? gas collections. Normal appearance of the stomach and duodenum. ? ABDOMINAL WALL: Scattered subcutaneous foci of gas and subcutis fat ?? reticulation within the lower intra-abdominal wall which may relate to ?? subcutaneous injections. ? LYMPH NODES: Normal. ? VASCULAR: Diffuse calcific atherosclerosis ? PELVIC VISCERA: Normal size of the prostate. ? OSSEOUS STRUCTURES: Mild reticulation of subcutaneous fat is present ?? adjacent to the coccyx. No soft tissue fluid collections in this ?? region. No soft tissue emphysematous changes. The adjacent coccyx ?? demonstrates no erosive changes. Internal fixation of the lower lumbar ?? spine and sacrum is present. No suspicious skeletal lesions noted. ?? Grade 1 anterolisthesis L5-S1. ? CT/CT abdomen pelvis wo IV con ?? IMPRESSION: ?? *Mild subcutaneous inflammatory changes adjacent to the coccyx. No ?? associated soft tissue fluid collections. No erosion of the adjacent ?? coccyx. ? *Moderate colonic diverticulosis. ? *Iglesias catheter terminating within the urinary bladder. Decompressed ?? urinary bladder. ? *Multifocal subcutaneous fat reticulation and mild inflammatory changes ?? within the lower abdominal quadrants which may relate to subcutaneous ?? injections. ? Electronically signed by: ??Milton Cross MD ??09/11/2024 01:20 AM EST RP ? Dictated By: ?Milton Cross MD ? Signed By: ?<Electronically signed by Milton Cross MD in OV> ? 09/11/24 0120 ? DD/ ? TD/TT: 09/10/24 4005 ? Log Marker: EF ? Procedure Note Donotuseinterpreter, Image - 09/11/[address] [address] [address] Scan Report Signed Patient: Simone MagallanesMR #: [id number] : 9Acct:[id number] Age/Sex: 84 / MADM Date: 09/10/24 Loc: HO.ED Attending Dr: Ordering Physician: Nayla Young CNP Date of Service: 09/10/24 Procedure(s): CT abdomen pelvis wo IV con Accession Number(s): [id number] cc: Nayla Young CNP; Melany Alejandre DO EXAMINATION: CT ABDOMEN AND PELVIS WITHOUT CONTRAST CLINICAL INFORMATION: Sacral wound. Question osseous involvement. Diarrhea. COMPARISON: Sacral radiographs 09/10/2024. TECHNIQUE: Multidetector volumetric imaging was performed from the superior aspect of the liver through the pubic symphysis. Sagittal and coronal reformatted images were obtained on the technologist's workstation. This CT examination was performed using dose optimization techniques as appropriate, variously including the following: *Automated exposure control *Adjustment of mA and/or kV according to patient size (this includes techniques or standardized protocols for targeted exams where dose is matched to indication/reason for exam; i.e. extremities or head) *Use of iterative reconstruction technique DLP: 540 mGy-cm FINDINGS: LUNG BASES: The visualized lung bases are unremarkable. LIVER, GALLBLADDER, AND BILIARY TREE: The liver is normal in size, shape, and attenuation. No focal hepatic lesion or biliary ductal dilatation is present. The gallbladder is unremarkable with no evidence of radiopaque gallstones, gallbladder wall thickening, or obvious pericholecystic inflammatory changes. PANCREAS: Unremarkable. SPLEEN: Unremarkable. ADRENAL GLANDS: Unremarkable. KIDNEYS AND URETERS: Approximate 2 cm diameter rounded low density focus is noted in association with the left kidney and is most consistent with a benign, simple cyst and warrants no additional imaging follow-up on the basis of this examination. BLADDER: Iglesias catheter terminates within the urinary bladder. Urinary bladder is collapsed. GASTROINTESTINAL TRACT: Moderate sigmoid diverticulosis. Normal appearance of the terminal ileum. The appendix is not visualized. No pericecal inflammatory changes noted. No free intraperitoneal fluid or gas collections. Normal appearance of the stomach and duodenum. ABDOMINAL WALL: Scattered subcutaneous foci of gas and subcutis fat reticulation within the lower intra-abdominal wall which may relate to subcutaneous injections. LYMPH NODES: Normal. VASCULAR: Diffuse calcific atherosclerosis PELVIC VISCERA: Normal size of the prostate. OSSEOUS STRUCTURES: Mild reticulation of subcutaneous fat is present adjacent to the coccyx. No soft tissue fluid collections in this region. No soft tissue emphysematous changes. The adjacent coccyx demonstrates no erosive changes. Internal fixation of the lower lumbar spine and sacrum is present. No suspicious skeletal lesions noted. Grade 1 anterolisthesis L5-S1. CT/CT abdomen pelvis wo IV con IMPRESSION: *Mild subcutaneous inflammatory changes adjacent to the coccyx. No associated soft tissue fluid collections. No erosion of the adjacent coccyx. *Moderate colonic diverticulosis. *Iglesias catheter terminating within the urinary bladder. Decompressed urinary bladder. *Multifocal subcutaneous fat reticulation and mild inflammatory changes within the lower abdominal quadrants which may relate to subcutaneous injections. Electronically signed by: Milton Cross MD 09/11/2024 01:20 AM EST Dictated By: Milton Cross MD Signed By: <Electronically signed by Milton Cross MD in OV> 09/11/24 0120 DD/ 2315 TD/TT: 09/10/24 2325 Log Marker: [facility] External Provider IMG CT PROCEDURES Edited Result - Final * XR Sacrum Coccyx 2+ Views (09/10/2024 7:45 PM EST) Anatomical Region Laterality Modality Sacrum, Coccyx Radiographic Chikis ging 09/10/2024 7:45 PM EST Narrative 09/10/2024 8:50 PM EST ? [facility] ?[address] ?[place] [address] ?XRay Report ? Signed ? Patient: Pappas Berdecia,Simone ?MR ?? #: [id number] ? : 1940 ?Acct:[id number] ? Age/Sex: 84 / M ?ADM Date: 09/10/24 ? Loc: HO.ED ? Attending Dr: ? Ordering Physician: Nayla Young CNP ?? Date of Service: 09/10/24 ?? Procedure(s): XR sacrum coccyx min 2V ?? Accession Number(s): [id number] ? cc: Nayla Young CNP; Melany Alejandre DO ? EXAMINATION: ?? XR SACRUM AND COCCYX ? CLINICAL INFORMATION: ?? Wound, ?osseous involvement. ? COMPARISON: ?? CT abdomen/pelvis dated 08/27/2024. ? TECHNIQUE: ?? 2 views of the sacrum and 2 views of the coccyx were obtained. ? FINDINGS: ?? No acute fracture or dislocation. No concerning lytic or blastic ?? osseous lesion. No cortical erosion or periosteal reaction. ?? Osteomyelitis may be occult on plain radiographs. Lower lumbar spine ?? and sacral orthopedic hardware without evidence of hardware ?? complication. ? XR/XR sacrum coccyx min 2V ?? IMPRESSION: ?? No acute osseous abnormality. No cortical erosion or periosteal ?? reaction. Osteomyelitis may be occult on plain radiographs. ? Electronically signed by: ??Chirag Ghosh MD ??09/10/2024 08:47 PM EST ? Dictated By: ?Chirag Ghosh MD ? Signed By: ?<Electronically signed by Chirag Ghosh MD in OV> ?09/10/242046 ? DD/ 44 ? TD/TT: 09/10/241952 ? Log Marker: SR ? Procedure Note Dima, Leah - 09/10/[address] [address] XRay Report Signed Patient: Simone Magallanes #: [id number] : 9Acct:[id number] Age/Sex: 84 / MADM Date: 09/10/24 Loc: HO.ED Attending Dr: Ordering Physician: Nayla Young CNP Date of Service: 09/10/24 Procedure(s): XR sacrum coccyx min 2V Accession Number(s): [id number] cc: Nayla Young CNP; Melany Alejandre DO EXAMINATION: XR SACRUM AND COCCYX CLINICAL INFORMATION: Wound, ?osseous involvement. COMPARISON: CT abdomen/pelvis dated 08/27/2024. TECHNIQUE: 2 views of the sacrum and 2 views of the coccyx were obtained. FINDINGS: No acute fracture or dislocation. No concerning lytic or blastic osseous lesion. No cortical erosion or periosteal reaction. Osteomyelitis may be occult on plain radiographs. Lower lumbar spine and sacral orthopedic hardware without evidence of hardware complication. XR/XR sacrum coccyx min 2V IMPRESSION: No acute osseous abnormality. No cortical erosion or periosteal reaction. Osteomyelitis may be occult on plain radiographs. Electronically signed by: Chirag Ghosh MD 09/10/2024 08:47 PM EST RP Workstation: [employer] Dictated By: Chirag Ghosh MD Signed By: <Electronically signed by Chirag Ghosh MD in OV> 09/10/242046 DD/ 44 TD/TT: 09/10/241952 Log Marker: SR us [facility] External Provider IMG XR PROCEDURES Final Result * (ABNORMAL) Glucose, Whole Blood (08/27/2024 10:10 PM EST) Glucose, Whole Blood 345(H) 60 - 115 mg/dL [facility] Comment:METER #: [id number] 08/27/2024 10:1 0 PM EST 08/27/2024 10:14 PM EST Generic External Data Provider LAB BLOOD ORDERAB LES Final Result [facility] [address] [place] [phone] * CT Kne w/o Contrast Left (08/26/2024 3:48 PM EST) Anatomical Region Laterality Modality Lower Extremities, Knee Left Computed Tomography 08/26/2024 3:48 PM EST Narrative 08/26/2024 8:56 PM EST ? [facility] ?[address] ?[place] [address] ? CT Scan Report ? Signed ? Patient: Pappas Berdecia,Simone ?MR ?? #: [id number] ? : 1940 ?Acct:[id number] ? Age/Sex: 84 / M ?ADM Date: 08/26/24 ? Loc: HO.ED ? Attending Dr: ? Ordering Physician: Ora Soto NP ?? Date of Service: 08/26/24 ?? Procedure(s): CT knee LT wo IV con ?? Accession Number(s): [id number] ? cc: Melany Alejandre DO; Ora Soto NP ? EXAMINATION: ?? CT KNEE WITHOUT CONTRAST, LEFT ? CLINICAL INFORMATION: ?? effusion, suprapatellar swelling ? COMPARISON: ?? Left knee August 26, 2024 ? TECHNIQUE: ?? Axial images obtained through the left knee. Coronal and sagittal ?? reformatted images are performed at CT scanner ? This CT examination was performed using dose optimization techniques as ?? appropriate, variously including the following: ?? *Automated exposure control ?? *Adjustment of mA and/or kV according to patient size (this includes ?? techniques or standardized protocols for targeted exams where dose is ?? matched to indication/reason for exam; i.e. extremities or head) ?? *Use of iterative reconstruction technique ? DLP: ?? 251 mGy-cm ? FINDINGS: ? Question of small foreign body in the soft tissues at the medial side ?? than the on the plain film study. There is a small metallic foreign ?? body just deep to the skin line adjacent to the medial femoral condyle. ?? This measures about 4 mm. ? Moderate volume joint effusion. Small popliteal cysts. ?? Degenerative joint disease. There is joint narrowing of the ?? femoral-tibial joint, greater at the medial and lateral joint space ?? with small marginal bone spurs of the femur and tibia. There is ?? chondrocalcinosis about the medial and lateral meniscus. There are also ?? calcifications near the medial and lateral collateral ligaments and the ?? posterior cruciate ligament. Small volume of calcifications along the ?? anterior surface of the suprapatellar fossa. ? No fracture or dislocation. No focal bone lesion or bone destruction. ? Vascular calcifications in the arteries. ? CT/CT knee LT wo IV con ?? IMPRESSION: ?? 1. ??Moderate volume joint effusion. Small popliteal cyst. ?? 2. ??Degenerative joint disease. ?? 3. ??Chondrocalcinosis. ?? 4. ??Small metallic foreign body in the soft tissues at the medial side ?? of the knee. ? Electronically signed by: ??Brian Gutierrez MD ??08/26/2024 08:53 PM EST RP ? Dictated By: ?Brian Gutierrez MD ? Signed By: ?<Electronically signed by Brian Gutierrez MD in OV> ?08/26/242052 ? DD/ 1548 ? TD/TT: 08/26/24 1707 ? Log Marker: BA ? Procedure Note Leah Ch - 08/26/[address] [address] [address] Scan Report Signed Patient: Simone MagallanesMR #: [id number] : 9Acct:[id number] Age/Sex: 84 / MADM Date: 08/26/24 Loc: HO.ED Attending Dr: Ordering Physician: Ora Soto NP Date of Service: 08/26/24 Procedure(s): CT knee LT wo IV con Accession Number(s): [id number] cc: Melany Alejandre DO; Ora Soto NP EXAMINATION: CT KNEE WITHOUT CONTRAST, LEFT CLINICAL INFORMATION: effusion, suprapatellar swelling COMPARISON: Left knee August 26, 2024 TECHNIQUE: Axial images obtained through the left knee. Coronal and sagittal reformatted images are performed at CT scanner This CT examination was performed using dose optimization techniques as appropriate, variously including the following: *Automated exposure control *Adjustment of mA and/or kV according to patient size (this includes techniques or standardized protocols for targeted exams where dose is matched to indication/reason for exam; i.e. extremities or head) *Use of iterative reconstruction technique DLP: 251 mGy-cm FINDINGS: Question of small foreign body in the soft tissues at the medial side than the on the plain film study. There is a small metallic foreign body just deep to the skin line adjacent to the medial femoral condyle. This measures about 4 mm. Moderate volume joint effusion. Small popliteal cysts. Degenerative joint disease. There is joint narrowing of the femoral-tibial joint, greater at the medial and lateral joint space with small marginal bone spurs of the femur and tibia. There is chondrocalcinosis about the medial and lateral meniscus. There are also calcifications near the medial and lateral collateral ligaments and the posterior cruciate ligament. Small volume of calcifications along the anterior surface of the suprapatellar fossa. No fracture or dislocation. No focal bone lesion or bone destruction. Vascular calcifications in the arteries. CT/CT knee LT wo IV con IMPRESSION: 1. Moderate volume joint effusion. Small popliteal cyst. 2. Degenerative joint disease. 3. Chondrocalcinosis. 4. Small metallic foreign body in the soft tissues at the medial side of the knee. Electronically signed by: Brian Gutierrez MD 08/26/2024 08:53 PM EST Dictated By: Brian Gutierrez MD Signed By: <Electronically signed by Brian Gutierrez MD in OV> 08/26/242052 DD/ 1548 TD/TT: 08/26/24 1707 Log Marker: RAZIA [facility] External Provider IMG CT PROCEDURES Final Result * (ABNORMAL) Urinalysis w/reflex microscopic (08/26/2024 1:52 PM EST) Color Urine Yellow [facility] Appearance Urine Clear [facility] PH 5.5 5.0 - 9.0 [facility] Glucose Urine UA >=1000(A) Negative mg/dL [facility] Urine Blood Negative Negative [facility] Specific [place] - Urine 1.025 1.005 - 1.025 [facility] Urine Protein 30 (1+)(A) Neg-Trace mg/dL [facility] Urine Ketones Negative Negative mg/dL [facility] Nitrite Urine Negative Negative [facility] Leukocyte Esterase Urine Small (1+)(A) Negative [facility] 08/26/2024 1:52 PM EST 08/26/2024 2:03 PM EST Narrative [facility] - 08/26/2024 2:13 PM EST [id number], Clean Catch Generic External Data Provider LAB URINE ORDERAB LES Final Result Performing Organization Address [facility] Phone Number [facility] [address] [place] [phone] * High Sensitivity Troponin I (08/26/2024 11:18 AM EST) [facility] TROPONIN I HIGH SENSITIVITY 7.3 <3.5 - 35.0 ng/L [facility] Comment:The [place] high sens itivity Troponin-I results should beused in conjunction with other diagnostic information suchas ECG, clinical observations and information, and patientsymptoms to aid in the diagnosis of VT. 08/26/2024 11:1 8 AM EST 08/26/2024 11:23 AM EST Generic External Data Provider LAB BLOOD ORDERAB LES Final Result Performing Organization Address [facility] Phone Number [facility] [address] [place] [phone] * (ABNORMAL) CBC auto differential (08/26/2024 11:18 AM EST) [facility] White Blood Count 8.6 4.8 - 10.8 X10*3/uL [facility] Red Blood Count 4.41(L) 4.60 - 5.80 X10*6/uL [facility] Hemoglobin 12.9(L) 14.0 - 18.0 g/dl [facility] Hematocrit 39.1(L) 42.0 - 52.0 % [facility] Mean Corpuscular Volume 88.7 80.0 - 98.0 fL [facility] Mean Corpuscular Hemoglobin 29.3 27.0 - 33.0 pg [facility] Mean Corpuscular HGB Conc 33.0 31.0 - 36.0 g/dl [facility] Red Cell Distribution Width 13.1 11.0 - 16.0 % [facility] Platelet Count 164 160 - 400 X10*3/uL [facility] Mean Platelet Volume 11.4 9.4 - 12.4 fL [facility] Neutrophils Percent Auto 73.3(H) 45 - 73 % [facility] Imm Gran Pct Auto 0.5(H) 0.0 - 0.4 % [facility] Lymphocytes Percent Auto 14.0(L) 20 - 40 % [facility] Monocytes Percent Auto 11.9(H) 2 - 11 % [facility] Eosinophils Percent Auto 0.1 0 - 4 % [facility] Basophils Percent Auto 0.2 0 - 2 % [facility] NRBC Pct Auto 0.0 0.0 - 0.2 /100WBC [facility] Neutrophils Absolute Auto 6.3 2.0 - 8.3 x10*3/uL [facility] Imm Gran Abs Auto 0.04(H) 0.00 - 0.03 X10*3/uL [facility] Lymphocytes Absolute Auto 1.2 1.2 - 4.9 X10*3/uL [facility] Monocytes Absolute Auto 1.0 0.1 - 1.2 X10*3/uL [facility] Eosinophils Absolute Auto 0.0 0.0 - 0.4 X10*3/uL [facility] Basophils Absolute Auto 0.0 0.0 - 0.2 X10*3/uL [facility] NRBC Abs Auto 0.000 0.0 - 0.012 X10*3/uL [facility] 08/26/2024 11:1 8 AM EST 08/26/2024 11:23 AM EST us Generic External Data Provider LAB BLOOD ORDERAB LES Final Result [facility] [address] [place] [phone] [phone] * (ABNORMAL) Comprehensive Metabolic Panel (08/26/2024 11:18 AM EST) Sodium 139 135 - 145 mmol/L [facility] Potassium 4.5 3.3 - 5.1 mmol/L [facility] Chloride 99 96 - 108 mmol/L [facility] Carbon Dioxide 28 22 - 29 mmol/L [facility] Anion Gap 17 12 - 20 [facility] Urea Nitrogen (BUN) 27(H) 9 - 16 mg/dL [facility] Creatinine, Serum 1.32 0.5 - 1.4 mg/dL [facility] Creatinine Clr Calc Pharmacy 44.9 [facility] Comment:eGFR (calculated fro m the MDRD study equation) and eCrCl(calculated from the Cockcroft-Gault equation) are based ondifferent parameters and may not yield comparable results.If eCrCl result is absurd, please check patient'sheight/weight. Estimated Glomerular Filt Rate 52 [facility] Comment:Chronic Kidney Disea se: Estimated GFR < 60 mL/min/1.57c8Ggjtmp Kidney Disease: Estimated GFR < 15 mL/min/1.73m2 Glucose 169(H) 60 - 115 mg/dL [facility] Calcium 9.9 8.4 - 10.2 mg/dL [facility] Bilirubin, Total 0.9 0.0 - 1.0 mg/dL [facility] Aspartate Amino Transferase 27 5 - 37 U/L [facility] Alanine Aminotransferase 33 0 - 40 U/L [facility] Total Protein 7.0 6.5 - 8.0 g/dL [facility] Albumin Level 3.9 3.5 - 5.0 g/dL [facility] Alkaline Phosphatase 86 39 - 117 U/L [facility] 08/26/2024 11:1 8 AM EST 08/26/2024 11:23 AM EST us Generic External Data Provider LAB BLOOD ORDERAB LES Final Result Performing Organization Address [facility] Co de Phone Number [facility] [address] [place] [phone] * SARS-CoV-2 RNA, Influenza A/B, and RSV RNA, Ql NAAT (08/26/2024 11:10 AM EST) Influenza A PCR NEGATIVE Negative [facility] Influenza B PCR NEGATIVE Negative [facility] Resp Syncy Virus RNA Qual PCR NEGATIVE Negative [facility] SARS COV2 PCR NEGATIVE Negative [facility] Comment:All test results mus t be correlated with clinical findings.Negative results do not preclude SARS-CoV2, influenza Avirus, influenza B virus and/or RSV infectionand should not be used as the sole basis for treatment orother patient management decisions. Negative results must becombined with clinical observations, patient history, andepidemiological information.This test has not been evaluated for monitoring treatment ofinfection.This test has been authorized by the FDA under an EmergencyUse Authorization (EUA) for use by authorized laboratories.Testing performed on the [employer] GeneXpert utilizingreal-time RT-PCR.All SARS CoV2 and positive influenza A/B results arereported to [facility]. 08/26/2024 11:1 0 AM EST 08/26/2024 11:23 AM EST us Generic External Data Provider LAB MICROBIOLOGY - GENERAL ORDERABLES Final Result Performing Organization Address [facility] Co de Phone Number [facility] [address] [place] [phone] * CT Cervical Spine w/o Contrast (08/26/2024 10:39 AM EST) Anatomical Region Laterality Modality Spine, C-spine Computed Tomogra phy 08/26/2024 10:3 9 AM EST Narrative 08/26/2024 1:01 PM EST ? [facility] [facility] ?[address] ?[place] [address] ? CT Scan Report ? Signed ? Patient: Pappas Berdecia,Simone ?MR ?? #: [id number] ? : 1940 ?Acct:[id number] ? Age/Sex: 84 / M ?ADM Date: 08/26/24 ? Loc: HO.ED ? Attending Dr: ? Ordering Physician: Ora Soto NP ?? Date of Service: 08/26/24 ?? Procedure(s): CT cervical spine wo IV con ?? Accession Number(s): [id number] ? cc: Melany Alejandre DO; Ora Soto NP ? EXAMINATION: ?? CT HEAD WITHOUT CONTRAST ?? CT CERVICAL SPINE WITHOUT CONTRAST ? CLINICAL INFORMATION: ?? Fall. Unknown head strike. ? COMPARISON: ?? Head CT dated September 29, 2021. No prior CT scan of the cervical ?? spine. ? TECHNIQUE: ?? CT of the head and cervical spine were performed without intravenous ?? contrast. Multiplanar reformats were rendered and reviewed. This CT ?? examination was performed using dose optimization techniques as ?? appropriate, variously including the following: ?? *Automated exposure control ?? *Adjustment of mA and/or kV according to patient size (this includes ?? techniques or standardized protocols for targeted exams where dose is ?? matched to indication/reason for exam; i.e. extremities or head) ?? *Use of iterative reconstruction technique ? DLP: ?? 1147 mGy-cm. ? FINDINGS: ? CT head: ?? No intracranial hemorrhage, large infarction, or mass lesion is seen. ?? Diffuse, age-appropriate cortical atrophy and chronic bilateral ?? periventricular white matter ischemic change. 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 No extra-axial ?? collection is appreciated. The ventricles are normal in size and ?? configuration without evidence of hydrocephalus. ? The visualized paranasal sinuses and mastoid air cells are clear. ?? Bilateral lens extractions. ? CT cervical spine: ?? The vertebral body heights appear maintained. No cervical spine ?? fracture is seen. ? Moderate to severe disc space narrowing most notable at C5-C7. ?? Approximately 0.2 cm posterior subluxation of C5 on C6. Approximately ?? 0.2 cm anterior subluxation of C4 on C5 and C7 on T1. ? The paraspinal soft tissues appear within normal limits. The partially ?? imaged lung apices appear clear. Subcentimeter right lower pole thyroid ?? nodule for which no further dedicated follow-up imaging as indicated. ?? Mild calcification of the carotid bulbs. ? CT/CT cervical spine wo IV con ?? IMPRESSION: ? CT head: ?? No acute intracranial finding. ? CT cervical spine: ?? No cervical spine fracture or traumatic malalignment identified. ? Electronically signed by: ??Clarence Fregoso MD ??08/26/2024 12:59 PM EST RP ? Dictated By: ?Clarence Fregoso ? Signed By: ?<Electronically signed by Clarence Fregoso in OV> ?08/26/249 ? DD/ 1039 ? TD/TT: 08/26/24 1048 ? Log Marker: ? Procedure Note Dima, Image - 08/26/[address] [place] [address] [address] Scan Report Signed Patient: Simone MagallanesMR #: [id number] : 1940cct:[id number] Age/Sex: 84 / MADM Date: 08/26/24 Loc: HO.ED Attending Dr: Ordering Physician: Ora Soto NP Date of Service: 08/26/24 Procedure(s): CT cervical spine wo IV con Accession Number(s): [id number] cc: Melany Alejandre DO; Ora Soto NP EXAMINATION: CT HEAD WITHOUT CONTRAST CT CERVICAL SPINE WITHOUT CONTRAST CLINICAL INFORMATION: Fall. Unknown head strike. COMPARISON: Head CT dated September 29, 2021. No prior CT scan of the cervical spine. TECHNIQUE: CT of the head and cervical spine were performed without intravenous contrast. Multiplanar reformats were rendered and reviewed. This CT examination was performed using dose optimization techniques as appropriate, variously including the following: *Automated exposure control *Adjustment of mA and/or kV according to patient size (this includes techniques or standardized protocols for targeted exams where dose is matched to indication/reason for exam; i.e. extremities or head) *Use of iterative reconstruction technique DLP: 1147 mGy-cm. FINDINGS: CT head: No intracranial hemorrhage, large infarction, or mass lesion is seen. Diffuse, age-appropriate cortical atrophy and chronic bilateral periventricular white matter ischemic change. Lacunar infarcts involving the left thalamus, bilateral basal ganglia, and right caudate head, not significant changed compared with 2020. No extra-axial collection is appreciated. The ventricles are normal in size and configuration without evidence of hydrocephalus. The visualized paranasal sinuses and mastoid air cells are clear. Bilateral lens extractions. CT cervical spine: The vertebral body heights appear maintained. No cervical spine fracture is seen. Moderate to severe disc space narrowing most notable at C5-C7. Approximately 0.2 cm posterior subluxation of C5 on C6. Approximately 0.2 cm anterior subluxation of C4 on C5 and C7 on T1. The paraspinal soft tissues appear within normal limits. The partially imaged lung apices appear clear. Subcentimeter right lower pole thyroid nodule for which no further dedicated follow-up imaging as indicated. Mild calcification of the carotid bulbs. CT/CT cervical spine wo IV con IMPRESSION: CT head: No acute intracranial finding. CT cervical spine: No cervical spine fracture or traumatic malalignment identified. Electronically signed by: Clarence Fregoso MD 08/26/2024 12:59 PM EST RP Dictated By: Clarence Fregoso Signed By: <Electronically signed by Clarence Fregoso in OV> 08/26/24 1259 DD/ 1039 TD/TT: 08/26/24 1048 Log Marker: [facility] External Provider IMG CT PROCEDURES Final Result * XR Chest 2 Views (08/26/2024 10:13 AM EST) Anatomical Region Laterality Modality Chest Radiographic Chikis ging 08/26/2024 10:1 3 AM EST Narrative 08/26/2024 1:51 PM EST ? [facility] [facility] ?[address] ?[place] [address] ?XRay Report ? Signed ? Patient: Pappas Berdecia,Simone ?MR ?? #: [id number] ? : 1940 ?Acct:[id number] ? Age/Sex: 84 / M ?ADM Date: 08/26/24 ? Loc: HO.ED ? Attending Dr: ? Ordering Physician: Ora Soto NP ?? Date of Service: 08/26/24 ?? Procedure(s): XR chest 2V ?? Accession Number(s): [id number] ? cc: Melany Alejandre DO; Ora Soto NP ? EXAMINATION: ?? XR CHEST ? CLINICAL INFORMATION: ?? fall, unknown cause ? COMPARISON: ?? Ribs radiograph 09/28/2023 ? TECHNIQUE: ?? AP and lateral views of the chest were obtained. ? FINDINGS: ?? The lungs are hypoexpanded with bibasilar streaky opacities. No dense ?? focal consolidation, significant pleural effusion, pulmonary edema or ?? pneumothorax. The cardiomediastinal silhouette is within normal limits ?? for technique and unchanged. Mild aortic arch calcifications again ?? seen. No acute osseous abnormality. Degenerative changes to the ?? bilateral shoulders. ? XR/XR chest 2V ?? IMPRESSION: ?? Low lung volumes with bibasilar atelectasis. ? Electronically signed by: ??Alisa Pitts DO ??08/26/2024 01:48 PM EST ? Dictated By: ?Alisa Pitts ? Signed By: ?<Electronically signed by Alisa Pitts in OV> ? 08/26/24 1348 ? DD/ 1013 ? TD/TT: 08/26/24 1049 ? Log Marker: ? Procedure Note Dima, Image - 08/26/[address] [address] XRay Report Signed Patient: Eleanor Magallanesnadja #: [id number] : 9Acct:[id number] Age/Sex: 84 / MADM Date: 08/26/24 Loc: HO.ED Attending Dr: Ordering Physician: Ora Soto NP Date of Service: 08/26/24 Procedure(s): XR chest 2V Accession Number(s): [id number] cc: Melany Alejandre DO; Ora Soto NP EXAMINATION: XR CHEST CLINICAL INFORMATION: fall, unknown cause COMPARISON: Ribs radiograph 09/28/2023 TECHNIQUE: AP and lateral views of the chest were obtained. FINDINGS: The lungs are hypoexpanded with bibasilar streaky opacities. No dense focal consolidation, significant pleural effusion, pulmonary edema or pneumothorax. The cardiomediastinal silhouette is within normal limits for technique and unchanged. Mild aortic arch calcifications again seen. No acute osseous abnormality. Degenerative changes to the bilateral shoulders. XR/XR chest 2V IMPRESSION: Low lung volumes with bibasilar atelectasis. Electronically signed by: Alisa Pitts DO 08/26/2024 01:48 PM EST RP Dictated By: Alisa Pitts Signed By: <Electronically signed by Alisa Pitts in OV> 08/26/24 1348 DD/ 1013 TD/TT: 08/26/24 1049 Log Marker: [facility] External Provider IMG XR PROCEDURES Final Result * CT Head w/o Contrast (08/26/2024 10:06 AM EST) Anatomical Region Laterality Modality Head, Neck Computed Tomogra phy 08/26/2024 10:0 6 AM EST Narrative 08/26/2024 1:01 PM EST ? [facility] ?[address] ?[place] [address] ? CT Scan Report ? Signed ? Patient: Pappas Berdecia,Simone ?MR ?? #: [id number] ? : 1940 ?Acct:[id number] ? Age/Sex: 84 / M ?ADM Date: 11/25/24 ? Loc: HO.ED ? Attending Dr: ? Ordering Physician: Ora Soto NP ?? Date of Service: 08/26/24 ?? Procedure(s): CT head/brain wo IV con ?? Accession Number(s): [id number] ? cc: Melany Alejandre DO; Ora Soto NP ? EXAMINATION: ?? CT HEAD WITHOUT CONTRAST ?? CT CERVICAL SPINE WITHOUT CONTRAST ? CLINICAL INFORMATION: ?? Fall. Unknown head strike. ? COMPARISON: ?? Head CT dated September 29, 2021. No prior CT scan of the cervical ?? spine. ? TECHNIQUE: ?? CT of the head and cervical spine were performed without intravenous ?? contrast. Multiplanar reformats were rendered and reviewed. This CT ?? examination was performed using dose optimization techniques as ?? appropriate, variously including the following: ?? *Automated exposure control ?? *Adjustment of mA and/or kV according to patient size (this includes ?? techniques or standardized protocols for targeted exams where dose is ?? matched to indication/reason for exam; i.e. extremities or head) ?? *Use of iterative reconstruction technique ? DLP: ?? 1147 mGy-cm. ? FINDINGS: ? CT head: ?? No intracranial hemorrhage, large infarction, or mass lesion is seen. ?? Diffuse, age-appropriate cortical atrophy and chronic bilateral ?? periventricular white matter ischemic change. 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 No extra-axial ?? collection is appreciated. The ventricles are normal in size and ?? configuration without evidence of hydrocephalus. ? The visualized paranasal sinuses and mastoid air cells are clear. ?? Bilateral lens extractions. ? CT cervical spine: ?? The vertebral body heights appear maintained. No cervical spine ?? fracture is seen. ? Moderate to severe disc space narrowing most notable at C5-C7. ?? Approximately 0.2 cm posterior subluxation of C5 on C6. Approximately ?? 0.2 cm anterior subluxation of C4 on C5 and C7 on T1. ? The paraspinal soft tissues appear within normal limits. The partially ?? imaged lung apices appear clear. Subcentimeter right lower pole thyroid ?? nodule for which no further dedicated follow-up imaging as indicated. ?? Mild calcification of the carotid bulbs. ? CT/CT head/brain wo IV con ?? IMPRESSION: ? CT head: ?? No acute intracranial finding. ? CT cervical spine: ?? No cervical spine fracture or traumatic malalignment identified. ? Electronically signed by: ??Clarence Fregoso MD ??08/26/2024 12:59 PM EST RP ? Dictated By: ?Clarence Fregoso ? Signed By: ?<Electronically signed by Clarence Fregoso in OV> ?08/26/24 1259 ? DD/ 1006 ? TD/TT: 08/26/24 1048 ? Log Marker: ? Procedure Note Donsebastiánter, Image - 08/26/[address] [address] [address] Scan Report Signed Patient: Simone MagallanesMR #: [id number] : 9Acct:[id number] Age/Sex: 84 / MADM Date: 08/26/24 Loc: HO.ED Attending Dr: Ordering Physician: Ora Soto NP Date of Service: 08/26/24 Procedure(s): CT head/brain wo IV con Accession Number(s): [id number] cc: Melany Alejandre DO; Ora Soto NP EXAMINATION: CT HEAD WITHOUT CONTRAST CT CERVICAL SPINE WITHOUT CONTRAST CLINICAL INFORMATION: Fall. Unknown head strike. COMPARISON: Head CT dated September 29, 2021. No prior CT scan of the cervical spine. TECHNIQUE: CT of the head and cervical spine were performed without intravenous contrast. Multiplanar reformats were rendered and reviewed. This CT examination was performed using dose optimization techniques as appropriate, variously including the following: *Automated exposure control *Adjustment of mA and/or kV according to patient size (this includes techniques or standardized protocols for targeted exams where dose is matched to indication/reason for exam; i.e. extremities or head) *Use of iterative reconstruction technique DLP: 1147 mGy-cm. FINDINGS: CT head: No intracranial hemorrhage, large infarction, or mass lesion is seen. Diffuse, age-appropriate cortical atrophy and chronic bilateral periventricular white matter ischemic change. Lacunar infarcts involving the left thalamus, bilateral basal ganglia, and right caudate head, not significant changed compared with 2020. No extra-axial collection is appreciated. The ventricles are normal in size and configuration without evidence of hydrocephalus. The visualized paranasal sinuses and mastoid air cells are clear. Bilateral lens extractions. CT cervical spine: The vertebral body heights appear maintained. No cervical spine fracture is seen. Moderate to severe disc space narrowing most notable at C5-C7. Approximately 0.2 cm posterior subluxation of C5 on C6. Approximately 0.2 cm anterior subluxation of C4 on C5 and C7 on T1. The paraspinal soft tissues appear within normal limits. The partially imaged lung apices appear clear. Subcentimeter right lower pole thyroid nodule for which no further dedicated follow-up imaging as indicated. Mild calcification of the carotid bulbs. CT/CT head/brain wo IV con IMPRESSION: CT head: No acute intracranial finding. CT cervical spine: No cervical spine fracture or traumatic malalignment identified. Electronically signed by: Clarence Fregoso MD 08/26/2024 12:59 PM EST RP Dictated By: Clarence Fregoso Signed By: <Electronically signed by Clarence Fregoso in OV> 08/26/24 1259 DD/ 1006 TD/TT: 08/26/24 1048 Log Marker: [facility] External Provider IMG CT PROCEDURES Final Result * XR Knee 4+ Views Left (08/26/2024 9:43 AM EST) Anatomical Region Laterality Modality Lower Extremities, Knee Left Radiogra phic Imaging 08/26/2024 9:43 AM EST Narrative 08/26/2024 10:55 AM EST ? [facility] ?[address] ?[place] [address] ?XRay Report ? Signed ? Patient: Pappas Berdecia,Simone ?MR ?? #: [id number] ? : 1940 ?Acct:[id number] ? Age/Sex: 84 / M ?ADM Date: 11/25/24 ? Loc: HO.ED ? Attending Dr: ? Ordering Physician: Ora Soto NP ?? Date of Service: 08/26/24 ?? Procedure(s): XR knee LT 4V ?? Accession Number(s): [id number] ? cc: Melany Alejandre DO; Ora Soto NP ? EXAMINATION: ?? XR KNEE, LEFT ? CLINICAL INFORMATION: ?? fall, swelling ? COMPARISON: ?? October 18, 2018. ? TECHNIQUE: ?? Four views of the left knee. ? FINDINGS: ? Approximately 0.4 cm, angular, radiopaque density projects over the ?? superficial soft tissues just medial to the knee joint, possibly ?? representing a foreign body. Recommend clinical correlation. ? There is a moderate to large suprapatellar effusion. No acute fracture ?? or dislocation is directly visualized. ? Significant chondrocalcinosis is seen. Mild tricompartmental ?? degenerative joint space narrowing. ? Vascular calcification. ? XR/XR knee LT 4V ?? IMPRESSION: ? Findings as above. ? Electronically signed by: ??Clarence Fregoso MD ??08/26/2024 10:52 AM EST RP ? Dictated By: ?Clarence Fregoso ? Signed By: ?<Electronically signed by Clarence Fregoso in OV> ?08/26/24 1052 ? DD/ 0943 ? TD/TT: 08/26/24 1005 ? Log Marker: ? Procedure Note Leah Ch - 08/26/2024 [place] [address] XRay Report Signed Patient: Simone Magallanes #: [id number] : 9Acct:[id number] Age/Sex: 84 / MADM Date: 08/26/24 Loc: HO.ED Attending Dr: Ordering Physician: Ora Soto NP Date of Service: 08/26/24 Procedure(s): XR knee LT 4V Accession Number(s): [id number] cc: Melany Alejandre DO; Ora Soto NP EXAMINATION: XR KNEE, LEFT CLINICAL INFORMATION: fall, swelling COMPARISON: October 18, 2018. TECHNIQUE: Four views of the left knee. FINDINGS: Approximately 0.4 cm, angular, radiopaque density projects over the superficial soft tissues just medial to the knee joint, possibly representing a foreign body. Recommend clinical correlation. There is a moderate to large suprapatellar effusion. No acute fracture or dislocation is directly visualized. Significant chondrocalcinosis is seen. Mild tricompartmental degenerative joint space narrowing. Vascular calcification. XR/XR knee LT 4V IMPRESSION: Findings as above. Electronically signed by: Clarence Fregoso MD 08/26/2024 10:[address] 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
--- OUTSIDE RECORDS SUMMARY | 2024-11-26 10:30 | XMS_ITS | Encounter Summary ---
Author Organization [facility] Address [address] [facility] 7t [place] [address] Care Team Providers Care Wet Trimmer Name Role Phone ErlinMelany scott Primary Care Provider [phone] Katerina Abarca PharmD Unavailable [phone] Reason for Visit * Reason Comments Med Refill Encounter Details Date Type Department Care Team ([facility] st Contact Info) Description 11/16/2024 Refill [facility] [address] [place], [place] [phone] Puia Katerina, PharmD [address] [place] [address] Type 2 diabetes mellitus with microalbuminuria, with long-term current use of insulin ([facility]) Social History Tobacco Use Types Packs/Day Years [...] AM EDT documented as of this encounter Miscellaneous Notes * Telephone Encounter - Katerina Abarca PharmD - 11/19/2024 9:54 AM EST Seen 11/13, plan to continue this med w/o change. Renal function 10/2024 more than adequate to do so. documented in this encounter Plan of Treatment Upcoming Encounters Date Type Department Care Team (Late st Contact Info) Description 11/27/2024 10:45 AM EST Office Visit [address] [address] Melany Alejandre DO [address] [place] [address] 11/28/2024 2:00 PM EST Medication Management [address] [address] 01/03/2025 10:00 AM EDT Medication Management [address] [address] Katerina Abarca PharmD [address] [place] [address] documented as of this encounter Goals Goal Patient Goal Type Associated Problems Recent Progress Patient-Stated? Author Hemoglobin A1c < 8 Result Component 9.2( 5 11:04 AM EST) No Tru Barrera PharmD Record your blood sugar as directed Result Component No Katerina Abarca PharmD Note: Use CGM, ensuring sensor is scanned at least once every 8 hours to capture 24H data. Check BG manually, as directed. documented as of this encounter Visit Diagnoses Diagnosis Type 2 diabetes mellitus with microalbuminuria, with long-term current use of insulin ([facility]) documented in this encounter Additional Health Concerns Assessment Noted Time PHQ-9 Depression Total Score: 4 07/23/20 24 9:51 AM EDT documented as of this encounter Care Teams Wet Trimmer Relationship Specialty Start Date End Date Melany Alejandre DO [address] [place] [address] PCP - General Family Medicine 09/29/16 Katerina Abarca PharmD [address] [place] [address] Pharmacist Internal Medicine 04/11/23 Rutledge MICHAEL 09/15/24 documented as of this encounter
--- OUTSIDE RECORDS SUMMARY | 2024-11-26 10:30 | XMS_ITS | Encounter Summary ---
Author Organization [facility] Address [id number] [place] [phone] Care Team Providers Care Child Care Associate Name Role Phone Melany Alejandre Primary Care Provider [phone] Encounter Details Date Type Department Care Team (Late st Contact Info) Description 09/02/2024 Lab Requisition [facility] - Main Lab [address] [facility] [place] [address] Yehuda Glasgow MD [address] [facility] [address] [place], [address] Type 2 diabetes mellitus without complications [...] 10:00 AM EDT Office Visit Orthopedic Surgery [facility] [address] [phone] Nicola Velasquez DPM [address] [address] 01/22/2025 10:00 AM EDT Office Visit Orthopedic [facility] [address] [phone] Nicola Velasquez DPM [address] [address] documented as of this encounter Procedures Procedure Name Priority Date/Time Associated Diagnosis Comments COMPLETE BLOOD COUNT Routine 09/02/2024 5:10 AM EST Type 2 diabetes mellitus without complications ([facility]) COMPREHENSIVE METABOLIC PANEL Routine 09/02/2024 5:10 AM EST Type 2 diabetes mellitus without complications ([facility]) documented in this encounter Results * (ABNORMAL) Comprehensive metabolic panel (09/02/2024 5:10 [...] MD LAB BLOOD ORDERABLES Final Resul t [facility] [address] [place] [address], [place] [phone] * (ABNORMAL) Complete blood count (09/02/2024 5:10 AM EST) WBC 11.2(H) 4.8 - 10.8 K/mcL LAB HEMETOLOGY METHOD 09/02/2024 8:[address] [facility] RBC 3.80(L) 4.50 - 5.50 M/mcL LAB HEMETOLOGY METHOD 09/02/2024 8:[address] [facility] Hemoglobin 10.8(L) 13.5 - 17.5 g/dL LAB HEMETOLOGY METHOD 09/02/2024 8:[address] [facility] Hematocrit 34.4(L) 42.0 - 54.0 % LAB HEMETOLOGY METHOD 09/02/2024 8:[address] [facility] MCV 91.0 79.0 - 98.0 FL LAB HEMETOLOGY METHOD 09/02/2024 8:[address] [facility] MCH 28.6 27.0 - 32.0 pcg LAB HEMETOLOGY METHOD 09/02/2024 8:[address] [facility] MCHC 31.4(L) 32.0 - 37.0 g/dL LAB HEMETOLOGY METHOD 09/02/2024 8:[address] [facility] RDW 13.7 11.0 - 15.0 % LAB HEMETOLOGY METHOD 09/02/2024 8:[address] [facility] Platelets 247 130 - 400 K/mcL LAB HEMETOLOGY METHOD 09/02/2024 8:[address] [facility] MPV 12.1(H) 7.0 - 11.0 FL LAB HEMETOLOGY METHOD 09/02/2024 8:[address] [facility] NRBC 0.0 <1.0 % LAB HEMETOLOGY METHOD 09/02/2024 8:[address] [facility] NRBC Absolute 0.00 <0.10 K/mcL LAB HEMETOLOGY METHOD 09/02/2024 8:[address] [facility] Blood Venous blood specimen / Unknown Venipuncture / Unknown 09/02/2024 5:10 AM EST 09/02/2024 7:57 AM EST us Yehuda Glasgow MD LAB BLOOD ORDERABLES Final Resul t [facility] [address] [place] [address], documented in this encounter Visit Diagnoses Diagnosis Type 2 diabetes mellitus without complications (CMS/HCC) documented in this encounter Care Teams Child Care Associate Relationship Specialty Start Date End Date Melany Alejandre DO [address] [place] [address] PCP - General 07/04/24 documented as of this encounter
--- OUTSIDE RECORDS SUMMARY | 2024-11-26 10:30 | XMS_ITS | Encounter Summary ---
Author Organization [employer] [facility] Address [address] [facility] 7t [place] [address] Care Team Providers Care Patent Engineer Name Role Phone Melany Alejandre DO Primary Care Provider + [phone] Katerina Abarca PharmD Unavailable [phone] Reason for Visit * Reason Comments Med Refill Encounter Details Date Type Department Care Team (Late st Contact Info) Description 10/22/2023 Refill [facility] [address] [place], [place] [phone] Melany Alejandre DO [address] [place] [address] Vitamin D deficiency; Hypertension, unspecified type Social History Tobacco Use Types Packs/Day Years [...] Description 11/27/2024 10:45 AM EST Office Visit [address] [address] Melany Alejandre DO [address] [place] [address] 11/28/2024 2:00 PM EST Medication Management [address] [address] 01/03/2025 10:00 AM EDT Medication Management [address] [address] Katerina Abarca PharmD [address] [place] [address] documented as of this encounter Goals Goal [...] as of this encounter Visit Diagnoses Diagnosis Vitamin D deficiency Hypertension, unspecified type documented in this encounter Additional Health Concerns Assessment Noted Time PHQ-9 Depression Total Score: 0 11/02/19 23 9:59 AM EST documented as of this encounter Care Teams Patent Engineer Relationship Specialty Start Date End Date Melany Alejandre DO [address] [place] [address] PCP - General Family Medicine 09/29/16 Katerina Abarca PharmD [address] [place] [address] Pharmacist Internal Medicine 04/11/23 Sameer RODRIGUEZ 09/15/24 documented as of this encounter
--- OUTSIDE RECORDS SUMMARY | 2024-11-26 10:30 | XMS_ITS | Encounter Summary ---
Author Organization [employer] Address [address] [facility] 7t [place] [address] Care Team Providers Care Counter Cutter Name Role Phone Melany Alejandre DO Primary Care Provider [phone] Katerina Abarca PharmD Unavailable [phone] Reason for Visit * Reason Onset Date Comments [employer] Patient Care Solution 10/30/2024 Skin barrier, wipes or swabs each Encounter Details Date Type Department Care Team (Late st Contact Info) Description 10/30/2024 Telephone [facility] [address] [place], [place] [phone] Melany Alejandre DO [address] [place], [place] [phone] [employer] Patient Care Solution (Skin barrier, wipes or swabs each) Social History Tobacco Use Types Packs/Day Years [...] encounter Miscellaneous Notes * Telephone Encounter - Anisa Naik - 11/25/2024 11:01 AM EST Written Order for wound care supplies signed and faxed to [facility] . Confirmation received and sent to scan. If patient calls to check status on above, please advise them to contact [facility] . * Telephone Encounter - Praveena Patterson MA - 10/30/2024 9:42 AM EST [email or web address] Skin, wipes or swabs. Form has been placed on PCP's desk for signature. documented in this encounter Plan of Treatment Upcoming Encounters Date Type Department Care Team (Late st Contact Info) Description 11/27/2024 10:45 AM EST Office Visit [facility] [address] [place] [address] Melany Alejandre DO [address] [place] [address] 11/28/2024 2:00 PM EST Medication Management [address] [address] 01/03/2025 10:00 AM EDT Medication Management [address] [address] Katerina Abarca PharmD [address] [place] [address] documented as of this encounter Goals Goal [...] documented as of this encounter Care Teams Counter Cutter Relationship Specialty Start Date End Date Melany Alejandre DO [address] [place] [address] PCP - General Family Medicine 09/29/16 Katerina Abarca PharmD [address] [place] [address] Pharmacist Internal Medicine 04/11/23 [facility] 09/15/24 documented as of this encounter
--- OUTSIDE RECORDS SUMMARY | 2024-11-26 10:30 | XMS_ITS | Encounter Summary ---
Author Organization [facility] Address [address] [place] [phone] Care Team Providers Care Warehouse Order Filler Name Role Phone Melany Alejandre Primary Care Provider [phone] Encounter Details Date Type Department Care Team (Late st Contact Info) Description 09/10/2024 Lab Requisition [facility] - Main Lab [address] [facility] [place] [address] Yehuda Glasgow MD [address] [facility] [address] [place], [address] Type 2 diabetes mellitus without complications [...] 10:00 AM EDT Office Visit Orthopedic Surgery [facility] [address] [phone] Nicola Velasquez DPM [address] [address] 01/22/2025 10:00 AM EDT Office Visit Orthopedic [facility] [address] [phone] Nicola Velasquez DPM [address] [address] documented as of this encounter Visit Diagnoses Diagnosis Type 2 diabetes mellitus without complications (CMS/HCC) documented in this encounter Care Teams Warehouse Order Filler Relationship Specialty Start Date End Date Melany Alejandre DO [address] [place], [place] PCP - General 07/04/24 documented as of this encounter
--- OUTSIDE RECORDS SUMMARY | 2024-11-26 10:30 | XMS_ITS | Encounter Summary ---
Author Organization [facility] Address [address] [place] [phone] Care Team Providers Care Recreational Counselor Name Role Phone Melany Alejandre Primary Care Provider [phone]- [phone] Encounter Details Date Type Department Care Team (Late st Contact Info) Description 09/04/2024 Lab Requisition [facility] - Main Lab [address] [facility] [place] [address] Yehuda Glasgow MD 38 [facility] [address] [place], [phone] Polyneuropathy, unspecified Social History Tobacco Use Types Packs/Day Years [...] 10:00 AM EDT Office Visit Orthopedic Surgery [facility] [address] [phone] Nicola Velasquez DPM [address] [address] 01/22/2025 10:00 AM EDT Office Visit [facility] [address] [phone] Nicola Velasquez DPM [address] [address] documented as of this encounter Visit Diagnoses Diagnosis Polyneuropathy, unspecified documented in this encounter Care Teams Recreational Counselor Relationship Specialty Start Date End Date Melany Alejandre DO [address] [place], [place] PCP - General 07/04/24 documented as of this encounter
--- OUTSIDE RECORDS SUMMARY | 2024-11-26 10:30 | XMS_ITS | Encounter Summary ---
Author Organization [facility] Address [address] [facility] 7t [place] [address] Care Team Providers Care Letter Sorting Machine Operator Name Role Phone Melany Alejandre DO Primary Care Provider [phone] Katerina Abarca PharmD Unavailable [phone] Reason for Visit * Reason Comments Med Refill Encounter Details Date Type Department Care Team ([facility] st Contact Info) Description 11/16/2024 Refill [facility] MEDICINE [address] [place], [place] [phone] Melany Alejandre DO [address] [place] [address] Social History Tobacco Use Types Packs/Day Years [...] Description 11/27/2024 10:45 AM EST Office Visit [address] [address] Melany Alejandre DO [address] [place] [address] 11/28/2024 2:00 PM EST Medication Management [address] [address] 01/03/2025 10:00 AM EDT Medication Management [address] [address] Katerina Abarca PharmD [address] [place] [address] documented as of this encounter Goals Goal [...] documented as of this encounter Care Teams Letter Sorting Machine Operator Relationship Specialty Start Date End Date Melany Alejandre DO [address] [place] [address] PCP - General Family Medicine 09/29/16 Katerina Abarca PharmD [address] [place] [address] Pharmacist Internal Medicine 04/11/23 Sameer A 09/15/24 documented as of this encounter
--- OUTSIDE RECORDS SUMMARY | 2024-11-26 10:30 | XMS_ITS | Encounter Summary ---
Author Organization [employer] [facility] Address [address] [facility] 7t [place] [address] Care Team Providers Care Generator Man Name Role Phone DemiMelany marcus Primary Care Provider + [phone] Katerina Abarca PharmD Unavailable [phone] Encounter Details Date Type Department Care Team (Latest Contact Info) Description 11/13/2024 Travel Social History Tobacco Use Types Packs/Day Years [...] Description 11/27/2024 10:45 AM EST Office Visit [address] [address] Melany Alejandre DO [address] [place] [address] 11/28/2024 2:00 PM EST Medication Management [address] [address] 01/03/2025 10:00 AM EDT Medication Management [address] [address] Katerina Abarca PharmD [address] [place] [address] documented as of this encounter Goals Goal Patient Goal Type Associated Problems Recent Progress Patient-Stated? Author Hemoglobin A1c < 8 Result Component 9.2( 11:04 AM EST) No Tru Barrera, PharmD Record your blood sugar as directed [...] documented as of this encounter Care Teams Generator Man Relationship Specialty Start Date End Date Melany Alejandre DO [address] [place] [address] PCP - General Family Medicine 09/29/16 Katerina Abarca PharmD [address] [place] [address] Pharmacist Internal Medicine 04/11/23 Sameer [facility] 09/15/24 documented as of this encounter
== END 2024-11-26 10:14 | disposition home or self-care (01) ==
PROVIDERS: PCP Family Medicine; Visit Provider Physician Assistant
DX: M17.12 Unilateral primary osteoarthritis, left knee (principal)
CPT/HCPCS: 20610; 99214

== ENCOUNTER → 2024-11-26 09:26 | Outpatient (BNVA) | payer OTHER, SELFPAY | PROVIDERS: PCP Family Medicine; Visit Provider Physician Assistant | DX: M17.12 Unilateral primary osteoarthritis, left knee (principal); Z91.81 History of falling | CPT/HCPCS: 20610; 99212; J1010; J2003 ==

== ENCOUNTER 2025-03-03 10:30 | Outpatient (RCR) | payer OTHER, SELFPAY | END 2025-03-03 16:36 | disposition home or self-care (01) | LOC: HO.WCC 10:30 | PROVIDERS: PCP Family Medicine; Visit Provider Surgery | DX: Z09 Encounter for follow-up examination after completed treatment for conditions other than malignant neoplasm (principal); Z86.31 Personal history of diabetic foot ulcer | CPT/HCPCS: 11042; 15275; 97597; 99212; 99213; Q4187 ==

== ENCOUNTER 2025-03-18 09:17 | Outpatient (AMB) | payer OTHER, SELFPAY ==
--- NOTE | 2025-03-18 09:20 | A.OFFVIS_ITS ---
Vital Signs 03/18/25 09:21 Height 5 ft 9 in Weight 160 lb 14.999 oz BMI 23.8 BP 124/60 Blood Pressure Location Lt brachial Position Sitting Pulse 44 L Intake Visit Reasons: 2 year f/up rs from 12/09/24 Intake Note: 2 year follow-up with ekg feeling good Vacuum Filter Operator Required: Yes Vacuum Filter Operator Name: juan Turner Licensed Physical Therapy Assistant: Licensed Physical Therapy Assistant Present Accompanied by: Spouse Allergies No Known Allergies Allergy (Verified 11/26/24 09:42) Medication List - Last Reconciled 03/18/25 by Dhruv Rhodes MD acetaminophen 1,000 mg PO TID aspirin 81 mg PO DAILY atorvastatin 80 mg PO BEDTIME bisacodyl 10 mg FL Q8H PRN bisacodyl 5 mg PO DAILY cholecalciferol (vitamin D3) (Vitamin D3) 50 mcg PO DAILY collagenase clostridium histo. 1 appl See Protocol topical DAILY 30 days cyanocobalamin (vitamin B-12) 1,000 mcg PO DAILY donepezil 5 mg PO DAILY doxepin 25 mg PO BEDTIME dulaglutide (Trulicity) 1.5 mg subcut SA empagliflozin (Jardiance) 25 mg PO DAILY finasteride 5 mg PO DAILY gabapentin 400 mg PO BID hydrochlorothiazide 25 mg PO DAILY insulin degludec (Tresiba FlexTouch U-100 insulin) 8 units subcut BEDTIME insulin lispro (Humalog KwikPen (U-100) Insulin) 1 sliding scale dose See Protocol subcut USEASDIRECTD levothyroxine 25 mcg PO DAILY@0600 lisinopril 40 mg PO DAILY magnesium hydroxide (Milk of Magnesia) 30 mL PO Q8H PRN metoprolol succinate ER 100 mg PO DAILY naloxone 4 mg/actuation (Narcan) 4 mg intranasal Q3M PRN polyethylene glycol 3350 (Miralax) 17 grams PO DAILY sodium phosphates 19-7 gram/118 mL (Fleet Enema) 118 mL FL Q8H PRN tamsulosin (Flomax) 0.4 mg PO DAILY tirzepatide (Mounjaro) 2.5 mg subcut QWEEK HPI Comments Details: Simone comes for follow-up, accompanied by his . History was obtained with help of repairer art objects in the room. Patient has no symptoms from cardiac perspective. Denies any exertional chest pain or shortness of breath. He has had slow cognitive decline although today appears to be conversing well. He had had multiple hospital admissions last year for acute kidney injury, infection with UTI in altered mental status with delirium. He was then intermediate facility but now currently at home. He also had a long issue with sacral wound which as per the is now resolved with wound care clinic assistance. He is sugars also better care. He has no history of lightheadedness or syncope recently. No orthopnea, PND, leg edema. Comes for follow-up today he is noted to have marked bradycardia [facility] Medical History Pressure ulcer of sacral region UTI (urinary tract infection) SHERRI (acute kidney injury) Hyperglycemia due to type 2 diabetes mellitus Effusion of left knee Diarrhea Epigastric pain H. pylori infection Prostate cancer CAD (coronary artery disease) Diabetes Surgical History Hx of cataract removal with insertion of prosthetic lens History of back surgery Hx of appendectomy Hx of cardiac cath Family History Father No problems noted. Mother Uterine cancer Social History Household Members: Unknown / Unable to assess Household Members Other:: pt is very confused, AxOX1 Housing: Unknown / Unable to assess Patient Tobacco Use Status: Never used Tobacco service: No Review of Systems Const Denies chills, Denies fatigue, Denies fever(s), Denies frequent falls, Denies weakness, Denies weight gain and Denies weight loss ENT Denies dizziness Card Denies chest pain, Denies leg edema, Denies lightheadedness, Denies palpitations, Denies dyspnea, Denies dyspnea on exertion, Denies orthopnea and Denies other (loss of consciousness) Resp Denies cough, Denies dyspnea and Denies dyspnea on exertion GI Denies hematochezia and Denies change in stool character Musc Denies abnormal gait, Denies muscle weakness, Denies numbness, Denies radiating pain into limb and Denies tingling Neuro Denies abnormal gait, Denies dizziness, Denies frequent falls, Denies numbness, Denies tingling and Denies weakness Endo Denies fatigue and Denies palpitations Physical Exam Vital Signs: BMI result Body Mass Index 23.8 Const General: cooperative, comfortable, alert and awake Nutritional Appearance: overweight Orientation/consciousness: patient oriented x3 Limitations: no limitations Neck Neck: Yes trachea midline, Yes supple and Yes no JVD Carotids: no bruits Chest Chest palpation & inspection: normal inspection of the chest Resp Effort & Inspection: normal respiratory effort Auscultation: clear to auscultation bilaterally Cardio Jugular venous distension: no JVD Palpation: normal PMI Rate: regular rate Rhythm: regular rhythm Heart sounds: S1 normal heart sound present and S2 normal heart sound present GI Auscultation: normal bowel sounds Skin General skin exam: no rashes or lesions noted Neuro General: patient oriented x3 and no focal motor deficits Extrem General: Yes no clubbing, cyanosis or edema Psych Appearance: grossly normal Office Procedures EKG Details: EKG shows marked sinus bradycardia with first-degree AV block with incomplete left bundle-branch block and nonspecific STT wave changes [id number], Complete Assessment & Plan Assessment & Plan (1) Sinus bradycardia: Code(s): R00.1 - Bradycardia, unspecified Category: Medical Plan: Significant sinus bradycardia which is most likely related to metoprolol therapy and 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 Have advised to reduce metoprolol to 50 mg daily. See below for blood pressure checks. Will follow up in 1 week for EKG and blood pressure check. If remains bradycardic will further taper and discontinue metoprolol therapy. No indication for pacing therapy as patient is currently asymptomatic. If remains bradycardic after withdrawal of metoprolol therapy will need a Holter monitor (2) CAD (coronary artery disease): Code(s): I25.10 - Atherosclerotic heart disease of [place] coronary artery without angina pectoris Category: Medical Plan: Nonobstructive CAD without any significant cardiac symptoms at current point time. Continue low-dose aspirin therapy. Continue high-intensity statin therapy with target goal LDL less than 70 mg/dL. Continue aggressive diabetes management goal hemoglobin A1c less than 7%. (3) HTN (hypertension), benign: Code(s): I10 - Essential (primary) hypertension Category: Medical Plan: High blood pressure which is currently well optimized on current therapy although we are going to reduce metoprolol therapy. Advise to monitor blood pressure at home maintain a log. Will follow up in 1 week's time. If blood pressure starts elevating can add amlodipine therapy for better blood pressure control. Will follow up in the clinic otherwise in 1 year's time, sooner p.r.n.. Thank you for allowing me to partake in his care Medications: Changed From metoprolol succinate ER 100 mg PO DAILY To metoprolol succinate ER 50 mg PO DAILY Coding Level of Care Code Est Pt Level 4 (24908) Complex EM visit Add On G2211 Diagnoses Sinus bradycardia R00.1 CAD (coronary artery disease) I25.10 HTN (hypertension), benign I10 CPT Codes EKG - CPT: 53764-[id number], Complete ([id number])
[2025-03-18 09:21] VITALS: BP 124/60; PULSE 44; BMI 23.8
--- OUTSIDE RECORDS SUMMARY | 2025-03-18 09:56 | XMS_ITS | Encounter Summary ---
Author Organization [employer] Address [address] [place] [address] Care Team Providers Care [employer] T[employer] Developer Name Role Phone DemiMelany marcus Primary Care Provider Katerina Abarca PharmD Unavailable [phone] Encounter Details Date Type Department Care Team (Late st Contact Info) Description 09/27/2024 Orders Only [facility] MEDICINE [address] [place] [address] Hannah Nagy MD [address] [place] [address] Social History Tobacco Use Types Packs/Day Years [...] Care Team (Late st Contact Info) Description 04/07/2025 10:00 AM EDT Medication Management [facility] MEDICINE [address] [place] [address] Katerina Abarca PharmD [address] [place] [address] 07/01/2025 10:30 AM EDT Office Visit [facility] OPTOMETRY [address] [place] [address] Tarka, Marianne, OD [address] [place] [address] documented as of this encounter Goals Goal Patient Goal Type Associated Problems Recent Progress Patient-Stated? Author Hemoglobin A1c < 8 Result Component 7.9( 5 12:12 PM EDT) No Tru Barrera PharmSanty Record your blood sugar as directed Result Component No Katerina Abarca PharmD Note: Use CGM, ensuring sensor is scanned at least once every 8 hours to capture 24H data. Check BG manually, as directed. documented as of this encounter Visit Diagnoses Not on filedocumented in this encounter Additional Health Concerns Assessment Noted Time PHQ-9 Depression Total Score: 4 10/22/20 24 9:51 AM EDT documented as of this encounter Care Teams [employer] Developer Relationship Specialty Start Date End Date Melany Alejandre DO [address] [place] [address] PCP - General Family Medicine 09/29/16 Katerina Abarca PharmD [address] [place] [address] Pharmacist Internal Medicine 04/11/23 [place] [facility] 09/15/24 documented as of this encounter
== END 2025-03-18 09:53 | disposition home or self-care (01) ==
LOC: HO.HCS 09:18
PROVIDERS: PCP Family Medicine; Visit Provider Internal Medicine Cardiovascular Disease
DX: R00.1 Bradycardia, unspecified (principal); I25.10 Atherosclerotic heart disease of native coronary artery without angina pectoris; I10 Essential (primary) hypertension
CPT/HCPCS: 93010; 99214; G2211

== ENCOUNTER → 2025-03-18 09:17 | Outpatient (BNVA) | payer OTHER, SELFPAY | PROVIDERS: PCP Family Medicine; Visit Provider Internal Medicine Cardiovascular Disease | DX: I25.10 Atherosclerotic heart disease of native coronary artery without angina pectoris (principal); R00.1 Bradycardia, unspecified | CPT/HCPCS: 93005; 99212 ==